=== PATIENT | male | born 1945 | race Caucasian/White ===

== ENCOUNTER 2023-07-02 15:47 | Inpatient (IN) ==
[2023-07-02] MEDS ORDERED: SODIUM CHLORIDE 0.9% 500 ML IV STA (15:58)
[2023-07-02] MEDS ORDERED: STAT IV Infusion **Titration per Protocol STA (16:34)
[2023-07-02] MEDS ORDERED: dilTIAZem HCl 5 MG/ML 5 ML VIAL IV STA (16:34)
[2023-07-02 16:37] LABS: Basophils # (auto) 0.04 K/uL (0-0.2); Basophils % (auto) 0.2 %; Eosinophils # (auto) 0.14 K/uL (0-0.50); Eosinophils % (auto) 0.8 %; Hemoglobin 16.1 g/dl (14.0-18.0); Immature Granulocytes # (auto) 0.15 K/uL (0.01-0.20); Immature Granulocytes % (auto) 0.8 %; Lymphocytes # (auto) 0.72 K/uL (1.2-3.4); Lymphocytes % (auto) 3.9 %; Mean Corpuscular Hemoglobin 28.6 pg (25.0-34.0); Mean Corpuscular Hgb Conc 34.3 g/dL (32.0-36.0); Mean Corpuscular Volume 83.6 fL (80.0-100.0); Mean Platelet Volume 10.6 fL (9.4-12.4); Monocytes # (auto) 1.19 K/uL (0.11-0.59); Monocytes % (auto) 6.4 %; Neutrophils # (auto) 16.36 K/uL (1.40-6.50); Neutrophils % (auto) 87.9 %; Platelet Count 233 K/uL (130-400); RDW Coefficient of Variation 12.8 % (11.5-14.5); RDW Standard Deviation 38.7 fL (36.4-46.3); Red Blood Count 5.62 M/uL (4.70-6.10)
[2023-07-02] MEDS ORDERED: ONDANSETRON INJ 2 MG/ML 2 ML VIAL IV STA (16:37)
[2023-07-02] MEDS ORDERED: dilTIAZem HCL 125 MG in DEXTROSE 5% 100 ML IV SCH (16:45)
[2023-07-02 16:55] LABS: Albumin Globulin Ratio 1.2 (0.9-2); Albumin Level 4.1 gm/dl (3.4-5.0); BUN Creatinine Ratio 19.2 (10-20); Bilirubin,Total 1.6 mg/dl (0.2-1.0); Calcium 8.9 mg/dl (8.6-10.3); Creatinine Clr Calc Pharmacy 57.9 ml/min; Est GFR (African American) 60.6 ml/min; Est GFR (Non-African American) 52.3 ml/min; Globulin 3.5 gm/dl (2.5-4.0); Magnesium 1.7 mg/dl (1.7-2.4); Potassium 3.7 mmol/L (3.5-5.1); Total Protein 7.6 gm/dl (6.0-8.3)
--- NOTE | 2023-07-02 18:04 | CT Scan Report ---
ABDOMEN AND PELVIS CT WITHOUT CONTRAST CT DOSE: 1446.57 mGy.cm HISTORY: Acute lower abdominal pain with nausea and vomiting lower abd pain, vomiting TECHNIQUE: Multiaxial CT images of the abdomen and pelvis were performed without contrast. A dose lo wering technique was utilized adhering to the principles of ALARA. COMPARISON STUDY: None. FINDINGS: Cardiomegaly with coronary artery calcifications. Mild bibasilar atelectasis. No free air. Calcified granulomata in the spleen. Mildly atrophic pancreas. Remarkable gallbladder and adrenal gla nds. Mild hepatomegaly with hepatic steatosis. Unremarkable right kidney. There are at least 7 nonobstructing calculi left kidney measuring up to 8 mm. Mild to moderate left-sided hydroureteronephrosis with reactive perinephric and perirenal inflamm atory stranding secondary to an obstructing 5 x 6 x 5 mm calculus of the left ureter at the level of L4-L5. Prostatomegaly. Urinary bladder wall thickening with partial distention. Atherosclerosis of th e aorta. No lymphadenopathy. Duodenal diverticula. No bowel junction or bowel wall thickening. Colonic diverticulosis. Normal appe ndix. Unremarkable soft tissues. Degenerative changes of the spine result in multilevel central canal and foraminal narrowing and the lumbar distribution. IMPRESSION: 1. [id number] left-sided hydroureteronephrosis secondary to an obstructing 6 mm calculus of the left ureter at the level L4-L5. 2. Left nephrolithiasis. 3. Hepatic steatosis. 4. Additional findings as above. ACT 112: Negative or not required by law. The above report was generated using voice recognition software. It may contain grammatical, syntax o r spelling errors. Electronically signed by: Win Barahona M.D. 07/02/2023 6:01 PM
--- NOTE | 2023-07-02 18:32 | Emergency Department Note ---
Impression & Plan Ureterolithiasis, Atrial fibrillation with rapid ventricular response, Vomiting, Acute UTI (urinary tract infection) ED Provider Note INFORMANT: Patient ED PROVIDER(S): Isiah Laughlin MD CHIEF COMPLAINT: Vomiting PLAN: Disposition: Admitted Condition: Guarded Outpatient prescription management: none Referral: None MEDICAL DECISION MAKING: Patient presented because of vomiting and noted abdominal pain. He was found to be in rapid atrial fibrillation. He was seen promptly and an ECG confirmed his rapid A-fib. Cardizem bolus and drip ordered. This did do well to rate control the patient. The patient had some tenderness mostly on the left side of his abdomen on examination. He had a significant leukocytosis. Chemistry panel was unremarkable. CT imaging was performed and did reveal a 5 to 6 mm left-sided stone with hydronephrosis. There was some delay in getting a urinalysis from the patient. Unfortunately when this was done and appears to be infected. Patient did receive saline hydration. Patient was given IV Rocephin. Patient will need further management in the hospital. Consultation was made with urology. Case discussed with Yuri Pak PA-C. Patient was evaluated in the ER and felt to be in need of emergent stenting. Consultation was made with Dr. Flo Jeffers, [facility] hospitalist service. Patient was admitted for further management. . Discussed with gas manager After review of the information above and other included data, I feel the patient requires admission. Triage Nursing notes reviewed and agree them. Vital Signs: reviewed and remarkable for tachycardia Prior /Outside records reviewed: none Differential diagnosis: Etiologies such as gastroenteritis, food borne illness, infections, appendicitis, diverticulitis, inflammatory bowel disease, GI bleed, biliary pathology, as well as others were entertained. Diagnostics, as interpreted by me: ECG: Twelve-lead ECG reveals atrial fibrillation with rapid ventricular response at 145 bpm. PVCs present. Left axis deviation. No ST elevation. Septal Q wave present. Cardiac Monitoring: Cardiac monitoring ordered by me: The patient was placed on continuous cardiac monitoring and observed. It revealed atrial fibrillation at 124 bpm. Medical decision rules: none Imaging studies: CT imaging of the abdomen pelvis reveals a left-sided proximal ureteral stone with hydronephrosis. HPI: The patient is a 78year old male who presents to the Emergency Room with complaints of vomiting. This started 3 days ago and is persisting. The patient also notes the following associated symptoms, feeling dizzy, poor appetite, abdominal pain that was described as generalized but more so on the left side. Pain is worse with being up and moving around but feels much better laying down. The patient has found no medication for relieving factors. Current pain is rated as 0/10. Pain at its worst was an 8. Pt denies LOC, headache, fevers, chills, diaphoresis, visual changes, neck pain, chest pain, breathing difficulties, back pain, melena, hematochezia, urinary symptoms, numbness, weak ness, lymphadenopathy, rash, or other complaints. PAST MEDICAL HISTORY: See Below, Lyme PAST SURGICAL HISTORY: See Below, SOCIAL HISTORY: See Below, non-smoker HOME MEDICATIONS: See Below ALLERGIES: See Below VITALS: See Below PHYSICAL EXAMINATION: GENERAL: Awake, alert, uncomfortable-appearing, in no distress HENT: Normocephalic, atraumatic. Oropharynx unremarkable. EYES: Normal conjunctiva. Sclera non-icteric. NECK: Inspection normal. Non-tender. Supple. No nuchal rigidity. FROM. No masses. RESPIRATORY: Clear to auscultation. No wheezes. No rales. Normal respiratory effort. CARDIAC: Tachycardic rate. Irregular rhythm. No murmurs. No rubs. Extremities warm and well perfused. Pulses equal. No JVD. GI: Soft, non-distended. Left flank and left lower quadrant tenderness to palpation. No rebound or guarding. No masses. RECTAL: Deferred. MUSCULOSKELETAL: Atraumatic. Chest examination reveals no tenderness. The back is symmetrical on inspection without obvious abnormality. There is no CVA ten derness to palpation. No joint edema. LOWER EXTREMITIES: Calves are equal size bilaterally and non-tender. No edema. No discoloration. NEURO: Normal sensorium. No sensory or motor deficits noted. SKIN: No rash or jaundice noted. CRITICAL CARE: I have personally spent 35 minutes of critical care time in the direct management of this patient. This includes bedside care, interpretation of diagnostic studies, and testing, discussion with consultants, patient, and other required patient management activities. These minutes are in excess of all separately billable procedures. Past Med/Surg History Medical History Hypertension Surgical History History of cataract surgery RT History of tonsillectomy History of tooth extraction Family History Family/Other No pertinent family history Other No family history of adverse response to anesthesia Denies family history of Ovarian cancer Prostate cancer Myocardial infarction Breast cancer Colorectal cancer Social History Smoking Status: Never smoker Second Hand Exposure: No; Do You Dip or Chew Tobacco: No; Hx Alcohol Use: No Hx Substance Use: No Preferred Language: French Communication Ability: Effective Housekeeping Coordinator Required: No Beliefs That Will Affect Care: None Current Living Situation: Spouse current occupational status: retired Feels Safe at Home: Yes Assistive Devices: Denture - Upper and Denture - Lower Allergies Allergies Allergy/AdvReac Type Severity Reaction Status Date / Time ION Inhibitors AdvReac Intermediate COUGH PER Verified 07/02/23 18:14 GMG amoxicillin [From Augmentin] AdvReac Intermediate BLURRED Verified 07/02/23 18:14 VISION PER GMG clavulanic acid AdvReac Intermediate BLURRED Verified 07/02/23 18:14 [From Augmentin] VISION PER GMG levofloxacin [From Levaquin] AdvReac Intermediate BLURRED Verified 07/02/23 18:14 VISION PER GMG Home Meds Home Medications Medication Instructions Recorded Confirmed multivitamin 1 tab PO QAM 09/06/20 07/02/23 aspirin 81 mg tablet,delayed 81 mg PO DAILY 07/02/23 07/02/23 release Previous Rx's Medication Instructions Recorded amlodipine 5 mg tablet 5 mg PO QAM #90 tabs 10/18/20 atenolol 25 mg tablet 25 mg PO QAM #90 tabs 11/08/20 Results & Data (ED) Vital Signs Vital Signs - 24 hr 07/02/23 15:54 07/02/23 16:23 07/02/23 16:23 Temperature 37.2 C Temperature Source Temporal Artery Scan Pulse Rate 123 H 155 H Pulse Rate [Apical] Pulse Rate from SpO2 Sensor Pulse Rhythm [Apical] Respiratory Rate 20 Respiratory Effort / Characteristics Non-Labored Spontaneous Respiratory Depth Normal Respiratory Pattern Blood Pressure 185/105 H 161/114 H Blood Pressure [Left Arm] Blood Pressure Mean 131 121 Blood Pressure Mean [Left Arm] Blood Pressure Position [Left Arm] Pulse Oximetry 94 Oxygen Delivery Method Room Air Oxygen Flow Rate Sepsis Recent Fever Within 48 Hours No Sepsis New/Unexplained Change in Mental Status No Sepsis Action Taken by Nursing No Action Required 07/02/23 16:23 07/02/23 16:26 07/02/23 16:26 Temperature Temperature Source Pulse Rate 156 H 154 H Pulse Rate [Apical] Pulse Rate from SpO2 Sensor 148 H Pulse Rhythm [Apical] Respiratory Rate 33 H 28 H Respiratory Effort / Characteristics Respiratory Depth Respiratory Pattern Blood Pressure 149/97 H Blood Pressure [Left Arm] Blood Pressure Mean 103 Blood Pressure Mean [Left Arm] Blood Pressure Position [Left Arm] Pulse Oximetry 93 Oxygen Delivery Method Oxygen Flow Rate Sepsis Recent Fever Within 48 Hours Sepsis New/Unexplained Change in Mental Status Sepsis Action Taken by Nursing 07/02/23 16:30 07/02/23 16:30 07/02/23 16:36 Temperature Temperature Source Pulse Rate 148 H 137 H Pulse Rate [Apical] Pulse Rate from SpO2 Sensor 145 H Pulse Rhythm [Apical] Respiratory Rate 31 H 25 H Respiratory Effort / Characteristics Respiratory Depth Respiratory Pattern Blood Pressure 144/96 H Blood Pressure [Left Arm] Blood Pressure Mean 109 Blood Pressure Mean [Left Arm] Blood Pressure Position [Left Arm] Pulse Oximetry 93 Oxygen Delivery Method Oxygen Flow Rate Sepsis Recent Fever Within 48 Hours Sepsis New/Unexplained Change in Mental Status Sepsis Action Taken by Nursing 07/02/23 16:36 07/02/23 16:40 07/02/23 16:40 Temperature Temperature Source Pulse Rate 118 H Pulse Rate [Apical] Pulse Rate from SpO2 Sensor 101 H Pulse Rhythm [Apical] Respiratory Rate 22 Respiratory Effort / Characteristics Respiratory Depth Respiratory Pattern Blood Pressure 135/105 H 140/79 Blood Pressure [Left Arm] Blood Pressure Mean 115 84 Blood Pressure Mean [Left Arm] Blood Pressure Position [Left Arm] Pulse Oximetry 93 Oxygen Delivery Method Oxygen Flow Rate Sepsis Recent Fever Within 48 Hours Sepsis New/Unexplained Change in Mental Status Sepsis Action Taken by Nursing 07/02/23 16:45 07/02/23 16:45 07/02/23 16:50 Temperature Temperature Source Pulse Rate 118 H Pulse Rate [Apical] Pulse Rate from SpO2 Sensor 119 H Pulse Rhythm [Apical] Respiratory Rate 31 H Respiratory Effort / Characteristics Respiratory Depth Respiratory Pattern Blood Pressure 122/92 129/84 Blood Pressure [Left Arm] Blood Pressure Mean 102 108 Blood Pressure Mean [Left Arm] Blood Pressure Position [Left Arm] Pulse Oximetry 88 L Oxygen Delivery Method Oxygen Flow Rate Sepsis Recent Fever Within 48 Hours Sepsis New/Unexplained Change in Mental Status Sepsis Action Taken by Nursing 07/02/23 16:50 07/02/23 16:55 07/02/23 16:55 Temperature Temperature Source Pulse Rate 106 H 103 H Pulse Rate [Apical] Pulse Rate from SpO2 Sensor 109 H 103 H Pulse Rhythm [Apical] Respiratory Rate 32 H 30 H Respiratory Effort / Characteristics Respiratory Depth Respiratory Pattern Blood Pressure 129/92 Blood Pressure [Left Arm] Blood Pressure Mean 108 Blood Pressure Mean [Left Arm] Blood Pressure Position [Left Arm] Pulse Oximetry 90 90 Oxygen Delivery Method Oxygen Flow Rate Sepsis Recent Fever Within 48 Hours Sepsis New/Unexplained Change in Mental Status Sepsis Action Taken by Nursing 07/02/23 17:00 07/02/23 17:00 07/02/23 17:05 Temperature Temperature Source Pulse Rate 117 H Pulse Rate [Apical] Pulse Rate from SpO2 Sensor 118 H Pulse Rhythm [Apical] Respiratory Rate 28 H Respiratory Effort / Characteristics Respiratory Depth Respiratory Pattern Blood Pressure 143/96 H 153/95 H Blood Pressure [Left Arm] Blood Pressure Mean 117 97 Blood Pressure Mean [Left Arm] Blood Pressure Position [Left Arm] Pulse Oximetry 89 L Oxygen Delivery Method Oxygen Flow Rate Sepsis Recent Fever Within 48 Hours Sepsis New/Unexplained Change in Mental Status Sepsis Action Taken by Nursing 07/02/23 17:05 07/02/23 17:11 07/02/23 17:11 Temperature Temperature Source Pulse Rate 103 H 135 H Pulse Rate [Apical] Pulse Rate from SpO2 Sensor 104 H Pulse Rhythm [Apical] Respiratory Rate 27 H 22 Respiratory Effort / Characteristics Respiratory Depth Respiratory Pattern Blood Pressure 135/97 Blood Pressure [Left Arm] Blood Pressure Mean 118 Blood Pressure Mean [Left Arm] Blood Pressure Position [Left Arm] Pulse Oximetry 88 L Oxygen Delivery Method Oxygen Flow Rate Sepsis Recent Fever Within 48 Hours Sepsis New/Unexplained Change in Mental Status Sepsis Action Taken by Nursing 07/02/23 17:25 07/02/23 17:25 07/02/23 17:28 Temperature Temperature Source Pulse Rate 115 H 124 H Pulse Rate [Apical] Pulse Rate from SpO2 Sensor 110 H 124 H Pulse Rhythm [Apical] Respiratory Rate 23 17 Respiratory Effort / Characteristics Respiratory Depth Respiratory Pattern Blood Pressure 123/96 Blood Pressure [Left Arm] Blood Pressure Mean 106 Blood Pressure Mean [Left Arm] Blood Pressure Position [Left Arm] Pulse Oximetry 91 Oxygen Delivery Method Oxygen Flow Rate Sepsis Recent Fever Within 48 Hours Sepsis New/Unexplained Change in Mental Status Sepsis Action Taken by Nursing 07/02/23 19:05 07/02/23 20:22 07/02/23 19:20 Temperature Temperature Source Pulse Rate 102 H 108 H 109 H Pulse Rate [Apical] Pulse Rate from SpO2 Sensor Pulse Rhythm [Apical] Respiratory Rate 26 H 27 H Respiratory Effort / Characteristics Respiratory Depth Respiratory Pattern Blood Pressure 130/92 118/77 Blood Pressure [Left Arm] Blood Pressure Mean 104 90 Blood Pressure Mean [Left Arm] Blood Pressure Position [Left Arm] Pulse Oximetry 90 Oxygen Delivery Method Room Air Oxygen Flow Rate Sepsis Recent Fever Within 48 Hours Sepsis New/Unexplained Change in Mental Status Sepsis Action Taken by Nursing 07/02/23 19:45 07/02/23 20:00 07/02/23 20:15 Temperature Temperature Source Pulse Rate 98 H 105 H 110 H Pulse Rate [Apical] Pulse Rate from SpO2 Sensor Pulse Rhythm [Apical] Respiratory Rate 27 H 21 24 Respiratory Effort / Characteristics Respiratory Depth Respiratory Pattern Blood Pressure 133/86 134/95 125/84 Blood Pressure [Left Arm] Blood Pressure Mean 101 108 97 Blood Pressure Mean [Left Arm] Blood Pressure Position [Left Arm] Pulse Oximetry 91 Oxygen Delivery Method Room Air Oxygen Flow Rate Sepsis Recent Fever Within 48 Hours Sepsis New/Unexplained Change in Mental Status Sepsis Action Taken by Nursing 07/02/23 20:45 07/02/23 21:16 07/02/23 21:20 Temperature Temperature Source Pulse Rate 94 H 105 H 97 H Pulse Rate [Apical] Pulse Rate from SpO2 Sensor 98 H Pulse Rhythm [Apical] Respiratory Rate 24 22 21 Respiratory Effort / Characteristics Respiratory Depth Respiratory Pattern Blood Pressure 125/87 121/85 Blood Pressure [Left Arm] Blood Pressure Mean 99 97 Blood Pressure Mean [Left Arm] Blood Pressure Position [Left Arm] Pulse Oximetry 92 93 91 Oxygen Delivery Method Room Air Room Air Oxygen Flow Rate Sepsis Recent Fever Within 48 Hours Sepsis New/Unexplained Change in Mental Status Sepsis Action Taken by Nursing 07/02/23 22:31 07/02/23 22:40 07/02/23 22:49 Temperature 37.4 C Temperature Source Temporal Artery Scan Pulse Rate Pulse Rate [Apical] 96 H 95 H 98 H Pulse Rate from SpO2 Sensor Pulse Rhythm [Apical] Irregular Irregular Irregular Respiratory Rate 18 20 22 Respiratory Effort / Characteristics Non-Labored Spontaneous Non-Labored Spontaneous Non-Labored Spontaneous Respiratory Depth Normal Normal Normal Respiratory Pattern Regular Regular Regular Blood Pressure Blood Pressure [Left Arm] 108/73 98/80 L 106/73 Blood Pressure Mean Blood Pressure Mean [Left Arm] 84 86 84 Blood Pressure Position [Left Arm] Semi-fowlers Semi-fowlers Semi-fowlers Pulse Oximetry 95 97 96 Oxygen Delivery Method Oxymask Oxymask Oxymask Oxygen Flow Rate 5 5 3 Sepsis Recent Fever Within 48 Hours Sepsis New/Unexplained Change in Mental Status Sepsis Action Taken by Nursing Laboratory Data 07/02/23 16:10 07/02/23 16:10 Lab Results 07/02/23 07/02/23 07/02/23 Range/Units 16:10 16:10 18:45 WBC 18.60 H (4.8-10.8) K/ul RBC 5.62 (4.70-6.10) M/uL Hgb 16.1 (14.0-18.0) g/dl Hct 47.0 (42.0-52.0) % MCV 83.6 (80.0-100.0) fL MCH 28.6 (25.0-34.0) pg MCHC 34.3 (32.0-36.0) g/dL RDW Std Deviation 38.7 (36.4-46.3) fL RDW Coeff of Leeanne 12.8 (11.5-14.5) % Plt Count 233 (130-400) K/uL MPV 10.6 (9.4-12.4) fL Immature Gran % (Auto) 0.8 % Neut % (Auto) 87.9 % Lymph % (Auto) 3.9 % [place] % (Auto) 6.4 % Eos % (Auto) 0.8 % Baso % (Auto) 0.2 % Neut # (Auto) 16.36 H (1.40-6.50) K/uL Lymph # (Auto) 0.72 L (1.2-3.4) K/uL [place] # (Auto) 1.19 H (0.11-0.59) K/uL Eos # (Auto) 0.14 (0-0.50) K/uL Baso # (Auto) 0.04 (0-0.2) K/uL Immature Gran # (Auto) 0.15 (0.01-0.20) K/uL APTT (21.0-31.0) Seconds PTT Ratio ABG pH (7.35-7.45) ABG pCO2 (35-46) mmHg ABG pO2 (80-95) mmHg ABG HCO3 (19-24) mmol/L ABG O2 Saturation (90-95) % ABG Base Excess (-9-1.8) mEq/L Jhony Test (Pos) Oxygen Given Sodium 134 L (136-145) mmol/L Potassium 3.7 (3.5-5.1) mmol/L Chloride 97 L (98-107) mmol/L Carbon Dioxide 25 (21-32) mmol/L Anion Gap 12 H (3-11) BUN 25 H (6-23) mg/dl Creatinine 1.30 (0.6-1.4) mg/dl Est Cr Clr Drug Dosing 57.9 ml/min Est GFR ( Amer) 60.6 ml/min Est GFR (Non-Af Amer) 52.3 ml/min BUN/Creatinine Ratio 19.2 (10-20) Glucose 209 H (70-99(Fasting)) mg/dl Lactate (0.4-2.0) mmol/L Calcium 8.9 (8.6-10.3) mg/dl Magnesium 1.7 (1.7-2.4) mg/dl Total Bilirubin 1.6 H (0.2-1.0) mg/dl AST 19 (13-39) U/L ALT 11 (7-52) U/L Alkaline Phosphatase 70 (34-104) U/L B-Natriuretic Peptide (0-100) pg/ml Total Protein 7.6 (6.0-8.3) gm/dl Albumin 4.1 (3.4-5.0) gm/dl Globulin 3.5 (2.5-4.0) gm/dl Albumin/Globulin Ratio 1.2 (0.9-2) Lipase 9 L (11-82) U/L TSH (0.300-4.500) uIu/ml Urine Color Dark Yellow Urine Appearance Clear (Clear) Urine pH 6.5 (4.5-7.5) Ur Specific [place] 1.024 (1.000-1.030) Urine Protein 2+ H (Negative) Urine Glucose (UA) Trace H (Negative) Urine Ketones 1+ H (Negative) Urine Blood Trace H (Negative) Urine Nitrite Positive A (Negative) Urine Bilirubin Negative (Negative) Urine Urobilinogen Negative (Negative) Ur Leukocyte Esterase Trace H (Negative) Urine WBC (Auto) 10-30 H (0-5) /hpf Urine RBC (Auto) 0-4 (0-4) /hpf U Hyaline Cast (Auto) 0 (0-5) /lpf U Epithel Cells (Auto) 20-30 H (0-5) /lpf Urine Bacteria (Auto) 2+ H (Negative) Urine Yeast Present A (None Prsent) SARS-CoV-2, RNA, NAAT (NEGATIVE) 07/02/23 07/02/23 07/02/23 Range/Units 20:18 20:57 20:57 WBC (4.8-10.8) K/ul RBC (4.70-6.10) M/uL Hgb (14.0-18.0) g/dl Hct (42.0-52.0) % MCV (80.0-100.0) fL MCH (25.0-34.0) pg MCHC (32.0-36.0) g/dL RDW Std Deviation (36.4-46.3) fL RDW Coeff of Leeanne (11.5-14.5) % Plt Count (130-400) K/uL MPV (9.4-12.4) fL Immature Gran % (Auto) % Neut % (Auto) % Lymph % (Auto) % [place] % (Auto) % Eos % (Auto) % Baso % (Auto) % Neut # (Auto) (1.40-6.50) K/uL Lymph # (Auto) (1.2-3.4) K/uL [place] # (Auto) (0.11-0.59) K/uL Eos # (Auto) (0-0.50) K/uL Baso # (Auto) (0-0.2) K/uL Immature Gran # (Auto) (0.01-0.20) K/uL APTT 28.5 (21.0-31.0) Seconds PTT Ratio 1.0 ABG pH (7.35-7.45) ABG pCO2 (35-46) mmHg ABG pO2 (80-95) mmHg ABG HCO3 (19-24) mmol/L ABG O2 Saturation (90-95) % ABG Base Excess (-9-1.8) mEq/L Jhony Test (Pos) Oxygen Given Sodium (136-145) mmol/L Potassium (3.5-5.1) mmol/L Chloride (98-107) mmol/L Carbon Dioxide (21-32) mmol/L Anion Gap (3-11) BUN (6-23) mg/dl Creatinine (0.6-1.4) mg/dl Est Cr Clr Drug Dosing ml/min Est GFR ( Amer) ml/min Est GFR (Non-Af Amer) ml/min BUN/Creatinine Ratio (10-20) Glucose (70-99(Fasting)) mg/dl Lactate 2.0 (0.4-2.0) mmol/L Calcium (8.6-10.3) mg/dl Magnesium (1.7-2.4) mg/dl Total Bilirubin (0.2-1.0) mg/dl AST (13-39) U/L ALT (7-52) U/L Alkaline Phosphatase (34-104) U/L B-Natriuretic Peptide (0-100) pg/ml Total Protein (6.0-8.3) gm/dl Albumin (3.4-5.0) gm/dl Globulin (2.5-4.0) gm/dl Albumin/Globulin Ratio (0.9-2) Lipase (11-82) U/L TSH (0.300-4.500) uIu/ml Urine Color Urine Appearance (Clear) Urine pH (4.5-7.5) Ur Specific [place] (1.000-1.030) Urine Protein (Negative) Urine Glucose (UA) (Negative) Urine Ketones (Negative) Urine Blood (Negative) Urine Nitrite (Negative) Urine Bilirubin (Negative) Urine Urobilinogen (Negative) Ur Leukocyte Esterase (Negative) Urine WBC (Auto) (0-5) /hpf Urine RBC (Auto) (0-4) /hpf U Hyaline Cast (Auto) (0-5) /lpf U Epithel Cells (Auto) (0-5) /lpf Urine Bacteria (Auto) (Negative) Urine Yeast (None Prsent) SARS-CoV-2, RNA, NAAT NEGATIVE (NEGATIVE) 07/02/23 07/02/23 07/02/23 Range/Units 20:57 20:58 21:11 WBC (4.8-10.8) K/ul RBC (4.70-6.10) M/uL Hgb (14.0-18.0) g/dl Hct (42.0-52.0) % MCV (80.0-100.0) fL MCH (25.0-34.0) pg MCHC (32.0-36.0) g/dL RDW Std Deviation (36.4-46.3) fL RDW Coeff of Leeanne (11.5-14.5) % Plt Count (130-400) K/uL MPV (9.4-12.4) fL Immature Gran % (Auto) % Neut % (Auto) % Lymph % (Auto) % [place] % (Auto) % Eos % (Auto) % Baso % (Auto) % Neut # (Auto) (1.40-6.50) K/uL Lymph # (Auto) (1.2-3.4) K/uL [place] # (Auto) (0.11-0.59) K/uL Eos # (Auto) (0-0.50) K/uL Baso # (Auto) (0-0.2) K/uL Immature Gran # (Auto) (0.01-0.20) K/uL APTT (21.0-31.0) Seconds PTT Ratio ABG pH 7.44 (7.35-7.45) ABG pCO2 41 (35-46) mmHg ABG pO2 64 L (80-95) mmHg ABG HCO3 28 H (19-24) mmol/L ABG O2 Saturation 91.9 (90-95) % ABG Base Excess 3.3 H (-9-1.8) mEq/L Jhony Test Pos (Pos) Oxygen Given ROOM AIR Sodium (136-145) mmol/L Potassium (3.5-5.1) mmol/L Chloride (98-107) mmol/L Carbon Dioxide (21-32) mmol/L Anion Gap (3-11) BUN (6-23) mg/dl Creatinine (0.6-1.4) mg/dl Est Cr Clr Drug Dosing ml/min Est GFR ( Amer) ml/min Est GFR (Non-Af Amer) ml/min BUN/Creatinine Ratio (10-20) Glucose (70-99(Fasting)) mg/dl Lactate (0.4-2.0) mmol/L Calcium (8.6-10.3) mg/dl Magnesium (1.7-2.4) mg/dl Total Bilirubin (0.2-1.0) mg/dl AST (13-39) U/L ALT (7-52) U/L Alkaline Phosphatase (34-104) U/L B-Natriuretic Peptide 285 H (0-100) pg/ml Total Protein (6.0-8.3) gm/dl Albumin (3.4-5.0) gm/dl Globulin (2.5-4.0) gm/dl Albumin/Globulin Ratio (0.9-2) Lipase (11-82) U/L TSH 1.448 (0.300-4.500) uIu/ml Urine Color Urine Appearance (Clear) Urine pH (4.5-7.5) Ur Specific [place] (1.000-1.030) Urine Protein (Negative) Urine Glucose (UA) (Negative) Urine Ketones (Negative) Urine Blood (Negative) Urine Nitrite (Negative) Urine Bilirubin (Negative) Urine Urobilinogen (Negative) Ur Leukocyte Esterase (Negative) Urine WBC (Auto) (0-5) /hpf Urine RBC (Auto) (0-4) /hpf U Hyaline Cast (Auto) (0-5) /lpf U Epithel Cells (Auto) (0-5) /lpf Urine Bacteria (Auto) (Negative) Urine Yeast (None Prsent) SARS-CoV-2, RNA, NAAT (NEGATIVE) Administered Medications Diltiazem HCl 125 mg/ Dextrose 125 mls @ 12.5 mls/hr IV .Q10H [facility]; Protocol Stop: 08/01/23 16:44 Last Titration: 07/02/23 20:15 Dose: 12.5 mg/hr, 12.5 mls/hr Documented By: AFRICA Co-signed By: JAYNE Titration: 07/02/23 19:01 Dose: 10 mg/hr, 10 mls/hr Documented By: LIEN Co-signed By: AFRICA Titration: 07/02/23 18:22 Dose: 7.5 mg/hr, 7.5 mls/hr Documented By: LIEN Co-signed By: JAYNE Admin: 07/02/23 17:27 Dose: 5 mg/hr, 5 mls/hr Documented By: GABREILA Co-signed By: CHRISTOS Discontinued Medications Diatrizoate Meglumine (Diatrizoate Meglumine 30% 100ml Vial) 10 ml INSTIL ONCE ONE Stop: 07/02/23 22:40 Last Admin: 07/02/23 22:39 Dose: 10 ml Documented By: [id number] Diltiazem HCl (Diltiazem Hcl 5 Mg/Ml 5 Ml Vial) 10 mg IV NOW STA Stop: 07/02/23 16:35 Last Admin: 07/02/23 16:39 Dose: 10 mg Documented By: CHRISTOS Co-signed By: LIEN Sodium Chloride (Nss) 500 mls @ 999 mls/hr IV .Q31M STA Stop: 07/02/23 16:28 Last Infusion: 07/02/23 19:15 Dose: 0 mls/hr Documented By: Admin: 07/02/23 16:25 Dose: 999 mls/hr Documented By: LIEN Ceftriaxone Sodium (Rocephin) 2,000 mg in 70 mls @ 140 mls/hr IV NOW STA Stop: 07/02/23 20:23 Last Infusion: 07/02/23 20:50 Dose: 0 mls/hr Documented By: Admin: 07/02/23 20:12 Dose: 140 mls/hr Documented By: AFRICA Cefepime HCl (Maxipime) 2,000 mg in 20 mls @ 5 mls/min IV NOW STA; Protocol Stop: 07/02/23 20:22 Last Admin: 07/02/23 21:15 Dose: 5 mls/min Documented By: AFRICA Miscellaneous (Stat Iv Infusion Titration Per Protocol) 1 each N/A NOW STA Stop: 07/02/23 16:35 Last Admin: 07/02/23 17:28 Dose: Not Given Documented By: GABRIELA Ondansetron HCl (Ondansetron Inj 2 Mg/Ml 2 Ml Vial) 4 mg IV NOW STA Stop: 07/02/23 16:38 Last Admin: 07/02/23 16:41 Dose: 4 mg Documented By: LIEN Imaging Data Radiologist's Impression: Abdomen/Pelvis CT 07/02/23 16:[address] WITHOUT CONTRAST CT DOSE: 1446.57 mGy.cm HISTORY: Acute lower abdominal pain with nausea and vomiting lower abd pain, vomiting TECHNIQUE: Multiaxial CT images of the abdomen and pelvis were performed without contrast. A dose lowering technique was utilized adhering to the principles of ALARA. COMPARISON STUDY: None. FINDINGS: Cardiomegaly with coronary artery calcifications. Mild bibasilar atelectasis. No free air. Calcified granulomata in the spleen. Mildly atrophic pancreas. Remarkable gallbladder and adrenal glands. Mild hepatomegaly with hepatic steatosis. Unremarkable right kidney. There are at least 7 nonobstructing calculi left kidney measuring up to 8 mm. Mild to moderate left-sided hydroureteronephrosis with reactive perinephric and perirenal inflammatory stranding secondary to an obstructing 5 x 6 x 5 mm calculus of the left ureter at the level of L4-L5. Prostatomegaly. Urinary bladder wall thickening with partial distention. Atherosclerosis of the aorta. No lymphadenopathy. Duodenal diverticula. No bowel junction or bowel wall thickening. Colonic diverticulosis. Normal appendix. Unremarkable soft tissues. Degenerative changes of the spine result in multilevel central canal and foraminal narrowing and the lumbar distribution. IMPRESSION: 1. [id number] left-sided hydroureteronephrosis secondary to an obstructing 6 mm calculus of the left ureter at the level L4-L5. 2. Left nephrolithiasis. 3. Hepatic steatosis. 4. Additional findings as above. ACT 112: Negative or not required by law. The above report was generated using voice recognition software. It may contain grammatical, syntax or spelling errors. Electronically signed by: Win Barahona M.D. 07/02/2023 6:01 PM Discharge Plan Visit Data Chief Complaint: Vomiting Stated Complaint: VOMITING,CHEST PAIN ED Provider: Isiah Laughlin Discharge Problem: Ureterolithiasis, Atrial fibrillation with rapid ventricular response, Vomiting, Acute UTI (urinary tract infection) Discharge Instructions Interventions: ED Discharge Assessment Last Done: 07/02/23 21:32
[2023-07-02 19:38] LABS: Appearance Urine Clear (Clear); Bacteria Urine Automated 2+ (Negative); Bilirubin Urine Negative (Negative); Blood Urine Trace (Negative); Cast Urine Automated 0 /lpf (0-5); Color Urine Dark Yellow; Epithelial Cell Urine Auto 20-30 /lpf (0-5); Glucose Urine UA Trace (Negative); Ketones Urine 1+ (Negative); Leukocyte Esterase Urine Trace (Negative); Nitrite Urine Positive (Negative); Protein Urine 2+ (Negative); RBC Urine Automated 0-4 /hpf (0-4); Specific Gravity Urine 1.024 (1.000-1.030); Urobilinogen Urine Negative (Negative); pH Urine 6.5 (4.5-7.5)
[2023-07-02] MEDS ORDERED: cefTRIAXone SODIUM 2,000 MG/70 ML BAG IV STA (19:54)
[2023-07-02] MEDS ORDERED: CEFEPIME 2,000 MG/20 ML VIAL IV STA (20:19)
[2023-07-02] MEDS ORDERED: FLUCONAZOLE 200 MG/100 ML BAG IV STA (20:22)
--- NOTE | 2023-07-02 20:25 | Urology Consultation ---
Date of Consultation July 02, 2023 Assessment & Plan (1) Ureterolithiasis: I discussed with the treating emergency room physician and the patient is being admitted on the hospitalist service. It appears as though the patient has a urinary tract infection possibly due to an obstructing kidney stone Urine culture has been sent and the patient has been initiated on antibiotics in form of Rocephin. I discussed with the admitting hospitalist service and they have escalated the patient's antibiotics to cefepime due to his history of possible diabetes these antibiotics should continue and antibiotics be tailored based on culture results The patient should be resuscitated with intravenous fluids. I also discussed this issue with the hospitalist and they have noted that they will initiate appropriate intravenous fluids Serial labs should be followed It is possible that patient's underlying atrial fibrillation may have been triggered triggered by a sepsis response due to his underlying issues noted above At the present time the patient isAfebrile but does exhibit a leukocytosis of 18,000. He also has tachycardia with underlying A-fib which may have been triggered by septic response. I discussed case with my attending physician, Dr. Cohen he feels would be in the patient's best interest to proceed with cystoscopy and ureteral stent placement this evening Additional recommendations will be forthcoming based on his clinical course as unfolds Attending note: Patient independently assessed, examined, interviewed, and evaluated. Agree with note as above. Patient presented with significant abdominal pain nausea vomiting and ill feelings. Had been found to have significant A-fib with considerable tachycardia. Had to be managed from a cardiac standpoint for the rapid A-fib. Patient was dehydrated and was dealing with ongoing issues related to pain discomfort. Underwent further evaluation for abdominal pain found to have a obstructing stone on the left causing considerable hydronephrosis. Patient's urine was also positive. Patient's vitals have improved over time. Has not had considerable hypotension. Has not had a considerable episode of febrile disease. Concern for possible ongoing issues especially related to tachycardia with obstructing stone and ongoing issues related to pain and discomfort with the obstructing stone. Patient has imaging which was reviewed interpreted by myself. Has a obstructing stone seen in the left ureter causing hydronephrosis. Stone is approximately 6 mm. Has numerous other stones in the left kidney with similar size. Discussed extensively different options. Discussed risk benefits. Discussed possible issues and concerns. Discussed elevated white count coming back at 18.6 Patient other labs and vitals were all reviewed. He is satting 91% on room air creatinine came back as 1.3Which is slightly elevated from his baseline. Hemoglobin was 16.1. Extensive review of options. Discussed concerns and issues. Discussed expectations. Discussed need for decompression system as well as possible continued broad-spectrum antibiotics due to elevated white count and ill feelings. Did discuss possible development of sepsis and hypotension. Discussed concerns related to ongoing issues related to A-fib. Patient will likely need intervention on stone to remove stone however did discuss with the patient's acute illness and significant issues at this point likely will be placing stent in order to decompress system with time for recovery and intervention on stone once patient is stabilized and improved. Reviewed options extensively. Discussed risk benefits. Discussed concerns of bleeding infection and other concerns and issues. Patient is being admitted to the hospital service for medical management. We will plan to manage stone at this point with stent placement. Discussed need for further intervention on stone as well as possible treatment of stones in the kidney. Patient has been given broad-spectrum antibiotics while in the ER. Risks and benefits discussed at length for procedure. These include bleeding, infection, injury to surrounding tissues or organs, and risks associated with anesthesia. Patient states understanding and agrees to proceed. Will sign consent and schedule. Due to patient's significant tachycardia and elevated white count discussed need for urgent intervention patient is agreeable. Plan for cystoscopy with left stent placement. History of Present Illness History of Present Illness This is a 78-year-old male who presented to the emergency department secondary to 2 days of lower abdominal pain. Patient also has nausea and vomiting. In addition the patient reports some intermittent left flank pain. He denies any fevers, shakes, or chills. He does report some intermittent dysuria but denies any hematuria. He has no history of kidney stones in the past. His most recent oral intake was 1-2 saltine crackers at approximately 8:00 AM this morning. Patient denies any medical problems and states that with his daily activities he does not have any chest pain or shortness of breath Since arrival to the hospital the patient has had labs and imaging which independent reviewed. CBC reveals white blood cell count was elevated 18.6. Hemoglobin, hematocrit, platelet count were normal. Chemistry profile showed sodium was 134 with a normal potassium. BUN was 25 with a creatinine of 1.3. He did have a magnesium level that was noted to be normal. Urinalysis was positive for nitrites and trace leukocyte Estrace. There also 10-30 white blood cells per high-power field and 2+ bacteria. Yeast was present in the urine as well. In addition to labs the patient underwent a CT scan of the abdomen and pelvis. This showed the patient had moderate left-sided hydronephrosis felt to be secondary to an obstructing 6 mm calculus at in the left ureter at the L4-L5 level. Upon presentation emergency department the patient was noted to have a rapid heart rate. An EKG showed atrial fibrillation with a heart rate in the 140s. There were no changes indicative of ischemic changes at this time. Patient was treated with diltiazem and his heart rate improved to approximately 100 to 110 bpm At the time of my interview the patient was resting comfortably in bed. He notes that his pain had markedly improved and he was in no distress Concerning past medical history the patient denies any medical problems but review of his chart shows that he has hypertension and diabetes. He does not take any medications for his diabetes. Concerning past surgical history he has had a right cataract surgery. Allergies he denies any allergies Concerning social history he denies history of smoking Concerning family history he denies family history of coronary artery disease Allergies Allergy/AdvReac Type Severity Reaction Status Date / Time ION Inhibitors AdvReac Intermediate COUGH PER Verified 07/02/23 18:14 GMG amoxicillin [From Augmentin] AdvReac Intermediate BLURRED Verified 07/02/23 18:14 VISION PER GMG clavulanic acid AdvReac Intermediate BLURRED Verified 07/02/23 18:14 [From Augmentin] VISION PER GMG levofloxacin [From Levaquin] AdvReac Intermediate BLURRED Verified 07/02/23 18:14 VISION PER GMG Home Medications Medication Instructions Recorded Confirmed Type multivitamin 1 tab PO QAM 09/06/20 07/02/23 History amlodipine 5 mg tablet 5 mg PO QAM #90 tabs 10/18/20 07/02/23 Rx atenolol 25 mg tablet 25 mg PO QAM #90 tabs 11/08/20 07/02/23 Rx aspirin 81 mg tablet,delayed 81 mg PO DAILY 07/02/23 07/02/23 History release Patient History Medical History Hypertension Surgical History History of cataract surgery RT History of tonsillectomy History of tooth extraction Family History Family/Other No pertinent family history Other No family history of adverse response to anesthesia Denies family history of Ovarian cancer Prostate cancer Myocardial infarction Breast cancer Colorectal cancer Social History Smoking Status: Never smoker Second Hand Exposure: No; Do You Dip or Chew Tobacco: No; Hx Alcohol Use: No Hx Substance Use: No Preferred Language: Georgian Communication Ability: Effective 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 Beliefs That Will Affect Care: None Current Living Situation: Spouse current occupational status: retired Feels Safe at Home: Yes Assistive Devices: Denture - Upper and Denture - Lower Review of Systems Constitutional: no fever and no chills Ear, Nose, Mouth, Throat: no hearing loss Respiratory: no cough and no dyspnea Cardiovascular: no chest pain Gastrointestinal: + abdominal pain, + nausea and + vomiting Genitourinary: + as per Subjective / HPI Musculoskeletal: + back pain (Left flank) Integumentary: no rash Neurologic: no localized weakness Physical Exam Constitutional: WD/WN, vitals as above Eyes: no conjunctival abnormality ENMT: Ears: no hearing impairment Mouth: no oropharynx abnormality Neck: trachea midline Respiratory: normal respiratory effort; no respiratory distress and no labored breathing No wheezing Cardiovascular: Rate/Rhythm: + tachycardic and + irregularly irregular Vessels: dorsalis pedis pulses present and radial pulses present Gastrointestinal (Abdomen): Abdomen is soft and nonrigid. The patient did have some pain with palpation in his lower abdomen. No rebound tenderness or guarding was noted Musculoskeletal: No calf tenderness Skin: no rashes Neurologic: moves all extremities Psychiatric: A+Ox3, euthymic affect Genitourinary: + CVA tenderness (Minor left-sided CVA tenderness noted with percussion) Results & Data Vital Signs (Past 12 Hours) Vital Signs Temp Pulse Resp BP Pulse Ox O2 Del Method 07/02/23 19:05 102 H 26 H 130/92 07/02/23 17:28 124 H 17 91 07/02/23 17:25 115 H 23 07/02/23 17:25 123/96 07/02/23 17:11 135 H 22 07/02/23 17:11 135/97 07/02/23 17:05 103 H 27 H 88 L 07/02/23 17:05 153/95 H 07/02/23 17:00 117 H 28 H 89 L 07/02/23 17:00 143/96 H 07/02/23 16:55 103 H 30 H 90 07/02/23 16:55 129/92 07/02/23 16:50 106 H 32 H 90 07/02/23 16:50 129/84 07/02/23 16:45 118 H 31 H 88 L 07/02/23 16:45 122/92 07/02/23 16:40 140/79 07/02/23 16:40 118 H 22 93 07/02/23 16:36 135/105 H 07/02/23 16:36 137 H 25 H 07/02/23 16:30 148 H 31 H 93 07/02/23 16:30 144/96 H 07/02/23 16:26 154 H 28 H 07/02/23 16:26 149/97 H 07/02/23 16:23 156 H 33 H 93 07/02/23 16:23 161/114 H 07/02/23 16:23 155 H 07/02/23 15:54 37.2 C 123 H 20 185/105 H 94 Room Air PG Care Time/CCT Total # of Minutes Spent Total Time Spent with Patient: Total time spent is greater than 50% in coordination of care (as documented) at patient's floor/unit and/or counseling patient: Coding Level of Care Code 79934 INT INP/OBS CARE 3/75MIN Diagnoses Ureterolithiasis N20.1
--- NOTE | 2023-07-02 21:08 | History & Physical Report ---
Date of Service July 02, 2023 Assessment & Plan (1) Acute hypoxemic respiratory failure: Plan: Possible CHF given abnormal BNP/mild congestion on CXR from new onset A-fib secondary to sepsis from complicated UTI/funguria from obstructive kidney stone Patient denies chest pain/SOB symptoms. Hypertension, elevated upon arrival at the ER secondary to illness Admits to erratic compliance with home medications. DM2 diet-controlled, patient unaware of outpatient diagnosis, hemoglobin A1c of 7.1 last October 2021 hx ADRYAN (CPAP noncompliance) past tobacco abuse PCU given rapid A-fib Supplemental O2 Baseline ABG CS, check lactic acid Cefepime, fluconazole Urology consult Re: Obstructive uropathy (Patient already seen by provider at the ER. Urgent procedure contemplated tonight.) Initiate beta-isis for rate control IV heparin for thromboembolic prophylaxis if okay with Urology TTE, Cardiology consult Re: New onset A-fib Basal bolus insulin adjusted for n.p.o. status, ISS BG goal 1 10-1 40, update hemoglobin A1c DM education DVT prophylaxis. IV heparin DNR Patient brother in law requesting updates providers. Mr. Lobo Arredondo, contact #[phone]. Text document was generated using [employer] voice recognition software. It may contain grammatical or spelling errors. Kindly contact undersigned for clarification of any documentation item in question. History of Present Illness Chief Complaint: vomiting, dizziness, left-sided abdominal pain Primary Care Provider: Gerardo Martinez DO History obtained from patient, family, and records. Medical history significant for hypertension, DM2 diet-controlled (patient unaware of diagnosis), ADRYAN (CPAP noncompliance), medical noncompliance, past tobacco abuse. 3 days history of left-sided abdominal pain with nausea, poor appetite. Patient dizzy. Denies headache, chest pain, SOB. No hematuria symptoms. Patient noted to be in rapid A-fib upon arrival at the ER. SBP 180s upon arrival at the ER. Lowest O2 sats noted to be 80s on room air. IV ceftriaxone administered for urosepsis. IV Cardizem infusion initiated for rapid A-fib. 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 Allergies Allergy/AdvReac Type Severity Reaction Status Date / Time ION Inhibitors AdvReac Intermediate COUGH PER Verified 07/02/23 18:14 GMG amoxicillin [From Augmentin] AdvReac Intermediate BLURRED Verified 07/02/23 18:14 VISION PER GMG clavulanic acid AdvReac Intermediate BLURRED Verified 07/02/23 18:14 [From Augmentin] VISION PER GMG levofloxacin [From Levaquin] AdvReac Intermediate BLURRED Verified 07/02/23 18:14 VISION PER GMG Home Medications Medication Instructions Recorded Confirmed Type multivitamin 1 tab PO QAM 09/06/20 07/02/23 History amlodipine 5 mg tablet 5 mg PO QAM #90 tabs 10/18/20 07/02/23 Rx atenolol 25 mg tablet 25 mg PO QAM #90 tabs 11/08/20 07/02/23 Rx aspirin 81 mg tablet,delayed 81 mg PO DAILY 07/02/23 07/02/23 History release Past Med/Surg History Medical History Hypertension Surgical History History of cataract surgery RT History of tonsillectomy History of tooth extraction Family History Family/Other No pertinent family history Other No family history of adverse response to anesthesia Denies family history of Ovarian cancer Prostate cancer Myocardial infarction Breast cancer Colorectal cancer Social History Smoking Status: Never smoker Second Hand Exposure: No; Do You Dip or Chew Tobacco: No; Hx Alcohol Use: No Hx Substance Use: No Preferred Language: Belarusian Communication Ability: Effective 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: No Beliefs That Will Affect Care: None Current Living Situation: Alone current occupational status: retired Feels Safe at Home: Yes Assistive Devices: Denture - Upper and Denture - Lower Review of Systems Review of Systems: As per HPI, all other systems reviewed and negative Physical Exam Physical Exam: GENERAL: Comfortable, slightly anxious, obese, no respiratory distress SKIN: Normal color, warm HEENT: [place] palpebral conjunctivae, no ptosis, dry buccal mucosa, nasal cannula in place NECK : Supple, short neck, no tenderness CHEST : Decreased breath sounds, no tenderness HEART : irregular, no obvious murmurs ABDOMEN: Some distention, left-sided abdominal tenderness EXTREMITIES : No LE swelling/tenderness, no other conspicuous deformities noted NEUROLOGIC : Coherent, no facial asymmetry, no other gross focality Results & Data Results & Data Vital Signs (Past 12 Hours) Vital Signs Temp Pulse Resp BP Pulse Ox O2 Del Method 07/02/23 20:15 110 H 24 125/84 07/02/23 20:00 105 H 21 134/95 91 Room Air 07/02/23 19:45 98 H 27 H 133/86 07/02/23 19:20 109 H 27 H 118/77 90 Room Air 07/02/23 20:22 108 H 07/02/23 19:05 102 H 26 H 130/92 07/02/23 17:28 124 H 17 91 07/02/23 17:25 115 H 23 07/02/23 17:25 123/96 07/02/23 17:11 135 H 22 07/02/23 17:11 135/97 07/02/23 17:05 103 H 27 H 88 L 07/02/23 17:05 153/95 H 07/02/23 17:00 117 H 28 H 89 L 07/02/23 17:00 143/96 H 07/02/23 16:55 103 H 30 H 90 07/02/23 16:55 129/92 07/02/23 16:50 106 H 32 H 90 07/02/23 16:50 129/84 07/02/23 16:45 118 H 31 H 88 L 07/02/23 16:45 122/92 07/02/23 16:40 140/79 07/02/23 16:40 118 H 22 93 07/02/23 16:36 135/105 H 07/02/23 16:36 137 H 25 H 07/02/23 16:30 148 H 31 H 93 07/02/23 16:30 144/96 H 07/02/23 16:26 154 H 28 H 07/02/23 16:26 149/97 H 07/02/23 16:23 156 H 33 H 93 07/02/23 16:23 161/114 H 07/02/23 16:23 155 H 07/02/23 15:54 37.2 C 123 H 20 185/105 H 94 Room Air Laboratory Results Laboratory Results WBC 18.60 K/ul (4.8-10.8) H 07/02/23 16:10 RBC 5.62 M/uL (4.70-6.10) 07/02/23 16:10 Hgb 16.1 g/dl (14.0-18.0) 07/02/23 16:10 Hct 47.0 % (42.0-52.0) 07/02/23 16:10 MCV 83.6 fL (80.0-100.0) 07/02/23 16:10 MCH 28.6 pg (25.0-34.0) 07/02/23 16:10 MCHC 34.3 g/dL (32.0-36.0) 07/02/23 16:10 RDW Std Deviation 38.7 fL (36.4-46.3) 07/02/23 16:10 RDW Coeff of Leeanne 12.8 % (11.5-14.5) 07/02/23 16:10 Plt Count 233 K/uL (130-400) 07/02/23 16:10 MPV 10.6 fL (9.4-12.4) 07/02/23 16:10 Immature Gran % (Auto) 0.8 % 07/02/23 16:10 Neut % (Auto) 87.9 % 07/02/23 16:10 Lymph % (Auto) 3.9 % 07/02/23 16:10 Snyder % (Auto) 6.4 % 07/02/23 16:10 Eos % (Auto) 0.8 % 07/02/23 16:10 Baso % (Auto) 0.2 % 07/02/23 16:10 Neut # (Auto) 16.36 K/uL (1.40-6.50) H 07/02/23 16:10 Lymph # (Auto) 0.72 K/uL (1.2-3.4) L 07/02/23 16:10 Snyder # (Auto) 1.19 K/uL (0.11-0.59) H 07/02/23 16:10 Eos # (Auto) 0.14 K/uL (0-0.50) 07/02/23 16:10 Baso # (Auto) 0.04 K/uL (0-0.2) 07/02/23 16:10 Immature Gran # (Auto) 0.15 K/uL (0.01-0.20) 07/02/23 16:10 Sodium 134 mmol/L (136-145) L 07/02/23 16:10 Potassium 3.7 mmol/L (3.5-5.1) 07/02/23 16:10 Chloride 97 mmol/L (98-107) L 07/02/23 16:10 Carbon Dioxide 25 mmol/L (21-32) 07/02/23 16:10 Anion Gap 12 (3-11) H 07/02/23 16:10 BUN 25 mg/dl (6-23) H 07/02/23 16:10 Creatinine 1.30 mg/dl (0.6-1.4) 07/02/23 16:10 Est Cr Clr Drug Dosing 57.9 ml/min 07/02/23 16:10 Est GFR ( Amer) 60.6 ml/min 07/02/23 16:10 Est GFR (Non-Af Amer) 52.3 ml/min 07/02/23 16:10 BUN/Creatinine Ratio 19.2 (10-20) 07/02/23 16:10 Glucose 209 mg/dl (70-99(Fasting)) H 07/02/23 16:10 Lactate 2.0 mmol/L (0.4-2.0) 07/02/23 20:57 Calcium 8.9 mg/dl (8.6-10.3) 07/02/23 16:10 Magnesium 1.7 mg/dl (1.7-2.4) 07/02/23 16:10 Total Bilirubin 1.6 mg/dl (0.2-1.0) H 07/02/23 16:10 AST 19 U/L (13-39) 07/02/23 16:10 ALT 11 U/L (7-52) 07/02/23 16:10 Alkaline Phosphatase 70 U/L (34-104) 07/02/23 16:10 Total Protein 7.6 gm/dl (6.0-8.3) 07/02/23 16:10 Albumin 4.1 gm/dl (3.4-5.0) 07/02/23 16:10 Globulin 3.5 gm/dl (2.5-4.0) 07/02/23 16:10 Albumin/Globulin Ratio 1.2 (0.9-2) 07/02/23 16:10 Lipase 9 U/L (11-82) L 07/02/23 16:10 Urine Color Dark Yellow 07/02/23 18:45 Urine Appearance Clear (Clear) 07/02/23 18:45 Urine pH 6.5 (4.5-7.5) 07/02/23 18:45 Ur Specific [place] 1.024 (1.000-1.030) 07/02/23 18:45 Urine Protein 2+ (Negative) H 07/02/23 18:45 Urine Glucose (UA) Trace (Negative) H 07/02/23 18:45 Urine Ketones 1+ (Negative) H 07/02/23 18:45 Urine Blood Trace (Negative) H 07/02/23 18:45 Urine Nitrite Positive (Negative) A 07/02/23 18:45 Urine Bilirubin Negative (Negative) 07/02/23 18:45 Urine Urobilinogen Negative (Negative) 07/02/23 18:45 Ur Leukocyte Esterase Trace (Negative) H 07/02/23 18:45 Urine WBC (Auto) 10-30 /hpf (0-5) H 07/02/23 18:45 Urine RBC (Auto) 0-4 /hpf (0-4) 07/02/23 18:45 U Hyaline Cast (Auto) 0 /lpf (0-5) 07/02/23 18:45 U Epithel Cells (Auto) 20-30 /lpf (0-5) H 07/02/23 18:45 Urine Bacteria (Auto) 2+ (Negative) H 07/02/23 18:45 Urine Yeast Present (None Prsent) A 07/02/23 18:45 SARS-CoV-2, RNA, NAAT NEGATIVE (NEGATIVE) 07/02/23 20:18 Impressions Abdomen/Pelvis CT 07/02/23 16:[address] WITHOUT CONTRAST CT DOSE: 1446.57 mGy.cm HISTORY: Acute lower abdominal pain with nausea and vomiting lower abd pain, vomiting TECHNIQUE: Multiaxial CT images of the abdomen and pelvis were performed without contrast. A dose lowering technique was utilized adhering to the principles of ALARA. COMPARISON STUDY: None. FINDINGS: Cardiomegaly with coronary artery calcifications. Mild bibasilar atelectasis. No free air. Calcified granulomata in the spleen. Mildly atrophic pancreas. Remarkable gallbladder and adrenal glands. Mild hepatomegaly with hepatic steatosis. Unremarkable right kidney. There are at least 7 nonobstructing calculi left kidney measuring up to 8 mm. Mild to moderate left-sided hydroureteronephrosis with reactive perinephric and perirenal inflammatory stranding secondary to an obstructing 5 x 6 x 5 mm calculus of the left ureter at the level of L4-L5. Prostatomegaly. Urinary bladder wall thickening with partial distention. Atherosclerosis of the aorta. No lymphadenopathy. Duodenal diverticula. No bowel junction or bowel wall thickening. Colonic diverticulosis. Normal appendix. Unremarkable soft tissues. Degenerative changes of the spine result in multilevel central canal and foraminal narrowing and the lumbar distribution. IMPRESSION: 1. [id number] left-sided hydroureteronephrosis secondary to an obstructing 6 mm calculus of the left ureter at the level L4-L5. 2. Left nephrolithiasis. 3. Hepatic steatosis. 4. Additional findings as above. ACT 112: Negative or not required by law. The above report was generated using voice recognition software. It may contain grammatical, syntax or spelling errors. Electronically signed by: Win Barahona M.D. 07/02/2023 6:01 PM Diagnostic Findings Chest x-ray as per my interpretation: Cardiomegaly, minimal congestion EKG as per my interpretation : Rate 140, A-fib, LAD, LAFB, septal infarct, T wave abnormalities lateral leads
[2023-07-02] MEDS ORDERED: MoRPHine SULFATE 4 MG/ML 1 ML CARP\\VIAL IV PRN (21:13)
[2023-07-02] MEDS ORDERED: oxyCODONE HCL IR 5 MG TAB (IMMEDIATE RELEASE) PO PRN (21:13)
[2023-07-02] MEDS ORDERED: PROMETHAZINE HCL 12.5 MG in SODIUM CHLORIDE 0.9% 50 ML IV PRN (21:13)
[2023-07-02 21:23] LABS: Base Excess ABG 3.3 mEq/L (-9-1.8); HCO3 ABG 28 mmol/L (19-24); Oxygen Saturation ABG 91.9 % (90-95); PCO2 ABG 41 mmHg (35-46); PO2 ABG 64 mmHg (80-95); pH ABG 7.44 (7.35-7.45)
[2023-07-02 21:26] LABS: Allen Test Pos (Pos)
[2023-07-02 21:39] LABS: Partial Thromboplastin Time 28.5 Seconds (21.0-31.0)
[2023-07-02] MEDS ORDERED: ePHEDrine sulfate 50 MG/ML AMP IV PRN (22:01)
[2023-07-02] MEDS ORDERED: ONDANSETRON INJ 2 MG/ML 2 ML VIAL IV PRN (22:01)
[2023-07-02] MEDS ORDERED: ATROPINE SULFATE 0.1 MG/ML 10ML SYR IV PRN (22:01)
[2023-07-02] MEDS ORDERED: fentaNYL citrate PF 100 MCG/2 ML VIAL IV PRN (22:01)
--- NOTE | 2023-07-02 22:01 | Anesthesiology Consultation ---
Date of Service July 02, 2023 Assessment & Plan Chart Review Chart Review: Acceptable Risk for Surgery and Patient NOT seen in Pre Admission Testing Consults Requested none ASA ASA2 Proposed Anesthesia Anesthesia Type: MAC Risk / Benefits Reviewed With: PT / POA / Parent / Guardian, Accepts Plan and Informed Consent Obtained History Surgery Operation Date: 07/02/23 22:30 Proposed Procedures p Cystoscopy - Go Cohen, DO Height/Weight Height: 5 ft 10 in Weight: 109 kg Allergies Allergy/AdvReac Type Severity Reaction Status Date / Time INO Inhibitors AdvReac Intermediate COUGH PER Verified 07/02/23 18:14 GMG amoxicillin [From Augmentin] AdvReac Intermediate BLURRED Verified 07/02/23 18:14 VISION PER GMG clavulanic acid AdvReac Intermediate BLURRED Verified 07/02/23 18:14 [From Augmentin] VISION PER GMG levofloxacin [From Levaquin] AdvReac Intermediate BLURRED Verified 07/02/23 18:14 VISION PER GMG Medications Home Medications Medication Instructions Recorded Confirmed Last Taken multivitamin 1 tab PO QAM 09/06/20 07/02/23 06/29/23 amlodipine 5 mg tablet 5 mg PO QAM #90 tabs 10/18/20 07/02/23 06/29/23 atenolol 25 mg tablet 25 mg PO QAM #90 tabs 11/08/20 07/02/23 06/29/23 aspirin 81 mg tablet,delayed 81 mg PO DAILY 07/02/23 07/02/23 06/29/23 release Active Medications Generic Name Dose Route Start Last Admin Trade Name Freq PRN Reason Stop Dose Admin Diltiazem HCl 125 mg/ Dextrose 125 mls @ 12.5 mls/hr 07/02/23 16:45 07/02/23 20:15 IV 08/01/23 16:44 12.5 mg/hr .Q10H RADHA 12.5 mls/hr Titration Protocol 12.5 MG/HR NPO Date Last Intake of Fluids: 07/02/23 Date Last Intake of Solids: 07/02/23 Past Medical History Medical History Hypertension Exercise / Class Metabolic Activity II 4-5 Yardwork/Stairs/Walk up hill Past Family History Family History Family/Other No pertinent family history Other No family history of adverse response to anesthesia Denies family history of Ovarian cancer Prostate cancer Myocardial infarction Breast cancer Colorectal cancer Past Surgical History Surgical History History of cataract surgery RT History of tonsillectomy History of tooth extraction Past Anesthesia History No Hx of Anesthesia Complications and No Family Hx of Anesthesia Complications History of PONV No Hx of PONV and No Hx of Motion Sickness Social History Smoking Status: Never smoker Do You Dip or Chew Tobacco: No Hx Alcohol Use: No Hx Substance Use: No substance use type: does not use Physical Exam Vital Signs Last Vital Signs Temp 37.2 C 07/02/23 15:54 Pulse 97 H 07/02/23 21:20 Resp 21 07/02/23 21:20 BP 121/85 07/02/23 21:16 Pulse Ox 91 07/02/23 21:20 O2 Del Method Room Air 07/02/23 21:16 ENMT Mouth: no dentition abnormality Thyromental Distance: > or= 3.5 Finger Breadths Mallampati Class: II Neck normal visual inspection Respiratory normal respiratory effort Auscultation: lungs clear to auscultation bilaterally Cardiovascular Rate/Rhythm: regular rate and regular rhythm Psychiatric Orientation: alert Testing Laboratory Results 07/02/23 16:10 07/02/23 16:10 APTT 28.5 Seconds (21.0-31.0) 07/02/23 20:57 Urine Color Dark Yellow 07/02/23 18:45 Urine Appearance Clear (Clear) 07/02/23 18:45 Urine pH 6.5 (4.5-7.5) 07/02/23 18:45 Ur Specific [place] 1.024 (1.000-1.030) 07/02/23 18:45 Urine Protein 2+ (Negative) H 07/02/23 18:45 Urine Glucose (UA) Trace (Negative) H 07/02/23 18:45 Urine Ketones 1+ (Negative) H 07/02/23 18:45 Urine Nitrite Positive (Negative) A 07/02/23 18:45 Ur Leukocyte Esterase Trace (Negative) H 07/02/23 18:45 Urine WBC (Auto) 10-30 /hpf (0-5) H 07/02/23 18:45 Urine RBC (Auto) 0-4 /hpf (0-4) 07/02/23 18:45 U Hyaline Cast (Auto) 0 /lpf (0-5) 07/02/23 18:45 U Epithel Cells (Auto) 20-30 /lpf (0-5) H 07/02/23 18:45 Urine Bacteria (Auto) 2+ (Negative) H 07/02/23 18:45
[2023-07-02] MEDS ORDERED: fentaNYL citrate PF 100 MCG/2 ML VIAL ONE (22:05)
[2023-07-02] MEDS ORDERED: ONDANSETRON INJ 2 MG/ML 2 ML VIAL ONE (22:22)
[2023-07-02] MEDS ORDERED: LIDOCAINE 2% 2 ML VIAL/AMP(20MG/ML) INFIL ONE (22:22)
--- NOTE | 2023-07-02 22:28 | Operative Report ---
[facility] Post Operative Report Pre & Post Diagnosis Obstructing Left Stone, Afib Same Operation Date: 07/02/23 22:30 <No data on this case meets the specified criteria> I identified the patient and participated in the time-out.: Yes Procedure Cystoscopy with left aspiration, retrograde pyelogram, and stent placement. Operation Date: 07/02/23 22:30 <No data on this case meets the specified criteria> Surgeon Go Cohen, II, DO [employer] Special[employer] None Estimated Blood Loss 1 Findings Consistent with Post-Op Diagnosis Stent placed in good position. Cloudy dark urine from left renal pelvis. Significant obstruction of ureter. Specimens Urine Left Kidney - Culture. Drains 6 Fr Multilength Anesthesia Type MAC Complications none Disposition Disposition: Recovery Room Indications Patient with obstruction. Risks and benefits discussed at length. Description of Procedure Patient was consented and brought back to the operating room. Patient was placed under anesthesia in the supine position and moved to the dorsal lithotomy position. Patient was prepped and draped in the regular sterile fashion. A time out was completed. A 30degree Cystoscope was placed into the bladder and the entire bladder was examined. The UO's were identified. The UO was cannulized with a catheter and a wire was used to bypass the severely obstructing stone. The catheter was advanced and very dark, cloudy urine was aspirated and sent for culture. The catheter was moved back down the ureter and a retrograde pyelogram was completed. A wire was then placed. With the wire in place, a 6 Fr Double J stent was placed. It was confirmed with fluoroscopy. With the stent in place, the bladder was emptied. The scope was removed. The patient was cleaned, aroused from anesthesia, and transferred to the pacu in stable condition having tolerated the procedure well with no complications. I was present and participated in all aspects of the procedure. The patient will be monitored in the PACU until transferred. Plan to monitor while inpatient. Will likely be able to de-escalate abx based on culture. Will likely need 7-10 days of abx prior to intervention on stone. May need additional renal stones treated at same time. I attest to the content of the Intraoperative Record and any orders documented therein. Any exceptions are noted below.
[2023-07-02] MEDS ORDERED: Heparin IV Adult Wt-Based Low-Dose *NO* Bolus Protocol IV SCH (22:36)
[2023-07-02] MEDS ORDERED: DIATRIZOATE MEGLUMINE 30% 100ML VIAL INSTIL ONE (22:39)
--- NOTE | 2023-07-02 22:41 | Anesthesiology Progress Note ---
Date of Service July 02, 2023 Anesthesia Post Procedure Vital Signs Vital Signs: Temp Pulse Resp BP Pulse Ox O2 Del Method 07/02/23 21:20 97 H 21 91 07/02/23 21:16 105 H 22 121/85 93 Room Air 07/02/23 20:45 94 H 24 125/87 92 Room Air 07/02/23 20:15 110 H 24 125/84 07/02/23 20:00 105 H 21 134/95 91 Room Air 07/02/23 19:45 98 H 27 H 133/86 07/02/23 19:20 109 H 27 H 118/77 90 Room Air 07/02/23 20:22 108 H 07/02/23 19:05 102 H 26 H 130/92 07/02/23 17:28 124 H 17 91 07/02/23 17:25 115 H 23 07/02/23 17:25 123/96 07/02/23 17:11 135 H 22 07/02/23 17:11 135/97 07/02/23 17:05 103 H 27 H 88 L 07/02/23 17:05 153/95 H 07/02/23 17:00 117 H 28 H 89 L 07/02/23 17:00 143/96 H 07/02/23 16:55 103 H 30 H 90 07/02/23 16:55 129/92 07/02/23 16:50 106 H 32 H 90 07/02/23 16:50 129/84 07/02/23 16:45 118 H 31 H 88 L 07/02/23 16:45 122/92 07/02/23 16:40 140/79 07/02/23 16:40 118 H 22 93 07/02/23 16:36 135/105 H 07/02/23 16:36 137 H 25 H 07/02/23 16:30 148 H 31 H 93 07/02/23 16:30 144/96 H 07/02/23 16:26 154 H 28 H 07/02/23 16:26 149/97 H 07/02/23 16:23 156 H 33 H 93 07/02/23 16:23 161/114 H 07/02/23 16:23 155 H 07/02/23 15:54 37.2 C 123 H 20 185/105 H 94 Room Air Transfer of Care Handoff Completed per policy Notes Mental Status: alert / awake / arousable Patient Amnestic to Procedure: Yes Nausea / Vomiting: adequately controlled Pain: adequately controlled Airway Patency, RR, SpO2: stable & adequate BP & HR: stable & adequate (patient remains in AFIB) Hydration State: stable & adequate Anesthetic Complications: no major complications apparent
[2023-07-02] MEDS ORDERED: HEPARIN SODIUM/DEXTROSE 25,000 UNITS/500 ML BAG IV SCH (22:45)
[2023-07-02 23:14] LABS: Estimated Average Glucose 183 mg/dl
[2023-07-02] MEDS ORDERED: CARBOHYDRATES FOR HYPOGLYCEMIA PO PRN (23:18)
[2023-07-02] MEDS ORDERED: GLUCOSE 40% GEL 15 GM TUBE PO PRN (23:18)
[2023-07-02] MEDS ORDERED: DEXTROSE 50% 50 ML SYRINGE IV PRN (23:18)
[2023-07-02] MEDS ORDERED: GLUCAGON FOR INJ 1 MG VIAL SQ PRN (23:18)
[2023-07-02] MEDS ORDERED: GLUCOSE 10 TAB/TUBE PO PRN (23:18)
[2023-07-02] MEDS ORDERED: METOPROLOL TARTRATE 25 MG TAB PO SCH (23:18)
[2023-07-02] MEDS: POTASSIUM CHLORIDE / WTR 10 MEQ/100 ML PLCT IV SCH (23:43)
[2023-07-02] MEDS: MAGNESIUM SULFATE / D5W 1 GM/100 ML BAG IV SCH (23:44)
[2023-07-03] MEDS: POTASSIUM CHLORIDE / WTR 10 MEQ/100 ML PLCT IV SCH ×3 (00:36→02:43)
[2023-07-03] MEDS: ALBUMIN 25% 25 GM/100 ML VIAL IV SCH ×2 (00:58→08:08)
[2023-07-03] MEDS: INSULIN ASPART PER UNIT CHARGE SC SCH ×5 (01:07→21:47)
[2023-07-03] MEDS: MAGNESIUM SULFATE / D5W 1 GM/100 ML BAG IV SCH ×5 (01:17→16:17)
[2023-07-03] MEDS ORDERED: METOPROLOL TARTRATE 25 MG TAB PO SCH (03:45)
[2023-07-03 06:44] LABS: BUN Creatinine Ratio 22.5 (10-20); Calcium 8.5 mg/dl (8.6-10.3); Creatinine Clr Calc Pharmacy 52.9 ml/min; Est GFR (African American) 54.4 ml/min; Potassium 4.2 mmol/L (3.5-5.1)
[2023-07-03 06:48] LABS: Partial Thromboplastin Ratio 1.2; Partial Thromboplastin Time 33.9 Seconds (21.0-31.0)
[2023-07-03 06:49] LABS: Basophils # (auto) 0.04 K/uL (0-0.2); Basophils % (auto) 0.3 %; Eosinophils # (auto) 0.14 K/uL (0-0.50); Hematocrit (blood only) 41.2 % (42.0-52.0); Hemoglobin 13.5 g/dl (14.0-18.0); Immature Granulocytes # (auto) 0.08 K/uL (0.01-0.20); Immature Granulocytes % (auto) 0.5 %; Lymphocytes # (auto) 1.11 K/uL (1.2-3.4); Lymphocytes % (auto) 7.6 %; Mean Corpuscular Hemoglobin 28.8 pg (25.0-34.0); Mean Corpuscular Hgb Conc 32.8 g/dL (32.0-36.0); Mean Corpuscular Volume 87.9 fL (80.0-100.0); Mean Platelet Volume 10.3 fL (9.4-12.4); Monocytes # (auto) 1.27 K/uL (0.11-0.59); Monocytes % (auto) 8.6 %; Neutrophils # (auto) 12.06 K/uL (1.40-6.50); Platelet Count 194 K/uL (130-400); RDW Coefficient of Variation 13.1 % (11.5-14.5); RDW Standard Deviation 41.9 fL (36.4-46.3); Red Blood Count 4.69 M/uL (4.70-6.10)
--- NOTE | 2023-07-03 07:10 | Fluoroscopy Report ---
FL retrograde includes kub CLINICAL HISTORY: LT CYSTO STENT TECHNIQUE: 3 views were obtained with the C-arm in the OR with the above procedure. Total fluoroscopy time was 15 seconds. Radiation dose was 5.62 mGy. Comparison: Comparison is made to CT abdomen pelvis 07/02/2023 FINDINGS/IMPRESSION: Intraoperative images were obtained of left cystogram and stent placement. Please correlate with intraoperative fluoroscopy and operative report. ACT 112: Negative or not required by law. Electronically signed by: Osmin Quiñones M.D. 07/03/2023 7:09 AM
[2023-07-03] MEDS ORDERED: HEPARIN IV BOLUS 3,000 UNITS in SYRINGE 0 ML IV ONE (07:30)
--- NOTE | 2023-07-03 07:31 | XRay Report ---
XR chest 1V portable HISTORY: 78 years-old Male vomiting acute chest pain with nausea and vomiting COMPARISON: Chest CT 12/21/2018 TECHNIQUE: AP view of the chest FINDINGS: Cardiac silhouette is enlarged. No pneumothorax, pleural effusion, airspace consolidation or pulmonar y edema. Degenerative changes of the shoulders and spine. IMPRESSION: No acute process. ACT 112: Negative or not required by law. The above report was generated using voice recognition software. It may contain grammatical, syntax o r spelling errors. Electronically signed by: Win Barahona M.D. 07/03/2023 7:29 AM
--- NOTE | 2023-07-03 07:38 | Urology Progress Note ---
Date of Service July 03, 2023 Assessment & Plan (1) Ureterolithiasis: (2) Acute UTI (urinary tract infection): Plan: - Pt POD#1 s/p emergent cystoscopy, left retrograde pyelogram, left ureteral stent placement - Subjectively doing well - Afebrile overnight, lab work reviewed - creatinine 1.42, WBC [id number] - Urine and blood cultures are pending - Continue broad-spectrum antibiotics and narrow per sensitivity data when available - Tolerating left ureteral stent without bother - Okay to d/c from perspective when medically stable - Recommend d/c with course of appropriate antibiotics - likely 7-10 days of abx prior to intervention on stone - Recommend Tamsulosin, prn Pyridium and prn pain medication for stent management - Expected clinical course reviewed, all questions answered - Will arrange outpatient follow-up with our service to discuss definitive stone management Admission and Anticipated Discharge Date Admission Date: July 02, 2023 Subjective Patient seen and examined at bedside this morning, chart reviewed POD #1 status post cystoscopy and left ureteral stent placement No acute issues overnight Denies flank or abdominal pain Voiding spontaneously without difficulty, no dysuria Reports hematuria post procedure Reports feeling hot overnight, no chills No nausea or vomiting Review of Systems Constitutional: as per Subjective / HPI Gastrointestinal: as per Subjective / HPI Genitourinary: + as per Subjective / HPI Physical Exam Physical Exam: General: well-appearing, no acute distress HEENT: Normocephalic Pulmonary: Oxymask in place, nonlabored respirations Abdomen: Nondistended Extremities: Moves all 4 spontaneously Neuro: No gross deficits Psych: alert and oriented, normal mood Skin: Warm, dry, no rashes noted Results & Data Vital Signs (Past 12 Hours) Vital Signs Temp Pulse Pulse Resp BP BP Pulse Ox 07/03/23 03:43 90 120/85 07/02/23 23:18 07/03/23 02:45 37.2 C 84 20 111/78 96 07/03/23 01:20 81 18 125/81 96 07/03/23 01:00 93 H 16 116/80 96 07/03/23 00:10 91 H 16 104/76 94 07/02/23 23:25 37.6 C H 93 H 18 103/74 95 07/02/23 22:55 37 C 89 22 117/68 96 07/02/23 22:49 98 H 22 106/73 96 07/02/23 22:40 95 H 20 98/80 L 97 07/02/23 22:31 37.4 C 96 H 18 108/73 95 07/02/23 21:20 97 H 21 91 07/02/23 21:16 105 H 22 121/85 93 07/02/23 20:45 94 H 24 125/87 92 07/02/23 20:15 110 H 24 125/84 07/02/23 20:00 105 H 21 134/95 91 07/02/23 19:45 98 H 27 H 133/86 07/02/23 20:22 108 H O2 Del Method O2 Flow Rate 07/03/23 03:43 07/02/23 23:18 Oxymask 3 07/03/23 02:45 Oxymask 3 07/03/23 01:20 Oxymask 3 07/03/23 01:00 Oxymask 3 07/03/23 00:10 Oxymask 3 07/02/23 23:25 Oxymask 3 07/02/23 22:55 Oxymask 3 07/02/23 22:49 Oxymask 3 07/02/23 22:40 Oxymask 5 07/02/23 22:31 Oxymask 5 07/02/23 21:20 07/02/23 21:16 Room Air 07/02/23 20:45 Room Air 07/02/23 20:15 07/02/23 20:00 Room Air 07/02/23 19:45 07/02/23 20:22 PG Care Time/CCT Total # of Minutes Spent Total Time Spent with Patient: Total time spent is greater than 50% in coordination of care (as documented) at patient's floor/unit and/or counseling patient: Coding Level of Care Code 09773 SUB INP/OBS CARE 12/13MIN Diagnoses Ureterolithiasis N20.1 Acute UTI (urinary tract infection) N39.0
--- NOTE | 2023-07-03 07:48 | Cardiology Consultation ---
Date of Consultation July 03, 2023 Assessment & Plan (1) Atrial fibrillation with rapid ventricular response: (2) Ureterolithiasis: (3) Sepsis: (4) Acute on chronic heart failure with reduced ejection fraction and diastolic dysfunction: Plan See attending office messenger helper's documentation for further recommendations and plan of care. Supervising Physician Co-Signing Physician Notes Attending Staff: Pt seen and evaluated with AP Staff. Concur with observations and plans 78 yo man presenting with abdominal pain Left nephrolithiasis Emergent cystoscopy Left ureteral stent placement + afib RVR Consultations: Afib with RVR (new onset) Started on IV Diltiazem to manage HR Started on IV Heparin post procedure Started Lopressor 25 mg po BID TSH - 1.4 K+ 4.2 Mag 1.7 Troponin - not checked BNP - 285 BMI - 34 No known ADRYAN ASCVD Risks: * HTN * No DM * No Hyperlipidemia known ECHOcardiogram: 07/03/2023 LVEF 45-50% No WMA Mild MR Mild Aortic dilation Events Overnight: * New O2 requirement * 1.5 liters of fluids overnight Exam: obese JVP to 18 cm H20 S1S2 Soft 2/6 ssytolic murmur CTA B on anterior exam No c/c/e Warm/perfusing Plans: * Dx: Afib with RVR - new onset * HR 100's * Diltiazem (OFF) * Increase Lopressor to 50 mg po TID * CHADsVasc - 2 * On Heparin; may discotinue Heparin once DOAC started * Transition to DOAC (Urology no longer has any procedures planned) * ABX as per urology * Lasix 40 mg IV x 1 * K+ goal 4.5-5 * KDUR 40 meq po x 1 * Mag++ goal >2 * 4 gm MagSO4 * TSH is WNL * Suspect Sleep Apnea - outpt ADRYAN eval * Will decide re: ION/ARB/ARNI after HR is well controlled * Wean FIO2 as tolerated * Check HbA1c * Check Lipid Panel Kobe Stevenson History of Present Illness Reason for Consultation: Atrial fibrillation Requesting Physician: Dr. Jeffers Attending Physician: Dr. Dillon, [facility] History of Present Illness Patient is a 78-year-old male who was admitted to [facility] after several days of abdominal pain. Found to have Ureterolithiasis. Underwent urgent cystoscopy and left ureteral stent placement yesterday. On arrival to ER, patient was also found to have atrial fibrillation with RVR. He was started on IV diltiazem and rates improved for surgical procedure. Patient tolerated procedure without incident. ON broad spectrum antibiotics for UTI. Blood cultures pending. Rates improved with IV diltiazem and oral metoprolol. Mild hypoxia developed, likely due to increased fluid resuscitation during procedure yesterday. at time of consult, patient is unaware of atrial fibrillation, tachyarrhythmias. Notes SOB with conversational dyspnea. NO chest pain. NO dizziness. He denies history of cardiovascular history. "Has not seen a doctor in many years". Allergies Allergy/AdvReac Type Severity Reaction Status Date / Time ION Inhibitors AdvReac Intermediate COUGH PER Verified 07/02/23 18:14 GMG amoxicillin [From Augmentin] AdvReac Intermediate BLURRED Verified 07/02/23 18:14 VISION PER GMG clavulanic acid AdvReac Intermediate BLURRED Verified 07/02/23 18:14 [From Augmentin] VISION PER GMG levofloxacin [From Levaquin] AdvReac Intermediate BLURRED Verified 07/02/23 18:14 VISION PER GMG Home Medications Medication Instructions Recorded Confirmed Type multivitamin 1 tab PO QAM 09/06/20 07/02/23 History amlodipine 5 mg tablet 5 mg PO QAM #90 tabs 10/18/20 07/02/23 Rx atenolol 25 mg tablet 25 mg PO QAM #90 tabs 11/08/20 07/02/23 Rx aspirin 81 mg tablet,delayed 81 mg PO DAILY 07/02/23 07/02/23 History release Patient History Medical History (Updated 07/03/23 @ 14:08 by Stephany Dillon DO) Hypertension ADRYAN (obstructive sleep apnea) Surgical History History of cataract surgery RT History of tonsillectomy History of tooth extraction Family History Family/Other No pertinent family history Other No family history of adverse response to anesthesia Denies family history of Ovarian cancer Prostate cancer Myocardial infarction Breast cancer Colorectal cancer Social History Smoking Status: Never smoker Second Hand Exposure: No; Do You Dip or Chew Tobacco: No; Hx Alcohol Use: No Hx Substance Use: No Preferred Language: Spanish Communication Ability: Effective 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 Beliefs That Will Affect Care: None Current Living Situation: Alone current occupational status: retired Feels Safe at Home: Yes Assistive Devices: None Review of Systems Review of Systems: All systems reviewed & are unremarkable except as noted in HPI & below Physical Exam Constitutional: WD/WN, vitals as above + acute distress and + obese Neck: + thick neck Respiratory: no labored breathing Auscultation: + diminished lung sounds Cardiovascular: Rate/Rhythm: + irregularly irregular Heart Sounds: + murmur (II/ systolic murmur) Gastrointestinal (Abdomen): normal bowel sounds, soft, nontender, no hepatosplenomegaly Skin: no rashes, warm and dry Neurologic: PERRL, EOMI, accommodation nl, no face palsy, no dysarthria Results & Data Vital Signs (Past 12 Hours) Vital Signs Temp Pulse Pulse Resp BP BP Pulse Ox 07/03/23 03:43 90 120/85 07/02/23 23:18 07/03/23 02:45 37.2 C 84 20 111/78 96 07/03/23 01:20 81 18 125/81 96 07/03/23 01:00 93 H 16 116/80 96 07/03/23 00:10 91 H 16 104/76 94 07/02/23 23:25 37.6 C H 93 H 18 103/74 95 07/02/23 22:55 37 C 89 22 117/68 96 07/02/23 22:49 98 H 22 106/73 96 07/02/23 22:40 95 H 20 98/80 L 97 07/02/23 22:31 37.4 C 96 H 18 108/73 95 07/02/23 21:20 97 H 21 91 07/02/23 21:16 105 H 22 121/85 93 07/02/23 20:45 94 H 24 125/87 92 07/02/23 20:15 110 H 24 125/84 07/02/23 20:00 105 H 21 134/95 91 07/02/23 20:22 108 H O2 Del Method O2 Flow Rate 07/03/23 03:43 07/02/23 23:18 Oxymask 3 07/03/23 02:45 Oxymask 3 07/03/23 01:20 Oxymask 3 07/03/23 01:00 Oxymask 3 07/03/23 00:10 Oxymask 3 07/02/23 23:25 Oxymask 3 07/02/23 22:55 Oxymask 3 07/02/23 22:49 Oxymask 3 07/02/23 22:40 Oxymask 5 07/02/23 22:31 Oxymask 5 07/02/23 21:20 07/02/23 21:16 Room Air 07/02/23 20:45 Room Air 07/02/23 20:15 07/02/23 20:00 Room Air 07/02/23 20:22 Laboratory Results Cardiac Enzymes 07/02/23 07/02/23 Range/Units 16:10 20:58 AST 19 (13-39) U/L B-Natriuretic Peptide 285 H (0-100) pg/ml Coagulation 07/02/23 07/02/23 07/03/23 Range/Units 20:57 20:58 06:08 APTT 28.5 33.9 H (21.0-31.0) Seconds B-Natriuretic Peptide 285 H (0-100) pg/ml CBC 07/02/23 07/03/23 Range/Units 16:10 06:08 WBC 18.60 H 14.70 H (4.8-10.8) K/ul RBC 5.62 4.69 L (4.70-6.10) M/uL Hgb 16.1 13.5 L (14.0-18.0) g/dl Hct 47.0 41.2 L (42.0-52.0) % Plt Count 233 194 (130-400) K/uL Neut # (Auto) 16.36 H 12.06 H (1.40-6.50) K/uL Lymph # (Auto) 0.72 L 1.11 L (1.2-3.4) K/uL [place] # (Auto) 1.19 H 1.27 H (0.11-0.59) K/uL Eos # (Auto) 0.14 0.14 (0-0.50) K/uL Baso # (Auto) 0.04 0.04 (0-0.2) K/uL Comprehensive Metabolic Panel 07/02/23 07/03/23 Range/Units 16:10 06:08 Sodium 134 L 134 L (136-145) mmol/L Potassium 3.7 4.2 (3.5-5.1) mmol/L Chloride 97 L 98 (98-107) mmol/L Carbon Dioxide 25 29 (21-32) mmol/L BUN 25 H 32 H (6-23) mg/dl Creatinine 1.30 1.42 H (0.6-1.4) mg/dl Glucose 209 H 135 H (70-99(Fasting)) mg/dl Calcium 8.9 8.5 L (8.6-10.3) mg/dl AST 19 (13-39) U/L ALT 11 (7-52) U/L Alkaline Phosphatase 70 (34-104) U/L Total Protein 7.6 (6.0-8.3) gm/dl Albumin 4.1 (3.4-5.0) gm/dl Intake and Output 07/02/23 07/03/23 07/03/23 22:59 06:59 14:59 Intake Total 1022.416 / 1823.999 801.583 / 1823.999 115.333 / 115.333 Output Total 50 / 51 Balance 1021.416 / 1772.999 751.583 / 1772.999 115.333 / 115.333 Intake: IV 622.416 / 1423.999 801.583 / 1423.999 115.333 / 115.333 Albumin 25% 25 gm In 100 ml @ 100.000 / 100.000 50 mls/hr IV Q8H RADHA Rx#: [id number] Fluconazole 200 mg In 100 ml @ 86.667 / 86.667 100 mls/hr IV NOW STA Rx#: [id number] Heparin Sodium/Dextrose 25,000 23.333 / 23.333 115.333 / 115.333 units In 500 ml @ 1,000 UNITS/ HR 20 mls/hr IV .Q24H RADHA Rx#: [id number] Magnesium Sulfate / D5w 1 gm In 177.5 / 177.5 100 ml @ 50 mls/hr IV Q2H RADHA Rx#:[id number] Potassium Chloride / Wtr 10 meq 388.333 / 388.333 In 100 ml @ 100 mls/hr IV Q1H RADHA Rx#:[id number] Sodium Chloride 0.9% 500 ml @ 500 / 500 999 mls/hr IV .Q31M STA Rx#: [id number] cefTRIAXone SODIUM 2,000 mg In 70 / 70 70 ml @ 140 mls/hr IV NOW STA Rx#:[id number] dilTIAZem HCL 125 mg In 52.416 / 78.166 25.750 / 78.166 0 / 0 Dextrose 5% 100 ml @ 5 MG/HR 5 mls/hr IV .Q24H RADHA Rx#: [id number] IV Perioperative 400 / 400 Output: Urine 50 / 50 Estimated Blood Loss Other: Weight 109 kg 108.6 kg Weight Measurement Method Chair Scale Built in [facility] Diagnostic Findings Telemetry reviewed: Persistent atrial fibrillation, rates relatively well controlled ranging 80-100. Diltiazem discontinued Echo report reviewed: Echo report reviewed dated 07/03/23: Mild global hypokinesis of the LV LV systolic function with EF 45-50% Mild MR No pulm hypertension Mildly dilated aortic root and ascending aorta at 4.1 cm Retrograde Pyelogram 07/02/23 00:00 FL retrograde includes kub CLINICAL HISTORY: LT CYSTO STENT TECHNIQUE: 3 views were obtained with the C-arm in the OR with the above procedure. Total fluoroscopy time was 15 seconds. Radiation dose was 5.62 mGy. Comparison: Comparison is made to CT abdomen pelvis 07/02/2023 FINDINGS/IMPRESSION: Intraoperative images were obtained of left cystogram and stent placement. Please correlate with intraoperative fluoroscopy and operative report. ACT 112: Negative or not required by law. Electronically signed by: Osmin Quiñones M.D. 07/03/2023 7:09 AM Abdomen/Pelvis CT 07/02/23 16:[address] WITHOUT CONTRAST CT DOSE: 1446.57 mGy.cm HISTORY: Acute lower abdominal pain with nausea and vomiting lower abd pain, vomiting TECHNIQUE: Multiaxial CT images of the abdomen and pelvis were performed without contrast. A dose lowering technique was utilized adhering to the principles of ALARA. COMPARISON STUDY: None. FINDINGS: Cardiomegaly with coronary artery calcifications. Mild bibasilar atelectasis. No free air. Calcified granulomata in the spleen. Mildly atrophic pancreas. Remarkable gallbladder and adrenal glands. Mild hepatomegaly with hepatic steatosis. Unremarkable right kidney. There are at least 7 nonobstructing calculi left kidney measuring up to 8 mm. Mild to moderate left-sided hydroureteronephrosis with reactive perinephric and perirenal inflammatory stranding secondary to an obstructing 5 x 6 x 5 mm calculus of the left ureter at the level of L4-L5. Prostatomegaly. Urinary bladder wall thickening with partial distention. Atherosclerosis of the aorta. No lymphadenopathy. Duodenal diverticula. No bowel junction or bowel wall thickening. Colonic diverticulosis. Normal appendix. Unremarkable soft tissues. Degenerative changes of the spine result in multilevel central canal and foraminal narrowing and the lumbar distribution. IMPRESSION: 1. Ycbr-ca-zvcpmeyn left-sided hydroureteronephrosis secondary to an obstructing 6 mm calculus of the left ureter at the level L4-L5. 2. Left nephrolithiasis. 3. Hepatic steatosis. 4. Additional findings as above. ACT 112: Negative or not required by law. The above report was generated using voice recognition software. It may contain grammatical, syntax or spelling errors. Electronically signed by: Win Barahona M.D. 07/02/2023 6:01 PM Chest X-Ray 07/02/23 19:54 XR chest 1V portable HISTORY: 78 years-old Male vomiting acute chest pain with nausea and vomiting COMPARISON: Chest CT 12/21/2018 TECHNIQUE: AP view of the chest FINDINGS: Cardiac silhouette is enlarged. No pneumothorax, pleural effusion, airspace consolidation or pulmonary edema. Degenerative changes of the shoulders and spine. IMPRESSION: No acute process. ACT 112: Negative or not required by law. The above report was generated using voice recognition software. It may contain grammatical, syntax or spelling errors. Electronically signed by: Win Barahona M.D. 07/03/2023 7:29 AM Medications Administered Current Inpatient Medications Aspirin (Aspirin 81 Mg Ectab) 81 mg PO DAILY RADHA Stop: 08/02/23 08:59 Dextrose (Dextrose 50% 50 Ml Syringe) 25 - 50 ml IV UD PRN; Protocol PRN Reason: Hypoglycemia Protocol Stop: 08/01/23 23:17 Fluconazole (Fluconazole 100 Mg Tab) 100 mg PO HS RADHA Stop: 07/13/23 20:59 Glucagon (Glucagon For Inj 1 Mg Vial) 1 mg SQ UD PRN; Protocol PRN Reason: Hypoglycemia Protocol Stop: 08/01/23 23:17 Glucose (Glucose 10 Tab/Tube) 4 - 8 tab PO UD PRN; Protocol PRN Reason: Hypoglycemia Treatment Stop: 08/01/23 23:17 Glucose (Glucose 40% Gel 15 Gm Tube) 15 - 30 gm PO UD PRN; Protocol PRN Reason: Hypoglycemia Protocol Stop: 08/01/23 23:17 Diltiazem HCl 125 mg/ Dextrose 125 mls @ 0 mls/hr IV .Q0M [facility]; Protocol Stop: 08/01/23 16:44 Last Titration: 07/03/23 07:07 Dose: 0 mg/hr, 0 mls/hr Promethazine HCl 12.5 mg/ (Sodium Chloride) 50.5 mls @ 202 mls/hr IV Q6H PRN PRN Reason: Nausea And Vomiting Stop: 08/01/23 21:12 Heparin Sodium/Dextrose (Heparin Sodium/Dextrose) 25,000 units in 500 mls @ 23 mls/hr IV .[id number] [facility]; Protocol Stop: 08/01/23 22:44 Last Titration: 07/03/23 07:03 Dose: 1,150 units/hr, 23 mls/hr Cefepime HCl 2,000 mg/ Syringe 20 mls @ 5 mls/min IV Q12H [facility]; Protocol Stop: 07/13/23 09:59 Insulin Aspart (Insulin Aspart Per Unit Charge) 0 units SC ACHS [facility] Stop: 08/01/23 23:17 Last Admin: 07/03/23 01:07 Dose: 1 units Insulin Glargine (Lantus Per Unit Charge) 5 units SQ HS [facility] Stop: 08/02/23 20:59 Metoprolol Tartrate (Metoprolol Tartrate 25 Mg Tab) 25 mg PO BID [facility] Stop: 08/02/23 03:44 Last Admin: 07/03/23 03:51 Dose: 25 mg Miscellaneous (Carbohydrates For Hypoglycemia ) 15 - 30 gm PO UD PRN PRN Reason: Hypoglycemia Protocol Stop: 08/01/23 23:17 Morphine Sulfate (Morphine Sulfate 4 Mg/Ml 1 Ml Carp\\Vial) 4 mg IV Q4H PRN PRN Reason: Pain Stop: 07/16/23 21:12 Multivitamins (Multivitamin Tab) 1 tab PO QAM [facility] Stop: 08/02/23 08:59 Oxycodone HCl (Oxycodone Hcl Ir 5 Mg Tab (Immediate Release)) 5 - 10 mg PO QID PRN PRN Reason: Pain Stop: 07/16/23 21:12
[2023-07-03] MEDS: ASPIRIN 81 MG ECTAB PO SCH (08:30)
[2023-07-03] MEDS: MULTIVITAMIN TAB PO SCH (08:30)
[2023-07-03] MEDS ORDERED: FUROSEMIDE 40 MG/4 ML VIAL IV ONE (10:28)
[2023-07-03] MEDS ORDERED: POTASSIUM CHLORIDE CRTAB 20 MEQ TABCR PO ONE (10:45)
[2023-07-03] MEDS ORDERED: HEPARIN STOP ORDER ONE (10:45)
[2023-07-03] MEDS: CEFEPIME 2,000 MG in SYRINGE 0 ML IV SCH ×2 (10:51→21:53)
[2023-07-03] MEDS: APIXABAN 5 MG TABLET PO SCH ×2 (10:53→21:50)
[2023-07-03] MEDS: METOPROLOL TARTRATE 50 MG TAB PO SCH ×3 (11:32→21:50)
--- NOTE | 2023-07-03 13:59 | Hospitalist Progress Note ---
Date of Service July 03, 2023 Assessment & Plan (1) Acute hypoxemic respiratory failure: Plan: 2/2 CHF exacerbation. Improved after intravenous furosemide. Cont to monitor and dose him as needed per cardiology. (2) Acute on chronic heart failure with reduced ejection fraction and diastolic dysfunction: Plan: Echocardiogram on 07/03 reveals LVEF of 45 to 50%. Mild MR and mild aortic dilation was noted. Cardiology was consulted for this and new onset atrial fibrillation with rapid ventricular response. He is now off the diltiazem drip and Lopressor 50 was increased to 3 times daily oral. Heparin is ongoing for stroke prevention. Lasix 40 mg was given this morning IV with potassium supplementation. Continue to follow clinically. He appears euvolemic at this time. Encouraged ambulation. He is not requiring oxygen supplementation at this time. Defer to cardiology for GDMT for heart failure management. (3) Sepsis: Plan: Resuscitated-presented with complicated UTI including left ureteral stone. White blood cell count was 18.6 improved to 14.7 this morning. Continue cefepime. Urine culture currently reveals no growth. Blood cultures are still pending. He remains afebrile and clinically improved. Continue IV antibiotics for another day and transition to an oral course of appropriate antibiotics for post stent placement likely 7 to 10 days. (4) Acute renal failure: Plan: Likely related to prerenal azotemia in setting of recent vomiting and sepsis. May have also been related to ureteral obstruction. Creatinine is 1.4 with a baseline of 0.8. Cont to trend BMP. (5) Acute UTI (urinary tract infection): Plan: Currently no growth. Continue cefepime as culture is being reintubated. (6) Ureterolithiasis: Plan: Received a left cystoscopy with stent placement per urology last evening. He is doing well post stent placement. Continue tamsulosin, as needed Pyridium and as needed pain medicine for stent management as needed. Urology will arrange outpatient follow-up to discuss definitive stone management. His stent was placed by Dr. Go Cohen of [facility] urology. (7) Diabetes: Plan: new onset diabetic--pt reports thinking he was "prediabetic" in the past. 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 If renal function improved, consider metformin and alternatively glipizide. Jardiance is also indicated given the heart failure, obesity, and diabetes. He was counseled on annual ophthalmonology screenings and foot exams. (8) Atrial fibrillation with rapid ventricular response: Plan: New onset A-fib in setting of sepsis. TSH is normal, minimal caffeine and alcohol intake per his report. Cardiology consulted and heparin was transition to Eliquis. Diltiazem drip was transitioned to Lopressor 50 mg p.o. 3 times daily. He was given magnesium supplementation today per cardiology team. Echo as above. Heart rate is in the 80s to low 90s. Cardiology follow-up in 4 to 6 weeks. (9) Vomiting: Plan: Resolved, tolerating p.o. (10) Hypertension: Plan: Chronic, stable. Continue amlodipine per home regimen. Atenolol was held in place using Lopressor instead (11) Morbid obesity: Plan: Lifestyle changes recommended. (12) ADRYAN (obstructive sleep apnea): Plan: Noncompliant with CPAP per records. Apixaban DNR/DNI Disposition-to home in next 1 to 2 days. I spent a total of 60minutes coordinating, documenting, and providing care for this patient excluding time spent in the performance of separately billed services Stephany Dillon DO [facility] Hospitalist Admission and Anticipated Discharge Date Admission Date: July 02, 2023 Subjective 78 yo M presented with vomiting. Found to have new onset afib wtih RVR, left ureteral stone obstruction s/p cystoscopy with stent placement on 07/02, and new diagnosis of DMII Pt feeling well today and asking to go home No CP, SOB No dysuria or hematuria post ureteral stent last night Denies nausea and now tolerating PO We reviewed blood thinners and he is good with apixaban. He was counseled to avoid ladders, power tools, etc because of the bleeding risk Review of Systems Review of Systems: All systems were reviewed and negative except as indicated on subjective above. Physical Exam Physical Exam: CONSTITUTIONAL: morbid obesity, vitals as above, generally well-appearing, NAD EYES: normal conjunctivae, no scleral icterus ENT: external ear and nose normal, MMM NECK: trachea midline, RESPIRATORY: clear to auscultation bilaterally, no crackles, rales or wheezes, normal respiratory effort CARDIOVASCULAR: irregular rate and irregular rhythm, S1 and 2 heard without murmurs, gallops or rubs, no JVD, no peripheral edema CHEST: inspection of chest was normal GASTROINTESTINAL: soft, nontender, ND, no guarding MUSCULOSKELETAL: strength 5/5 throughout, head is normocephalic and atraumatic SKIN: warm and dry NEUROLOGIC: CN 2-12 grossly intact, no sensory deficit, normal cognition, normal speech, no tremor PSYCHIATRIC: alert cooperative and oriented to person, place and time. Euthymic mood, makes good eye contact, language grossly intact, recent and remote memory grossly intact. Results & Data Results & Data Vital Signs (Past 12 Hours) Vital Signs Temp Pulse Pulse Resp BP Pulse Ox O2 Del Method 07/03/23 11:29 36.9 C 86 18 132/85 92 Room Air 07/03/23 10:09 Oxymask 07/03/23 08:42 37.0 C 89 20 119/78 96 Oxymask 07/03/23 08:07 80 07/03/23 03:43 90 120/85 07/03/23 02:45 37.2 C 84 20 111/78 96 Oxymask O2 Flow Rate 07/03/23 11:29 07/03/23 10:09 3 07/03/23 08:42 3.0 07/03/23 08:07 07/03/23 03:43 07/03/23 02:45 3 Laboratory Results Short CBC 07/02/23 07/03/23 Range/Units 16:10 06:08 WBC 18.60 H 14.70 H (4.8-10.8) K/ul Hgb 16.1 13.5 L (14.0-18.0) g/dl Hct 47.0 41.2 L (42.0-52.0) % Plt Count 233 194 (130-400) K/uL BMP 07/02/23 07/03/23 16:10 06:08 Sodium 134 L 134 L Potassium 3.7 4.2 Chloride 97 L 98 Carbon Dioxide 25 29 BUN 25 H 32 H Creatinine 1.30 1.42 H Glucose 209 H 135 H Calcium 8.9 8.5 L Liver Function 07/02/23 Range/Units 16:10 Total Bilirubin 1.6 H (0.2-1.0) mg/dl AST 19 (13-39) U/L ALT 11 (7-52) U/L Alkaline Phosphatase 70 (34-104) U/L Albumin 4.1 (3.4-5.0) gm/dl Urine 07/02/23 Range/Units 18:45 Urine Color Dark Yellow Urine Appearance Clear (Clear) Urine pH 6.5 (4.5-7.5) Ur Specific [place] 1.024 (1.000-1.030) Urine Protein 2+ H (Negative) Urine Glucose (UA) Trace H (Negative) Diagnostic Findings Retrograde Pyelogram 07/02/23 00:00 FL retrograde includes kub CLINICAL HISTORY: LT CYSTO STENT TECHNIQUE: 3 views were obtained with the C-arm in the OR with the above procedure. Total fluoroscopy time was 15 seconds. Radiation dose was 5.62 mGy. Comparison: Comparison is made to CT abdomen pelvis 07/02/2023 FINDINGS/IMPRESSION: Intraoperative images were obtained of left cystogram and stent placement. Please correlate with intraoperative fluoroscopy and operative report. ACT 112: Negative or not required by law. Electronically signed by: Osmin Quiñones M.D. 07/03/2023 7:09 AM Chest X-Ray 07/02/23 19:54 XR chest 1V portable HISTORY: 78 years-old Male vomiting acute chest pain with nausea and vomiting COMPARISON: Chest CT 12/21/2018 TECHNIQUE: AP view of the chest FINDINGS: Cardiac silhouette is enlarged. No pneumothorax, pleural effusion, airspace consolidation or pulmonary edema. Degenerative changes of the shoulders and spine. IMPRESSION: No acute process. ACT 112: Negative or not required by law. The above report was generated using voice recognition software. It may contain grammatical, syntax or spelling errors. Electronically signed by: Win Barahona M.D. 07/03/2023 7:29 AM
[2023-07-03] MEDS ORDERED: PHENAZOPYRIDINE HCL 100 MG TAB PO PRN (14:00)
--- NOTE | 2023-07-03 15:56 | Electrocardiogram Report ---
Test Reason : Blood Pressure : / mmHG Vent. Rate : 145 BPM Atrial Rate : 000 BPM P-R Int : 000 ms QRS Dur : 090 ms QT Int : 310 ms P-R-T Axes : 000 -52 103 degrees QTc Int : 481 ms Atrial fibrillation with rapid ventricular response with premature ventricular or aberrantly conducte d complexes Left axis deviation Septal infarct , age undetermined Abnormal ECG No previous ECGs available Confirmed by Neftaly Bowden ([id number]) on 07/03/2023 3:56:13 PM Referred By: REFERRED SELF Confirmed By:Neftaly Bowden
--- NOTE | 2023-07-03 16:11 | Electrocardiogram Report ---
Test Reason : Blood Pressure : / mmHG Vent. Rate : 080 BPM Atrial Rate : 312 BPM P-R Int : 000 ms QRS Dur : 096 ms QT Int : 392 ms P-R-T Axes : 000 -27 -37 degrees QTc Int : 452 ms Atrial fibrillation Septal infarct (cited on or before 02-JUL-2023) Nonspecific T wave abnormality Abnormal ECG When compared with ECG of 02-JUL-2023 16:10, (unconfirmed) Vent. rate has decreased BY 65 BPM Nonspecific T wave abnormality now evident in Inferior leads Nonspecific T wave abnormality now evident in Anterior leads Nonspecific T wave abnormality has replaced inverted T waves in Lateral leads Confirmed by Neftaly Bowden ([id number]) on 07/03/2023 4:10:22 PM Referred By: REFERRED SELF Confirmed By:Neftaly Bowden
[2023-07-03 16:15] LABS: Calcium 8.3 mg/dl (8.6-10.3); Magnesium 2.8 mg/dl (1.7-2.4)
[2023-07-03 16:21] LABS: BUN Creatinine Ratio 24.3 (10-20); Creatinine Clr Calc Pharmacy 55.2 ml/min; Est GFR (African American) 57.4 ml/min; Est GFR (Non-African American) 49.5 ml/min
[2023-07-03] MEDS ORDERED: FLUCONAZOLE 100 MG TAB PO SCH (21:00)
[2023-07-03] MEDS: LANTUS PER UNIT CHARGE SQ SCH (21:47)
[2023-07-04 07:43] LABS: Hematocrit (blood only) 41.1 % (42.0-52.0); Hemoglobin 13.8 g/dl (14.0-18.0); Mean Corpuscular Hemoglobin 29.4 pg (25.0-34.0); Mean Corpuscular Hgb Conc 33.6 g/dL (32.0-36.0); Mean Corpuscular Volume 87.4 fL (80.0-100.0); Mean Platelet Volume 10.8 fL (9.4-12.4); Platelet Count 213 K/uL (130-400); RDW Coefficient of Variation 12.7 % (11.5-14.5); RDW Standard Deviation 40.6 fL (36.4-46.3)
--- NOTE | 2023-07-04 07:50 | Cardiology Progress Note ---
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 Admission and Anticipated Discharge Date Admission Date: July 02, 2023 Supervising Physician Co-Signing Physician Notes Attending Staff: Pt seen and evaluated with AP Staff. Concur with observations and plans 78 yo man presenting with abdominal pain Left nephrolithiasis Emergent cystoscopy Left ureteral stent placement + afib RVR Consultations: Afib with RVR (new onset) Started on IV Diltiazem to manage HR Started on IV Heparin post procedure Started Lopressor 25 mg po BID TSH - 1.4 K+ 4.2 Mag 1.7 Troponin - not checked BNP - 285 BMI - 34 No known ADRYAN ASCVD Risks: * HTN * No DM * No Hyperlipidemia known ECHOcardiogram: 07/03/2023 LVEF 45-50% No WMA Mild MR Mild Aortic dilation Events Overnight: * New O2 requirement * 1.5 liters of fluids overnight Plans: * Dx: Afib with RVR - new onset * HR 100's * Diltiazem (OFF) * STOP Lopressor to 50 mg po TID * Start Toprol XL 75 mg po BID * CHADsVasc - 2 * Heparin (OFF) * DOAC started - no major bleeding reported * ABX as per urology * STOP IV LASIX * K+ goal 4.5-5 * STOP KDUR - K+ 4.0 * Mag++ goal >2 * 4 gm MagSO4 * TSH is WNL * Suspect Sleep Apnea - outpt ADRYAN eval * SBP 126 mmHg * LVEF is mildly reduced * Consider ION/ARB/ARNI as an outpt * On RA * HbA1c - 8 - outpt endocrine evaluation * Lipid Panel - 89 * Consider outpt Crestor 5 mg po per day * Consider outpt Coronary Evaluation given mildly reduced LVEF and DM * Pt to follow up with [facility] * Please call with any additional questions Kobe Stevenson Subjective Events overnight: None reported HR 80's - afib Subjective: No complaints Ready to go home Review of Systems Review of Systems: All systems reviewed & are unremarkable except as noted in HPI & below Physical Exam Physical Exam: Exam: obese JVP to 18 cm H20 S1S2 Soft 2/6 ssytolic murmur CTA B on anterior exam No c/c/e Warm/perfusing Results & Data Vital Signs (Past 12 Hours) Vital Signs Temp Pulse Pulse Resp BP Pulse Ox O2 Del Method 07/04/23 07:47 83 07/04/23 03:05 37 C 91 H 21 121/91 97 Oxymask 07/03/23 23:12 83 20 118/82 98 Oxymask 07/03/23 19:53 36.4 C L 86 20 128/86 98 Oxymask O2 Flow Rate 07/04/23 07:47 07/04/23 03:05 2 07/03/23 23:12 2 07/03/23 19:53 2 Laboratory Results Lipids 07/04/23 Range/Units 07:03 Triglycerides 154 H (0-150) mg/dl Cholesterol 150 (0-200) mg/dl HDL Cholesterol 30 mg/dl Cholesterol/HDL Ratio 5.0 (0-5) CBC 07/04/23 Range/Units 07:03 WBC 10.40 (4.8-10.8) K/ul RBC 4.70 (4.70-6.10) M/uL Hgb 13.8 L (14.0-18.0) g/dl Hct 41.1 L (42.0-52.0) % Plt Count 213 (130-400) K/uL Comprehensive Metabolic Panel 07/03/23 Range/Units 14:33 Sodium 132 L (136-145) mmol/L Potassium 4.0 (3.5-5.1) mmol/L Chloride 97 L (98-107) mmol/L Carbon Dioxide 25 (21-32) mmol/L BUN 33 H (6-23) mg/dl Creatinine 1.36 (0.6-1.4) mg/dl Glucose 151 H (70-99(Fasting)) mg/dl Calcium 8.3 L (8.6-10.3) mg/dl Intake and Output 07/03/23 07/04/23 07/04/23 22:59 06:59 14:59 Intake Total 299.166 / 1583.949 50 / 1583.949 Output Total 675 / 2325 600 / 2325 300 / 300 Balance -375.834 / -741.051 -550 / -741.051 -300 / -300 Intake: IV 59.166 / 453.949 Magnesium Sulfate / D5w 1 gm In 59.166 / 250.833 100 ml @ 50 mls/hr IV Q2H [facility] Rx#:[id number] Oral 240 / 1130 50 / 1130 Output: Urine 675 / 2325 600 / 2325 300 / 300 Other: Weight 107.8 kg Weight Measurement Method Built in Bedscale Medications Administered Current Inpatient Medications Apixaban (Apixaban 5 Mg Tablet) 5 mg PO BID [facility] Stop: 08/02/23 10:59 Last Admin: 07/04/23 08:06 Dose: 5 mg Aspirin (Aspirin 81 Mg Ectab) 81 mg PO DAILY [facility] Stop: 08/02/23 08:59 Last Admin: 07/04/23 08:07 Dose: 81 mg Dextrose (Dextrose 50% 50 Ml Syringe) 25 - 50 ml IV UD PRN; Protocol PRN Reason: Hypoglycemia Protocol Stop: 08/01/23 23:17 Fluconazole (Fluconazole 100 Mg Tab) 100 mg PO HS [facility] Stop: 07/13/23 20:59 Last Admin: 07/03/23 21:49 Dose: 100 mg Glucagon (Glucagon For Inj 1 Mg Vial) 1 mg SQ UD PRN; Protocol PRN Reason: Hypoglycemia Protocol Stop: 08/01/23 23:17 Glucose (Glucose 10 Tab/Tube) 4 - 8 tab PO UD PRN; Protocol PRN Reason: Hypoglycemia Treatment Stop: 08/01/23 23:17 Glucose (Glucose 40% Gel 15 Gm Tube) 15 - 30 gm PO UD PRN; Protocol PRN Reason: Hypoglycemia Protocol Stop: 08/01/23 23:17 Promethazine HCl 12.5 mg/ (Sodium Chloride) 50.5 mls @ 202 mls/hr IV Q6H PRN PRN Reason: Nausea And Vomiting Stop: 08/01/23 21:12 Cefepime HCl 2,000 mg/ Syringe 20 mls @ 5 mls/min IV Q12H [facility]; Protocol Stop: 07/13/23 09:59 Last Admin: 07/03/23 21:53 Dose: 5 mls/min Insulin Aspart (Insulin Aspart Per Unit Charge) 0 units SC ACHS [facility] Stop: 08/01/23 23:17 Last Admin: 07/04/23 08:07 Dose: 2 units Insulin Glargine (Lantus Per Unit Charge) 5 units SQ HS [facility] Stop: 08/02/23 20:59 Last Admin: 07/03/23 21:47 Dose: 5 units Metoprolol Tartrate (Metoprolol Tartrate 50 Mg Tab) 50 mg PO TID [facility] Stop: 08/02/23 10:29 Last Admin: 07/04/23 08:06 Dose: 50 mg Miscellaneous (Carbohydrates For Hypoglycemia ) 15 - 30 gm PO UD PRN PRN Reason: Hypoglycemia Protocol Stop: 08/01/23 23:17 Morphine Sulfate (Morphine Sulfate 4 Mg/Ml 1 Ml Carp\Vial) 4 mg IV Q4H PRN PRN Reason: Pain Stop: 07/16/23 21:12 Multivitamins (Multivitamin Tab) 1 tab PO QAM [facility] Stop: 08/02/23 08:59 Last Admin: 07/04/23 08:07 Dose: 1 tab Oxycodone HCl (Oxycodone Hcl Ir 5 Mg Tab (Immediate Release)) 5 - 10 mg PO QID PRN PRN Reason: Pain Stop: 07/16/23 21:12 Phenazopyridine HCl (Phenazopyridine Hcl 100 Mg Tab) 100 mg PO TID PRN PRN Reason: bladder spasms, flank pain Stop: 08/02/23 13:59 Last Admin: 07/04/23 08:07 Dose: 100 mg
[2023-07-04] MEDS: METOPROLOL TARTRATE 50 MG TAB PO SCH (08:06)
[2023-07-04] MEDS: APIXABAN 5 MG TABLET PO SCH ×2 (08:06→20:59)
[2023-07-04] MEDS: ASPIRIN 81 MG ECTAB PO SCH (08:07)
[2023-07-04] MEDS: INSULIN ASPART PER UNIT CHARGE SC SCH ×4 (08:07→20:59)
[2023-07-04] MEDS: MULTIVITAMIN TAB PO SCH (08:07)
[2023-07-04] MEDS: CEFEPIME 2,000 MG in SYRINGE 0 ML IV SCH ×2 (10:20→21:00)
--- NOTE | 2023-07-04 16:06 | Hospitalist Progress Note ---
Date of Service July 04, 2023 Assessment & Plan (1) Acute hypoxemic respiratory failure: Plan: 2/2 CHF exacerbation. Improved after intravenous furosemide. Cont to monitor and dose him as needed per cardiology. Clinically much better and is about to be discharged Will need to have 2 steps O2 saturation test prior to discharge tomorrow (2) Acute on chronic heart failure with reduced ejection fraction and diastolic dysfunction: Plan: Echocardiogram on 07/03 reveals LVEF of 45 to 50%. Mild MR and mild aortic dilation was noted. Cardiology was consulted for this and new onset atrial fibrillation with rapid ventricular response. Started on intravenous diltiazem drip and beta-isis He is now off the diltiazem drip and Lopressor 50 was increased to 3 times daily oral. Heparin is ongoing for stroke prevention. Lasix 40 mg was given this morning IV with potassium supplementation. Defer to cardiology for GDMT for heart failure management. Beta-isis has been changed to metoprolol succinate 75 mg twice daily, heparin has been off and apixaban has been started Intravenous Lasix is stopped as well Cleared by the cardiology to go home with outpatient follow-up and further consideration of ION/ARB/ARN I as an outpatient also Crestor 5 mg p.o. daily (3) Sepsis: Plan: Resuscitated-presented with complicated UTI including left ureteral stone. White blood cell count was 18.6 improved to 14.7 this morning. Continue cefepime. Urine culture currently reveals no growth. Blood cultures are still pending. He remains afebrile and clinically improved. Continue IV antibiotics for another day and transition to an oral course of appropriate antibiotics for post stent placement likely 7 to 10 days. Urine culture is growing staph species more than 100,000 unit Will await further identification and culture sensitivity to decide on antibiotic Likely discharge tomorrow (4) Acute renal failure: Plan: Likely related to prerenal azotemia in setting of recent vomiting and sepsis. May have also been related to ureteral obstruction. Creatinine is 1.4 with a baseline of 0.8. Cont to trend BMP Kidney function is normalized. (5) Acute UTI (urinary tract infection): Plan: Currently no growth. Continue cefepime as culture is being reintubated. (6) Ureterolithiasis: Plan: Received a left cystoscopy with stent placement per urology last evening. He is doing well post stent placement. Continue tamsulosin, as needed Pyridium and as needed pain medicine for stent management as needed. Urology will arrange outpatient follow-up to discuss definitive stone management. His stent was placed by Dr. Go Cohen of [facility] urology. (7) Diabetes: Plan: new onset diabetic--pt reports thinking he was "prediabetic" in the past. 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 If renal function improved, consider metformin and alternatively glipizide. Jardiance is also indicated given the heart failure, obesity, and diabetes. He was counseled on annual ophthalmonology screenings and foot exams. He will be given oral metformin and has had diabetes teaching (8) Atrial fibrillation with rapid ventricular response: Plan: New onset A-fib in setting of sepsis. TSH is normal, minimal caffeine and alcohol intake per his report. Cardiology consulted and heparin was transition to Eliquis. Diltiazem drip was transitioned to Lopressor 50 mg p.o. 3 times daily. He was given magnesium supplementation today per cardiology team. Echo as above. Heart rate is in the 80s to low 90s. Cardiology follow-up in 4 to 6 weeks. Rate is reasonably controlled Likely discharge tomorrow (9) Vomiting: Plan: Resolved, tolerating p.o. (10) Hypertension: Plan: Chronic, stable. Continue amlodipine per home regimen. Atenolol was held in place using Lopressor instead (11) Morbid obesity: Plan: Lifestyle changes recommended. (12) ADRYAN (obstructive sleep apnea): Plan: Noncompliant with CPAP per records. Apixaban DNR/DNI Disposition-to home in next 1 to 2 days. Admission and Anticipated Discharge Date Admission Date: July 02, 2023 Subjective 07/04/2023 The patient was seen and examined in telemetry unit He has been feeling much better and wants to go home No more chest pain, palpitation or shortness of breath No fever and or chills and no abdominal pain Has had diabetic teaching Review of Systems Review of Systems: All systems reviewed and are unremarkable except as noted below Physical Exam Physical Exam: Sitting on a chair without any acute distress Constitutional: well developed, well nourished and + obese; not ill appearing Eyes: PERRL, conjunctivae normal, anicteric sclerae ENMT: external ear and nose normal, oropharynx normal Neck: trachea midline, no thyromegaly Respiratory: no respiratory distress Auscultation: lungs clear to auscultation bilaterally Cardiovascular: Rate/Rhythm: regular rate and regular rhythm; not tachycardic Heart Sounds: normal S1 and normal S2; no murmur Extremities: + edema (Trace edema bilaterally) Gastrointestinal (Abdomen): Inspection/Auscultation: normal bowel sounds; abdomen not distended Percussion/Palpation: abdomen soft; abdomen nontender Musculoskeletal: No acute arthritis involving any joint Neurologic: normal touch/pain/proprioception and moves all extremities; no focal motor deficits Psychiatric: A+Ox3, euthymic affect Lymphatic: no cervical or axillary lymphadenopathy Results & Data Results & Data Vital Signs (Past 12 Hours) Vital Signs Temp Pulse Pulse Resp BP Pulse Ox Pulse Ox 07/04/23 15:41 94 H 07/04/23 13:03 36.5 C 80 18 119/75 98 07/04/23 11:08 95 07/04/23 09:34 07/04/23 07:30 36.5 C 80 20 126/73 96 07/04/23 07:47 83 Pulse Ox O2 Del Method O2 Flow Rate O2 Flow Rate O2 Flow Rate 07/04/23 15:41 07/04/23 13:03 Nasal Cannula 2 07/04/23 11:08 89 L 0 0 07/04/23 09:34 Room Air, Oxymask 07/04/23 07:30 Room Air 07/04/23 07:47 Laboratory Results Short CBC 07/04/23 Range/Units 07:03 WBC 10.40 (4.8-10.8) K/ul Hgb 13.8 L (14.0-18.0) g/dl Hct 41.1 L (42.0-52.0) % Plt Count 213 (130-400) K/uL BMP 07/03/23 14:33 Sodium 132 L Potassium 4.0 Chloride 97 L Carbon Dioxide 25 BUN 33 H Creatinine 1.36 Glucose 151 H Calcium 8.3 L Medications Administered Current Inpatient Medications Apixaban (Apixaban 5 Mg Tablet) 5 mg PO BID [facility] Stop: 08/02/23 10:59 Last Admin: 07/04/23 08:06 Dose: 5 mg Aspirin (Aspirin 81 Mg Ectab) 81 mg PO DAILY [facility] Stop: 08/02/23 08:59 Last Admin: 07/04/23 08:07 Dose: 81 mg Dextrose (Dextrose 50% 50 Ml Syringe) 25 - 50 ml IV UD PRN; Protocol PRN Reason: Hypoglycemia Protocol Stop: 08/01/23 23:17 Glucagon (Glucagon For Inj 1 Mg Vial) 1 mg SQ UD PRN; Protocol PRN Reason: Hypoglycemia Protocol Stop: 08/01/23 23:17 Glucose (Glucose 10 Tab/Tube) 4 - 8 tab PO UD PRN; Protocol PRN Reason: Hypoglycemia Treatment Stop: 08/01/23 23:17 Glucose (Glucose 40% Gel 15 Gm Tube) 15 - 30 gm PO UD PRN; Protocol PRN Reason: Hypoglycemia Protocol Stop: 08/01/23 23:17 Promethazine HCl 12.5 mg/ (Sodium Chloride) 50.5 mls @ 202 mls/hr IV Q6H PRN PRN Reason: Nausea And Vomiting Stop: 08/01/23 21:12 Cefepime HCl 2,000 mg/ Syringe 20 mls @ 5 mls/min IV Q12H [facility]; Protocol Stop: 07/13/23 09:59 Last Admin: 07/04/23 10:20 Dose: 5 mls/min Insulin Aspart (Insulin Aspart Per Unit Charge) 0 units SC ACHS [facility] Stop: 08/01/23 23:17 Last Admin: 07/04/23 12:10 Dose: 3 units Insulin Glargine (Lantus Per Unit Charge) 5 units SQ HS [facility] Stop: 08/02/23 20:59 Last Admin: 07/03/23 21:47 Dose: 5 units Metoprolol Succinate (Metoprolol Succ 25mg Ext Rel Tab) 75 mg PO BID [facility] Stop: 08/03/23 20:59 Miscellaneous (Carbohydrates For Hypoglycemia ) 15 - 30 gm PO UD PRN PRN Reason: Hypoglycemia Protocol Stop: 08/01/23 23:17 Morphine Sulfate (Morphine Sulfate 4 Mg/Ml 1 Ml Carp\\Vial) 4 mg IV Q4H PRN PRN Reason: Pain Stop: 07/16/23 21:12 Multivitamins (Multivitamin Tab) 1 tab PO QAM [facility] Stop: 08/02/23 08:59 Last Admin: 07/04/23 08:07 Dose: 1 tab Oxycodone HCl (Oxycodone Hcl Ir 5 Mg Tab (Immediate Release)) 5 - 10 mg PO QID PRN PRN Reason: Pain Stop: 07/16/23 21:12 Phenazopyridine HCl (Phenazopyridine Hcl 100 Mg Tab) 100 mg PO TID PRN PRN Reason: bladder spasms, flank pain Stop: 08/02/23 13:59 Last Admin: 07/04/23 08:07 Dose: 100 mg
[2023-07-04] MEDS: LANTUS PER UNIT CHARGE SQ SCH (20:59)
[2023-07-04] MEDS: METOPROLOL SUCC 25MG EXT REL TAB PO SCH (20:59)
[2023-07-05] MEDS: INSULIN ASPART PER UNIT CHARGE SC SCH ×4 (07:47→21:18)
[2023-07-05 08:00] LABS: Basophils # (auto) 0.05 K/uL (0-0.2); Basophils % (auto) 0.6 %; Eosinophils # (auto) 0.55 K/uL (0-0.50); Eosinophils % (auto) 6.9 %; Hematocrit (blood only) 41.7 % (42.0-52.0); Hemoglobin 13.7 g/dl (14.0-18.0); Immature Granulocytes # (auto) 0.03 K/uL (0.01-0.20); Immature Granulocytes % (auto) 0.4 %; Lymphocytes # (auto) 1.07 K/uL (1.2-3.4); Lymphocytes % (auto) 13.4 %; Mean Corpuscular Hgb Conc 32.9 g/dL (32.0-36.0); Mean Corpuscular Volume 88.2 fL (80.0-100.0); Mean Platelet Volume 10.7 fL (9.4-12.4); Monocytes # (auto) 0.77 K/uL (0.11-0.59); Monocytes % (auto) 9.6 %; Neutrophils # (auto) 5.54 K/uL (1.40-6.50); Neutrophils % (auto) 69.1 %; Platelet Count 247 K/uL (130-400); RDW Coefficient of Variation 12.5 % (11.5-14.5); RDW Standard Deviation 40.5 fL (36.4-46.3); Red Blood Count 4.73 M/uL (4.70-6.10); White Blood Count 8.01 K/ul (4.8-10.8)
[2023-07-05 08:06] LABS: BUN Creatinine Ratio 32.5 (10-20); Calcium 8.5 mg/dl (8.6-10.3); Creatinine Clr Calc Pharmacy 94.2 ml/min; Est GFR (African American) 99.2 ml/min; Est GFR (Non-African American) 85.6 ml/min; Magnesium 2.2 mg/dl (1.7-2.4); Potassium 3.9 mmol/L (3.5-5.1)
[2023-07-05] MEDS: METOPROLOL SUCC 25MG EXT REL TAB PO SCH ×2 (09:03→19:55)
[2023-07-05] MEDS: APIXABAN 5 MG TABLET PO SCH ×2 (09:03→19:55)
[2023-07-05] MEDS: ASPIRIN 81 MG ECTAB PO SCH (09:04)
[2023-07-05] MEDS: MULTIVITAMIN TAB PO SCH (09:04)
[2023-07-05] MEDS: CEFEPIME 2,000 MG in SYRINGE 0 ML IV SCH ×2 (09:46→21:40)
--- NOTE | 2023-07-05 15:16 | Hospitalist Progress Note ---
Date of Service July 05, 2023 Assessment & Plan (1) Acute hypoxemic respiratory failure: Plan: 2/2 CHF exacerbation. Improved after intravenous furosemide. Cont to monitor and dose him as needed per cardiology. Clinically much better and is about to be discharged Will need to have 2 steps O2 saturation test prior to discharge tomorrow Has been ambulating without any difficulties and no desaturation on ambulation (2) Acute on chronic heart failure with reduced ejection fraction and diastolic dysfunction: Plan: Echocardiogram on 07/03 reveals LVEF of 45 to 50%. Mild MR and mild aortic dilation was noted. Cardiology was consulted for this and new onset atrial fibrillation with rapid ventricular response. Started on intravenous diltiazem drip and beta-isis He is now off the diltiazem drip and Lopressor 50 was increased to 3 times daily oral. Heparin is ongoing for stroke prevention. Lasix 40 mg was given this morning IV with potassium supplementation. Defer to cardiology for GDMT for heart failure management. Beta-isis has been changed to metoprolol succinate 75 mg twice daily, heparin has been off and apixaban has been started Intravenous Lasix is stopped as well Cleared by the cardiology to go home with outpatient follow-up and further consideration of ION/ARB/ARN I as an outpatient also Crestor 5 mg p.o. daily Remains euvolemic and no signs and or symptoms of fluid overload (3) Sepsis: Plan: Resuscitated-presented with complicated UTI including left ureteral stone. White blood cell count was 18.6 improved to 14.7 this morning. Continue cefepime. Urine culture currently reveals no growth. Blood cultures are still pending. He remains afebrile and clinically improved. Continue IV antibiotics for another day and transition to an oral course of appropriate antibiotics for post stent placement likely 7 to 10 days. Urine culture is growing staph species more than 100,000 unit Will await further identification and culture sensitivity to decide on antibiotic Urine is growing staph species has to be identified and sensitivity reported before discharge (4) Acute renal failure: Plan: Likely related to prerenal azotemia in setting of recent vomiting and sepsis. May have also been related to ureteral obstruction. Creatinine is 1.4 with a baseline of 0.8. Cont to trend BMP Kidney function is normalized. (5) Acute UTI (urinary tract infection): Plan: Currently no growth. Continue cefepime as culture is being reintubated. (6) Ureterolithiasis: Plan: Received a left cystoscopy with stent placement per urology last evening. He is doing well post stent placement. Continue tamsulosin, as needed Pyridium and as needed pain medicine for stent management as needed. Urology will arrange outpatient follow-up to discuss definitive stone management. His stent was placed by Dr. Go Cohen of [facility] urology. (7) Diabetes: Plan: new onset diabetic--pt reports thinking he was "prediabetic" in the past. 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 If renal function improved, consider metformin and alternatively glipizide. Jardiance is also indicated given the heart failure, obesity, and diabetes. He was counseled on annual ophthalmonology screenings and foot exams. He will be given oral metformin and has had diabetes teaching (8) Atrial fibrillation with rapid ventricular response: Plan: New onset A-fib in setting of sepsis. TSH is normal, minimal caffeine and alcohol intake per his report. Cardiology consulted and heparin was transition to Eliquis. Diltiazem drip was transitioned to Lopressor 50 mg p.o. 3 times daily. He was given magnesium supplementation today per cardiology team. Echo as above. Heart rate is in the 80s to low 90s. Cardiology follow-up in 4 to 6 weeks. Rate is reasonably controlled Likely discharge tomorrow (9) Vomiting: Plan: Resolved, tolerating p.o. (10) Hypertension: Plan: Chronic, stable. Continue amlodipine per home regimen. Atenolol was held in place using Lopressor instead (11) Morbid obesity: Plan: Lifestyle changes recommended. (12) ADRYAN (obstructive sleep apnea): Plan: Noncompliant with CPAP per records. Apixaban DNR/DNI Disposition-to home in next 1 to 2 days. Admission and Anticipated Discharge Date Admission Date: July 02, 2023 Subjective Indocin07/04/2023 The patient was seen and examined in telemetry unit He has been feeling much better and wants to go home No more chest pain, palpitation or shortness of breath No fever and or chills and no abdominal pain Has had diabetic teaching 07/05/2023 The patient was seen and examined in telemetry unit He has been doing much better and waiting to be discharged Denies any symptoms Waiting for full culture and sensitivity results back before he can be discharged Review of Systems Review of Systems: All systems reviewed and are unremarkable except as noted below Physical Exam Physical Exam: Sitting on a chair without any acute distress Constitutional: well developed, well nourished and + obese; not ill appearing Eyes: PERRL, conjunctivae normal, anicteric sclerae ENMT: external ear and nose normal, oropharynx normal Neck: trachea midline, no thyromegaly Respiratory: no respiratory distress Auscultation: lungs clear to auscultation bilaterally Cardiovascular: Rate/Rhythm: regular rate and regular rhythm; not tachycardic Heart Sounds: normal S1 and normal S2; no murmur Extremities: + edema (Trace edema bilaterally) Gastrointestinal (Abdomen): Inspection/Auscultation: normal bowel sounds; abdomen not distended Percussion/Palpation: abdomen soft; abdomen nontender Neurologic: normal touch/pain/proprioception and moves all extremities; no focal motor deficits Psychiatric: A+Ox3, euthymic affect Lymphatic: no cervical or axillary lymphadenopathy Results & Data Results & Data Vital Signs (Past 12 Hours) Vital Signs Temp Pulse Pulse Resp BP Pulse Ox O2 Del Method 07/05/23 12:19 36.6 C 78 18 141/88 H 98 07/05/23 07:25 36.6 C 78 18 141/88 H 98 Room Air 07/05/23 08:18 89 Laboratory Results Short CBC 07/05/23 Range/Units 06:41 WBC 8.01 (4.8-10.8) K/ul Hgb 13.7 L (14.0-18.0) g/dl Hct 41.7 L (42.0-52.0) % Plt Count 247 (130-400) K/uL BMP 07/05/23 06:41 Sodium 138 Potassium 3.9 Chloride 101 Carbon Dioxide 33 H BUN 26 H Creatinine 0.80 D Glucose 105 H Calcium 8.5 L Medications Administered Current Inpatient Medications Apixaban (Apixaban 5 Mg Tablet) 5 mg PO BID [facility] Stop: 08/02/23 10:59 Last Admin: 07/05/23 09:03 Dose: 5 mg Aspirin (Aspirin 81 Mg Ectab) 81 mg PO DAILY [facility] Stop: 08/02/23 08:59 Last Admin: 07/05/23 09:04 Dose: 81 mg Dextrose (Dextrose 50% 50 Ml Syringe) 25 - 50 ml IV UD PRN; Protocol PRN Reason: Hypoglycemia Protocol Stop: 08/01/23 23:17 Glucagon (Glucagon For Inj 1 Mg Vial) 1 mg SQ UD PRN; Protocol PRN Reason: Hypoglycemia Protocol Stop: 08/01/23 23:17 Glucose (Glucose 10 Tab/Tube) 4 - 8 tab PO UD PRN; Protocol PRN Reason: Hypoglycemia Treatment Stop: 08/01/23 23:17 Glucose (Glucose 40% Gel 15 Gm Tube) 15 - 30 gm PO UD PRN; Protocol PRN Reason: Hypoglycemia Protocol Stop: 08/01/23 23:17 Promethazine HCl 12.5 mg/ (Sodium Chloride) 50.5 mls @ 202 mls/hr IV Q6H PRN PRN Reason: Nausea And Vomiting Stop: 08/01/23 21:12 Cefepime HCl 2,000 mg/ Syringe 20 mls @ 5 mls/min IV Q12H [facility]; Protocol Stop: 07/13/23 09:59 Last Admin: 07/05/23 09:46 Dose: 5 mls/min Insulin Aspart (Insulin Aspart Per Unit Charge) 0 units SC ACHS [facility] Stop: 08/01/23 23:17 Last Admin: 07/05/23 11:59 Dose: 165 units Insulin Glargine (Lantus Per Unit Charge) 5 units SQ HS [facility] Stop: 08/02/23 20:59 Last Admin: 07/04/23 20:59 Dose: 5 units Metoprolol Succinate (Metoprolol Succ 25mg Ext Rel Tab) 75 mg PO BID [facility] Stop: 08/03/23 20:59 Last Admin: 07/05/23 09:03 Dose: 75 mg Miscellaneous (Carbohydrates For Hypoglycemia ) 15 - 30 gm PO UD PRN PRN Reason: Hypoglycemia Protocol Stop: 08/01/23 23:17 Morphine Sulfate (Morphine Sulfate 4 Mg/Ml 1 Ml Carp\\Vial) 4 mg IV Q4H PRN PRN Reason: Pain Stop: 07/16/23 21:12 Multivitamins (Multivitamin Tab) 1 tab PO QAM [facility] Stop: 08/02/23 08:59 Last Admin: 07/05/23 09:04 Dose: 1 tab Oxycodone HCl (Oxycodone Hcl Ir 5 Mg Tab (Immediate Release)) 5 - 10 mg PO QID PRN PRN Reason: Pain Stop: 07/16/23 21:12 Phenazopyridine HCl (Phenazopyridine Hcl 100 Mg Tab) 100 mg PO TID PRN PRN Reason: bladder spasms, flank pain Stop: 08/02/23 13:59 Last Admin: 07/04/23 08:07 Dose: 100 mg
[2023-07-05] MEDS: LANTUS PER UNIT CHARGE SQ SCH (21:41)
[2023-07-06] MEDS: APIXABAN 5 MG TABLET PO SCH (08:26)
[2023-07-06] MEDS: ASPIRIN 81 MG ECTAB PO SCH (08:27)
[2023-07-06] MEDS: MULTIVITAMIN TAB PO SCH (08:27)
[2023-07-06] MEDS: METOPROLOL SUCC 25MG EXT REL TAB PO SCH (08:28)
[2023-07-06] MEDS: INSULIN ASPART PER UNIT CHARGE SC SCH ×2 (08:36→11:52)
[2023-07-06] MEDS: CEFEPIME 2,000 MG in SYRINGE 0 ML IV SCH (10:47)
--- NOTE | 2023-07-06 11:22 | Hospitalist Progress Note ---
Date of Service July 06, 2023 Assessment & Plan (1) Acute hypoxemic respiratory failure: Plan: 2/2 CHF exacerbation. Improved after intravenous furosemide. Cont to monitor and dose him as needed per cardiology. Clinically much better and is about to be discharged Will need to have 2 steps O2 saturation test prior to discharge tomorrow Has been ambulating without any difficulties and no desaturation on ambulation No respiratory symptoms and saturating normally on room air (2) Acute on chronic heart failure with reduced ejection fraction and diastolic dysfunction: Plan: Echocardiogram on 07/03 reveals LVEF of 45 to 50%. Mild MR and mild aortic dilation was noted. Cardiology was consulted for this and new onset atrial fibrillation with rapid ventricular response. Started on intravenous diltiazem drip and beta-isis He is now off the diltiazem drip and Lopressor 50 was increased to 3 times daily oral. Heparin is ongoing for stroke prevention. Lasix 40 mg was given this morning IV with potassium supplementation. Defer to cardiology for GDMT for heart failure management. Beta-isis has been changed to metoprolol succinate 75 mg twice daily, heparin has been off and apixaban has been started Intravenous Lasix is stopped as well Cleared by the cardiology to go home with outpatient follow-up and further consideration of ION/ARB/ARN I as an outpatient also Crestor 5 mg p.o. daily Remains euvolemic and no signs and or symptoms of fluid overload Denies any symptoms (3) Sepsis: Plan: Resuscitated-presented with complicated UTI including left ureteral stone. White blood cell count was 18.6 improved to 14.7 this morning. Continue cefepime. Urine culture currently reveals no growth. Blood cultures are still pending. He remains afebrile and clinically improved. Continue IV antibiotics for another day and transition to an oral course of appropriate antibiotics for post stent placement likely 7 to 10 days. Urine culture is growing staph species more than 100,000 unit Will await further identification and culture sensitivity to decide on antibiotic Urine is growing staph species has to be identified and sensitivity reported before discharge Still waiting for the full sensitivity report (4) Acute renal failure: Plan: Likely related to prerenal azotemia in setting of recent vomiting and sepsis. May have also been related to ureteral obstruction. Creatinine is 1.4 with a baseline of 0.8. Cont to trend BMP Kidney function is normalized. (5) Acute UTI (urinary tract infection): Plan: Currently no growth. Continue cefepime as culture is being reintubated. (6) Ureterolithiasis: Plan: Received a left cystoscopy with stent placement per urology last evening. He is doing well post stent placement. Continue tamsulosin, as needed Pyridium and as needed pain medicine for stent management as needed. Urology will arrange outpatient follow-up to discuss definitive stone management. His stent was placed by Dr. Go Cohen of [facility] urology. (7) Diabetes: Plan: new onset diabetic--pt reports thinking he was "prediabetic" in the past. 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 If renal function improved, co nsider metformin and alternatively glipizide. Jardiance is also indicated given the heart failure, obesity, and diabetes. He was counseled on annual ophthalmonology screenings and foot exams. He will be given oral metformin and has had diabetes teaching (8) Atrial fibrillation with rapid ventricular response: Plan: New onset A-fib in setting of sepsis. TSH is normal, minimal caffeine and alcohol intake per his report. Cardiology consulted and heparin was transition to Eliquis. Diltiazem drip was transitioned to Lopressor 50 mg p.o. 3 times daily. He was given magnesium supplementation today per cardiology team. Echo as above. Heart rate is in the 80s to low 90s. Cardiology follow-up in 4 to 6 weeks. Rate is reasonably controlled Likely discharge this afternoon (9) Vomiting: Plan: Resolved, tolerating p.o. (10) Hypertension: Plan: Chronic, stable. Continue amlodipine per home regimen. Atenolol was held in place using Lopressor instead We will start lisinopril from today (11) Morbid obesity: Plan: Lifestyle changes recommended. (12) ADRYAN (obstructive sleep apnea): Plan: Noncompliant with CPAP per records. Apixaban DNR/DNI Will discharge this afternoon Admission and Anticipated Discharge Date Admission Date: July 02, 2023 Subjective Indocin07/04/2023 The patient was seen and examined in telemetry unit He has been feeling much better and wants to go home No more chest pain, palpitation or shortness of breath No fever and or chills and no abdominal pain Has had diabetic teaching 07/05/2023 The patient was seen and examined in telemetry unit He has been doing much better and waiting to be discharged Denies any symptoms Waiting for full culture and sensitivity results back before he can be disc harged 07/06/2023 The patient was seen and examined in telemetry unit He has been feeling much better and has been ambulating in the hallway without any difficulties Denies any symptoms of chest pain, shortness of breath or palpitation. No abdominal pain or any problem with urination Review of Systems Review of Systems: All systems reviewed and are unremarkable except as noted below Physical Exam Physical Exam: Sitting on a chair without any acute distress Constitutional: well developed, well nourished and + obese; not ill appearing Eyes: PERRL, conjunctivae normal, anicteric sclerae ENMT: external ear and nose normal, oropharynx normal Neck: trachea midline, no thyromegaly Respiratory: no respiratory distress Auscultation: lungs clear to auscultation bilaterally Cardiovascular: Rate/Rhythm: regular rate and regular rhythm; not tachycardic Heart Sounds: normal S1 and normal S2; no murmur Extremities: + edema (Trace edema bilaterally) Gastrointestinal (Abdomen): Inspection/Auscultation: normal bowel sounds; abdomen not distended Percussion/Palpation: abdomen soft; abdomen nontender Musculoskeletal: No acute arthritis involving any of the joint Neurologic: normal touch/pain/proprioception and moves all extremities; no focal motor deficits Psychiatric: A+Ox3, euthymic affect Lymphatic: no cervical or axillary lymphadenopathy Results & Data Results & Data Vital Signs (Past 12 Hours) Vital Signs Temp Pulse Pulse Resp BP BP Pulse Ox 07/06/23 10:51 84 07/06/23 07:40 36.8 C 88 18 97 07/06/23 08:00 166/108 H 07/06/23 03:48 36.9 C 91 H 18 157/101 H 95 07/06/23 00:02 37.0 C 93 H 16 150/93 H 94 O2 Del Method 07/06/23 10:51 07/06/23 07:40 Room Air 07/06/23 08:00 07/06/23 03:48 Room Air 07/06/23 00:02 Room Air Medications Administered Current Inpatient Medications Apixaban (Apixaban 5 Mg Tablet) 5 mg PO BID RADHA Stop: 08/02/23 10:59 Last Admin: 07/06/23 08:26 Dose: 5 mg Aspirin (Aspirin 81 Mg Ectab) 81 mg PO DAILY RADHA Stop: 08/02/23 08:59 Last Admin: 07/06/23 08:27 Dose: 81 mg Dextrose (Dextrose 50% 50 Ml Syringe) 25 - 50 ml IV UD PRN; Protocol PRN Reason: Hypoglycemia Protocol Stop: 08/01/23 23:17 Glucagon (Glucagon For Inj 1 Mg Vial) 1 mg SQ UD PRN; Protocol PRN Reason: Hypoglycemia Protocol Stop: 08/01/23 23:17 Glucose (Glucose 10 Tab/Tube) 4 - 8 tab PO UD PRN; Protocol PRN Reason: Hypoglycemia Treatment Stop: 08/01/23 23:17 Glucose (Glucose 40% Gel 15 Gm Tube) 15 - 30 gm PO UD PRN; Protocol PRN Reason: Hypoglycemia Protocol Stop: 08/01/23 23:17 Promethazine HCl 12.5 mg/ (Sodium Chloride) 50.5 mls @ 202 mls/hr IV Q6H PRN PRN Reason: Nausea And Vomiting Stop: 08/01/23 21:12 Cefepime HCl 2,000 mg/ Syringe 20 mls @ 5 mls/min IV Q12H RADHA; Protocol Stop: 07/13/23 09:59 Last Admin: 07/06/23 10:47 Dose: 5 mls/min Insulin Aspart (Insulin Aspart Per Unit Charge) 0 units SC ACHS [facility] Stop: 08/01/23 23:17 Last Admin: 07/06/23 08:36 Dose: 1 units Insulin Glargine (Lantus Per Unit Charge) 5 units SQ HS [facility] Stop: 08/02/23 20:59 Last Admin: 07/05/23 21:41 Dose: Not Given Metoprolol Succinate (Metoprolol Succ 25mg Ext Rel Tab) 75 mg PO BID RADHA Stop: 08/03/23 20:59 Last Admin: 07/06/23 08:28 Dose: 75 mg Miscellaneous (Carbohydrates For Hypoglycemia ) 15 - 30 gm PO UD PRN PRN Reason: Hypoglycemia Protocol Stop: 08/01/23 23:17 Morphine Sulfate (Morphine Sulfate 4 Mg/Ml 1 Ml Carp\\Vial) 4 mg IV Q4H PRN PRN Reason: Pain Stop: 07/16/23 21:12 Multivitamins (Multivitamin Tab) 1 tab PO QAM RADHA Stop: 08/02/23 08:59 Last Admin: 07/06/23 08:27 Dose: 1 tab Oxycodone HCl (Oxycodone Hcl Ir 5 Mg Tab (Immediate Release)) 5 - 10 mg PO QID PRN PRN Reason: Pain Stop: 07/16/23 21:12 Phenazopyridine HCl (Phenazopyridine Hcl 100 Mg Tab) 100 mg PO TID PRN PRN Reason: bladder spasms, flank pain Stop: 08/02/23 13:59 Last Admin: 07/04/23 08:07 Dose: 100 mg
[2023-07-06] MEDS ORDERED: LISINOPRIL/HCTZ 10/12.5MG TAB PO SCH (11:30)
[2023-07-06] MEDS ORDERED: LISINOPRIL/HCTZ 10/12.5MG TAB PO STA (11:57)
--- NOTE | 2023-07-06 16:56 | Discharge Summary ---
Date of Service July 06, 2023 Admission HPI Per Admitting Provider History obtained from patient, family, and records. Medical history significant for hypertension, DM2 diet-controlled (patient unaware of diagnosis), ADRYAN (CPAP noncompliance), medical noncompliance, past tobacco abuse. 3 days history of left-sided abdominal pain with nausea, poor appetite. Patient dizzy. Denies headache, chest pain, SOB. No hematuria symptoms. Patient noted to be in rapid A-fib upon arrival at the ER. SBP 180s upon arrival at the ER. Lowest O2 sats noted to be 80s on room air. IV ceftriaxone administered for urosepsis. IV Cardizem infusion initiated for rapid A-fib. 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 Admission Exam Per Admitting Provider Physical Exam: GENERAL: Comfortable, slightly anxious, obese, no respiratory distress SKIN: Normal color, warm HEENT: [place] palpebral conjunctivae, no ptosis, dry buccal mucosa, nasal cannula in place NECK : Supple, short neck, no tenderness CHEST : Decreased breath sounds, no tenderness HEART : irregular, no obvious murmurs ABDOMEN: Some distention, left-sided abdominal tenderness EXTREMITIES : No LE swelling/tenderness, no other conspicuous deformities noted NEUROLOGIC : Coherent, no facial asymmetry, no other gross focality Principal Diagnosis Acute hypoxic respiratory failure likely secondary to CHF exacerbation, A-fib with RVR, left ureteral stone status post stent placement, type 2 diabetes Discharge Exam Sitting on a chair without any acute distress Constitutional well developed, well nourished and + obese; not ill appearing Eyes PERRL, conjunctivae normal, anicteric sclerae ENMT external ear and nose normal, oropharynx normal Neck trachea midline, no thyromegaly Respiratory no respiratory distress Auscultation: lungs clear to auscultation bilaterally Cardiovascular Rate/Rhythm: regular rate and regular rhythm; not tachycardic Heart Sounds: normal S1 and normal S2; no murmur Extremities: + edema (Trace edema bilaterally) Gastrointestinal (Abdomen) Inspection/Auscultation: normal bowel sounds; abdomen not distended Percussion/Palpation: abdomen soft; abdomen nontender Neurologic normal touch/pain/proprioception and moves all extremities; no focal motor deficits Psychiatric A+Ox3, euthymic affect Lymphatic no cervical or axillary lymphadenopathy Discharge Data Allergies Allergy/AdvReac Type Severity Reaction Status Date / Time ION Inhibitors AdvReac Intermediate COUGH PER Verified 07/02/23 18:14 GMG amoxicillin [From Augmentin] AdvReac Intermediate BLURRED Verified 07/02/23 18:14 VISION PER GMG clavulanic acid AdvReac Intermediate BLURRED Verified 07/02/23 18:14 [From Augmentin] VISION PER GMG levofloxacin [From Levaquin] AdvReac Intermediate BLURRED Verified 07/02/23 18:14 VISION PER GMG Consultations 07/02/23 20:03 ED Decision to Admit Stat 07/02/23 23:18 Consult Cardiology Routine 07/03/23 10:24 Consult Urology Routine Procedures Performed Operation Date: 07/02/23 22:30 Actual Procedures p Cystoscopy, Left retrograde pyelogram, Left ureteral stent placement(Left) - Go Cohen, DO Ordered Studies 07/02/23 [place] retrograde includes kub Routine 07/02/23 16:36 CT Abd and Pelvis [CT abd pelvis wo con] Stat Hospital Course (1) Acute hypoxemic respiratory failure: 2/2 CHF exacerbation. Improved after intravenous furosemide. Cont to monitor and dose him as needed per cardiology. Clinically much better and is about to be discharged Will need to have 2 steps O2 saturation test prior to discharge tomorrow Has been ambulating without any difficulties and no desaturation on ambulation No respiratory symptoms and saturating normally on room air (2) Acute on chronic heart failure with reduced ejection fraction and diastolic dysfunction: Echocardiogram on 07/03 reveals LVEF of 45 to 50%. Mild MR and mild aortic dilation was noted. Cardiology was consulted for this and new onset atrial fibrillation with rapid ventricular response. Started on intravenous diltiazem drip and beta-isis He is now off the diltiazem drip and Lopressor 50 was increased to 3 times daily oral. Heparin is ongoing for stroke prevention. Lasix 40 mg was given this morning IV with potassium supplementation. Defer to cardiology for GDMT for heart failure management. Beta-isis has been changed to metoprolol succinate 75 mg twice daily, heparin has been off and apixaban has been started Intravenous Lasix is stopped as well Cleared by the cardiology to go home with outpatient follow-up and further consideration of ION/ARB/ARN I as an outpatient also Crestor 5 mg p.o. daily Remains euvolemic and no signs and or symptoms of fluid overload Denies any symptoms (3) Sepsis: Resuscitated-presented with complicated UTI including left ureteral stone. White blood cell count was 18.6 improved to 14.7 this morning. Continue cefepime. Urine culture currently reveals no growth. Blood cultures are still pending. He remains afebrile and clinically improved. Continue IV antibiotics for another day and transition to an oral course of appropriate antibiotics for post stent placement likely 7 to 10 days. Urine culture is growing staph species more than 100,000 unit Will await further identification and culture sensitivity to decide on antibiotic Urine is growing staph species has to be identified and sensitivity reported before discharge Still waiting for the full sensitivity report (4) Acute renal failure: Likely related to prerenal azotemia in setting of recent vomiting and sepsis. May have also been related to ureteral obstruction. Creatinine is 1.4 with a baseline of 0.8. Cont to trend BMP Kidney function is normalized. (5) Acute UTI (urinary tract infection): Currently no growth. Continue cefepime as culture is being reintubated. (6) Ureterolithiasis: Received a left cystoscopy with stent placement per urology last evening. He is doing well post stent placement. Continue tamsulosin, as needed Pyridium and as needed pain medicine for stent management as needed. Urology will arrange outpatient follow-up to discuss definitive stone management. His stent was placed by Dr. Go Cohen of [facility] urology. (7) Diabetes: new onset diabetic--pt reports thinking he was "prediabetic" in the past. 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 If renal function improved, consider metformin and alternatively glipizide. Jardiance is also indicated given the heart failure, obesity, and diabetes. He was counseled on annual ophthalmonology screenings and foot exams. He will be given oral metformin and has had diabetes teaching (8) Atrial fibrillation with rapid ventricular response: New onset A-fib in setting of sepsis. TSH is normal, minimal caffeine and alcohol intake per his report. Cardiology consulted and heparin was transition to Eliquis. Diltiazem drip was transitioned to Lopressor 50 mg p.o. 3 times daily. He was given magnesium supplementation today per cardiology team. Echo as above. Heart rate is in the 80s to low 90s. Cardiology follow-up in 4 to 6 weeks. Rate is reasonably controlled Likely discharge this afternoon (9) Vomiting: Resolved, tolerating p.o. (10) Hypertension: Chronic, stable. Continue amlodipine per home regimen. Atenolol was held in place using Lopressor instead We will start lisinopril from today (11) Morbid obesity: Lifestyle changes recommended. (12) ADRYAN (obstructive sleep apnea): Noncompliant with CPAP per records. Apixaban DNR/DNI Will discharge this afternoon Total Time Total Time Spent Total Time Spent (In Minutes): 35 minutes Discharge Plan Discharge Items Patient Disposition: Home - Self-Care Reason For Visit: AFIB, SEPSIS Discharge Diagnosis: Acute hypoxic respiratory failure likely secondary to CHF exacerbation, A-fib with RVR, left ureteral stone status post stent placement, type 2 diabetes Condition on Discharge: Fair Activity: Resume your previous activity Non-emergency contact: Primary Care Provider Call non-emergency contact if: you have any medication questions and your symptoms worsen Follow-up/Referrals: Go Cohen DO [Physician] - (The Urology office will call you with an appointment.) Jodie Prince MD [Physician] - Gerardo Martinez DO [Primary Care Provider] - (Date & Time 07/10/2023 11:20 AM Provider Thor La DO Department [facility] ) Diet: Carb Consistent or DM2 Addtl Attending Provider Instructions: Please take precaution to avoid falls Take your medications as advised-please note that frequent medications have been stopped and new medications have been given You have been given Bactrim DS for urinary tract infection-please have your PCP checked your kidney function during follow-up visit Try to drink more fluid Please keep appointment with your healthcare providers Please take your Eliquis regularly Pending Studies at Discharge: No Stand-Alone Forms: My ShiftPlanning, Smoking Cessation Medications and DC Order Prescriptions: New sulfamethoxazole-trimethoprim [Bactrim DS] 800-160 mg Tablet 1 tab PO Q12 Qty: 14 0RF Eliquis 5 mg Tablet 5 mg PO BID Qty: 60 0RF metoprolol succinate [Toprol XL] 50 mg tablet extended release 24 hr 50 mg PO BID Qty: 60 0RF Rx Instructions: Take this with 25 mg of Toprol-XL to make it 75 mg in total metoprolol succinate [Toprol XL] 25 mg tablet extended release 24 hr 25 mg PO BID Qty: 60 0RF Rx Instructions: take this with 50 mg Toprol XL metformin 500 mg tablet extended release 24 hr 500 mg PO BID Qty: 60 0RF Continued amlodipine 5 mg tablet 5 mg PO QAM Qty: 90 3RF Rx Instructions: LAST FILLED 09/28/22 FOR 90 DAYS. multivitamin Tablet 1 tab PO QAM aspirin 81 mg Tablet,Delayed Release (Dr/Ec) 81 mg PO DAILY Discontinued atenolol 25 mg tablet 25 mg PO QAM Qty: 90 1RF Rx Instructions: LAST FILLED 09/28/23 FOR 90 DAYS. Discharge Orders: Discharge Order (Routine); Ordered 07/06/23 Ordered By: Nigel Sharma Admission Data Admit Date/Time: 07/02/23 21:09 Attending Provider: Nigel Sharma Admit Provider: Flo Jeffers Primary Care Provider: Gerardo Martinez Other Providers: Flo Jeffers ; Hebert Nelson ; Stephany Dillon Other Interventions: Discharge Summary Assessment (RN) Last Done: 07/06/23 13:30
[2023-07-06] MEDS ORDERED: SULFAMETHOXAZOLE/TRIMETHOPRIM DS 800/160MG TAB PO SCH (21:00)
== END 2023-07-06 15:12 | disposition home or self-care (01) | DRG 853 ==
LOC: ED 15:47 → SUATTDRO 21:09 → 2E 21:32 → OR 21:32 → 2E 21:33

== ENCOUNTER 2024-02-11 14:34 | Inpatient (IN) ==
--- NOTE | 2024-02-11 14:53 | Emergency Department Note ---
Impression & Plan Acute CVA (cerebrovascular accident) ED Provider Note NAME: JAVON PEREIRA AGE: 78 SEX: M : 1945 ARRIVES VIA: Walk-In INFORMANT: Patient ED PROVIDER(S): Del Pressley DO CHIEF COMPLAINT: left sided weakness HPI: Patient is a 78-year-old male with a past medical history of UTI, diabetes, obesity and A-fib on Coumadin who presents to the ER for left arm weakness which started around 4 AM this morning. He went to bed at 10 PM last night and had no complaints. He woke up and could not use his arm but he went to work. He notes has been unsteady on his feet. He also is having trouble talking still. Denies any chest pain or shortness of breath. No nausea, vomiting, or diarrhea. No dysuria, urgency, or frequency. No other exacerbating or remitting factors. ADDITIONAL HISTORY OBTAINED: Per HPI Chronic Medical/Social Conditions Affecting Care: Per HPI PAST MEDICAL HISTORY:See Below PAST SURGICAL HISTORY:See Below FAMILY HISTORY:See Below SOCIAL HISTORY:See Below HOME MEDICATIONS:See Below ALLERGIES:See Below VITALS:See Below PHYSICAL EXAMINATION: GENERAL: Sitting up in bed, alert, well appearing, well nourished, no distress, non-toxic EYE EXAM: normal conjunctiva. PERRL and EOM's grossly intact. OROPHARYNX: no exudate, no erythema, lips, buccal mucosa, and tongue normal and mucous membranes are moist NECK: supple, no nuchal rigidity, no adenopathy, non-tender LUNGS: Clear to auscultation. Normal chest wall mechanics HEART: no murmurs, S1 normal and S2 normal ABDOMEN: abdomen soft, non-tender, normo-active bowel sounds, no masses, no rebound or guarding. UPPER EXTREMITIES: upper extremities are grossly normal. LOWER EXTREMITIES: No pitting edema. NEURO EXAM: Normal sensorium, cranial nerves II-XII intact, slurred speech, no weakness in the right upper extremity but weakness in the left upper extremity with grasp as well as flexion extension, no weakness of legs. No drift. Finger to nose intact. Gross sensation intact. MEDICAL DECISION MAKING: Patient is a 78-year-old male who presents ER with a last known well 10 PM last night for left arm weakness, left leg weakness and slurred speech. IV was established blood work was obtained. Patient is not a TNK candidate as he is out of the window. Labs show no significant leukocytosis. Mild anemia. INR was therapeutic at 2.6. BMP along with LFTs bilirubin was unremarkable. CTA of the head and neck and Noncon of the head was discussed with Dr. Choco Ding from [facility]. He recommended no need for transfer and he will evaluate the images and evaluate the patient via stroke cart if needed. Discussed case with the hospitalist for further evaluation management treatment. Consults/Care Managements Discussions: Per [facility] Triage Nursing notes reviewed. Limited review of prior medical records performed Vital Signs: reviewed and remarkable for HTN and tachy Differential diagnosis: Differential Diagnosis includes but is not limited to ischemic Stroke, hemorrhagic stroke, bells palsy, mass, neoplasm, migraine headache, seizure, subarachnoid hemorrhage, TIA, and transient global amnesia. ER treatment provided: See below Diagnostics interpreted by me include EKG and cardiac monitoring as listed below: -Cardiac Monitoring: An order was placed for continuous cardiac monitoring. The monitor shows a rate of 101 with sinus rhythm. -ECG: A-fib rate of 99 Left axis No PVCs QTc 467 -Laboratory studies:Interpreted by me as stated above in MDM and shown below. Imaging studies: Xrays: As interpreted by me:none CTs show: CT of the head per my preliminary interpretation showed no obvious large bleed Procedures:none Critical Care: None Past Med/Surg History Medical History (Updated 02/11/24 @ 19:33 by Del Pressley DO) Atrial fibrillation Stroke-like symptoms Heart failure EF reduced on recent echocardiogram 40-44% 07/2023 reduced from EF 45-50% 06/2023 Poor historian pt unsure of medical history and states he does not take care of his meds, his brother in law Lobo Arredondo does On anticoagulant therapy warfarin daily ADRYAN (obstructive sleep apnea) pt states he has not had a sleep study test yet, no device Atrial fibrillation with rapid ventricular response on warfarin/metoprolol--follows with Dr. Price Hypertension H/o Lyme disease Diabetes per pt and brother in law was diagnosed recently 06/2023 (labs at [facility] 07/02/23 show A1C 8.0%) and given metformin 500mg bid, per brother in law pt has run out of med (stated no refills given) and has not taken for the last week Surgical History Status post cystoscopy with ureteral stent placement 07/02/23 @ [facility] History of cataract surgery bilateral cataract extraction History of tooth extraction History of tonsillectomy Family History Family/Other No pertinent family history Other No family history of adverse response to anesthesia Denies family history of Ovarian cancer Prostate cancer Myocardial infarction Breast cancer Colorectal cancer Social History Smoking Status: Unknown if ever smoked Second Hand Exposure: No; Do You Dip or Chew Tobacco: No; Hx Alcohol Use: Yes Alcohol type: beer Hx Substance Use: No Preferred Language: Hebrew Communication Ability: Effective Director Mobile Required: No Beliefs That Will Affect Care: None Current Living Situation: Alone current occupational status: retired Feels Safe at Home: Yes Assistive Devices: None Allergies Allergies Allergy/AdvReac Type Severity Reaction Status Date / Time ION Inhibitors AdvReac Intermediate COUGH PER Verified 02/11/24 14:58 GMG amoxicillin [From Augmentin] AdvReac Intermediate BLURRED Verified 02/11/24 14:58 VISION PER GMG clavulanic acid AdvReac Intermediate BLURRED Verified 02/11/24 14:58 [From Augmentin] VISION PER GMG levofloxacin [From Levaquin] AdvReac Intermediate BLURRED Verified 02/11/24 14:58 VISION PER GMG Home Meds Home Medications Medication Instructions Recorded Confirmed losartan 25 mg tablet 25 mg PO QAM 08/08/23 02/11/24 warfarin 5 mg tablet 5 mg PO HS 08/08/23 02/11/24 metoprolol succinate 100 mg 100 mg PO BID 08/09/23 02/11/24 tablet,extended release 24 hr metformin 500 mg tablet,extended 500 mg PO BID 11/21/23 02/11/24 release 24 hr rosuvastatin 10 mg tablet 10 mg PO DAILY 11/21/23 02/11/24 finasteride 5 mg tablet 5 mg PO QAM 02/11/24 02/11/24 [id number] tablet 1 tab PO DAILY 02/11/24 02/11/24 Previous Rx's Medication Instructions Recorded clopidogrel 75 mg tablet 75 mg PO DAILY #30 tabs 12/04/23 Results & Data (ED) Vital Signs Vital Signs - 24 hr 02/11/24 14:40 02/11/24 14:55 02/11/24 15:10 Temperature 36.2 C L 36.8 C Temperature Source Temporal Artery Scan Oral Pulse Rate 107 H 87 Pulse Rate [Apical] 78 Pulse Rate from SpO2 Sensor Pulse Rhythm Regular Pulse Rhythm [Apical] Regular Pulse Strength Normal Pulse Strength [Apical] Normal Respiratory Rate 20 21 Respiratory Effort / Characteristics Non-Labored Spontaneous Non-Labored Spontaneous Respiratory Depth Normal Normal Respiratory Pattern Regular Regular Blood Pressure 196/112 H Blood Pressure [Right Arm] 167/117 H Blood Pressure Mean 140 Blood Pressure Mean [Right Arm] 133 Blood Pressure Position Sitting Blood Pressure Position [Right Arm] Semi-fowlers Pulse Oximetry 98 98 Oxygen Delivery Method Room Air Room Air Sepsis Recent Fever Within 48 Hours No Sepsis New/Unexplained Change in Mental Status No Sepsis Action Taken by Nursing No Action Required 02/11/24 15:10 02/11/24 15:20 02/11/24 15:23 Temperature Temperature Source Pulse Rate 93 H 82 Pulse Rate [Apical] Pulse Rate from SpO2 Sensor 93 H 87 Pulse Rhythm Pulse Rhythm [Apical] Pulse Strength Pulse Strength [Apical] Respiratory Rate 20 20 Respiratory Effort / Characteristics Respiratory Depth Respiratory Pattern Blood Pressure 179/130 H 167/117 H Blood Pressure [Right Arm] Blood Pressure Mean 146 133 Blood Pressure Mean [Right Arm] Blood Pressure Position Blood Pressure Position [Right Arm] Pulse Oximetry 97 97 97 Oxygen Delivery Method Room Air Room Air Room Air Sepsis Recent Fever Within 48 Hours Sepsis New/Unexplained Change in Mental Status Sepsis Action Taken by Nursing 02/11/24 15:30 02/11/24 15:46 02/11/24 16:30 Temperature Temperature Source Pulse Rate 82 82 Pulse Rate [Apical] 72 Pulse Rate from SpO2 Sensor 84 82 Pulse Rhythm Pulse Rhythm [Apical] Regular Pulse Strength Pulse Strength [Apical] Normal Respiratory Rate 20 20 20 Respiratory Effort / Characteristics Non-Labored Spontaneous Respiratory Depth Normal Respiratory Pattern Regular Blood Pressure 159/106 H 152/106 H Blood Pressure [Right Arm] 139/91 Blood Pressure Mean 123 121 Blood Pressure Mean [Right Arm] 107 Blood Pressure Position Blood Pressure Position [Right Arm] Semi-fowlers Pulse Oximetry 97 98 97 Oxygen Delivery Method Room Air Room Air Room Air Sepsis Recent Fever Within 48 Hours Sepsis New/Unexplained Change in Mental Status Sepsis Action Taken by Nursing 02/11/24 16:30 02/11/24 16:46 02/11/24 17:00 Temperature Temperature Source Pulse Rate 83 81 82 Pulse Rate [Apical] Pulse Rate from SpO2 Sensor 87 82 83 Pulse Rhythm Pulse Rhythm [Apical] Pulse Strength Pulse Strength [Apical] Respiratory Rate 19 19 23 Respiratory Effort / Characteristics Respiratory Depth Respiratory Pattern Blood Pressure 138/91 152/104 H 125/82 Blood Pressure [Right Arm] Blood Pressure Mean 106 120 96 Blood Pressure Mean [Right Arm] Blood Pressure Position Blood Pressure Position [Right Arm] Pulse Oximetry 97 98 98 Oxygen Delivery Method Sepsis Recent Fever Within 48 Hours Sepsis New/Unexplained Change in Mental Status Sepsis Action Taken by Nursing 02/11/24 18:30 02/11/24 19:00 02/11/24 19:00 Temperature Temperature Source Pulse Rate 75 Pulse Rate [Apical] Pulse Rate from SpO2 Sensor 76 80 Pulse Rhythm Pulse Rhythm [Apical] Pulse Strength Pulse Strength [Apical] Respiratory Rate 16 16 Respiratory Effort / Characteristics Respiratory Depth Respiratory Pattern Blood Pressure 147/110 H 153/97 H Blood Pressure [Right Arm] Blood Pressure Mean 122 130 Blood Pressure Mean [Right Arm] Blood Pressure Position Blood Pressure Position [Right Arm] Pulse Oximetry 96 96 97 Oxygen Delivery Method Sepsis Recent Fever Within 48 Hours Sepsis New/Unexplained Change in Mental Status Sepsis Action Taken by Nursing Laboratory Data 02/11/24 14:55 02/11/24 14:55 Lab Results 02/11/24 02/11/24 02/11/24 Range/Units 14:51 14:55 15:46 WBC 7.31 (4.8-10.8) K/ul RBC 4.39 L (4.70-6.10) M/uL Hgb 12.9 L (14.0-18.0) g/dl Hct 36.8 L (42.0-52.0) % MCV 83.8 (80.0-100.0) fL MCH 29.4 (25.0-34.0) pg MCHC 35.1 (32.0-36.0) g/dL RDW Std Deviation 43.5 (36.4-46.3) fL RDW Coeff of Leeanne 14.2 (11.5-14.5) % Plt Count 246 (130-400) K/uL MPV 9.5 (9.4-12.4) fL Immature Gran % (Auto) 0.3 % Neut % (Auto) 66.1 % Lymph % (Auto) 19.0 % Plumas % (Auto) 9.2 % Eos % (Auto) 4.7 % Baso % (Auto) 0.7 % Neut # (Auto) 4.84 (1.40-6.50) K/uL Lymph # (Auto) 1.39 (1.20-3.40) K/uL Plumas # (Auto) 0.67 H (0.11-0.59) K/uL Eos # (Auto) 0.34 (0.00-0.50) K/uL Baso # (Auto) 0.05 (0.00-0.20) K/uL Immature Gran # (Auto) 0.02 (0.01-0.20) K/uL PT Cancelled 26.4 H INR Cancelled 2.6 H APTT Cancelled 40 H PTT Ratio Cancelled 1.4 Sodium 141 (136-145) mmol/L Potassium 3.9 (3.5-5.1) mmol/L Chloride 107 (98-107) mmol/L Carbon Dioxide 27 (21-32) mmol/L Anion Gap 7 (3-11) BUN 25 H (6-23) mg/dl Creatinine 0.85 (0.6-1.4) mg/dl Est Cr Clr Drug Dosing 86.2 ml/min Est GFR ( Amer) 96.7 ml/min Est GFR (Non-Af Amer) 83.5 ml/min BUN/Creatinine Ratio 29.4 H (10-20) Glucose 97 (70-99(Fasting)) mg/dl POC Glucose 106 H (70-99) mg/dl Calcium 9.3 (8.6-10.3) mg/dl Magnesium 1.8 (1.7-2.4) mg/dl Total Bilirubin 0.5 (0.2-1.0) mg/dl AST 23 (13-39) U/L ALT 18 (7-52) U/L Alkaline Phosphatase 72 (34-104) U/L Troponin I High Sens 10.1 (0-20) pg/ml Total Protein 7.5 (6.0-8.3) gm/dl Albumin 4.2 (3.4-5.0) gm/dl Globulin 3.3 (2.5-4.0) gm/dl Albumin/Globulin Ratio 1.3 (0.9-2) // Range/Units 18:10 WBC (4.8-10.8) K/ul RBC (4.70-6.10) M/uL Hgb (14.0-18.0) g/dl Hct (42.0-52.0) % MCV (80.0-100.0) fL MCH (25.0-34.0) pg MCHC (32.0-36.0) g/dL RDW Std Deviation (36.4-46.3) fL RDW Coeff of Leeanne (11.5-14.5) % Plt Count (130-400) K/uL MPV (9.4-12.4) fL Immature Gran % (Auto) % Neut % (Auto) % Lymph % (Auto) % Plumas % (Auto) % Eos % (Auto) % Baso % (Auto) % Neut # (Auto) (1.40-6.50) K/uL Lymph # (Auto) (1.20-3.40) K/uL Plumas # (Auto) (0.11-0.59) K/uL Eos # (Auto) (0.00-0.50) K/uL Baso # (Auto) (0.00-0.20) K/uL Immature Gran # (Auto) (0.01-0.20) K/uL PT INR APTT PTT Ratio Sodium (136-145) mmol/L Potassium (3.5-5.1) mmol/L Chloride (98-107) mmol/L Carbon Dioxide (21-32) mmol/L Anion Gap (3-11) BUN (6-23) mg/dl Creatinine (0.6-1.4) mg/dl Est Cr Clr Drug Dosing ml/min Est GFR ( Amer) ml/min Est GFR (Non-Af Amer) ml/min BUN/Creatinine Ratio (10-20) Glucose (70-99(Fasting)) mg/dl POC Glucose (70-99) mg/dl Calcium (8.6-10.3) mg/dl Magnesium 1.7 (1.7-2.4) mg/dl Total Bilirubin (0.2-1.0) mg/dl AST (13-39) U/L ALT (7-52) U/L Alkaline Phosphatase (34-104) U/L Troponin I High Sens (0-20) pg/ml Total Protein (6.0-8.3) gm/dl Albumin (3.4-5.0) gm/dl Globulin (2.5-4.0) gm/dl Albumin/Globulin Ratio (0.9-2) Administered Medications Discontinued Medications Ioversol (Optiray 350 500ml) 104 ml IV ONCE ONE Stop: 02/11/24 15:01 Last Admin: 02/11/24 15:03 Dose: 104 ml Documented By: [facility] Imaging Data Radiologist's Impression: Head CT 02/11/24 14:49 CT OF THE HEAD WITHOUT CONTRAST CLINICAL HISTORY: neuro deficit, acute stroke suspected COMPARISON STUDY: No previous studies for comparison. TECHNIQUE: Helical axial images of the head were obtained without IV contrast. Automated exposure control was utilized for the study. A dose lowering technique was utilized adhering to the principles of ALARA. FINDINGS: No acute intracranial hemorrhage, midline shift or mass effect is present. Ventricular system is unremarkable. Basal cisterns are patent. Small arachnoid cyst within the left middle cranial fossa is noted. A 4.5 cm focus of encephalomalacia within the left occipital lobe is noted. White matter hypodensities favor small vessel disease. There are no findings to suggest acute dural sinus thrombosis or acute territorial infarct. There are no significant calvarial abnormalities. IMPRESSION: 1. No acute intracranial findings. 2. Old left occipital lobe infarct. ACT 112: Negative or not required by law. Electronically signed by: Earnest Victor M.D. 02/11/2024 3:23 PM Head CTA 02/11/24 14:49 CT ANGIOGRAM OF THE BRAIN CLINICAL HISTORY: Neurological deficit. Stroke like symptoms. COMPARISON STUDY: Unenhanced CT of the brain performed concurrently on 02/11/2024. TECHNIQUE: Following the IV administration of 104 cc of Optiray 320, CT angiogram of the brain was performed from the skull base to the vertex. Images are reviewed in the axial, sagittal, and coronal planes. 3-D MIPS images are created and assessed. IV contrast was administered without complication. A dose lowering technique was utilized adhering to the principles of ALARA. FINDINGS: Brain parenchyma: There is age-related involutional change noting moderate to advanced subcortical and periventricular microangiopathic disease. Left occipital encephalomalacia is consistent with a remote insult. There is no evidence of hemorrhage, mass effect, or acute territorial ischemia noting angiographic phase technique. A 2.8 cm arachnoid cyst is seen in the anterior left temporal fossa. There is no evidence of enhancing mass lesion on the angiogram phase images. No extra-axial fluid collection is seen. Merino-white matter differentiation is preserved. Ventricles, sulci, and cisterns: Prominent secondary to interval change. Cavum septum pellucidum is incidentally noted. CT angiogram of the brain: There is atherosclerotic calcification of the cavernous carotid and vertebral arteries. The internal carotid arteries are widely patent, as are the anterior and middle cerebral arteries. The right vertebral artery and basilar artery are patent. There are foci of high-grade stenosis with near complete occlusion of the vertebral artery at the skull base seen on images #38 and #45. The right vertebral artery is dominant. There is focal high-grade stenosis of the proximal left posterior cerebral artery seen on sagittal MIPS image #66. There is moderate to high-grade focal stenosis of the M2 branch of the left middle cervical artery along the sylvian fissure seen on sagittal MIPS image #78. There is high-grade focal stenosis of the proximal right anterior cerebral artery seen on axial image #157. There is focal high- grade stenosis of the distal left anterior cerebral artery seen on axial image #182. The right posterior artery cerebral artery is not seen arising from the basilar. There is likely origin of the right posterior cerebral artery. There is the long segment of high-grade stenosis of the presumed proximal right posterior cerebral artery seen on axial image #106. Dural sinuses: Clear as visualized. Orbits: The bony orbits are intact. The orbital contents are normal as visualized. Sinuses and mastoids: There is trace mucosal thickening within the maxillary antra. The remaining paranasal sinuses are clear. The mastoid air cells are well pneumatized. Calvarium: Unremarkable. IMPRESSION: 1. There is no evidence of hemorrhage, mass effect, or acute territorial ischemia noting angiographic phase technique. 2. A normal right posterior cerebral artery is not visualized arising from the basilar. There is likely origin of the right posterior cerebral artery, with a long focus of high-grade proximal stenosis of the presumed right PAN HELPER proximally. 3. 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 4. Additional foci of high-grade stenosis are seen involving both anterior cerebral arteries, the left posterior cerebral artery, and the left middle cerebral artery as above. ACT 112: Negative or not required by law. Electronically signed by: Jerrell Almanza M.D. 02/11/2024 3:34 PM Neck CTA 02/11/24 14:49 CT angio neck with con CLINICAL HISTORY: neuro deficit, acute stroke suspected TECHNIQUE: CT angiography of the neck was performed following intravenous administration of iodinated contrast. Coronal and sagittal MIPS were obtained from the axial data set and were submitted for review. Automated dose lowering techniques and/or adjustment according to patient size were utilized for this examination. All measurements were calculated based on NASCET criteria. CT DOSE: 1399.57 mGy.cm Comparison: None available at the time of this dictation. FINDINGS: Lungs and soft tissues are unremarkable. CTA Neck: The aortic arch and the origins of the innominate, left subclavian, and left common carotid artery are not imaged. Bilateral atherosclerotic plaque at the carotid bulbs without hemodynamically significant stenosis. 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 There is also possible narrowing at its origin. The left vertebral artery is dominant. 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 Assessment of stenosis of the internal carotid arteries is based on NASCET criteria. ACT 112: Negative or not required by law. Electronically signed by: Osmin Quiñones M.D. 02/11/2024 3:30 PM Discharge Plan Visit Data Chief Complaint: Stroke/CVA Symptoms Stated Complaint: POSSIBLE TIA SYMPTOMS ED Provider: Del Pressley Discharge Problem: Acute CVA (cerebrovascular accident) Forms Stand Alone Forms: [facility] [employer] Prescriptions Prescriptions: No Action losartan 25 mg tablet 25 mg PO QAM warfarin 5 mg tablet 5 mg PO HS metoprolol succinate 100 mg Tablet Extended Release 24 Hr 100 mg PO BID metformin 500 mg tablet extended release 24 hr 500 mg PO BID rosuvastatin 10 mg tablet 10 mg PO DAILY clopidogrel 75 mg tablet 75 mg PO DAILY Qty: 30 6RF finasteride 5 mg tablet 5 mg PO QAM Centrum Silver Tablet 1 tab PO DAILY Referrals Referrals: Gerardo Martinez DO [Primary Care Provider] -
[2024-02-11 15:02] LABS: Basophils # (auto) 0.05 K/uL (0.00-0.20); Basophils % (auto) 0.7 %; Eosinophils # (auto) 0.34 K/uL (0.00-0.50); Eosinophils % (auto) 4.7 %; Hematocrit (blood only) 36.8 % (42.0-52.0); Hemoglobin 12.9 g/dl (14.0-18.0); Immature Granulocytes # (auto) 0.02 K/uL (0.01-0.20); Immature Granulocytes % (auto) 0.3 %; Lymphocytes # (auto) 1.39 K/uL (1.20-3.40); Mean Corpuscular Hemoglobin 29.4 pg (25.0-34.0); Mean Corpuscular Hgb Conc 35.1 g/dL (32.0-36.0); Mean Corpuscular Volume 83.8 fL (80.0-100.0); Mean Platelet Volume 9.5 fL (9.4-12.4); Monocytes # (auto) 0.67 K/uL (0.11-0.59); Monocytes % (auto) 9.2 %; Neutrophils # (auto) 4.84 K/uL (1.40-6.50); Neutrophils % (auto) 66.1 %; Platelet Count 246 K/uL (130-400); RDW Coefficient of Variation 14.2 % (11.5-14.5); RDW Standard Deviation 43.5 fL (36.4-46.3); Red Blood Count 4.39 M/uL (4.70-6.10); White Blood Count 7.31 K/ul (4.8-10.8)
[2024-02-11] MEDS: OPTIRAY 350 500ml IV ONE (15:03)
[2024-02-11 15:23] LABS: Albumin Globulin Ratio 1.3 (0.9-2); Albumin Level 4.2 gm/dl (3.4-5.0); BUN Creatinine Ratio 29.4 (10-20); Bilirubin,Total 0.5 mg/dl (0.2-1.0); Calcium 9.3 mg/dl (8.6-10.3); Creatinine Clr Calc Pharmacy 86.2 ml/min; Est GFR (African American) 96.7 ml/min; Est GFR (Non-African American) 83.5 ml/min; Globulin 3.3 gm/dl (2.5-4.0); Magnesium 1.8 mg/dl (1.7-2.4); Potassium 3.9 mmol/L (3.5-5.1); Total Protein 7.5 gm/dl (6.0-8.3)
--- NOTE | 2024-02-11 15:24 | CT Scan Report ---
CT OF THE HEAD WITHOUT CONTRAST CLINICAL HISTORY: neuro deficit, acute stroke suspected COMPARISON STUDY: No previous studies for comparison. TECHNIQUE: Helical axial images of the head were obtained without IV contrast. Automated exposure con trol was utilized for the study. A dose lowering technique was utilized adhering to the principles o f ALARA. FINDINGS: No acute intracranial hemorrhage, midline shift or mass effect is present. Ventricular syst em is unremarkable. Basal cisterns are patent. Small arachnoid cyst within the left middle cranial fo ssa is noted. A 4.5 cm focus of encephalomalacia within the left occipital lobe is noted. White matte r hypodensities favor small vessel disease. There are no findings to suggest acute dural sinus thromb osis or acute territorial infarct. There are no significant calvarial abnormalities. IMPRESSION: 1. No acute intracranial findings. 2. Old left occipital lobe infarct. ACT 112: Negative or not required by law. Electronically signed by: Earnest Victor M.D. 02/11/2024 3:23 PM
[2024-02-11 15:29] LABS: Troponin I High Sensitivity 10.1 pg/ml (0-20)
--- NOTE | 2024-02-11 15:31 | Electrocardiogram Report ---
Test Reason : Blood Pressure : / mmHG Vent. Rate : 099 BPM Atrial Rate : 000 BPM P-R Int : 000 ms QRS Dur : 088 ms QT Int : 364 ms P-R-T Axes : 000 -45 -71 degrees QTc Int : 467 ms Atrial fibrillation Left axis deviation Nonspecific ST and T wave abnormality Prolonged QT Abnormal ECG When compared with ECG of 04-DEC-2023 15:53, Nonspecific T wave abnormality has replaced inverted T waves in Lateral leads Confirmed by Neftaly Bowden ([id number]) on 02/11/2024 3:31:04 PM Referred By: REFERRED SELF Confirmed By:Neftaly Bowden
--- NOTE | 2024-02-11 15:32 | CT Scan Report ---
CT angio neck with con CLINICAL HISTORY: neuro deficit, acute stroke suspected TECHNIQUE: CT angiography of the neck was performed following intravenous administration of iodinated contrast. Coronal and sagittal MIPS were obtained from the axial data set and were submitted for rev iew. Automated dose lowering techniques and/or adjustment according to patient size were utilized fo r this examination. All measurements were calculated based on NASCET criteria. CT DOSE: 1399.57 mGy.cm Comparison: None available at the time of this dictation. FINDINGS: Lungs and soft tissues are unremarkable. CTA Neck: The aortic arch and the origins of the innominate, left subclavian, and left common caroti d artery are not imaged. Bilateral atherosclerotic plaque at the carotid bulbs without hemodynamicall y significant stenosis. There is severe, greater than 75% stenosis of the V4 segment of the left vert ebral artery. There is also possible narrowing at its origin. The left vertebral artery is dominant. 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 Assessment of stenosis of the internal carotid arteries is based on NASCET criteria. ACT 112: Negative or not required by law. Electronically signed by: Osmin Quiñones M.D. 02/11/2024 3:30 PM
--- NOTE | 2024-02-11 15:35 | CT Scan Report ---
CT ANGIOGRAM OF THE BRAIN CLINICAL HISTORY: Neurological deficit. Stroke like symptoms. COMPARISON STUDY: Unenhanced CT of the brain performed concurrently on 02/11/2024. TECHNIQUE: Following the IV administration of 104 cc of Optiray 320, CT angiogram of the brain was pe rformed from the skull base to the vertex. Images are reviewed in the axial, sagittal, and coronal pl anes. 3-D MIPS images are created and assessed. IV contrast was administered without complication. A dose lowering technique was utilized adhering to the principles of ALARA. FINDINGS: Brain parenchyma: There is age-related involutional change noting moderate to advanced subcortical an d periventricular microangiopathic disease. Left occipital encephalomalacia is consistent with a kal te insult. There is no evidence of hemorrhage, mass effect, or acute territorial ischemia noting nelson ographic phase technique. A 2.8 cm arachnoid cyst is seen in the anterior left temporal fossa. There is no evidence of enhancing mass lesion on the angiogram phase images. No extra-axial fluid collectio n is seen. Merino-white matter differentiation is preserved. Ventricles, sulci, and cisterns: Prominent secondary to interval change. Cavum septum pellucidum is i ncidentally noted. CT angiogram of the brain: There is atherosclerotic calcification of the cavernous carotid and verteb ral arteries. The internal carotid arteries are widely patent, as are the anterior and middle cerebra l arteries. The right vertebral artery and basilar artery are patent. There are foci of high-grade st enosis with near complete occlusion of the vertebral artery at the skull base seen on images #38 and #45. The right vertebral artery is dominant. There is focal high-grade stenosis of the proximal left posterior cerebral artery seen on sagittal MIPS image #66. There is moderate to high-grade focal sten osis of the M2 branch of the left middle cervical artery along the sylvian fissure seen on sagittal M IPS image #78. There is high-grade focal stenosis of the proximal right anterior cerebral artery seen on axial image #157. There is focal high-grade stenosis of the distal left anterior cerebral artery seen on axial image #182. The right posterior artery cerebral artery is not seen arising from the bas ilar. There is likely origin of the right posterior cerebral artery. There is the long segment of high-grade stenosis of the presumed proximal right posterior cerebral artery seen on axial image # 106. Dural sinuses: Clear as visualized. Orbits: The bony orbits are intact. The orbital contents are normal as visualized. Sinuses and mastoids: There is trace mucosal thickening within the maxillary antra. The remaining par anasal sinuses are clear. The mastoid air cells are well pneumatized. Calvarium: Unremarkable. IMPRESSION: 1. There is no evidence of hemorrhage, mass effect, or acute territorial ischemia noting angiographic phase technique. 2. A normal right posterior cerebral artery is not visualized arising from the basilar. There is like ly origin of the right posterior cerebral artery, with a long focus of high-grade proximal sten osis of the presumed right STOREPERSON proximally. 3. 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 4. Additional foci of high-grade stenosis are seen involving both anterior cerebral arteries, the lef t posterior cerebral artery, and the left middle cerebral artery as above. ACT 112: Negative or not required by law. Electronically signed by: Jerrell Almanza M.D. 02/11/2024 3:34 PM
[2024-02-11 16:23] LABS: INR 2.6 (0.9-1.1); Partial Thromboplastin Ratio 1.4; Partial Thromboplastin Time 40 Seconds (21-31); Prothrombin Time 26.4 Seconds (9.0-12.0)
[2024-02-11] MEDS ORDERED: PHARMACIST DISCHARGE MED REC CONSULT PRN (17:14)
--- NOTE | 2024-02-11 17:25 | History & Physical Report ---
Date of Service February 11, 2024 Assessment & Plan (1) Stroke-like symptoms: (2) Atrial fibrillation: (3) Acute on chronic heart failure with reduced ejection fraction and diastolic dysfunction: (4) Hypertension: (5) ADRYAN (obstructive sleep apnea): (6) Diabetes: Plan Mr. Santo is a 78 year old male who presented to the ED today with complaints of LUE weakness. His LKW 02/10 @ 2200. He said that when he woke up this morning he had difficulty with his LUE. His left leg was fine. He was unable to button his pants, hold a fork or lift his arm above his chest. He states that leading up to today, he was feeling fine. At his bedside is his ANI Jet who helps to care for him and is responsible for getting his mediations and taking him to his appointments. He takes Coumadin for AF. He underwent a cath 11/2023 with JOCE LAD and Distal RCA into PDA and is on Plavix. He was scheduled to have a repeat ECHO 02/27. His most recent ECHO is documented 07/26/23: EF 40 to 44%, mild LV hypokinesis, mild MR/TR. No smoking or alochol use. PMH includes: Atrial fibrillation (On Coumadin), CAD, NIDDM2 (newly diagnosed 06/2023), obesity, HFrEF, HTN, and ADRYAN. No history of CVA or AMI. In the ED, No leukocytosis, otherwise electrolytes unremarkable, troponin negative, LFTs negative, INR 2.6. Head CT and head neck CTA outlined below. Pt will be admitted for further evaluation and management of his stroke like symptoms including obtaining a brain MRI, aspiration precautions, ECHO, PT/OT, hold antihypertensive for now outside of metoprolol, will increase statin, sliding scale insulin for diabetes management, neurology consultation. Reduced dose of Coumadin administered today; will hold tomorrow pending INR. Stroke like symptoms: Acute Not TNK candidate per tele [facility]; see below Head CT reports old left occipital infarct but no new ICH, SDH, midline shift. Head neck CTA: 1. There is no evidence of hemorrhage, mass effect, or acute territorial ischemia noting angiographic phase technique. 2. A normal right posterior cerebral artery is not visualized arising from the basilar. There is likely origin of the right posterior cerebral artery, with a long focus of high-grade proximal stenosis of the presumed right TIP TESTER proximally. 3. 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 4. Additional foci of high-grade stenosis are seen involving both anterior cerebral arteries, the left posterior cerebral artery, and the left middle cerebral artery as above. Takes low dose statin; will increase Rosuvastatin to 20 mg daily and await Neuro consult MRI ordered and pending; ordered Ativan 0.25 mg IV for claustrophobia Hold Losartan for now for permissive HTN until MRI report ECHO ordered PT/OT Formal Neuro consult placed Update; I was able to talk with Dr. Chau [facility] stroke telemed. He indicated that no intervention would be recommended with TNK, but due to his moderate bilateral carotid disease he would recommend repeat BL carotid ultrasound. Also recommended checking homocystine levels and if > 10, add Folic Acid 2 G daily. Recommends discussing if it would be possible to switch to Eliquis vs coumadin Persistent Atrial Fibrillation: Chronic Takes Metoprolol; continue Takes Coumadin 5mg QHS; 2.5 mg given INR therapeutic level 2-3; today 2.6. Is usually within therapeutic range but last check a few weeks ago he was 4.3 HfrEF: Chronic Most recent ECHO 07/26/23: EF 40-44%, mild L hypokinesis, Mild MR/TR NIDDM2: Chronic Last A1C 07/02/23: 8.0 and was started on Metformin Takes Metformin; hold while inpatient Place on [facility] for lantus management Diabetic diet; if passes dysphagia screening HTN: Chronic Takes Losartan; hold for tonight for permissive HTN ADRYAN: chronic does not have a cpap Disposition: PCP: Gerardo Martinez PA-C Code Status: DNR/DNI VTE Prophylaxis: On Coumadin; teds and SCDs while Couamdin on hold I spent a total of 87 minutes coordinating, documenting, and providing care for this patient excluding time spent in the performance of separately billed services. All of the aforementioned completed while collaborating with the assigned attending physician for a full treatment plan. Please see their addendum for further details. History of Present Illness Chief Complaint: stroke like symptoms Primary Care Provider: Gerardo Martinez DO Mr. Santo is a 78 year old male who presented to the ED today with complaints of LUE weakness. His LKW 02/10. He said that when he woke up this morning he had difficulty with his LUE. His left leg was fine. He was unable to button his pants, hold a fork or lift his arm above his chest. He states that leading up to today, he was feeling fine. At his bedside is his ANI Jet who helps to care for him and is responsible for getting his mediations and taking him to his appointments. He takes Coumadin for AF. Non smoker and no alochol use. Not TNK candidate per tele [facility]. He underwent a cath 11/2023 with JOCE LAD and Distal RCA into PDA and is on Plavix. He was scheduled to have a repeat ECHO 02/27. His most recent ECHO is documented 07/26/23: EF 40 to 44%, mild LV hypokinesis, mild MR/TR. PMH includes: Atrial fibrillation (On Coumadin), CAD, NIDDM2 (newly diagnosed 06/2023), obesity, HFrEF, HTN, and ADRYAN. In the ED, No leukocytosis, otherwise electrolytes unremarkable, troponin negative, LFTs negative, INR 2.6. Head CT reports old left occipital infarct but no new ICH, SDH, midline shift. Head neck CTA: 1. There is no evidence of hemorrhage, mass effect, or acute territorial ischemia noting angiographic phase technique. 2. A normal right posterior cerebral artery is not visualized arising from the basilar. There is likely origin of the right posterior cerebral artery, with a long focus of high-grade proximal stenosis of the presumed right TIP TESTER proximally. 3. 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 4. Additional foci of high-grade stenosis are seen involving both anterior c erebral arteries, the left posterior cerebral artery, and the left middle cerebral artery as above. Pt denies Fever, chills, headache, dizziness, chest pain, palpitations, nausea, vomiting, diarrhea, hematochezia, bowel or bladder changes, recent falls or trauma. Patient is sitting in his hospital bed in no apparent distress. He is able to answer all questions without slurring of his speech. NIH 1. Patient son-in-law at bedside and indicates that he has returned nearly to baseline. Initially when he came in he was unable to lift his left upper extremity or squeeze his hand. This has resolved and he is able to lift his arms above his head. Cranial nerves II through XII grossly intact otherwise. No difficulty with swallowing. At baseline he is rather independent and does not use any assistive devices despite his [id number] stating that he should. Update; I was able to talk with Dr. Chau [facility] stroke telemed. He indicated that no intervention would be recommended with TNK, but due to his moderate bilateral carotid disease he would recommend repeat BL carotid ultrasound. Also recommended checking homocystine levels and if > 10, add Folic Acid 2 G daily. Recommends discussing if it would be possible to switch to Eliquis vs coumadin Pt will be admitted for further evaluation and management of his stroke like symptoms including obtaining a brain MRI, aspiration precautions, ECHO, PT/OT, hold antihypertensive for now outside of metoprolol, will increase statin, sliding scale insulin for diabetes management, neurology consultation. Reduced dose of Coumadin administered today; will hold tomorrow pending INR. Allergies Allergy/AdvReac Type Severity Reaction Status Date / Time ION Inhibitors AdvReac Intermediate COUGH PER Verified 02/11/24 14:58 GMG amoxicillin [From Augmentin] AdvReac Intermediate BLURRED Verified 02/11/24 14:58 VISION PER GMG clavulanic acid AdvReac Intermediate BLURRED Verified 02/11/24 14:58 [From Augmentin] VISION PER GMG levofloxacin [From Levaquin] AdvReac Intermediate BLURRED Verified 02/11/24 14:58 VISION PER GMG Home Medications Medication Instructions Recorded Confirmed Type losartan 25 mg tablet 25 mg PO QAM 08/08/23 02/11/24 History warfarin 5 mg tablet 5 mg PO 08/08/23 02/11/24 History metoprolol succinate 100 mg 100 mg PO BID 08/09/23 02/11/24 History tablet,extended release 24 hr metformin 500 mg tablet,extended 500 mg PO BID 11/21/23 02/11/24 History release 24 hr rosuvastatin 10 mg tablet 10 mg PO DAILY 11/21/23 02/11/24 History clopidogrel 75 mg tablet 75 mg PO DAILY #30 tabs 12/04/23 02/11/24 Rx finasteride 5 mg tablet 5 mg PO QAM 02/11/24 02/11/24 History bxqljklgqudf-khmjysde-gxhprw tablet 1 tab PO DAILY 02/11/24 02/11/24 History Past Med/Surg History Medical History (Updated 02/11/24 @ 19:33 by Del Pressley, ) Atrial fibrillation Stroke-like symptoms Heart failure EF reduced on recent echocardiogram 40-44% 07/2023 reduced from EF 45-50% 06/2023 Poor historian pt unsure of medical history and states he does not take care of his meds, his brother in law Lobo Arredondo does On anticoagulant therapy warfarin daily ADRYAN (obstructive sleep apnea) pt states he has not had a sleep study test yet, no device Atrial fibrillation with rapid ventricular response on warfarin/metoprolol--follows with Dr. Price Hypertension H/o Lyme disease Diabetes per pt and brother in law was diagnosed recently 06/2023 (labs at [facility] 07/02/23 show A1C 8.0%) and given metformin 500mg bid, per brother in law pt has run out of med (stated no refills given) and has not taken for the last week Surgical History Status post cystoscopy with ureteral stent placement 07/02/23 @ [facility] History of cataract surgery bilateral cataract extraction History of tooth extraction History of tonsillectomy Family History Family/Other No pertinent family history Other No family history of adverse response to anesthesia Denies family history of Ovarian cancer Prostate cancer Myocardial infarction Breast cancer Colorectal cancer Social History Smoking Status: Unknown if ever smoked Second Hand Exposure: No; Do You Dip or Chew Tobacco: No; Hx Alcohol Use: Yes Alcohol type: beer Hx Substance Use: No Preferred Language: Kosovan Communication Ability: Effective Administration Clerk Required: No Beliefs That Will Affect Care: None Current Living Situation: Alone current occupational status: retired Feels Safe at Home: Yes Assistive Devices: None Review of Systems Review of Systems: Neuro: (-) Falls, trauma, slurred speech HEENT: (-) RON, dizziness, dysphagia, visual or auditory changes CV: (-) CP, palpitations, swelling Resp: (-) SOB GI: (-) appetite changes, N/V/D, bowel changes : (-) urinary changes Skin: (-) rashes Psych: (-) anxiety, depression Physical Exam Physical Exam: Neuro: AAOx4, PERRLA, no expressive or receptive aphagia, memory changes, CNII- XII grossly intact. NIH 1. No pronator drift. HEENT: head normocephalic, atraumatic, moist mucus membranes CV: S1/S2, (-) M/G/R, (-) edema, cap refill < 3 seconds Resp: Lungs CTA in all carey. On RA GI: Abdomen S/NT/ND, Ax4 bowel sounds, (-) CVA tenderness Musculoskeletal: 5/5 RUE strength, 4+/5 LUE5/5 B/L LE strength. No gait disturbance Skin: (-) rashes , (-) erythema. Psych: euthymic mood Results & Data Results & Data Vital Signs (Past 12 Hours) Vital Signs Temp Pulse Pulse Resp BP BP Pulse Ox 02/11/24 16:30 72 20 139/91 97 02/11/24 15:46 82 20 152/106 H 98 02/11/24 15:30 82 20 159/106 H 97 02/11/24 15:23 82 20 167/117 H 97 02/11/24 15:20 93 H 20 179/130 H 97 02/11/24 15:10 97 02/11/24 15:10 36.8 C 78 21 167/117 H 98 02/11/24 14:55 87 02/11/24 14:40 36.2 C L 107 H 20 196/112 H 98 O2 Del Method 02/11/24 16:30 Room Air 02/11/24 15:46 Room Air 02/11/24 15:30 Room Air 02/11/24 15:23 Room Air 02/11/24 15:20 Room Air 02/11/24 15:10 Room Air 02/11/24 15:10 Room Air 02/11/24 14:55 02/11/24 14:40 Room Air Laboratory Results Short CBC 02/11/24 Range/Units 14:55 WBC 7.31 (4.8-10.8) K/ul Hgb 12.9 L (14.0-18.0) g/dl Hct 36.8 L (42.0-52.0) % Plt Count 246 (130-400) K/uL BMP 02/11/24 14:55 Sodium 141 Potassium 3.9 Chloride 107 Carbon Dioxide 27 BUN 25 H Creatinine 0.85 Glucose 97 Calcium 9.3 Liver Function 02/11/24 Range/Units 14:55 Total Bilirubin 0.5 (0.2-1.0) mg/dl AST 23 (13-39) U/L ALT 18 (7-52) U/L Alkaline Phosphatase 72 (34-104) U/L Albumin 4.2 (3.4-5.0) gm/dl Diagnostic Findings Head CT 02/11/24 14:49 CT OF THE HEAD WITHOUT CONTRAST CLINICAL HISTORY: neuro deficit, acute stroke suspected COMPARISON STUDY: No previous studies for comparison. TECHNIQUE: Helical axial images of the head were obtained without IV contrast. Automated exposure control was utilized for the study. A dose lowering technique was utilized adhering to the principles of ALARA. FINDINGS: No acute intracranial hemorrhage, midline shift or mass effect is present. Ventricular system is unremarkable. Basal cisterns are patent. Small arachnoid cyst within the left middle cranial fossa is noted. A 4.5 cm focus of encephalomalacia within the left occipital lobe is noted. White matter hypodensities favor small vessel disease. There are no findings to suggest acute dural sinus thrombosis or acute territorial infarct. There are no significant calvarial abnormalities. IMPRESSION: 1. No acute intracranial findings. 2. Old left occipital lobe infarct. ACT 112: Negative or not required by law. Electronically signed by: Earnest Victor M.D. 02/11/2024 3:23 PM Head CTA 02/11/24 14:49 CT ANGIOGRAM OF THE BRAIN CLINICAL HISTORY: Neurological deficit. Stroke like symptoms. COMPARISON STUDY: Unenhanced CT of the brain performed concurrently on 02/11/2024. TECHNIQUE: Following the IV administration of 104 cc of Optiray 320, CT angiogr am of the brain was performed from the skull base to the vertex. Images are reviewed in the axial, sagittal, and coronal planes. 3-D MIPS images are created and assessed. IV contrast was administered without complication. A dose lowering technique was utilized adhering to the principles of ALARA. FINDINGS: Brain parenchyma: There is age-related involutional change noting moderate to advanced subcortical and periventricular microangiopathic disease. Left occipital encephalomalacia is consistent with a remote insult. There is no evidence of hemorrhage, mass effect, or acute territorial ischemia noting angiographic phase technique. A 2.8 cm arachnoid cyst is seen in the anterior left temporal fossa. There is no evidence of enhancing mass lesion on the angiogram phase images. No extra-axial fluid collection is seen. Merino-white matter differentiation is preserved. Ventricles, sulci, and cisterns: Prominent secondary to interval change. Cavum septum pellucidum is incidentally noted. CT angiogram of the brain: There is atherosclerotic calcification of the cavernous carotid and vertebral arteries. The internal carotid arteries are widely patent, as are the anterior and middle cerebral arteries. The right vertebral artery and basilar artery are patent. There are foci of high-grade stenosis with near complete occlusion of the vertebral artery at the skull base seen on images #38 and #45. The right vertebral artery is dominant. There is focal high-grade stenosis of the proximal left posterior cerebral artery seen on sagittal MIPS image #66. There is moderate to high-grade focal stenosis of the M2 branch of the left middle cervical artery along the sylvian fissure seen on sagittal MIPS image #78. There is high-grade focal stenosis of the proximal right anterior cerebral artery seen on axial image #157. There is focal high- grade stenosis of the distal left anterior cerebral artery seen on axial image #182. The right posterior artery cerebral artery is not seen arising from the basilar. There is likely origin of the right posterior cerebral artery. There is the long segment of high-grade stenosis of the presumed proximal right posterior cerebral artery seen on axial image #106. Dural sinuses: Clear as visualized. Orbits: The bony orbits are intact. The orbital contents are normal as visualized. Sinuses and mastoids: There is trace mucosal thickening within the maxillary antra. The remaining paranasal sinuses are clear. The mastoid air cells are well pneumatized. Calvarium: Unremarkable. IMPRESSION: 1. There is no evidence of hemorrhage, mass effect, or acute territorial ischemia noting angiographic phase technique. 2. A normal right posterior cerebral artery is not visualized arising from the basilar. There is likely origin of the right posterior cerebral artery, with a long focus of high-grade proximal stenosis of the presumed right TIP TESTER proximally. 3. 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 4. Additional foci of high-grade stenosis are seen involving both anterior cerebral arteries, the left posterior cerebral artery, and the left middle cerebral artery as above. ACT 112: Negative or not required by law. Electronically signed by: Jerrell Almanza M.D. 02/11/2024 3:34 PM Neck CTA 02/11/24 14:49 CT angio neck with con CLINICAL HISTORY: neuro deficit, acute stroke suspected TECHNIQUE: CT angiography of the neck was performed following intravenous administration of iodinated contrast. Coronal and sagittal MIPS were obtained from the axial data set and were submitted for review. Automated dose lowering techniques and/or adjustment according to patient size were utilized for this examination. All measurements were calculated based on NASCET criteria. CT DOSE: 1399.57 mGy.cm Comparison: None available at the time of this dictation. FINDINGS: Lungs and soft tissues are unremarkable. CTA Neck: The aortic arch and the origins of the innominate, left subclavian, and left common carotid artery are not imaged. Bilateral atherosclerotic plaque at the carotid bulbs without hemodynamically significant stenosis. 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 There is also possible narrowing at its origin. The left vertebral fan ry is dominant. 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 Assessment of stenosis of the internal carotid arteries is based on NASCET criteria. ACT 112: Negative or not required by law. Electronically signed by: Osmin Quiñones M.D. 02/11/2024 3:30 PM Code Status & VTE Plan Code Status DNR/DNI in the event of cardiac or respiratory arrest VTE Prophylaxis Plan VTE Prophylaxis will be ordered: Yes Supervising Physician Co-Signing Physician Notes Patient was seen and examined independently at bedside. Chart reviewed. Case discussed with Opal SCHWARTZ and agree with the documentation above. In summary, this is a 78 year old male with multiple medical comorbidities as above presented to the ED with LUE weakness and numbness since waking up this morning at 4 am, also had some dysarthria. Last well known time at 10:30 pm when he went to bed. He has improved since initial presentation. LUE weakness resolved, LUE numbness improved, speech improved. Not candidate for TNK being on full anticoag and also being outside of the tPA window. Seen by teleneuro and recommendations noted. CT, CTA head and neck reviewed (details above). MRI brain pending. Symptoms concerning for acute stroke and will be admitted for further work up including homocysteine level, carotid ultrasound, echo, speech and PT OT eval. Continue antiplatelet, high intensity statin. Complains of intermittent hematuria, hence will check UA and hold coumadin. Might need uro eval if persistent. Rest as per the note above. On exam- General: Sitting comfortably in bed, not in distress, on room air HEENT: EOMI, MARCUS, MMM Chest: Clear breath sounds bilaterally, no wheezes or crackles CVS: Irregular Abdomen: Soft, non tender, not distended, normal bowel sounds Neuro: Awake, alert, oriented, conversing well Extremities: No cyanosis, clubbing or edema Rest as per the note above.
[2024-02-11] MEDS ORDERED: LORazepam 0.25 MG in SYRINGE 0.125 ML IV STA (18:23)
[2024-02-11] MEDS ORDERED: GLUCAGON FOR INJ 1 MG VIAL SQ PRN (18:27)
[2024-02-11] MEDS ORDERED: GLUCOSE 10 TAB/TUBE PO PRN (18:27)
[2024-02-11] MEDS ORDERED: PHARMACY GLYCEMIC MGMT CONSULT PRN (18:27)
[2024-02-11] MEDS ORDERED: DEXTROSE 50% 50 ML SYRINGE IV PRN (18:27)
[2024-02-11] MEDS ORDERED: CARBOHYDRATES FOR HYPOGLYCEMIA PO PRN (18:27)
[2024-02-11] MEDS ORDERED: GLUCOSE 40% GEL 15 GM TUBE PO PRN (18:27)
[2024-02-11] MEDS: INSULIN ASPART PER UNIT CHARGE SC SCH (19:54)
[2024-02-11] MEDS: WARFARIN SOD 2.5 MG TAB PO ONE (19:57)
[2024-02-11] MEDS ORDERED: LANTUS PER UNIT CHARGE SQ SCH (21:00)
[2024-02-11] MEDS ORDERED: INSULIN ASPART PER UNIT CHARGE SC SCH (21:00)
[2024-02-11 22:00] LABS: Appearance Urine Cloudy (Clear); Bilirubin Urine Negative (Negative); Blood Urine 3+ (Negative); Color Urine Red; Glucose Urine UA Negative (Negative); Ketones Urine Negative (Negative); Leukocyte Esterase Urine Trace (Negative); Nitrite Urine Negative (Negative); Protein Urine 2+ (Negative); Specific Gravity Urine 1.015 (1.000-1.030); Urobilinogen Urine Negative (Negative); pH Urine 8.5 (4.5-7.5)
[2024-02-11] MEDS: LORazepam 1 MG/1 ML SYR ED Inj Use IV STA (22:06)
[2024-02-11] MEDS: ROSUVASTATIN CALCIUM 20 MG TAB PO SCH (22:10)
[2024-02-11] MEDS: METOPROLOL SUCC 50MG EXT REL TAB PO SCH (22:10)
[2024-02-11 22:44] LABS: RBC Urine >30 /hpf (0-4)
[2024-02-11 22:45] LABS: Epithelial Cell Urine 0-5 /lpf (0-5)
[2024-02-11 22:46] LABS: Bacteria Urine 2+ (Negative)
--- NOTE | 2024-02-11 23:16 | Magnetic Resonance Report ---
Exam(s): MRI HEAD Without Contrast EXAM: MR Head Without Intravenous Contrast CLINICAL HISTORY: Reason for exam: stroke like symptoms. TECHNIQUE: Magnetic resonance images of the head/brain without intravenous contrast in multiple planes. COMPARISON: No relevant prior studies available. FINDINGS: Brain: Left occipital encephalomalacia likely related to remote infarct. 0.7 cm area of restricted diffusion within the right anterior angie consistent with an acute/subacute infarct. 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 No hemorrhage. 2.4 cm left middle cranial fossa arachnoid cyst. Ventricles: Unremarkable. No ventriculomegaly. Bones/joints: Unremarkable. No acute fracture. Sinuses: Unremarkable as visualized. No acute sinusitis. Mastoid air cells: Unremarkable as visualized. No mastoid effusion. Orbits: Unremarkable as visualized. IMPRESSION: 1. 0.7 cm area of restricted diffusion within the right anterior angie consistent with an acute/subacute infarct. 2. Left occipital encephalomalacia likely related to remote infarct. 3. 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 4. 2.4 cm left middle cranial fossa arachnoid cyst. Communications: Call Doctor Stroke acute, subacute (but new), expanding Electronically signed by: Ruel Beaver M.D. 02/11/24 23:15 PM
--- NOTE | 2024-02-11 23:27 | Communication Note ---
Date of Service: February 11, 2024 Made aware by Stat Rad of MRI report 1. 0.7 cm area of restricted diffusion within the right anterior angie consistent with an acute/subacute infarct. 2. Left occipital encephalomalacia likely related to remote infarct. 3. 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 4. 2.4 cm left middle cranial fossa arachnoid cyst. AP Acute/subacute CVA Permissive hypertension for now Decrease maintenance Toprol-XL dose from 100 mg p.o. twice daily to 25 mg p.o. twice daily
--- OUTSIDE RECORDS SUMMARY | 2024-02-12 02:32 | External Medical Summary | Summary of Care ---
Author Name Unknown Organization [facility] Address [address] [address] Phone [phone] Care Team Providers Care Professor Of Surgery Name Role Phone Juan Gerardo Alyssia Primary Care Provider Reason for Referral * Precert (Within 10 days (routine)) - Authorized Specialty Diagnoses / Procedures Referred By Contac t Referred To Contact Cardiac Studies Diagnoses Coronary artery disease involving tejon coronary artery of tejon heart without angina pectoris Ischemic cardiomyopathy Essential hypertension with goal blood pressure less than 140/90 Procedures ECHO, COMPLETE (2D), TRANS-THORACIC Lis Kovacs CRNP [address] [id number] Referral ID Status Reason Start Date Expiration Date V isits Requested Visits Authorized [id number] Authorized Precert 03/04/2024 999 999 Reason for Visit * Reason Comments Follow Up Encounter Details Date Type Department Care Team (Late st Contact Info) Description 12/24/2023 9:00 AM EST Office Visit Cardiology, [facility] [address] [place] [address] Lis Kovacs CRNP [address] [place] [id number] Coronary artery disease involving tejon coronary artery of tejon heart without angina pectoris*; Ischemic cardiomyopathy; Longstanding persistent atrial fibrillation (HCC); Essential hypertension with goal blood pressure less than 140/90 Allergies Active Allergy Reactions Criticality Noted Date Comments Pernell Inhibitors 06/10/2010 cough Amoxicillin-Pot Clavulanate Other (Please comment) 05/24/2012 Blurry vision Levofloxacin Other (Please comment) 06/06/2012 Blurred vision documented as of this encounter (statuses as of 12/24/2023) Medications Medication Sig Dispensed Refills Start Date End Date Status CENTRUM SILVER PO TABS 1 TABLET DAILY 0 Active Aspirin 81 MG Tablet Take 1 Tablet by mouth in the morning. 0 Active Metoprolol Succinate ER 100 MG Oral Tablet Extended Release 24 Hour (toPROL XL) Take 1 Tablet by mouth in the morning and 1 Tablet before bedtime. 180 Tablet 3 07/25/2023 Active Losartan Potassium 25 MG Oral Tablet (Cozaar)Indications:Es sential hypertension with goal blood pressure less than 140/90,Acute systolic heart failure (HCC),Congestive heart failure with cardiomyopathy (HCC) Take 1 Tablet by mouth in the morning. 90 Tablet 3 07/31/2023 Active Warfarin Sodium 5 MG Oral Tablet (Coumadin) Take 1 Tablet by mouth at bedtime. 30 Tablet 5 08/03/2023 Active metFORMIN HCl ER 500 MG Oral Tablet Extended Release 24 Hour (Glucophage XR)Indications:Type 2 diabetes mellitus with hemoglobin A1c goal of less than 8.0% (HCC) Take 1 Tablet by mouth in the morning and 1 Tablet before bedtime. 180 Tablet 3 08/10/2023 Active Rosuvastatin Calcium 10 MG Oral Tablet (Crestor) Take 1 Tablet by mouth in the morning. 90 Tablet 3 09/17/2023 Active documented as of this encounter (statuses as of 12/24/2023) Active Problems Problem Noted Date Diagnosed Date Acute on chronic heart failu re with reduced ejection fraction and diastolic dysfunction 07/10/2023 Ureterolithiasis 07/10/2023 Longstanding persistent atrial fibrillation 06/20 Type 2 diabetes mellitus wit h hemoglobin A1c goal of less than 8.0% 08/20/2018 PERNELL inhibitor intolerance 06/10/2010 BMI 35-39 ISOLATED (SEE ACTUAL BMI) 05/02/2010 Overview: Per Obesity Protocol, #19 Obstructive sleep apnea 01/28/2010 Overview: Needs sleep study ordered in march ICD-10 update of inactive term Essential hypertension with goal blood pressure less than 140/90 01/28/2010 Premature beats 12/16/2007 documented as of this encounter (statuses as of 12/24/2023) Resolved Problems Problem Noted Date Diagnosed Date Resolved Date Other specified disorders of rotator cuff syndrome of shoulder and allied disorders 09/20/2007 12/16/2007 documented as of this encounter (statuses as of 12/24/2023) Immunizations Name Administration Dates Next Due Pneumococcal Conjugate Vacc, 13 Valent (Prevnar) 04/05/2016 Pneumococcal Polysaccharide PPV23 (Pneumovax) 06/10/2010 Season Influenza, Quad, PF, Adjuvanted, 65+ Yrs, IM (FLUAD) 07/31/2020 Seasonal Influenza, PF, 6 M & above, IM , (FluLaval or Fluzone) 08/19/2021 Seasonal Influenza, Quadriva lent Hd (Fluzone Hd) 07/25/2023 Seasonal Influenza, Quadriva lent, No Preserve, IM 07/31/2018,07/26/2016,08/24/2015 Seasonal Influenza, Split, I IV3, With Preserve, Inj 08/25/2014,08/20/2013,09/07/2012,08/22,09/12/2010,08/19/2009 TDAP (age 10 and older)(Boostrix) 04/17/2013 documented as of this encounter Social History Tobacco Use Types Packs/Day Years Used Date Smoking Tobacco: Former Cigarettes 0.1 8 Q uit: 01/13/1975 Smokeless Tobacco: Never Alcohol Use Standard Drinks/Week Comments No 0 (1 standard drink = 0.6 oz pur e alcohol) Sex and Gender Information Value Date Recorded Sex Assigned at Not on file Gender Identity Not on file Sexual Orientation Not on file Job Start Date Occupation Industry Not on file Not on file Not on file documented as of this encounter Last Filed Vital Signs Vital Sign Reading Time Taken Comments Blood Pressure 124/74 12/24/2023 8:59 AM EST Pulse 88 12/24/2023 8:59 AM EST irreg ular Temperature - - Respiratory Rate 18 12/24/2023 8:59 AM EST Oxygen Saturation - - Inhaled Oxygen Concentration - - Weight 104.3 kg (230 lb) 12/24/2023 8:59 AM EST Height - - Body Mass Index 36.57 07/20/2023 2:33 PM EDT documented in this encounter Progress Notes * Lis Kovacs CRNP - 12/24/2023 9:00 AM EST 12/24/2023 Cardiology Follow Up Primary Manager Of Regulatory Affairs: Dr. Price Cardiac Problems: 1. Persistent atrial fibrillation 2. Acute on chronic heart failure with reduced ejection fraction on admission EF 45 to 50% 3. Obstructive sleep apnea 4. Acute renal failure secondary to obstructive uropathy, transient June 2023 5. Type 2 diabetes mellitus HPI: Bernardo Santo is a 78 year old male presents for close follow up. Last seen in our office 10/29/[address] Price. Patient had undergone stress testing following an echo which was done shortly after new onset A-fib. His echo demonstrated a reduced EF. Nuclear stress test was normal and he was recommended for cardiac cath. Cardiac cath took place on 11/22/23 diagnostic followed by PCI on 12/04/23. He presents today feeling well today. Offers no cardiac questions and concerns. He reports having more energy since having his stents place. Denies any chest pain, pressure or palpitations, no dyspnea. And no decline in activity. BP well controlled. Remains compliant on all medication therapies with no untoward effects. No bleeding issues. Discussed cardiac rehab, patient declines at this time. REVIEW OF SYSTEMS: See HPI for pertinent positives. All others negative other than those noted in the HPI. CONSTITUTIONAL: No change in weight, No weakness, No fatigue and No fevers, No sweats or chills. PULMONARY: No cough, sputum, or hemoptysis, No wheezing, No shortness or breath and No recent change in breathing. CARDIOVASCULAR: No chest pain, No dyspnea on exertion, No edema, No palpitations and No syncope. GASTROINTESTINAL: No abdominal pain, No change in bowel habits, No significant heartburn, No nausea, No vomiting, No diarrhea, No constipation, No blood in stools or black tarry stools. No dysphagia. HEMATOLOGIC: No abnormal bleeding and No bruising. NEUROLOGICAL: Normal balance, No headaches and No weakness. Review of patient's allergies indicates: Allergen Reactions Pernell Inhibitors cough Amoxicillin-Pot Clavulanate Other (Please comment) Blurry vision Levofloxacin Other (Please comment) Blurred vision Current Outpatient Medications Medication Sig Dispense Refill CENTRUM SILVER PO TABS 1 TABLET DAILY Metoprolol Succinate ER 100 MG Oral Tablet Extended Release 24 Hour (toPROL XL) Take 1 Tablet by mouth in the morning and 1 Tablet before bedtime. 180 Tablet 3 Losartan Potassium 25 MG Oral Tablet (Cozaar) Take 1 Tablet by mouth in the morning. 90 Tablet 3 Warfarin Sodium 5 MG Oral Tablet (Coumadin) Take 1 Tablet by mouth at bedtime. 30 Tablet 5 metFORMIN HCl ER 500 MG Oral Tablet Extended Release 24 Hour (Glucophage XR) Take 1 Tablet by mouthin the morning and 1 Tablet before bedtime. 180 Tablet 3 Rosuvastatin Calcium 10 MG Oral Tablet (Crestor) Take 1 Tablet by mouth in the morning. 90 Tablet 3 Aspirin 81 MG Tablet Take 1 Tablet by mouth in the morning. (Patient not taking: Reported on 12/24/2023) No current facility-administered medications for this visit. 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 A+Ox3. HEENT: Normocephalic. Atraumatic. PERRL. EOMI. Conjunctiva and sclera clear. NECK: No carotid bruits. No JVD. Carotid upstrokes are brisk. Heart: RRR. S1 and S2 noted. No murmur. No rubs or gallops. PMI non displaced. Lungs: Clear to auscultation. No wheezes.No rhonchi. No rales. Abdomen: Normal bowel sounds. Soft. Nontender. No masses or organomegaly. No abdominal bruits. Extremities: No edema. No clubbing or cyanosis. Pulses: radial=2/4, posterior tibial=2/4, dorsalis pedis = 2/4. NEURO: No focal deficits. PSYCH: Appropriate affect and insight. DATA Labs & Imaging Reviewed Below: Cardiac cath 12/04/23: Multivessel CAD with 90% mid LAD stenosis, 90% proximal Large septal stenosis and 90% distal RCA into RPDA. Discussed CABG vs PCI, patient opted for PCI Successful PCI of mid LAD single JOCE Successful PCI of distal RCA into PDA with single JOCE PTCA of proximal septal with 2.0 balloon with residual severe stenosis Echocardiogram July 26, 2023 The left ventricular cavity is mildly dilated (LVED volume 75-89 ml/m^2). The qualitative LV ejection fraction is 40-44% (mildly reduced). There is mild diffuse left ventricular hypokinesis. The left atrium is severely enlarged (>48 ml/m^2,). Mild mitral regurgitation is present. Mild tricuspid regurgitation is present. There is no evidence of pulmonary hypertensio Stress nuclear imaging August 30, 2023 Abnormal low intensity exercise/pharmacologic myocardial perfusion imaging study revealing septal and apical ischemia and inferior scar. Ischemia appears to be in the left anterior descending coronary territory. Gated SPECT images reveal moderate diffuse hypokinesis with focal septal and inferior hypokinesis. The left ventricular ejection fraction = 38% by the gated SPECT technique (moderately reduced). Atrial fibrillation persisted throughout the study. ASSESSMENT/PLAN: 78 year old year old male 1. Coronary artery disease involving tejon coronary artery of tejon heart without angina pectoris 2. Ischemic cardiomyopathy -Patient feeling quite well since his PCI with JOCE on 12/04/23. Offers no cardiac complaints and no decrease in functional capacity. -Discussed cardiac rehab, patient declines at this time. He would like to start walking at home anddoing some light strength training at this time. -Continue GDMT with toprol xl, Losartan, Crestor and Warfarin. To be taking ASA therapy in conjunction with warfarin -Plan to repeat echocardiogram at 3 month álvaro to assess LVEF overall structure and function since PCI - ECHO, COMPLETE (2D), TRANS-THORACIC; Future 3. Longstanding persistent atrial fibrillation (HCC) -Remains asymptomatic. -Continue Toprol xl for rate control and Warfarin for oral AC therapy 4. Essential hypertension with goal blood pressure less than 140/90 -Well controlled. -Continue Toprol xl and Losartan - ECHO, COMPLETE (2D), TRANS-THORACIC; Future DISPOSITION: Follow up 3 months or if symptoms worsen/fail to improve. All questions were answered to the patients satisfaction. Patient advised to report to ED with any and all emergencies. The patient agrees to the above plan and will call with additional questions or concerns. EFREN Pope Cardiology, [facility] [address] [address] I spent a total of 33 minutes on the date of service in preparation, delivery, and documentation ofthe care provided to Bernardo Santo excluding any time spent in the performance of separately billed services. This chart was completed in part utilizing [employer] Speech Voice Recognition Software. Grammatical errors, random word insertions, pronoun errors, and incomplete sentences are an occasional consequence of this system due to software limitations, ambient noise, and hardware issues. Any formal questions or concerns about the content, text, or information contained within the body of this dictation should be directly addressed to the provider for clarification. documented in this encounter Nursing Notes * Victorino Lugo RN - 12/24/2023 8:58 AM EST Examination Room: room 1 Name: Bernardo Santo Date of : (1945). Reason for Visit: for follow up Interim Hospitalization(s): denies Problems/Concerns: denies Chest Pain/SOB: denies [facility] Discussed: Not applicable [facility] is a way you can talk to your provider online through e-mail. Would you like to sign up? I can activate it for you? ALREADY ACTIVE Patient was instructed to not get up on the exam table until directed and assisted by their provider; patient is to remain seated in the chair/ wheelchair/ exam table for fall prevention and safety reasons. Patient is aware to have assistance to step down off exam table with personnel. Patient voiced full comprehension of instructions. documented in this encounter Plan of Treatment Upcoming Encounters Date Type Department Care Team (Late st Contact Info) Description 01/17/2024 8:40 AM EST Anticoagulation Pharmacy, [facility] [address] [place] [address] [facility] [address] [place] [address] 03/04/2024 7:15 AM EDT Cardiac Studies Cardiac Studies, [facility] [address] [place] [id number] 03/18/2024 10:30 AM EDT Office Visit Cardiology, [facility] [address] [place] [address] Lis Kovacs CRNP [address] [place] [address] 07/30/2024 8:00 AM EDT Office Visit Family Practice [facility] [address] [place] [address] Gerardo Martinez, [address] [place] [address] Scheduled Orders Name Type Priority Associated Diagnoses Orde r Schedule ECHO, COMPLETE (2D), TRANS-THORACIC Echocardiology Routine Coronary artery disease involving tejon coronary artery of tejon heart without angina pectoris Ischemic cardiomyopathy Essential hypertension with goal blood pressure less than 140/90 Expected: 03/04/2024, Expires: 06/23/2024 Health Maintenance Due Date Last Done Comments Zoster Vaccines (1 of 2) 1995 Hepatitis B (1 of 3 - Risk 3-dose series) 2005 Depression Screening 04/29/2016 04/29/2015 Diabetic Eye Exam 07/05/2022 07/05/2021 (Do ne elsewhere) DTaP,Tdap,and Td Vaccines (2 - Td or Tdap) 04/17/2023 04/17/2013 COVID-19 Vaccine (4 - 2022- season) 2023 11/05/2021, 01/19/2021, 12/29/2020 HbA1c 05/30/2024 11/30/2023, 10/19, 11/07/2021, Additional history exists Diabetic Foot Exam 10/25/2024 10/25/2023, 0 07/05/2021 (Done elsewhere) Albumin/Creatinine Ratio 10/29/2024 023, 11/07/2021, 12/31/2020, Additional history exists GFR 11/30/2024 11/30/2023, 10/19, 09/20/2023, Additional history exists Pneumococcal Vaccine: 65+ Years Completed 12/28/2018, 04/05/2016, 06/10/2010 Influenza Vaccine (FLU shot) Completed 04/2023, 08/19/2021, 07/31/2020, Additional history exists GARDASIL-HPV IMMUNIZATION SERIES Aged Out No longer eligible based on patient's age to complete this topic MENINGOCOCCAL (MENACTRA/MENVEO) Aged Out No longer eligible based on patient's age to complete this topic documented as of this encounter Medical Devices Not on filedocumented as of this encounter Visit Diagnoses Diagnosis Coronary artery disease involving tejon coronary artery of tejon heart without angina pectoris- Primary Ischemic cardiomyopathy Other specified forms of chronic ischemic heart disease Longstanding persistent atrial fibrillation (HCC) Essential hypertension with goal blood pressure less than 140/90 documented in this encounter Advance Directives Documents on File Type Date Recorded 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
--- OUTSIDE RECORDS SUMMARY | 2024-02-12 02:32 | External Medical Summary | Summary of Care ---
Author Name Unknown Organization [facility] Address [address] [facility] [address] Phone [phone] Care Team Providers Care 7Th Grade Teacher Name Role Phone Gerardo Martinez DO Primary Care Provider Reason for Visit * Reason Comments Dosage Adjustment In Person (Anticoag Cl inic) Encounter Details Date Type Department Care Team (Latest Contact Info) Description 01/17/2024 8:40 AM EST [facility]ticoagulation Pharmacy, [facility] [address] [facility] 132 [place] [address] Longstanding persistent atrial fibrillation (HCC)*; Anticoagulation management encounter; filter filler current use of anticoagulant therapy Allergies Active Allergy Reactions Criticality Noted Date Comments Pernell Inhibitors 06/10/2010 cough Amoxicillin-Pot Clavulanate Other (Please comment) 05/24/2012 Blurry vision Levofloxacin Other (Please comment) 06/06/2012 Blurred vision documented as of this encounter (statuses as of 01/17/2024) Medications Medication Sig Dispensed Refills Start Date [...] as of this encounter (statuses as of 01/17/2024) Active Problems Problem Noted Date Diagnosed Date [...] as of this encounter (statuses as of 01/17/2024) Resolved Problems Problem Noted Date Diagnosed Date Resolved Date Other specified disorders of rotator cuff syndrome of shoulder and allied disorders 09/20/2007 12/16/2007 documented as of this encounter (statuses as of 01/17/2024) Immunizations Name Administration Dates Next Due Pneumococcal [...] Date Smoking Tobacco: Former Cigarettes 0.1 8 0 01/13/1967 - 01/13/1975 Smokeless Tobacco: Never Alcohol Use Standard Drinks/Week Comments No 0 (1 standard drink = 0.6 oz pur e alcohol) Sex and Gender Information Value Date Recorded Sex Assigned at Not on file Gender Identity Not on file Sexual Orientation Not on file Job Start Date Occupation Industry Not on file Not on file Not on file documented as of this encounter Progress Notes * Essie Nesbitt RP - 01/17/2024 9:35 AM EST Images from the original note were not included. Medication Therapy Disease Management - Anticoagulation Patient: Bernardo Santo | : 1945 Subjective Patient-Reported Symptoms: Patient Findings Positives: Change in diet/appetite (eating less vegetables) Negatives: Signs/symptoms of thrombosis, Signs/symptoms of bleeding, Change in health, Change in alcohol use, Change in activity, Upcoming invasive procedure, Missed doses, Extra doses, Change in medications, Bruising Objective Current Warfarin Dose As of 01/17/2024 Warfarin maintenance plan: 5 mg (5 mg x 1) every day INR Result As of 01/17/2024 INR goal: 2.0-3.0 INR used for dosin.7 (01/17/2024) Assessment & Plan Warfarin Plan As of 01/17/2024 Full warfarin instructions: : Hold; Otherwise 5 mg every day Next INR check: 03/06/2024 Repeat PT/INR in 6 week(s) Weekly dose: not changed Additional Dosing Information: Essie Nesbitt [facility] Clinical Pharmacist 01/17/2024, 9:35 AM documented in this encounter Plan of Treatment Upcoming Encounters Date Type Department Care Team (Late st Contact Info) Description 02/28/2024 8:40 AM EDT Anticoagulation Pharmacy, [facility] [address] [place] [address] [facility] [address] [place] [address] 03/04/2024 7:15 AM EDT Cardiac Studies Cardiac Studies, [facility] [address] [place] [address] 03/18/2024 10:30 AM EDT Office Visit Cardiology, [facility] [address] [place] [address] Lis Kovacs CRNP [address] [place] [address] 07/30/2024 8:00 AM EDT Office Visit Family Practice [facility] [address] [place] [address] Gerardo Martinez, [address] [place] [address] Health Maintenance Due Date Last Done Comments Zoster Vaccines (1 of 2) 1995 Depression Screening 04/29/2016 04/29/2015 Diabetic Eye Exam 07/05/2022 07/05/2021 (Do ne elsewhere) DTaP,Tdap,and Td Vaccines (2 - Td or Tdap) 04/17/2023 04/17/2013 COVID-19 Vaccine ( season) 2023 11/05/2021, 01/19/2021, 12/29/2020 HbA1c 05/30/2024 [...] on patient's age to complete this topic Hepatitis B Aged Out No longer eligi ble based on patient's age to complete this topic MENINGOCOCCAL (MENACTRA/MENVEO) Aged Out No longer eligible based on patient's age to complete this topic documented as of this encounter Medical Devices Not on filedocumented as of this encounter Procedures Procedure Name Priority Date/Time Associated Diagnosis Comments INR FINGERSTICK, POINT OF CARE STAT 01/17/2024 8:45 AM EST Longstanding persistent atrial fibrillation (HCC) Anticoagulation management encounter filter filler current use of anticoagulant therapy documented in this encounter Results * INR FINGERSTICK, POINT OF CARE (01/17/2024 8:45 AM EST) Fingerstick INR 3.7 INR 8:47 AM EST [facility] [facility] Blood 01/17/2024 8:45 AM EST 01/17/2024 8:47 AM EST Narrative [facility] [place] [facility] - 01/17/2024 8:47 AM EST Therapeutic ranges for non-operative patients: Prophylaxsis/treatment of DVT: (Range:2.0-3.0) Treatment of pulmonary embolism:(Range:2.0-3.0) Prevention of systemic embolism from: -tissue heart valves -acute myocardial infarction -valvular heart disease -atrial fibrillation (Range: 2.0-3.0) Mechanical prosthetic valves: (Range: 2.5-3.5) Essie Nesbitt [facility] POINT OF C ARE TEST DOCKED DEVICE UNSOLICITED RESULTS [facility] [place] [place] [address] documented in this encounter Visit Diagnoses Diagnosis Longstanding persistent atrial fibrillation (HCC)- Primary Anticoagulation management encounter Encounter for therapeutic drug monitoring filter filler current use of anticoagulant therapy documented in this encounter Advance Directives Documents on File Type Date Recorded 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
--- OUTSIDE RECORDS SUMMARY | 2024-02-12 02:32 | External Medical Summary | Summary of Care ---
Author Name Unknown Organization [facility] Address [address] [facility] [address] Phone [phone] Care Team Providers Care Jig Maker Name Role Phone Gerardo Martinez DO Primary Care Provider Reason for Visit * Reason Comments Dosage Adjustment In Person (Anticoag Cl inic) Encounter Details Date Type Department Care Team (Latest Contact Info) Description 01/17/2024 8:40 AM EST [facility], 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 Allergies Active [...] Additional Dosing Information: Essie Nesbitt [facility] Clinical Pharmacist 01/17/2024, 9:35 AM documented in this encounter Plan of Treatment Upcoming Encounters Date Type Department Care Team (Late st Contact Info) Description 02/28/2024 8:40 AM EDT Anticoagulation Pharmacy, [facility] [address] [place] [address] [email or web address] [address] [place] [address] 03/04/2024 7:15 AM EDT Cardiac Studies Cardiac Studies, [facility] [address] [place] [address] 03/18/2024 10:30 AM EDT Office Visit Cardiology, [facility] [address] [place] [address] Lis Kovacs CRNP [address] [place] [address] 07/30/2024 8:00 AM EDT Office Visit Family Practice [facility] [address] [place] [address] Gerardo Martinez, [address] [place] [address] Health Maintenance Due Date Last Done Comments [...] persistent atrial fibrillation (HCC) Anticoagulation management encounter intermediate designer current use of anticoagulant therapy documented in [...] valves: (Range: 2.5-3.5) Essie Nesbitt [facility] POINT OF C ARE TEST DOCKED DEVICE UNSOLICITED RESULTS [facility] [place] [address] documented in this encounter Visit Diagnoses Diagnosis Longstanding persistent atrial fibrillation (HCC)- Primary Anticoagulation management encounter Encounter for therapeutic drug monitoring intermediate designer current use of anticoagulant therapy documented in this encounter Advance Directives Documents on File Type Date Recorded Patient Tobacco Prevention Health Educator Expl anation Advance Directives and Living Will 07/25/2023 ADVANCE DIRECTIVE / LIVING WILL Power of Plastic Molding Operator 07/25/2023 POWER OF A TTORNEY Care Teams Jig Maker Relationship Specialty Start Date End Date Gerardo Martinez DO [address] [place] [address] PCP - General Family Medicine 07/05/21 documented as of this encounter"
--- OUTSIDE RECORDS SUMMARY | 2024-02-12 02:32 | External Medical Summary ---
Author Name Unknown Address Unknown Organization [facility] [address] - [address] [place] [address] Laboratory Report Ordering Provider Test Date Status LANEY CHAMBERS 01/17/2024 08:45:32 Final Therapeutic ranges for non-o perative patients:
Prophylaxsis/treatment of DVT: (Range:2.0-3.0)
Treatment of pulmonary embolism:(Range:2.0-3.0)
Prevention of systemic embolism from:
-tissue heart valves
-acute myocardial infarction
-valvular heart disease
-atrial fibrillation
(Range: 2.0-3.0)
Mechanical prosthetic valves: (Range: 2.5-3.5) Observation Date Value Abnormality Reference (Units ) Status INR in Capillary blood by Coagulation assay 01/17/2024 08:45:32 3.7 (INR) Final Performing Location [facility] 57[address] 0 - [address] [place] [address]
--- OUTSIDE RECORDS SUMMARY | 2024-02-12 02:32 | External Medical Summary ---
Author Name Unknown Address Unknown Organization [facility] [address] - [address] [place] [address] Laboratory Report Ordering Provider Test Date Status LANEY CHAMBERS 12/06/2023 08:08:58 Final Therapeutic ranges for non-o perative patients:
Prophylaxsis/treatment of DVT: (Range:2.0-3.0)
Treatment of pulmonary embolism:(Range:2.0-3.0)
Prevention of systemic embolism from:
-tissue heart valves
-acute myocardial infarction
-valvular heart disease
-atrial fibrillation
(Range: 2.0-3.0)
Mechanical prosthetic valves: (Range: 2.5-3.5) Observation Date Value Abnormality Reference (Units ) Status INR in Capillary blood by Coagulation assay 12/06/2023 08:08:58 1.9 (INR) Final Performing Location [facility] [place] 57-[address] 0 - [address] [place] [address]
--- OUTSIDE RECORDS SUMMARY | 2024-02-12 02:32 | External Medical Summary | Summary of Care ---
Author Name Unknown Organization [facility] Address [address] [facility] [address] Phone [phone] Care Team Providers Care Customer Development Representative Name Role Phone Gerardo Martinez DO Primary Care Provider Reason for Visit * Reason Comments Dosage Adjustment In Person (Anticoag Cl inic) Encounter Details Date Type Department Care Team (Latest Contact Info) Description 12/06/2023 8:10 AM EST Anticoagulation Pharmacy, [facility] [address] [facility] [address] Longstanding persistent atrial fibrillation (HCC)*; Anticoagulation management encounter; 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 current use of anticoagulant therapy Allergies Active Allergy Reactions Criticality Noted Date Comments Pernell Inhibitors 06/10/2010 cough Amoxicillin-Pot Clavulanate Other (Please comment) 05/24/2012 Blurry vision Levofloxacin Other (Please comment) 06/06/2012 Blurred vision documented as of this encounter (statuses as of 12/06/2023) Medications Medication Sig Dispensed Refills Start Date [...] as of this encounter (statuses as of 12/06/2023) Active Problems Problem Noted Date Diagnosed Date [...] as of this encounter (statuses as of 12/06/2023) Resolved Problems Problem Noted Date Diagnosed Date Resolved Date Other specified disorders of rotator cuff syndrome of shoulder and allied disorders 09/20/2007 12/16/2007 documented as of this encounter (statuses as of 12/06/2023) Immunizations Name Administration Dates Next Due Pneumococcal [...] Progress Notes * Essie Nesbitt RP - 12/06/2023 8:55 AM EST Images from the original note were not included. Medication Therapy Disease Management - Anticoagulation Patient: Bernardo Santo | : 1945 Subjective Patient-Reported Symptoms: Patient Findings Positives: Other complaints (previous procedure on 12/05, which held warfarin for will restart tonight) Negatives: Signs/symptoms of thrombosis, Signs/symptoms of bleeding, Change in health, Change in alcohol use, Change in activity, Upcoming invasive procedure, Missed doses, Extra doses, Change in medications, Change in diet/appetite, Bruising Objective Current Warfarin Dose As of 12/06/2023 Warfarin maintenance plan: 5 mg (5 mg x 1) every day INR Result As of 12/06/2023 INR goal: 2.0-3.0 INR used for dosin.9 (12/06/2023) Assessment & Plan Warfarin Plan As of 12/06/2023 Full warfarin instructions: 5 mg every day Next INR check: 01/17/2024 Repeat PT/INR in 6 week(s) Weekly dose: not changed Additional Dosing Information: Essie Nesbitt [facility] Clinical Pharmacist 12/06/2023, 8:56 AM documented in this encounter Plan of Treatment Upcoming Encounters Date Type Department Care Team (Late st Contact Info) Description 12/24/2023 9:00 AM EST Office Visit Cardiology, [facility] [address] [place] [address] Lis Kovacs CRNP [address] [place] [address] 01/17/2024 8:40 AM EST Anticoagulation Pharmacy, [facility] [address] [place] [address] [facility] [address] [place] [address] 07/30/2024 8:00 AM EDT Office Visit Family Practice [facility] [address] [place] [address] Gerardo Martinez DO [address] [place] [address] Health Maintenance Due Date Last Done Comments [...] Comments INR FINGERSTICK, POINT OF CARE STAT 12/06/2023 8:08 AM EST Longstanding persistent atrial fibrillation (HCC) Anticoagulation management encounter 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 current use of anticoagulant therapy documented in this encounter Results * INR FINGERSTICK, POINT OF CARE (12/06/2023 8:08 AM EST) Fingerstick INR 1.9 INR 8:12 AM EST [facility] [place] [facility] Blood 12/06/2023 8:08 AM EST 12/06/2023 8:12 AM EST Narrative [facility] [place] [facility] - 12/06/2023 8:12 AM EST Therapeutic ranges for non-operative patients: Prophylaxsis/treatment of DVT: (Range:2.0-3.0) Treatment of pulmonary embolism:(Range:2.0-3.0) Prevention of systemic embolism from: -tissue heart valves -acute myocardial infarction -valvular heart disease -atrial fibrillation (Range: 2.0-3.0) Mechanical prosthetic valves: (Range: 2.5-3.5) Essie Nesbitt [facility] POINT OF C ARE TEST DOCKED DEVICE UNSOLICITED RESULTS [facility] [place] [facility] [place] [address] documented in this encounter Visit Diagnoses Diagnosis Longstanding persistent atrial fibrillation (HCC)- Primary Anticoagulation management encounter Encounter for therapeutic drug monitoring 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 current use of anticoagulant therapy documented in this encounter Advance Directives Documents on File Type Date Recorded 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
[2024-02-12 07:08] LABS: Basophils # (auto) 0.06 K/uL (0.00-0.20); Basophils % (auto) 0.9 %; Eosinophils # (auto) 0.38 K/uL (0.00-0.50); Eosinophils % (auto) 5.9 %; Hematocrit (blood only) 35.6 % (42.0-52.0); Immature Granulocytes # (auto) 0.01 K/uL (0.01-0.20); Immature Granulocytes % (auto) 0.2 %; Lymphocytes # (auto) 1.11 K/uL (1.20-3.40); Lymphocytes % (auto) 17.1 %; Mean Corpuscular Hemoglobin 28.4 pg (25.0-34.0); Mean Corpuscular Hgb Conc 33.7 g/dL (32.0-36.0); Mean Corpuscular Volume 84.2 fL (80.0-100.0); Mean Platelet Volume 10.1 fL (9.4-12.4); Monocytes # (auto) 0.59 K/uL (0.11-0.59); Monocytes % (auto) 9.1 %; Neutrophils # (auto) 4.34 K/uL (1.40-6.50); Neutrophils % (auto) 66.8 %; Platelet Count 234 K/uL (130-400); RDW Coefficient of Variation 14.3 % (11.5-14.5); RDW Standard Deviation 44.1 fL (36.4-46.3); Red Blood Count 4.23 M/uL (4.70-6.10); White Blood Count 6.49 K/ul (4.8-10.8)
[2024-02-12 07:17] LABS: Albumin Globulin Ratio 1.4 (0.9-2); Albumin Level 3.8 gm/dl (3.4-5.0); BUN Creatinine Ratio 23.8 (10-20); Bilirubin,Total 0.7 mg/dl (0.2-1.0); Calcium 8.7 mg/dl (8.6-10.3); Chol HDL Ratio 3.2 (0-5); Creatinine Clr Calc Pharmacy 90.9 ml/min; Est GFR (African American) 99.2 ml/min; Est GFR (Non-African American) 85.6 ml/min; Globulin 2.8 gm/dl (2.5-4.0); Potassium 3.5 mmol/L (3.5-5.1); Total Protein 6.6 gm/dl (6.0-8.3)
[2024-02-12 07:48] LABS: INR 2.5 (0.9-1.1); Prothrombin Time 25.5 Seconds (9.0-12.0)
--- NOTE | 2024-02-12 07:48 | Ultrasound Report ---
ULTRASOUND OF THE CAROTID ARTERIES CLINICAL HISTORY: Stroke. COMPARISON STUDY: CT angiogram of the neck dated 02/11/2024. TECHNIQUE: Real-time, grayscale, and color Doppler sonography of the carotid arteries is performed. I mages are reviewed in the transverse and longitudinal planes. FINDINGS: The carotid arteries are patent bilaterally and demonstrate antegrade flow. There is mild to moderate atherosclerotic plaque seen in the carotid bulb. Normal doppler arterial waveforms are seen througho ut. Velocity measurements are listed below. Common carotid peak systolic velocity (cm/sec): RIGHT: 50 LEFT: 35 ICA proximal peak systolic velocity (cm/sec): RIGHT: 114 LEFT: 36 ICA mid peak systolic velocity (cm/sec): RIGHT: 28 LEFT: 29 ICA distal peak systolic velocity (cm/sec): RIGHT: 69 LEFT: 23 ICA/CC peak systolic ratio: RIGHT: 2.3 LEFT: 1.1 Antegrade flow was shown in the vertebral arteries. The external carotid arteries are patent. IMPRESSION: 1. There is no sonographic evidence of hemodynamically significant stenosis in the right or left chavez tid arterial system. 2. Antegrade flow is shown in the vertebral arteries. ACT 112: Negative or not required by law. Electronically signed by: Jerrell Almanza M.D. 02/12/2024 7:46 AM
[2024-02-12] MEDS: CLOPIDOGREL BISULFATE 75 MG TAB PO SCH (08:38)
[2024-02-12] MEDS: METOPROLOL SUCC 25MG EXT REL TAB PO SCH (08:38)
[2024-02-12] MEDS: FINASTERIDE 5 MG TAB PO SCH (08:38)
[2024-02-12 08:52] LABS: Estimated Average Glucose 146 mg/dl; Hemoglobin A1C 6.7 % (4.5-5.6)
--- NOTE | 2024-02-12 09:43 | Pharmacy Report ---
Pharmacy Glycemic Short Note 2 - Date of Service February 12, 2024 - Glycemic Short BSG Results (Last 24 hours): 02/11/24 02/11/24 02/11/24 14:51 14:55 19:48 Glucose 97 POC Glucose 106 H 86 02/11/24 02/12/24 02/12/24 22:04 05:52 08:00 Glucose 91 POC Glucose 99 132 H OUTPATIENT ANTIDIABETIC REGIMEN: * Metformin 500 mg PO BIDM HbA1c: 6.7% (02/12/24) ASSESSMENT: * RS is a 78 year old male who presented to ED on 02/10 w/ left-sided weakness. 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 * Patient with well-controlled T2DM on metformin only * Blood sugars well-controlled thus far. Will be conservative with initial insulin regimen. * Patient is ordered diet at this time PLAN FOR INPATIENT GLYCEMIC CONTROL: * Hold outpatient oral diabetes medications * Basal insulin * 8 units SC x 1 today w/ lunch * Bolus insulin * NovoLog per scale ACHS or Q6hrs while NPO * Goal Range: Low 110 mg/dL - High 140 mg/dL * Correction Factor: 30 mg/dL/unit * Nutritional / Prandial insulin per carb ratio of 1 unit per 10 grams CHO consumed
--- NOTE | 2024-02-12 10:11 | Neurology Consultation ---
Date of Consultation February 12, 2024 Assessment & Plan (1) Acute CVA (cerebrovascular accident): Pontine infarct with L UE and LLE weakness/ataxia despite anticoagulation with warfarin and plavix. Beyond his ongoing aggressive risk factor modification there is unfortunately little that we can do to alter his risks. Would otherwise consider increasing crestor to 40mg daily and switching warfarin to eliquis for ease of administration. Okay to continue plavix. Agree with diabetic education and goal HbA1c of <7. Would also recognize that pontine stroke can fluctuate significantly though we are encouraged by his progress and improvement thus far. -- Consider switching warfarin to eliquis -- Increase crestor to 40mg daily -- Goal normotension, goal HbA1c <7 -- Therapy evals for dispo planning -- Neurology follow-up in 4-6 weeks Telehealth Consultation Telehealth Information Telehealth Information: I performed this visit using a real-time telehealth connection between my location and the patients location ([facility]). After connecting through interactive tele-video, patient was identified by name and date of and/or wristband check.Patient (or authorized healthcare repres entative) was informed that this was a telemedicine visit and it was being conducted confidentially over secure lines. My office door was closed and no one else was present in the room with me.Patient (or authorized healthcare medical center representative) provided consent to proceed with the visit, expressed an understanding of privacy and security of the telemedicine visit, and gave permission to have a hospital medical center representative in the room in order to assist with the visit and to conduct portions of the visit, as needed. I informed the patient (or authorized healthcare medical center representative) that I reviewed their record and presented the opportunity for them to ask any questions regarding the visit today. The patient agreed to participate. History of Present Illness Reason for Consultation: Stroke Requesting Physician: Dr. Ingram Attending Physician: Shy Ingram MD History of Present Illness Mr Santo is a 78 yo M presenting with L arm weakness and gait instability that began yesterday. The patient has no history of stroke in the past. He has been taking his warfarin and plavix though reports he does not know the names of his medications, his brother helps him. Today he reports his left arm is much stronger though not back to baseline. He has also been out of bed and able to ambulate to the bathroom. No trouble speaking or swallowing. He has not experienced any fluctuation of his symptoms since admission. Allergies Allergy/AdvReac Type Severity Reaction Status Date / Time ION Inhibitors AdvReac Intermediate COUGH PER Verified 02/11/24 14:58 GMG amoxicillin [From Augmentin] AdvReac Intermediate BLURRED Verified 02/11/24 14:58 VISION PER GMG clavulanic acid AdvReac Intermediate BLURRED Verified 02/11/24 14:58 [From Augmentin] VISION PER GMG levofloxacin [From Levaquin] AdvReac Intermediate BLURRED Verified 02/11/24 14:58 VISION PER GMG Home Medications Medication Instructions Recorded Confirmed Type losartan 25 mg tablet 25 mg PO QAM 08/08/23 02/11/24 History warfarin 5 mg tablet 5 mg PO HS 08/08/23 02/11/24 History metoprolol succinate 100 mg 100 mg PO BID 08/09/23 02/11/24 History tablet,extended release 24 hr metformin 500 mg tablet,extended 500 mg PO BID 11/21/23 02/11/24 History release 24 hr rosuvastatin 10 mg tablet 10 mg PO DAILY 11/21/23 02/11/24 History clopidogrel 75 mg tablet 75 mg PO DAILY #30 tabs 12/04/23 02/11/24 Rx finasteride 5 mg tablet 5 mg PO QAM 02/11/24 02/11/24 History rredzthbozcn-kzodrzck-vawqpg tablet 1 tab PO DAILY 02/11/24 02/11/24 History Patient History Medical History (Updated 02/11/24 @ 19:33 by Del Pressley DO) Atrial fibrillation Stroke-like symptoms Heart failure EF reduced on recent echocardiogram 40-44% 07/2023 reduced from EF 45-50% 06/2023 Poor historian pt unsure of medical history and states he does not take care of his meds, his brother in law Lobo Arredondo does On anticoagulant therapy warfarin daily ADRYAN (obstructive sleep apnea) pt states he has not had a sleep study test yet, no device Atrial fibrillation with rapid ventricular response on warfarin/metoprolol--follows with Dr. Price Hypertension H/o Lyme disease Diabetes per pt and brother in law was diagnosed recently 06/2023 (labs at [facility] 07/02/23 show A1C 8.0%) and given metformin 500mg bid, per brother in law pt has run out of med (stated no refills given) and has not taken for the last week Surgical History Status post cystoscopy with ureteral stent placement 07/02/23 @ [facility] History of cataract surgery bilateral cataract extraction History of tooth extraction History of tonsillectomy Family History Family/Other No pertinent family history Other No family history of adverse response to anesthesia Denies family history of Ovarian cancer Prostate cancer Myocardial infarction Breast cancer Colorectal cancer Social History Smoking Status: Former smoker Second Hand Exposure: No; Do You Dip or Chew Tobacco: No; Hx Alcohol Use: No Hx Substance Use: No Preferred Language: Hebrew Communication Ability: Effective Cleaner And Trimmer Required: No Beliefs That Will Affect Care: None Current Living Situation: Alone current occupational status: retired Feels Safe at Home: Yes Safety Concerns: Feels Safe At This Time Assistive Devices: Walker Review of Systems +L sided weakness Physical Exam Neurological Examination: Mental Status: Awake and alert. Oriented to person, place, and time. Fluent. Comprehension intact. Affect appropriate. Cranial Nerves: II: Reads NIHSS cards, pupils 3/3 to 2/2, carey grossly intact. III/IV/: Versions intact without nystagmus, no gaze preference. V: Facial sensation symmetric to light touch VII: Facial expression symmetric VIII: Hearing intact to voice Motor: Strength was symmetric and antigravity throughout. Pronator drift in the LUE. There were no abnormal movements. Coordination: Ataxia greater than weakness in LUE Reflexes: Unable to assess over telemedicine Results & Data Vital Signs (Past 12 Hours) Vital Signs Temp Pulse Pulse Pulse Resp BP BP 02/12/24 07:40 36.5 C 74 17 168/119 H 02/12/24 07:37 76 02/12/24 04:02 36.3 C L 77 18 150/95 H 02/12/24 00:35 36.2 C L 81 18 138/117 H 02/12/24 00:15 68 15 02/12/24 00:15 177/112 H 02/12/24 00:00 65 12 02/12/24 00:00 175/127 H 02/11/24 22:31 79 Pulse Ox O2 Del Method 02/12/24 07:40 96 Room Air 02/12/24 07:37 02/12/24 04:02 97 Room Air 02/12/24 00:35 95 Room Air 02/12/24 00:15 02/12/24 00:15 02/12/24 00:00 02/12/24 00:00 02/11/24 22:31 Laboratory Results Abnormal lab results 02/11/24 02/11/24 02/11/24 Range/Units 14:51 14:55 15:46 RBC 4.39 L (4.70-6.10) M/uL Hgb 12.9 L (14.0-18.0) g/dl Hct 36.8 L (42.0-52.0) % Lymph # (Auto) (1.20-3.40) K/uL Whitley # (Auto) 0.67 H (0.11-0.59) K/uL PT 26.4 H (9.0-12.0) Seconds INR 2.6 H (0.9-1.1) APTT 40 H (21-31) Seconds BUN 25 H (6-23) mg/dl BUN/Creatinine Ratio 29.4 H (10-20) POC Glucose 106 H (70-99) mg/dl Hemoglobin A1c (4.5-5.6) % Triglycerides (0-150) mg/dl VLDL Cholesterol, Calc (0-30) mg/dl Urine Appearance (Clear) Urine pH (4.5-7.5) Urine Protein (Negative) Urine Blood (Negative) Ur Leukocyte Esterase (Negative) Urine RBC (0-4) /hpf Urine WBC (0-5) /hpf Urine Bacteria (Negative) 02/11/24 02/12/24 02/12/24 Range/Units 21:35 05:52 08:00 RBC 4.23 L (4.70-6.10) M/uL Hgb 12.0 L (14.0-18.0) g/dl Hct 35.6 L (42.0-52.0) % Lymph # (Auto) 1.11 L (1.20-3.40) K/uL Whitley # (Auto) (0.11-0.59) K/uL PT 25.5 H (9.0-12.0) Seconds INR 2.5 H (0.9-1.1) APTT (21-31) Seconds BUN (6-23) mg/dl BUN/Creatinine Ratio 23.8 H (10-20) POC Glucose 132 H (70-99) mg/dl Hemoglobin A1c 6.7 H (4.5-5.6) % Triglycerides 174 H (0-150) mg/dl VLDL Cholesterol, Calc 35 H (0-30) mg/dl Urine Appearance Cloudy A (Clear) Urine pH 8.5 H (4.5-7.5) Urine Protein 2+ H (Negative) Urine Blood 3+ H (Negative) Ur Leukocyte Esterase Trace H (Negative) Urine RBC >30 H (0-4) /hpf Urine WBC 10-30 H (0-5) /hpf Urine Bacteria 2+ H (Negative) Diagnostic Findings MRI brain - small pontine infarct
[2024-02-12] MEDS: LANTUS PER UNIT CHARGE SQ ONE (13:08)
--- NOTE | 2024-02-12 14:49 | Discharge Summary ---
Discharge Summary Date of Service February 12, 2024 Admission HPI Per Admitting Provider Mr. Santo is a 78 year old male who presented to the ED today with complaints of LUE weakness. His LKW 02/10. He said that when he woke up this morning he had difficulty with his LUE. His left leg was fine. He was unable to button his pants, hold a fork or lift his arm above his chest. He states that leading up to today, he was feeling fine. At his bedside is his ANI Jet who helps to care for him and is responsible for getting his mediations and taking him to his appointments. He takes Coumadin for AF. Non smoker and no alochol use. Not TNK candidate per tele [place]. He underwent a cath 11/2023 with JOCE LAD and Distal RCA into PDA and is on Plavix. He was scheduled to have a repeat ECHO 02/27. His most recent ECHO is documented 07/26/23: EF 40 to 44%, mild LV hypokinesis, mild MR/TR. PMH includes: Atrial fibrillation (On Coumadin), CAD, NIDDM2 (newly diagnosed 06/2023), obesity, HFrEF, HTN, and ADRYAN. In the ED, No leukocytosis, otherwise electrolytes unremarkable, troponin negative, LFTs negative, INR 2.6. Head CT reports old left occipital infarct but no new ICH, SDH, midline shift. Head neck CTA: 1. There is no evidence of hemorrhage, mass effect, or acute territorial ischemia noting angiographic phase technique. 2. A normal right posterior cerebral artery is not visualized arising from the basilar. There is likely origin of the right posterior cerebral artery, with a long focus of high-grade proximal stenosis of the presumed right [employer] proximally. 3. 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 4. Additional foci of high-grade stenosis are seen involving both anterior cerebral arteries, the left posterior cerebral artery, and the left middle cerebral artery as above. Pt denies Fever, chills, headache, dizziness, chest pain, palpitations, nausea, vomiting, diarrhea, hematochezia, bowel or bladder changes, recent falls or t rauma. Patient is sitting in his hospital bed in no apparent distress. He is able to answer all questions without slurring of his speech. NIH 1. Patient son-in-law at bedside and indicates that he has returned nearly to baseline. Initially when he came in he was unable to lift his left upper extremity or squeeze his hand. This has resolved and he is able to lift his arms above his head. Cran ial nerves II through XII grossly intact otherwise. No difficulty with swallowing. At baseline he is rather independent and does not use any assistive devices despite his [id number] stating that he should. Update; I was able to talk with Dr. Chau [place] stroke telemed. He indicated that no intervention would be recommended with TNK, but due to his moderate bilateral carotid disease he would recommend repeat BL carotid ultrasound. Also recommended checking homocystine levels and if > 10, add Folic Acid 2 G daily. Recommends discussing if it would be possible to switch to Eliquis vs coumadin Pt will be admitted for further evaluation and management of his stroke like symptoms including obtaining a brain MRI, aspiration precautions, ECHO, PT/OT, hold antihypertensive for now outside of metoprolol, will increase statin, sliding scale insulin for diabetes management, neurology consultation. Reduced dose of Coumadin administered today; will hold tomorrow pending INR. Principal Dx & Hospital Course #1 = Principal Diagnosis (1) Stroke-like symptoms: (2) Atrial fibrillation: (3) Acute on chronic heart failure with reduced ejection fraction and diastolic dysfunction: (4) Hypertension: (5) ADRYAN (obstructive sleep apnea): (6) Diabetes: Plan Mr. Santo is a 78 year old male who presented to the ED today with complaints of LUE weakness. His LKW 02/10 @ 2200. He said that when he woke up this morning he had difficulty with his LUE. His left leg was fine. He was unable to button his pants, hold a fork or lift his arm above his chest. He states that leading up to today, he was feeling fine. At his bedside is his ANI Jet who helps to care for him and is responsible for getting his mediations and taking him to his appointments. He takes Coumadin for AF. He underwent a cath 11/2023 with JOCE LAD and Distal RCA into PDA and is on Plavix. He was scheduled to have a repeat ECHO 02/27. His most recent ECHO is documented 07/26/23: EF 40 to 44%, mild LV hypokinesis, mild MR/TR. No smoking or alochol use. PMH includes: Atrial fibrillation (On Coumadin), CAD, NIDDM2 (newly diagnosed 06/2023), obesity, HFrEF, HTN, and ADRYAN. No history of CVA or AMI. In the ED, No leukocytosis, otherwise electrolytes unremarkable, troponin negative, LFTs negative, INR 2.6. Head CT and head neck CTA outlined below. Pt will be admitted for further evaluation and management of his stroke like symptoms including obtaining a brain MRI, aspiration precautions, ECHO, PT/OT, hold antihypertensive for now outside of metoprolol, will increase statin, sliding scale insulin for diabetes management, neurology consultation. Reduced dose of Coumadin administered today; will hold tomorrow pending INR. Stroke like symptoms: Acute Not TNK candidate per tele [place]; see below Head CT reports old left occipital infarct but no new ICH, SDH, midline shift. Head neck CTA: 1. There is no evidence of hemorrhage, mass effect, or acute territorial ischemia noting angiographic phase technique. 2. A normal right posterior cerebral artery is not visualized arising from th e basilar. There is likely origin of the right posterior cerebral artery, with a long focus of high-grade proximal stenosis of the presumed right [employer] proximally. 3. 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 4. Additional foci of high-grade stenosis are seen involving both anterior cerebral arteries, the left posterior cerebral artery, and the left middle cerebral artery as above. Takes low dose statin; will increase Rosuvastatin to 20 mg daily and await Neuro consult MRI ordered and pending; ordered Ativan 0.25 mg IV for claustrophobia Hold Losartan for now for permissive HTN until MRI report ECHO ordered PT/OT Formal Neuro consult placed Update; I was able to talk with Dr. Chau [place] stroke telemed. He indicated that no intervention would be recommended with TNK, but due to his moderate bilateral carotid disease he would recommend repeat BL carotid ultrasound. Also recommended checking homocystine levels and if > 10, add Folic Acid 2 G daily. Recommends discussing if it would be possible to switch to Eliquis vs coumadin Persistent Atrial Fibrillation: Chronic Takes Metoprolol; continue Takes Coumadin 5mg QHS; 2.5 mg given INR therapeutic level 2-3; today 2.6. Is usually within therapeutic range but last check a few weeks ago he was 4.3 HfrEF: Chronic Most recent ECHO 07/26/23: EF 40-44%, mild L hypokinesis, Mild MR/TR NIDDM2: Chronic Last A1C 07/02/23: 8.0 and was started on Metformin Takes Metformin; hold while inpatient Place on [facility] for lantus management Diabetic diet; if passes dysphagia screening HTN: Chronic Takes Losartan; hold for tonight for permissive HTN ADRYAN: chronic does not have a cpap Disposition: PCP: Gerardo Martinez PA-C Code Status: DNR/DNI VTE Prophylaxis: On Coumadin; teds and SCDs while Couamdin on hold I spent a total of 87 minutes coordinating, documenting, and providing care for this patient excluding time spent in the performance of separately billed [employer] es. All of the aforementioned completed while collaborating with the assigned attending physician for a full treatment plan. Please see their addendum for further details. Updated Medication List Medication Instructions Recorded Confirmed Type losartan 25 mg tablet 25 mg PO QAM 08/08/23 02/11/24 History warfarin 5 mg tablet 5 mg PO HS 08/08/23 02/11/24 History metoprolol succinate 100 mg 100 mg PO BID 08/09/23 02/11/24 History tablet,extended release 24 hr metformin 500 mg tablet,extended 500 mg PO BID 11/21/23 02/11/24 History release 24 hr rosuvastatin 10 mg tablet 10 mg PO DAILY 11/21/23 02/11/24 History clopidogrel 75 mg tablet 75 mg PO DAILY #30 tabs 12/04/23 02/11/24 Rx finasteride 5 mg tablet 5 mg PO QAM 02/11/24 02/11/24 History vzwmbfzldakf-sshsvphu-gpoimr tablet 1 tab PO DAILY 02/11/24 02/11/24 History Hospital Stay Data Consultations 02/11/24 16:24 ED Decision to Admit Stat 02/11/24 17:15 Consult Neurology Routine Diagnostic Imagining Performed 02/11/24 14:49 CT angio head w con Stat CT angio neck with con Stat CT head/brain wo con Stat 02/11/24 17:25 MRI Brain [MR brain wo con] Routine 02/11/24 20:38 US carotid doppler BI Routine
--- NOTE | 2024-02-12 14:58 | Pharmacy Report ---
- Date of Service February 12, 2024 - Pharmacy CVA/TIA Medication Review Medications to Prevent Stroke handout has been added to the patients discharge packet. Antiplatelet(s) * Clopidogrel 75 mg PO daily Cholesterol * High intensity statin: rosuvastatin 20 mg daily w/ consideration to increase to 40 mg PO daily per neurology DVT Prophylaxis * On therapeutic anticoagulation with warfarin Therapeutic Anticoagulation * Hx Afib/Aflutter noted, and patient is currently receiving warfarin w/ plan to consider change to apixaban per neurology Type 2 Diabetes * Patient has T2DM, but per Dr. Ingram, a diabetes medication with proven CVD benefit will be deferred to their outpatient provider due to familiarity with risks/benefits of such therapies. "Medications to prevent stroke" handout has already been added to the patient's discharge packet, which instructs the patient to follow up with their outpatient provider to evaluate which diabetes medication with proven CVD benefit is best for them
--- NOTE | 2024-02-12 22:30 | Hospitalist Progress Note ---
Date of Service February 12, 2024 Assessment & Plan (1) Stroke-like symptoms: (2) Atrial fibrillation: (3) Acute on chronic heart failure with reduced ejection fraction and diastolic dysfunction: (4) Hypertension: (5) ADRYAN (obstructive sleep apnea): (6) Diabetes: Plan Mr. Santo is a 78 year old male who presented to the ED today with complaints of LUE weakness. His LKW 02/10 @ 2200. He said that when he woke up this morning he had difficulty with his LUE. His left leg was fine. He was unable to button his pants, hold a fork or lift his arm above his chest. He states that leading up to today, he was feeling fine. At his bedside is his ANI Jet who helps to care for him and is responsible for getting his mediations and taking him to his appointments. He takes Coumadin for AF. He underwent a cath 11/2023 with JOCE LAD and Distal RCA into PDA and is on Plavix. He was scheduled to have a repeat ECHO 02/27. His most recent ECHO is documented 07/26/23: EF 40 to 44%, mild LV hypokinesis, mild MR/TR. No smoking or alochol use. PMH includes: Atrial fibrillation (On Coumadin), CAD, NIDDM2 (newly diagnosed 06/2023), obesity, HFrEF, HTN, and ADRYAN. No history of CVA or AMI. In the ED, No leukocytosis, otherwise electrolytes unremarkable, troponin negative, LFTs negative, INR 2.6. Head CT and head neck CTA outlined below. Per previous provider with addendum: Stroke like symptoms: Acute Not TNK candidate per tele [facility]; see below Head CT reports old left occipital infarct but no new ICH, SDH, midline shift. Head neck CTA: 1. There is no evidence of hemorrhage, mass effect, or acute territorial ischemia noting angiographic phase technique. 2. A normal right posterior cerebral artery is not visualized arising from the basilar. There is likely origin of the right posterior cerebral artery, with a long focus of high-grade proximal stenosis of the presumed right BREAD WRAPPER proximally. 3. 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 4. Additional foci of high-grade stenosis are seen involving both anterior cerebral arteries, the left posterior cerebral artery, and the left middle cerebral artery as above. Takes low dose statin; will increase Rosuvastatin to 20 mg daily and await Neuro consult MRI noting acute/subacute right anterior angie stroke, arachnoid cyst, old inferct Holding Losartan for permissive HTN ECHO with noted EF 40-45%, hypokinesis PT/OT recommending acute rehab Speech-no issues Formal Neuro consult placed- recommending switching from warfarin to Eliquis, consider cost for pt, notes he is on a fixed income Per Previous provider on admissionUpdate; I was able to talk with Dr. Chau [facility] stroke telemed. He indicated that no intervention would be recommended with TNK, but due to his moderate bilateral carotid disease he would recommend repeat BL carotid ultrasound. Also recommended checking homocystine levels and if > 10, add Folic Acid 2 G daily. Recommends discussing if it would be possible to switch to Eliquis vs coumadin 02/11- per Neuro, increase crestor to 40mg daily, consider switch from warfarin to Eliquis, consider cost for pt, notes he is on a fixed income. Continue Plavix. Neurology follow-up in 4-6 weeks. PT/OT currently recommending acute rehab. Persistent Atrial Fibrillation: Chronic Takes Metoprolol; continue Takes Coumadin 5mg QHS; 2.5 mg given INR therapeutic level 2-3; Is usually within therapeutic range but last check a few weeks ago he was 4.3 Per Neurology as above, consider switch from warfarin to Eliquis, consider cost for pt, notes he is on a fixed income. HfrEF: Chronic Most recent ECHO 07/26/23: EF 40-44%, mild L hypokinesis, Mild MR/TR NIDDM2: Chronic Last A1C 07/02/23: 8.0 and was started on Metformin Takes Metformin; hold while inpatient Place on [facility] for lantus management Diabetic diet; if passes dysphagia screening HTN: Chronic Takes Losartan; hold for tonight for permissive HTN ADRYAN: chronic does not have a cpap Disposition: PCP: Gerardo Martinez PA-C Code Status: DNR/DNI VTE Prophylaxis: On Coumadin; teds and SCDs while Couamdin on hold Dispo: Acute rehab Admission and Anticipated Discharge Date Admission Date: February 11, 2024 Subjective Pt was seen in the AM. Noted that the left sided arm weakness he presented with has improved. Was in agreement that he had a stroke. Later advised pt that PT/OT recommending rehab. Notes that he is interested in going to [facility]. Review of Systems Review of Systems: All systems reviewed & are unremarkable except as noted in Subjective Physical Exam Physical Exam: General: Alert, oriented. No acute distress Skin: No noted rashes or bruises Psych: Appropriate mood and affect Neuro: L arm, forearm strength slightly weaker then right, otherwise no gross deficits HEENT: NC/AT, PERRLA, EOMI, oropharynx moist. Chest: Nontender to palpation. CV: RRR Resp: Breath sounds clear bilaterally, no increased effort of breathing. Abdomen: BS+. Soft, nontender, nondistended. No guarding. No organomegaly appreciated. Extremities: No edema in lower extremities bilaterally. Results & Data Results & Data Vital Signs (Past 12 Hours) Vital Signs Temp Pulse Pulse Resp BP BP Pulse Ox 02/12/24 19:49 36.6 C 87 18 156/95 H 96 02/12/24 16:57 84 02/12/24 15:19 37.0 C 75 16 153/111 H 156/96 H 95 02/12/24 10:51 36.5 C 89 13 148/96 H 96 O2 Del Method 02/12/24 19:49 Room Air 02/12/24 16:57 02/12/24 15:19 Room Air 02/12/24 10:51 Room Air Diagnostic Findings Head CT 02/11/24 14:49 CT OF THE HEAD WITHOUT CONTRAST CLINICAL HISTORY: neuro deficit, acute stroke suspected COMPARISON STUDY: No previous studies for comparison. TECHNIQUE: Helical axial images of the head were obtained without IV contrast. Automated exposure control was utilized for the study. A dose lowering technique was utilized adhering to the principles of ALARA. FINDINGS: No acute intracranial hemorrhage, midline shift or mass effect is present. Ventricular system is unremarkable. Basal cisterns are patent. Small arachnoid cyst within the left middle cranial fossa is noted. A 4.5 cm focus of encephalomalacia within the left occipital lobe is noted. White matter hypodensities favor small vessel disease. There are no findings to suggest acute dural sinus thrombosis or acute territorial infarct. There are no significant calvarial abnormalities. IMPRESSION: 1. No acute intracranial findings. 2. Old left occipital lobe infarct. ACT 112: Negative or not required by law. Electronically signed by: Earnest Victor M.D. 02/11/2024 3:23 PM Head CTA 02/11/24 14:49 CT ANGIOGRAM OF THE BRAIN CLINICAL HISTORY: Neurological deficit. Stroke like symptoms. COMPARISON STUDY: Unenhanced CT of the brain performed concurrently on 02/11/2024. TECHNIQUE: Following the IV administration of 104 cc of Optiray 320, CT angiogram of the brain was performed from the skull base to the vertex. Images are reviewed in the axial, sagittal, and coronal planes. 3-D MIPS images are created and assessed. IV contrast was administered without complication. A dose lowering technique was utilized adhering to the principles of ALARA. FINDINGS: Brain parenchyma: There is age-related involutional change noting moderate to advanced subcortical and periventricular microangiopathic disease. Left occipital encephalomalacia is consistent with a remote insult. There is no evidence of hemorrhage, mass effect, or acute territorial ischemia noting angiographic phase technique. A 2.8 cm arachnoid cyst is seen in the anterior left temporal fossa. There is no evidence of enhancing mass lesion on the angiogram phase images. No extra-axial fluid collection is seen. Merino-white matter differentiation is preserved. Ventricles, sulci, and cisterns: Prominent secondary to interval change. Cavum septum pellucidum is incidentally noted. CT angiogram of the brain: There is atherosclerotic calcification of the cavernous carotid and vertebral arteries. The internal carotid arteries are widely patent, as are the anterior and middle cerebral arteries. The right vertebral artery and basilar artery are patent. There are foci of high-grade stenosis with near complete occlusion of the vertebral artery at the skull base seen on images #38 and #45. The right vertebral artery is dominant. There is focal high-grade stenosis of the proximal left posterior cerebral artery seen on sagittal MIPS image #66. There is moderate to high-grade focal stenosis of the M2 branch of the left middle cervical artery along the sylvian fissure seen on sagittal MIPS image #78. There is high-grade focal stenosis of the proximal right anterior cerebral artery seen on axial image #157. There is focal high- grade stenosis of the distal left anterior cerebral artery seen on axial image #182. The right posterior artery cerebral artery is not seen arising from the basilar. There is likely origin of the right posterior cerebral artery. There is the long segment of high-grade stenosis of the presumed proximal right posterior cerebral artery seen on axial image #106. Dural sinuses: Clear as visualized. Orbits: The bony orbits are intact. The orbital contents are normal as visualized. Sinuses and mastoids: There is trace mucosal thickening within the maxillary ant ra. The remaining paranasal sinuses are clear. The mastoid air cells are well pneumatized. Calvarium: Unremarkable. IMPRESSION: 1. There is no evidence of hemorrhage, mass effect, or acute territorial ischemia noting angiographic phase technique. 2. A normal right posterior cerebral artery is not visualized arising from the basilar. There is likely origin of the right posterior cerebral artery, with a long focus of high-grade proximal stenosis of the presumed right BREAD WRAPPER proximally. 3. 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 4. Additional foci of high-grade stenosis are seen involving both anterior cerebral arteries, the left posterior cerebral artery, and the left middle cerebral artery as above. ACT 112: Negative or not required by law. Electronically signed by: Jerrell Almanza M.D. 02/11/2024 3:34 PM Neck CTA 02/11/24 14:49 CT angio neck with con CLINICAL HISTORY: neuro deficit, acute stroke suspected TECHNIQUE: CT angiography of the neck was performed following intravenous administration of iodinated contrast. Coronal and sagittal MIPS were obtained from the axial data set and were submitted for review. Automated dose lowering techniques and/or adjustment according to patient size were utilized for this examination. All measurements were calculated based on NASCET criteria. CT DOSE: 1399.57 mGy.cm Comparison: None available at the time of this dictation. FINDINGS: Lungs and soft tissues are unremarkable. CTA Neck: The aortic arch and the origins of the innominate, left subclavian, and left common carotid artery are not imaged. Bilateral atherosclerotic plaque at the carotid bulbs without hemodynamically significant stenosis. 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 There is also possible narrowing at its origin. The left vertebral artery is dominant. 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 Assessment of stenosis of the internal carotid arteries is based on NASCET cr iteria. ACT 112: Negative or not required by law. Electronically signed by: Osmin Quiñones M.D. 02/11/2024 3:30 PM Brain MRI 02/11/24 17:25 CR Exam(s): MRI HEAD Without Contrast EXAM: MR Head Without Intravenous Contrast CLINICAL HISTORY: Reason for exam: stroke like symptoms. TECHNIQUE: Magnetic resonance images of the head/brain without intravenous contrast in multiple planes. COMPARISON: No relevant prior studies available. FINDINGS: Brain: Left occipital encephalomalacia likely related to remote infarct. 0.7 cm area of restricted diffusion within the right anterior angie consistent with an acute/subacute infarct. 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 No hemorrhage. 2.4 cm left middle cranial fossa arachnoid cyst. Ventricles: Unremarkable. No ventriculomegaly. Bones/joints: Unremarkable. No acute fracture. Sinuses: Unremarkable as visualized. No acute sinusitis. Mastoid air cells: Unremarkable as visualized. No mastoid effusion. Orbits: Unremarkable as visualized. IMPRESSION: 1. 0.7 cm area of restricted diffusion within the right anterior angie consistent with an acute/subacute infarct. 2. Left occipital encephalomalacia likely related to remote infarct. 3. 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 4. 2.4 cm left middle cranial fossa arachnoid cyst. Communications: Call Doctor Stroke acute, subacute (but new), expanding Electronically signed by: Ruel Beaver M.D. 02/11/24 23:15 PM Carotid Doppler Study 02/11/24 20:38 ULTRASOUND OF THE CAROTID ARTERIES CLINICAL HISTORY: Stroke. COMPARISON STUDY: CT angiogram of the neck dated 02/11/2024. TECHNIQUE: Real-time, grayscale, and color Doppler sonography of the carotid arteries is performed. Images are reviewed in the transverse and longitudinal planes. FINDINGS: The carotid arteries are patent bilaterally and demonstrate antegrade flow. There is mild to moderate atherosclerotic plaque seen in the carotid bulb. Normal doppler arterial waveforms are seen throughout. Velocity measurements are listed below. Common carotid peak systolic velocity (cm/sec): RIGHT: 50 LEFT: 35 ICA proximal peak systolic velocity (cm/sec): RIGHT: 114 LEFT: 36 ICA mid peak systolic velocity (cm/sec): RIGHT: 28 LEFT: 29 ICA distal peak systolic velocity (cm/sec): RIGHT: 69 LEFT: 23 ICA/CC peak systolic ratio: RIGHT: 2.3 LEFT: 1.1 Antegrade flow was shown in the vertebral arteries. The external carotid arteries are patent. IMPRESSION: 1. There is no sonographic evidence of hemodynamically significant stenosis in the right or left carotid arterial system. 2. Antegrade flow is shown in the vertebral arteries. ACT 112: Negative or not required by law. Electronically signed by: Jerrell Almanza M.D. 02/12/2024 7:46 AM
[2024-02-13 07:51] LABS: Basophils # (auto) 0.05 K/uL (0.00-0.20); Basophils % (auto) 0.7 %; Eosinophils % (auto) 4.3 %; Hemoglobin 12.9 g/dl (14.0-18.0); Immature Granulocytes # (auto) 0.02 K/uL (0.01-0.20); Immature Granulocytes % (auto) 0.3 %; Lymphocytes % (auto) 15.9 %; Mean Corpuscular Hemoglobin 29.1 pg (25.0-34.0); Mean Corpuscular Hgb Conc 34.9 g/dL (32.0-36.0); Mean Corpuscular Volume 83.5 fL (80.0-100.0); Monocytes % (auto) 8.6 %; Neutrophils # (auto) 4.87 K/uL (1.40-6.50); Neutrophils % (auto) 70.2 %; Platelet Count 248 K/uL (130-400); RDW Coefficient of Variation 14.4 % (11.5-14.5); RDW Standard Deviation 43.8 fL (36.4-46.3); Red Blood Count 4.43 M/uL (4.70-6.10); White Blood Count 6.94 K/ul (4.8-10.8)
[2024-02-13 08:09] LABS: BUN Creatinine Ratio 22.2 (10-20); Calcium 8.6 mg/dl (8.6-10.3); Creatinine Clr Calc Pharmacy 80.8 ml/min; Est GFR (African American) 94.5 ml/min; Est GFR (Non-African American) 81.5 ml/min; Magnesium 1.9 mg/dl (1.7-2.4); Phosphorus 3.4 mg/dl (2.5-4.9); Potassium 3.4 mmol/L (3.5-5.1)
[2024-02-13 08:15] LABS: INR 2.3 (0.9-1.1); Prothrombin Time 23.9 Seconds (9.0-12.0)
[2024-02-13] MEDS: ROSUVASTATIN CALCIUM 20 MG TAB PO SCH (08:34)
--- NOTE | 2024-02-13 09:23 | Hospitalist Progress Note ---
Date of Service February 13, 2024 Assessment & Plan (1) Stroke-like symptoms: (2) Atrial fibrillation: (3) Acute on chronic heart failure with reduced ejection fraction and diastolic dysfunction: (4) Hypertension: (5) ADRYAN (obstructive sleep apnea): (6) Diabetes: Plan Mr. Santo is a 78 yo M who presented to the ED with complaints of LUE weakness. His LKW 02/10 @ 2200. He said that when he woke up this morning he had difficulty with his LUE. His left leg was fine. He was unable to button his pants, hold a fork or lift his arm above his chest. He states that leading up to today, he was feeling fine. At his bedside is his ANI Jet who helps to care for him and is responsible for getting his mediations and taking him to his appointments. He takes Coumadin for AF. He underwent a cath 11/2023 with JOCE LAD and Distal RCA into PDA and is on Plavix. He was scheduled to have a repeat ECHO 02/27. His most recent ECHO is documented 07/26/23: EF 40 to 44%, mild LV hypokinesis, mild MR/TR. No smoking or alochol use. PMH includes: Atrial fibrillation (On Coumadin), CAD, NIDDM2 (newly diagnosed 06/2023), obesity, HFrEF, HTN, and ADRYAN. No history of CVA or AMI. In the ED, No leukocytosis, otherwise electrolytes unremarkable, troponin negative, LFTs negative, INR 2.6. Head CT and head neck CTA outlined below. Acute CVA Not TNK candidate per [facility]; see below Head CT reports old left occipital infarct but no new ICH, SDH, midline shift. Head neck CTA: 1. There is no evidence of hemorrhage, mass effect, or acute territorial ischemia noting angiographic phase technique. 2. A normal right posterior cerebral artery is not visualized arising from the basilar. There is likely origin of the right posterior cerebral artery, with a long focus of high-grade proximal stenosis of the presumed right INSURANCE CLAIMS ANALYST proximally. 3. 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 4. Additional foci of high-grade stenosis are seen involving both anterior cerebral arteries, the left posterior cerebral artery, and the left middle cerebral artery as above. Takes low dose statin; will increase Rosuvastatin to 20 mg daily and await Neuro consult MRI noting acute/subacute right anterior angie stroke, arachnoid cyst, old infarct Holding Losartan for permissive HTN ECHO with noted EF 40-45%, hypokinesis PT/OT recommending acute rehab Speech-no issues Formal Neuro consult placed- recommending switching from warfarin to Eliquis, consider cost for pt, notes he is on a fixed income Per Previous provider on admissionUpdate; I was able to talk [place]. Chau [facility] [place]. He indicated that no intervention would be recommended with TNK, but due to his moderate bilateral carotid disease he would recommend repeat BL carotid ultrasound. Also recommended checking homocystine levels and if > 10, add Folic Acid 2 G daily. Recommends discussing if it would be possible to switch to Eliquis vs coumadin 02/11- per Neuro, increase crestor to 40mg daily, consider switch from warfarin to Eliquis, consider cost for pt, notes he is on a fixed income. Continue Plavix. Neurology follow-up in 4-6 weeks. PT/OT currently recommending acute rehab. Persistent Atrial Fibrillation: Chronic Takes Metoprolol; continue Takes Coumadin 5mg QHS; 2.5 mg given INR therapeutic level 2-3; Is usually within therapeutic range but last check a few weeks ago he was 4.3 Per Neurology as above, consider switch from warfarin to Eliquis, consider cost for pt, notes he is on a fixed income. Intermittent hematuria Ucultx pending - empiric abx for now - may need further eval by urology - H&H stable, current hgb 12.9, cont. to monitor - pt reports hx of hematuria, kidney stones, follows w/outpt urologist HfrEF: Chronic Most recent ECHO 07/26/23: EF 40-44%, mild L hypokinesis, Mild MR/TR NIDDM2: Chronic Last A1C 07/02/23: 8.0 and was started on Metformin Takes Metformin; hold while inpatient Place on [facility] for lantus management HTN: Chronic Takes Losartan; hold for now, monitor BP ADRYAN: chronic does not have a cpap Disposition: PCP: Gerardo Martinez PA-C Code Status: DNR/DNI VTE Prophylaxis: On Coumadin; teds and SCDs while Couamdin on hold Dispo: Acute rehab Admission and Anticipated Discharge Date Admission Date: February 11, 2024 Subjective Pt seen in follow up of CVA Left sided arm weakness he presented with has improved. Currently sitting up in chair in [facility] Currently says he is feeling better overall no fever, chills, chest pain, shortness of breath. no RON. no abd. pain, n/v Has intermittent hematuria, says he has kidney stones and follows with urology as outpt PT/OT recommending rehab, pt interested in going to [facility]. Review of Systems Review of Systems: All systems reviewed & are unremarkable except as noted in Subjective Physical Exam Physical Exam: General: obese M in NAD HEENT: NC/AT, PERRL, EOMI Chest: Nontender to palpation. CV: RRR Resp: Breath sounds clear bilaterally, no increased effort of breathing. Abdomen: BS+. Soft, nontender, nondistended. Neuro: awake, alert, speech fluent, L arm strength slightly weaker then right Extremities: No edema in lower extremities bilaterally. Skin: warm, dry Results & Data Results & Data Vital Signs (Past 12 Hours) Vital Signs Temp Pulse Pulse Pulse Pulse Resp BP 02/13/24 08:41 98 H 02/13/24 07:53 36.4 C L 84 14 137/103 H 02/13/24 07:51 92 H 02/13/24 07:30 02/13/24 04:06 36.7 C 88 18 02/12/24 23:40 36.7 C 88 18 BP Pulse Ox O2 Del Method 02/13/24 08:41 155/115 H 02/13/24 07:53 94 Room Air 02/13/24 07:51 02/13/24 07:30 Room Air 02/13/24 04:06 145/92 H 92 Room Air 02/12/24 23:40 146/89 H 96 Room Air Laboratory Results 02/13/24 02/13/24 02/12/24 Range/Units 08:09 07:07 20:01 WBC 6.94 (4.8-10.8) K/ul RBC 4.43 L (4.70-6.10) M/uL Hgb 12.9 L (14.0-18.0) g/dl Hct 37.0 L (42.0-52.0) % MCV 83.5 (80.0-100.0) fL MCH 29.1 (25.0-34.0) pg MCHC 34.9 (32.0-36.0) g/dL RDW Std Deviation 43.8 (36.4-46.3) fL RDW Coeff of Leeanne 14.4 (11.5-14.5) % Plt Count 248 (130-400) K/uL MPV 10.0 (9.4-12.4) fL Immature Gran % (Auto) 0.3 % Neut % (Auto) 70.2 % Lymph % (Auto) 15.9 % [place] % (Auto) 8.6 % Eos % (Auto) 4.3 % Baso % (Auto) 0.7 % Neut # (Auto) 4.87 (1.40-6.50) K/uL Lymph # (Auto) 1.10 L (1.20-3.40) K/uL [place] # (Auto) 0.60 H (0.11-0.59) K/uL Eos # (Auto) 0.30 (0.00-0.50) K/uL Baso # (Auto) 0.05 (0.00-0.20) K/uL Immature Gran # (Auto) 0.02 (0.01-0.20) K/uL PT 23.9 H (9.0-12.0) Seconds INR 2.3 H (0.9-1.1) Sodium 137 (136-145) mmol/L Potassium 3.4 L (3.5-5.1) mmol/L Chloride 103 (98-107) mmol/L Carbon Dioxide 27 (21-32) mmol/L Anion Gap 7 (3-11) BUN 20 (6-23) mg/dl Creatinine 0.90 (0.6-1.4) mg/dl Est Cr Clr Drug Dosing 80.8 ml/min Est GFR ( Amer) 94.5 ml/min Est GFR (Non-Af Amer) 81.5 ml/min BUN/Creatinine Ratio 22.2 H (10-20) Glucose 94 (70-99(Fasting)) mg/dl POC Glucose 113 H 134 H (70-99) mg/dl Calcium 8.6 (8.6-10.3) mg/dl Phosphorus 3.4 (2.5-4.9) mg/dl Magnesium 1.9 (1.7-2.4) mg/dl 02/12/24 02/12/24 Range/Units 17:10 11:57 WBC (4.8-10.8) K/ul RBC (4.70-6.10) M/uL Hgb (14.0-18.0) g/dl Hct (42.0-52.0) % MCV (80.0-100.0) fL MCH (25.0-34.0) pg MCHC (32.0-36.0) g/dL RDW Std Deviation (36.4-46.3) fL RDW Coeff of Leeanne (11.5-14.5) % Plt Count (130-400) K/uL MPV (9.4-12.4) fL Immature Gran % (Auto) % Neut % (Auto) % Lymph % (Auto) % [place] % (Auto) % Eos % (Auto) % Baso % (Auto) % Neut # (Auto) (1.40-6.50) K/uL Lymph # (Auto) (1.20-3.40) K/uL [place] # (Auto) (0.11-0.59) K/uL Eos # (Auto) (0.00-0.50) K/uL Baso # (Auto) (0.00-0.20) K/uL Immature Gran # (Auto) (0.01-0.20) K/uL PT (9.0-12.0) Seconds INR (0.9-1.1) Sodium (136-145) mmol/L Potassium (3.5-5.1) mmol/L Chloride (98-107) mmol/L Carbon Dioxide (21-32) mmol/L Anion Gap (3-11) BUN (6-23) mg/dl Creatinine (0.6-1.4) mg/dl Est Cr Clr Drug Dosing ml/min Est GFR ( Amer) ml/min Est GFR (Non-Af Amer) ml/min BUN/Creatinine Ratio (10-20) Glucose (70-99(Fasting)) mg/dl POC Glucose 116 H 168 H (70-99) mg/dl Calcium (8.6-10.3) mg/dl Phosphorus (2.5-4.9) mg/dl Magnesium (1.7-2.4) mg/dl Medications Administered Current Inpatient Medications Clopidogrel Bisulfate (Clopidogrel Bisulfate 75 Mg Tab) 75 mg PO DAILY RADHA Stop: 03/13/24 08:59 Last Admin: 02/13/24 08:33 Dose: 75 mg Dextrose (Dextrose 50% 50 Ml Syringe) 25 - 50 ml IV UD PRN; Protocol PRN Reason: Hypoglycemia Protocol Stop: 03/12/24 18:26 Finasteride (Finasteride 5 Mg Tab) 5 mg PO QAM [facility] Stop: 03/13/24 08:59 Last Admin: 02/12/24 08:38 Dose: 5 mg Glucagon (Glucagon For Inj 1 Mg Vial) 1 mg SQ UD PRN; Protocol PRN Reason: Hypoglycemia Protocol Stop: 03/12/24 18:26 Glucose (Glucose 10 Tab/Tube) 4 - 8 tab PO UD PRN; Protocol PRN Reason: Hypoglycemia Treatment Stop: 03/12/24 18:26 Glucose (Glucose 40% Gel 15 Gm Tube) 15 - 30 gm PO UD PRN; Protocol PRN Reason: Hypoglycemia Protocol Stop: 03/12/24 18:26 Insulin Aspart (Insulin Aspart Per Unit Charge) 0 units SC ACHS [facility] Stop: 03/12/24 18:59 Last Admin: 02/12/24 20:53 Dose: Not Given Insulin Glargine (Lantus Per Unit Charge) 8 units SQ DAILY [facility]; Protocol Stop: 03/14/24 08:59 Metoprolol Succinate (Metoprolol Succ 25mg Ext Rel Tab) 25 mg PO BID RADHA Stop: 03/13/24 08:59 Last Admin: 02/13/24 08:33 Dose: 25 mg Miscellaneous (Carbohydrates For Hypoglycemia ) 15 - 30 gm PO UD PRN PRN Reason: Hypoglycemia Protocol Stop: 03/12/24 18:26 Miscellaneous Information (Pharmacy Glycemic Mgmt Consult) 1 each N/A UD PRN PRN Reason: Consult Stop: 03/12/24 18:26 Potassium Chloride (Potassium Chloride Crtab 20 Meq Tabcr) 20 meq PO NOW STA Stop: 02/13/24 09:15 Rosuvastatin Calcium (Rosuvastatin Calcium 20 Mg Tab) 40 mg PO QAM [facility] Stop: 03/14/24 08:59 Last Admin: 02/13/24 08:34 Dose: 40 mg
[2024-02-13] MEDS: POTASSIUM CHLORIDE CRTAB 20 MEQ TABCR PO STA (09:39)
[2024-02-13] MEDS: LANTUS PER UNIT CHARGE SQ SCH (09:39)
[2024-02-13] MEDS: cefTRIAXone SODIUM 2,000 MG in DEXTROSE 5 % MINI-B 50 ML IV SCH (11:11)
[2024-02-13] MEDS: WARFARIN SOD 2 MG TAB PO SCH (21:41)
[2024-02-14 07:02] LABS: Basophils # (auto) 0.04 K/uL (0.00-0.20); Basophils % (auto) 0.6 %; Eosinophils % (auto) 4.5 %; Hematocrit (blood only) 37.6 % (42.0-52.0); Hemoglobin 12.5 g/dl (14.0-18.0); Immature Granulocytes # (auto) 0.02 K/uL (0.01-0.20); Immature Granulocytes % (auto) 0.3 %; Lymphocytes # (auto) 1.14 K/uL (1.20-3.40); Lymphocytes % (auto) 17.1 %; Mean Corpuscular Hemoglobin 28.7 pg (25.0-34.0); Mean Corpuscular Hgb Conc 33.2 g/dL (32.0-36.0); Mean Corpuscular Volume 86.2 fL (80.0-100.0); Monocytes # (auto) 0.56 K/uL (0.11-0.59); Monocytes % (auto) 8.4 %; Neutrophils # (auto) 4.62 K/uL (1.40-6.50); Neutrophils % (auto) 69.1 %; Platelet Count 263 K/uL (130-400); RDW Coefficient of Variation 14.5 % (11.5-14.5); RDW Standard Deviation 45.1 fL (36.4-46.3); Red Blood Count 4.36 M/uL (4.70-6.10); White Blood Count 6.68 K/ul (4.8-10.8)
[2024-02-14 07:33] LABS: Prothrombin Time 20.5 Seconds (9.0-12.0)
[2024-02-14 07:37] LABS: BUN Creatinine Ratio 23.1 (10-20); Calcium 8.4 mg/dl (8.6-10.3); Creatinine Clr Calc Pharmacy 66.4 ml/min; Est GFR (African American) 79.3 ml/min; Est GFR (Non-African American) 68.4 ml/min; Phosphorus 3.6 mg/dl (2.5-4.9); Potassium 3.5 mmol/L (3.5-5.1)
--- NOTE | 2024-02-14 09:45 | Discharge Summary ---
Date of Service February 14, 2024 Admission HPI Per Admitting Provider Chief Complaint: stroke like symptoms Primary Care Provider: Gerardo Martinez DO Mr. Santo is a 78 year old male who presented to the ED today with complaints of LUE weakness. His LKW 02/10. He said that when he woke up this morning he had difficulty with his LUE. His left leg was fine. He was unable to button his pants, hold a fork or lift his arm above his chest. He states that leading up to today, he was feeling fine. At his bedside is his ANI Jet who helps to care for him and is responsible for getting his mediations and taking him to his appointments. He takes Coumadin for AF. Non smoker and no alochol use. Not TNK candidate per tele [facility]. He underwent a cath 11/2023 with JOCE LAD and Distal RCA into PDA and is on Plavix. He was scheduled to have a repeat ECHO 02/27. His most recent ECHO is documented 07/26/23: EF 40 to 44%, mild LV hypokinesis, mild MR/TR. PMH includes: Atrial fibrillation (On Coumadin), CAD, NIDDM2 (newly diagnosed 06/2023), obesity, HFrEF, HTN, and ADRYAN. In the ED, No leukocytosis, otherwise electrolytes unremarkable, troponin negative, LFTs negative, INR 2.6. Head CT reports old left occipital infarct but no new ICH, SDH, midline shift. Head neck CTA: 1. There is no evidence of hemorrhage, mass effect, or acute territorial ischemia noting angiographic phase technique. 2. A normal right posterior cerebral artery is not visualized arising from the b asilar. There is likely origin of the right posterior cerebral artery, with a long focus of high-grade proximal stenosis of the presumed right BASKET GRADER proximally. 3. 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 4. Additional foci of high-grade stenosis are seen involving both anterior cerebral arteries, the left posterior cerebral artery, and the left middle cerebral artery as above. Pt denies Fever, chills, headache, dizziness, chest pain, palpitations, nausea, vomiting, diarrhea, hematochezia, bowel or bladder changes, recent falls or trauma. Patient is sitting in his hospital bed in no apparent distress. He is able to answer all questions without slurring of his speech. NIH 1. Patient son-in-law at bedside and indicates that he has returned nearly to baseline. Initially when he came in he was unable to lift his left upper extremity or squeeze his hand. This has resolved and he is able to lift his arms above his head. Cranial nerves II through XII grossly intact otherwise. No difficulty with swallowing. At baseline he is rather independent and does not use any assistive devices despite his [id number] stating that he should. Update; I was able to talk with Dr. Chau [facility] stroke telemed. He indicated that no intervention would be recommended with TNK, but due to his moderate bilateral carotid disease he would recommend repeat BL carotid ultrasound. Also recommended checking homocystine levels and if > 10, add Folic Acid 2 G daily. Recommends discussing if it would be possible to switch to Eliquis vs coumadin Pt will be admitted for further evaluation and management of his stroke like symptoms including obtaining a brain MRI, aspiration precautions, ECHO, PT/OT, hold antihypertensive for now outside of metoprolol, will increase statin, sliding scale insulin for diabetes management, neurology consultation. Reduced dose of Coumadin administered today; will hold tomorrow pending INR. Admission Exam Per Admitting Provider Neuro: AAOx4, PERRLA, no expressive or receptive aphagia, memory changes, CNII- XII grossly intact. NIH 1. No pronator drift. HEENT: head normocephalic, atraumatic, moist mucus membranes CV: S1/S2, (-) M/G/R, (-) edema, cap refill < 3 seconds Resp: Lungs CTA in all carey. On RA GI: Abdomen S/NT/ND, Ax4 bowel sounds, (-) CVA tenderness Musculoskeletal: 5/5 RUE strength, 4+/5 LUE5/5 B/L LE strength. No gait disturbance Skin: (-) rashes , (-) erythema. Psych: euthymic mood Principal Diagnosis CVA Discharge Exam General: obese M in NAD HEENT: NC/AT, PERRL, EOMI Chest: Nontender to palpation. CV: RRR Resp: Breath sounds clear bilaterally, no increased effort of breathing. Abdomen: BS+. Soft, nontender, nondistended. Neuro: awake, alert, speech fluent, L arm strength slightly weaker then right Extremities: No edema in lower extremities bilaterally. Skin: warm, dry Discharge Data Allergies Allergy/AdvReac Type Severity Reaction Status Date / Time ION Inhibitors AdvReac Intermediate COUGH PER Verified 02/11/24 14:58 GMG amoxicillin [From Augmentin] AdvReac Intermediate BLURRED Verified 02/11/24 14:58 VISION PER GMG clavulanic acid AdvReac Intermediate BLURRED Verified 02/11/24 14:58 [From Augmentin] VISION PER GMG levofloxacin [From Levaquin] AdvReac Intermediate BLURRED Verified 02/11/24 14:58 VISION PER GMG Consultations 02/11/24 16:24 ED Decision to Admit Stat 02/11/24 17:15 Consult Neurology Routine Ordered Studies 02/11/24 14:49 CT angio head w con Stat CT angio neck with con Stat CT head/brain wo con Stat 02/11/24 17:25 MRI Brain [MR brain wo con] Routine 02/11/24 20:38 US carotid doppler BI Routine Hospital Course (1) Stroke-like symptoms: (2) Atrial fibrillation: (3) Acute on chronic heart failure with reduced ejection fraction and diastolic dysfunction: (4) Hypertension: (5) ADRYAN (obstructive sleep apnea): (6) Diabetes: Plan Mr. Santo is a 78 yo M who presented to the ED with complaints of LUE weakness. His LKW 02/10 @ 2200. He said that when he woke up this morning he had difficulty with his LUE. His left leg was fine. He was unable to button his pants, hold a fork or lift his arm above his chest. He states that leading up to today, he was feeling fine. At his bedside is his ANI Jet who helps to care for him and is responsible for getting his mediations and taking him to his appointments. He takes Coumadin for AF. He underwent a cath 11/2023 with JOCE LAD and Distal RCA into PDA and is on Plavix. He was scheduled to have a repeat ECHO 02/27. His most recent ECHO is documented 07/26/23: EF 40 to 44%, mild LV hypokinesis, mild MR/TR. No smoking or alochol use. PMH includes: Atrial fibrillation (On Coumadin), CAD, NIDDM2 (newly diagnosed 06/2023), obesity, HFrEF, HTN, and ADRYAN. No history of CVA or AMI. In the ED, No leukocytosis, otherwise electrolytes unremarkable, troponin negative, LFTs negative, INR 2.6. Head CT and head neck CTA outlined below. Acute CVA Not TNK candidate per tele [facility]; see below Head CT reports old left occipital infarct but no new ICH, SDH, midline shift. Head neck CTA: 1. There is no evidence of hemorrhage, mass effect, or acute territorial ischemia noting angiographic phase technique. 2. A normal right posterior cerebral artery is not visualized arising from the basilar. There is likely origin of the right posterior cerebral artery, with a long focus of high-grade proximal stenosis of the presumed right BASKET GRADER proximally. 3. 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 4. Additional foci of high-grade stenosis are seen involving both anterior cerebral arteries, the left posterior cerebral artery, and the left middle cerebral artery as above. Takes low dose statin; will increase Rosuvastatin to 20 mg daily and await Neuro consult MRI noting acute/subacute right anterior angie stroke, arachnoid cyst, old infarct Holding Losartan for permissive HTN ECHO with noted EF 40-45%, hypokinesis PT/OT recommending acute rehab Speech-no issues Formal Neuro consult placed- recommending switching from warfarin to Eliquis, consider cost for pt, notes he is on a fixed income Per Previous provider on admissionUpdate; I was able to talk with Dr. Chau [facility] stroke telemed. He indicated that no intervention would be recommended with TNK, but due to his moderate bilateral carotid disease he would recommend repeat BL carotid ultrasound. Also recommended checking homocystine levels and if > 10, add Folic Acid 2 G daily. Recommends discussing if it would be possible to switch to Eliquis vs coumadin 02/11- per Neuro, increase crestor to 40mg daily, consider switch from warfarin to Eliquis, consider cost for pt, notes he is on a fixed income. Continue Plavix. Neurology follow-up in 4-6 weeks. PT/OT currently recommending acute rehab. 02/13 - [facility] Eliquis checked $47/ month - and pt is agreeable with this [facility] Plan to transition to Eliquis at [facility]. Current INR 2.0, received warfarin 2mg yesterday. Pls check INR tmrw at [facility] and facilitate the transition. Persistent Atrial Fibrillation: Chronic Takes Metoprolol; continue (dose decreased while inpt) - monitor BP and HR and adjust as necessary Takes Coumadin 5mg QHS Is usually within therapeutic range but last check a few weeks ago he was 4.3 Per Neurology as above, consider switch from warfarin to Eliquis Intermittent hematuria, UTI Ucultx posit. for Gram posit. cocci - empiric abx - Rocephin for now - > DC on cefuroxime -> follow final urine cultx results - may need further eval by urology - H&H stable, current hgb 12.9, cont. to monitor - pt reports hx of hematuria, kidney stones, follows w/outpt urologist HfrEF: Chronic Most recent ECHO 07/26/23: EF 40-44%, mild L hypokinesis, Mild MR/TR NIDDM2: Chronic Last A1C 07/02/23: 8.0 and was started on Metformin Takes Metformin; hold while inpatient Place on [facility] Pharm[facility] for lantus management HTN: Chronic Takes Losartan; hold for now, monitor BP -> plan to resume on discharge. Cont. to monitor BP at [facility] and as outpt ADRYAN: chronic does not have a cpap Disposition: PCP: Gerardo Martinez PA-C Dispo: Acute rehab Total Time Total Time Spent Total Time Spent (In Minutes): 40 Discharge Plan Discharge Items Patient Disposition: Home - Self-Care Reason For Visit: STROKE LIKE SYMPTOMS Discharge Diagnosis: CVA Activity: Per Instructions section Non-emergency contact: Primary Care Provider and Neurologist Call non-emergency contact if: you have any medication questions and your symptoms worsen Follow-up/Referrals: Gerardo Martinez, [Primary Care Provider] - Diet: Carb Consistent or DM2 and Heart Healthy Diet Texture: Easy to Chew Addtl Attending Provider Instructions: Follow up with primary care doctor ,neurology , and urology. Have your INR checked tomorrow at [facility]. Stop taking warfarin, as you will be transitioned to Eliquis. Your rosuvastatin (Crestor) was increased to 40 mg daily. Finish antibiotic treatment for UTI and have [facility] follow the final urine culture results. Your metoprolol dose was decreased in the hospital - monitor your BP and HR - this medication can be further adjusted at [facility] or as outpatient with your primary care doctor. Pending Studies at Discharge: Yes Studies:: urine cultx results Stand-Alone Forms: My [facility], Smoking Cessation, Medications to Prevent Stroke Medications and DC Order Prescriptions: New Eliquis 5 mg tablet 5 mg PO BID Qty: 60 0RF rosuvastatin [Crestor] 20 mg Tablet 40 mg PO QAM Qty: 30 0RF cefuroxime axetil 250 mg tablet 250 mg PO BID 5 Days Qty: 10 0RF metoprolol succinate 50 mg tablet extended release 24 hr 50 mg PO BID Qty: 20 0RF Continued losartan 25 mg tablet 25 mg PO QAM metformin 500 mg tablet extended release 24 hr 500 mg PO BID clopidogrel 75 mg tablet 75 mg PO DAILY Qty: 30 6RF finasteride 5 mg tablet 5 mg PO QAM Centrum Silver Tablet 1 tab PO DAILY Discontinued warfarin 5 mg tablet 5 mg PO HS metoprolol succinate 100 mg Tablet Extended Release 24 Hr 100 mg PO BID rosuvastatin 10 mg tablet 10 mg PO DAILY Discharge Orders: Discharge Order (Routine); Ordered 02/14/24 Ordered By: [place]ill/Other Patient Handouts: Managing Type 2 Diabetes Admission Data Admit Date/Time: 02/11/24 17:14 Attending Provider: oVn Bee Admit Provider: Donn Turner Primary Care Provider: Gerardo Martinez Other Providers: Donn Turner; Graham Douglas; [facility]
[2024-02-14] MEDS: METOPROLOL SUCC 25MG EXT REL TAB PO ONE (11:01)
== END 2024-02-14 13:22 | disposition home or self-care (01) | DRG 64 ==
LOC: ED 14:34 → SUATTDRO 17:14 → EDINP 17:14 → 2N 02-12 00:41

== ENCOUNTER 2025-05-19 13:13 | Inpatient (IN) ==
[2025-05-19] MEDS: SODIUM CHLORIDE 0.9% 1,000 ML IV STA (13:57)
[2025-05-19] MEDS: STAT IV Infusion **Titration per Protocol STA (13:57)
--- NOTE | 2025-05-19 14:08 | XRay Report ---
XR chest 1V portable CLINICAL HISTORY: Chest pain, nonspecific COMPARISON STUDY: 07/02/2023 FINDINGS: Stable mild cardiomegaly with mild pulmonary vascular congestion. Inspiration is shallow. T here is mild stranding in the lung bases. No lobar consolidation or pleural effusion. No pneumothorax . IMPRESSION: 1. Mild CHF. 2. Shallow inspiration with likely lung base atelectasis. ACT 112: Negative or not required by law. Electronically signed by: Jay Powers M.D. 05/19/2025 2:06 PM
[2025-05-19 14:16] LABS: Hematocrit (blood only) 28.9 % (42.0-52.0); Hemoglobin 8.7 g/dl (14.0-18.0); Mean Corpuscular Hemoglobin 23.5 pg (25.0-34.0); Mean Corpuscular Volume 78.1 fL (80.0-100.0); Platelet Count 446 K/uL (130-400); RDW Standard Deviation 51.7 fL (36.4-46.3); Red Blood Count 3.70 M/uL (4.70-6.10); White Blood Count 25.99 K/ul (4.8-10.8)
[2025-05-19 14:26] LABS: Alanine Aminotransferase 31.0 U/L (7-52); Albumin Globulin Ratio 0.7 (0.9-2); Alkaline Phosphatase 158.0 U/L (34-104); Anion Gap 13.0 (3-11); Bilirubin,Total 0.8 mg/dl (0.2-1.0); Blood Urea Nitrogen 67.0 mg/dl (6-23); Calcium 8.5 mg/dl (8.6-10.3); Carbon Dioxide 23.0 mmol/L (21-32); Chloride 97.0 mmol/L (98-107); Creatinine Clr Calc Pharmacy 20.1 ml/min; Globulin 4.4 gm/dl (2.5-4.0); Glucose 188.0 mg/dl (70-99(Fasting)); Lipase 30.0 U/L (11-82); Potassium 4.6 mmol/L (3.5-5.1); Sodium 133.0 mmol/L (136-145); Total Protein 7.3 gm/dl (6.0-8.3)
[2025-05-19 14:37] LABS: INR 1.1 (0.9-1.1); Partial Thromboplastin Time 36 Seconds (21-31); Prothrombin Time 12.0 Seconds (9.0-12.0)
[2025-05-19 14:40] LABS: Immature Granulocytes # (auto) 0.20 K/uL (0.01-0.20); Immature Granulocytes % (auto) 0.8 %; Polychromasia 2+; Rouleaux 1+
--- NOTE | 2025-05-19 15:29 | CT Scan Report ---
ABDOMEN AND PELVIS CT WITHOUT CONTRAST CT DOSE: 1545.9 mGy.cm HISTORY: Acute kidney injury with leukocytosis MARIAMA, elevated WBC TECHNIQUE: Multiaxial CT images of the abdomen and pelvis were performed without contrast. A dose lo wering technique was utilized adhering to the principles of ALARA. COMPARISON STUDY: 08/26/2024 FINDINGS: Moderate size left pleural effusion and left basilar consolidation. No pneumatosis or pneum operitoneum. Calcified granulomata of the spleen. Moderately atrophic pancreas. Unremarkable gallblad anupama and adrenal glands. Hepatic steatosis. There is moderate right-sided hydroureteronephrosis secondary to obstructing 7 mm calculus ureteropel lyndsay junction. Numerous nonobstructing calculi of the right kidney measure up to approximately 2.2 cm. Moderate left-sided hydroureteronephrosis with numerous stones present within the pelvis and uretero pelvic junction measuring up to approximately 2.6 cm. There is a large acute left sided subcapsular h ematoma measuring up to approximately 11.5 x 4.4 x 14.6 cm compressing the renal parenchyma. Hemorrha ge extends into the perinephric space and also since the posterior pararenal space measuring up to ap proximately 8.4 x 4.0 x 16.6 cm abutting the left psoas muscle. Decompressed urinary bladder with wal l thickening. Prostatomegaly. Colonic diverticulosis without acute diverticulitis. Moderate colonic fecal retention. Normal appendi x. No acute fracture. IMPRESSION: 1. Large acute subcapsular hemorrhage of the left kidney with hemorrhage extending into the perinephr ic and posterior pararenal spaces as above. 2. Nephrolithiasis with moderate bilateral hydronephrosis and calculi present within the bilateral ur eteropelvic junctions. 3. No bowel obstruction or bowel wall thickening. 4. Moderate sized left pleural effusion with left basilar consolidation/atelectasis. ACT 112: Negative or not required by law. The above report was generated using voice recognition software. It may contain grammatical, syntax o r spelling errors. Electronically signed by: Win Barahona M.D. 05/19/2025 3:26 PM
[2025-05-19] MEDS: cefTRIAXone SODIUM 2,000 MG/50 ML BAG IV STA (15:49)
--- NOTE | 2025-05-19 15:52 | Electrocardiogram Report ---
Test Reason : Blood Pressure : */* mmHG Vent. Rate : 142 BPM Atrial Rate : * BPM P-R Int : * ms QRS Dur : 96 ms QT Int : 308 ms P-R-T Axes : * -5 164 degrees QTcB Int : 473 ms Atrial fibrillation with rapid ventricular response Low voltage QRS Cannot rule out Inferior infarct , age undetermined Poor R wave progression, consider anterior CA vs. lead placement vs. LVH Abnormal ECG When compared with ECG of 11-Feb-2024 14:48, QRS axis Shifted right ST no longer depressed in Inferior leads Nonspecific T wave abnormality, improved in Lateral leads Confirmed by Neftaly Bowden ([id number]) on 05/19/2025 3:52:05 PM Referred By: REFERRED SELF Confirmed By: Neftaly Bowden
[2025-05-19] MEDS ORDERED: LIDOCAINE 2% 2 ML VIAL/AMP(20MG/ML) INFIL ONE (15:57)
[2025-05-19] MEDS ORDERED: ONDANSETRON INJ 2 MG/ML 2 ML VIAL ONE (15:57)
[2025-05-19] MEDS ORDERED: PROPOFOL IV EMULSION 10 MG/ML 20 ML VIAL IV ONE (15:58)
--- NOTE | 2025-05-19 16:00 | Anesthesiology Consultation ---
Date of Service May 19, 2025 Assessment & Plan (1) Encounter for preoperative assessment: Chart Review Chart Review: Acceptable Risk for Surgery (urgent) History Surgery Operation Date: 05/19/25 10:00 Proposed Procedures p Cystoscopy, Bilateral Ureteral Stent Placement - Hebert Nelson MD Height/Weight Height: 5 ft 11 in Weight: 111.9 kg Allergies Allergy/AdvReac Type Severity Reaction Status Date / Time ION Inhibitors AdvReac Intermediate Cough (per Verified 07/31/24 07:41 records) amoxicillin [From Augmentin] AdvReac Intermediate Blurred Verified 07/31/24 07:41 vision (per records) clavulanic acid AdvReac Intermediate Blurred Verified 07/31/24 07:41 [From Augmentin] vision (per records) levofloxacin [From Levaquin] AdvReac Intermediate Blurred Verified 07/31/24 07:41 vision (per records) Medications Home Medications Medication Instructions Recorded Confirmed Last Taken losartan 25 mg tablet 25 mg PO QAM 08/08/23 07/31/24 07/30/24 05:00 metformin 500 mg tablet,extended 500 mg PO BID 11/21/23 07/31/24 07/30/24 05:00 release 24 hr nkfgqfwfkanf-wfobsuuj-tqosdd tablet 1 tab PO QAM 02/11/24 07/31/24 07/30/24 05:00 apixaban 5 mg tablet (Eliquis) 5 mg PO BID #60 tabs 02/13/24 07/31/24 07/30/24 05:00 rosuvastatin 20 mg tablet (Crestor) 40 mg (2 x 20 mg) PO QAM #30 tabs 02/14/24 07/31/24 07/30/24 05:00 Prevagen 1 cap PO QAM 03/28/24 07/31/24 07/30/24 05:00 baclofen 10 mg tablet 5 mg PO QID PRN prn 03/28/24 07/31/24 Unknown metoprolol succinate 100 mg 100 mg PO BID 03/28/24 07/31/24 07/30/24 05:00 tablet,extended release 24 hr vitamins A,C,Z-vltr-jkferw 4,296 1 cap PO QAM 05/19/24 07/31/24 07/30/24 05:00 mcg-226 mg-90 mg capsule (PreserVision AREDS) finasteride 5 mg tablet 5 mg PO QAM #90 tabs 03/09/25 03/09/25 Unknown Active Medications Generic Name Dose Route Start Last Admin Trade Name Pamella PRN Reason Stop Dose Admin Diltiazem HCl 125 mg/ Dextrose 125 mls @ 5 mls/hr 05/19/25 14:00 05/19/25 14:13 IV 06/18/25 13:59 5 mg/hr .Q24H RADHA 5 mls/hr Administration Protocol 5 MG/HR Ceftriaxone Sodium 2,000 mg in 50 mls @ 100 mls/hr 05/19/25 15:35 05/19/25 15:49 Rocephin IV 05/19/25 16:04 100 mls/hr NOW STA Administration Past Medical History Medical History (Updated 05/19/25 @ 15:58 by Sher Hi MD) Acute renal failure 03/16/24 Anemia CAD (coronary artery disease) Stents x2 (11/2023) History of stroke Pontine infarct, 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 Price Hypertension H/o Lyme disease Diabetes NIDDM Past Family History Family History Family/Other No pertinent family history Other No family history of adverse response to anesthesia Denies family history of Ovarian cancer Prostate cancer Myocardial infarction Breast cancer Colorectal cancer Past Surgical History Surgical History History of cardiac cath (11/2023) stents x2 Status post cystoscopy with ureteral stent placement Multiple History of cataract surgery (2019) bilateral cataract extraction History of tooth extraction History of tonsillectomy Social History Smoking Status: Former smoker Do You Dip or Chew Tobacco: No Hx Alcohol Use: Yes Alcohol type: beer alcohol intake frequency: a few times a month Hx Substance Use: No substance use type: does not use Physical Exam Vital Signs Last Vital Signs Temp 36.4 C L 05/19/25 13:18 Pulse 125 H 05/19/25 15:00 Resp 14 05/19/25 15:00 BP 103/59 L 05/19/25 14:30 Pulse Ox 94 05/19/25 15:00 O2 Del Method Room Air 05/19/25 15:00 Testing Laboratory Results 05/19/25 13:33 05/19/25 13:33 PT 12.0 Seconds (9.0-12.0) 05/19/25 13:33 INR 1.1 (0.9-1.1) 05/19/25 13:33 APTT 36 Seconds (21-31) H 05/19/25 13:33 Electrocardiogram Date: 05/19/25 Findings: + AFIB @ (142) Echocardiogram Date: 02/12/24 EF: 40-45% Valvular Disease: + no significant valvular disease
[2025-05-19] MEDS: KCENTRA (500unit vial) 2000 units IVP IV SCH (16:10)
--- NOTE | 2025-05-19 16:14 | Urology Consultation ---
Date of Consultation May 19, 2025 Assessment & Plan (1) Bilateral hydronephrosis: (2) Calculus of proximal left ureter: (3) Calculus of proximal right ureter: (4) Hematoma of left kidney: (5) MARIAMA (acute kidney injury): 80-year-old male with history of extensive bilateral nephrolithiasis presented to the emergency department today for evaluation of worsening left testicular pain. Lab work notable for leukocytosis of 25.99, hemoglobin 8.7, and creatinine 3.72. Patient was in atrial fibrillation with RVR on arrival. Workup in ED included CT abdomen pelvis which noted bilateral nephrolithiasis secondary to bilateral obstructing UPJ stones as well as a large acute subcapsular hemorrhage of the left kidney with hemorrhage extending into the perinephric and posterior perirenal spaces abutting the left psoas muscle. Urology is consulted for bilateral obstructing stones and subcapsular hemorrhage of the left kidney. Patient is currently afebrile Received IV Cardizem in ED for Afib with RVR, heart rate improved, mildly hypotensive Labs reviewedWBC 25.99, creatinine 3.72, hemoglobin 8.7 CT abdomen pelvis independently reviewed and agree with readbilateral nephrolithiasis, bilateral hydronephrosis secondary to bilateral obstructing UPJ stones; large acute subcapsular hemorrhage of the left kidney Recommend proceed to OR for emergent cystoscopy and bilateral ureteral stent placement to address bilateral obstruction Patient is agreeable, all questions answered. Regarding large acute subcapsular hemorrhage of the left kidney, recommend close monitoring with serial H&H, transfuse as necessary Patient received Kcentra in the ED Hold anticoagulation May require embolization if he becomes hemodynamically unstable Recommend admit to hospital medicine service for medical management Continue supportive care and medical management per hospital medicine service Plan of care reviewed with Dr. Omar WYATT will follow Supervising Physician Co-Signing Physician Notes Agree with above. Acutely ill gentleman. Plan now for bilateral ureteral stent placement to address his obstructive component. Will need serial H and H to monitor the kidney bleed. Transfuse if necessary and if significant transfusion requirement, hemodynamic instability,and notable drop in H and H --> low threshold to transfer to tertiary center for possible IR driven embolization History of Present Illness History of Present Illness This is an 80-year-old male who follows with urology for history of bilateral nephrolithiasis. He presented to the emergency department today for evaluation of worsening left testicular discomfort that started approximately 1 week ago. On arrival, he was afebrile and found to be in A-fib with RVR. Lab work showed leukocytosis of 25.99, neutrophils 23.66, hemoglobin 8.7, hematocrit 28.9, platelets 446, sodium 133, creatinine 3.72 (baseline approximately 0.9). Workup included CT abdomen pelvis without contrast which demonstrated a large acute subcapsular hemorrhage of the left kidney with hemorrhage extending into into the perinephric and posterior perirenal spaces abutting the left psoas muscle. Nephrolithiasis with moderate bilateral hydronephrosis without obstructing 7 mm calculus at the right UPJ and a stone within the left UPJ measuring up to approximately 2.6 cm. ED course: Diltiazem, Cardizem, Kcentra, IV fluids, Rocephin. Urology is consulted for bilateral obstructing stones and left subcapsular hemorrhage. Patient seen and examined in the emergency department. He is awake and resting in litter. Jkogoqn-bb-qap present. He reports left testicular discomfort for approximately 1 week. Denies flank pain. He is voiding spontaneously. Notes small voids. No recent hematuria. Reports dry heaves yesterday and this morning. No fever or chills. Denies any recent trauma. History of significant extensive stone disease and has undergone staged bilateral ureteroscopy for treatment in the past. Last stone treatment was in July 2024 (right ureteroscopy). He is on Eliquis and Plavix. Patient reports he had a protein drink at 5 AM. Allergies Allergy/AdvReac Type Severity Reaction Status Date / Time No Known Allergies Allergy Verified 05/19/25 16:05 Home Medications Medication Instructions Recorded Confirmed Type losartan 25 mg tablet 25 mg PO QAM 08/08/23 05/19/25 History metformin 500 mg tablet,extended 1,000 mg PO BID 11/21/23 05/19/25 History release 24 hr kpjtyizmwwow-hjxbnvtk-dzewod tablet 1 tab PO QAM 02/11/24 05/19/25 History apixaban 5 mg tablet (Eliquis) 5 mg PO BID #60 tabs 02/13/24 05/19/25 Rx Prevagen 1 cap PO QAM 03/28/24 05/19/25 History metoprolol succinate 100 mg 100 mg PO BID 03/28/24 05/19/25 History tablet,extended release 24 hr vitamins A,C,Z-bnaj-xtvpnu 4,296 1 cap PO QAM 05/19/24 05/19/25 History mcg-226 mg-90 mg capsule (PreserVision AREDS) finasteride 5 mg tablet 5 mg PO QAM #90 tabs 03/09/25 05/19/25 Rx clopidogrel 75 mg tablet 75 mg PO QAM 05/19/25 05/19/25 History rosuvastatin 40 mg tablet 40 mg PO QAM 05/19/25 05/19/25 History Patient History Medical History Acute renal failure 03/16/24 Anemia CAD (coronary artery disease) Stents x2 (11/2023) History of stroke Pontine infarct, 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 Price Hypertension H/o Lyme disease Diabetes NIDDM Surgical History History of cardiac cath (11/2023) stents x2 Status post cystoscopy with ureteral stent placement Multiple History of cataract surgery (2019) bilateral cataract extraction History of tooth extraction History of tonsillectomy Family History Family/Other No pertinent family history Other No family history of adverse response to anesthesia Denies family history of Ovarian cancer Prostate cancer Myocardial infarction Breast cancer Colorectal cancer Social History Smoking Status: Former smoker Tobacco Type: Cigarettes Second Hand Exposure: No; Do You Dip or Chew Tobacco: No; Hx Alcohol Use: Yes Alcohol type: beer Hx Substance Use: No Preferred Language: Slovenian Communication Ability: Effective 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 Beliefs That Will Affect Care: None Current Living Situation: Alone current occupational status: retired Feels Safe at Home: Yes Assistive Devices: Denture - Upper Review of Systems Review of Systems: All systems reviewed & are unremarkable except as noted in HPI & below Physical Exam Constitutional: no acute distress Respiratory: normal respiratory effort; no respiratory distress and no labored breathing Musculoskeletal: Head/Neck/Chest: normocephalic Neurologic: moves all extremities and awake Psychiatric: Orientation: alert and oriented x 3 Results & Data Vital Signs (Past 12 Hours) Vital Signs Temp Pulse Resp BP Pulse Ox O2 Del Method 05/19/25 15:00 125 H 14 94 Room Air 05/19/25 14:30 97 H 16 90 Room Air 05/19/25 14:30 103/59 L 05/19/25 14:16 96/59 L 05/19/25 14:15 100 H 20 93 Room Air 05/19/25 14:03 120 H 19 05/19/25 14:00 108/60 05/19/25 13:58 108/74 05/19/25 13:57 129 H 20 05/19/25 13:33 149 H 05/19/25 13:33 150 H 05/19/25 13:18 36.4 C L 98 H 20 105/64 95 Room Air PG Care Time/CCT Total # of Minutes Spent Total Time Spent with Patient: Total time spent is greater than 50% in coordination of care (as documented) at patient's floor/unit and/or counseling patient: Coding Level of Care Code 38739 INT INP/OBS CARE 375MIN Diagnoses Bilateral hydronephrosis N13.30 Calculus of proximal left ureter N20.1 Calculus of proximal right ureter N20.1 Hematoma of left kidney S37.012A MARIAMA (acute kidney injury) N17.9
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
--- NOTE | 2025-05-19 17:24 | Operative Report ---
PG Post Operative Report Pre & Post Diagnosis Operation Date: 05/19/25 10:00 Pre-Op Diagnosis: (1) Bilateral hydronephrosis: (2) Calculus of proximal left ureter: (3) Calculus of proximal right ureter: (4) MARIAMA (acute kidney injury): Post-Op Diagnosis: (1) Bilateral hydronephrosis: (2) Calculus of proximal left ureter: (3) Calculus of proximal right ureter: (4) MARIAMA (acute kidney injury): I identified the patient and participated in the time-out.: Yes Procedure Operation Date: 05/19/25 10:00 Actual Procedures p Cystoscopy, Bilateral Ureteral Stent Placement(Bilateral) - Hebert Nelson MD Surgeon Hebert Nelson MD Training Instructor none Estimated Blood Loss 0 Findings Consistent with Post-Op Diagnosis Specimens none Description of Procedure The patient was identified in the preoperative holding area, appropriate informed consents were reviewed and completed and the patient was transferred to the operative suite. Upon arrival, appropriate antibiotics and anesthesia were administered and the patient was placed in dorsal lithotomy position and prepped and draped in sterile fashion. Begin the case I passed a 21 Macedonian cystoscope with 30 degree lens per inspection revealed a healthy appearing urethra and bladder. Full inspection was conducted. There was some murky urine and this was irrigated out of the bladder but the mucosa itself was quite healthy. He is relatively heavily trabeculated. Term attention to the left UO and cannulated with a sensor wire. As the wire advanced into the kidney there was immediate discharge of dark, bloody and purulent urine. I proceeded to place a 6 Macedonian by 26 cm double-J stent and there was continued drainage through and around the stent throughout the placement. I then turned my attention to the right UO and performed the same procedure. I cannulated the right UO with a sensor wire I then placed a 6 Macedonian by 26 cm double-J stent over it. The urine to the right side was much more clear. I elected to place an 18 Macedonian catheter for maximal drainage as I anticipate the patient will likely require close monitoring overnight. Decompression of his kidneys addresses this obstructive issue, however he does require continued close monitoring of his perinephric/subcapsular hematoma. He should have sequential hemoglobin/hematocrit to monitor. If instability occurs or he has a substantial transfusion requirement, he should consider transfer for interventional radiology intervention. I attest to the content of the Intraoperative Record and any orders documented therein. Any exceptions are noted below.
--- NOTE | 2025-05-19 17:48 | Anesthesiology Progress Note ---
Date of Service May 19, 2025 Anesthesia Post Procedure Vital Signs Vital Signs: Temp Pulse Pulse Resp BP BP Pulse Ox 05/19/25 17:40 99 H 15 116/68 92 05/19/25 17:30 99 H 14 96/52 L 97 05/19/25 17:20 36.0 C L 105 H 10 L 82/51 L 93 05/19/25 16:35 37.4 C 98 H 20 116/78 95 05/19/25 16:32 05/19/25 16:16 94/61 L 05/19/25 16:16 94/61 L 05/19/25 16:12 94 H 17 95 05/19/25 16:00 92 H 21 91 05/19/25 15:45 97 H 25 H 05/19/25 15:30 99/54 L 05/19/25 15:27 93 H 05/19/25 15:27 106/63 05/19/25 15:18 94 H 17 95 05/19/25 15:00 125 H 14 94 05/19/25 14:30 97 H 16 90 05/19/25 14:30 103/59 L 05/19/25 14:16 96/59 L 05/19/25 14:15 100 H 20 93 05/19/25 14:03 120 H 19 05/19/25 14:00 108/60 05/19/25 13:58 108/74 05/19/25 13:57 129 H 20 05/19/25 13:33 149 H 05/19/25 13:33 150 H 05/19/25 13:18 36.4 C L 98 H 20 105/64 95 O2 Del Method O2 Flow Rate 05/19/25 17:40 Oxymask 5 05/19/25 17:30 Oxymask 05/19/25 17:20 Oxymask 10 05/19/25 16:35 Room Air 05/19/25 16:32 Room Air 05/19/25 16:16 05/19/25 16:16 05/19/25 16:12 Room Air 05/19/25 16:00 Room Air 05/19/25 15:45 05/19/25 15:30 05/19/25 15:27 05/19/25 15:27 05/19/25 15:18 Room Air 05/19/25 15:00 Room Air 05/19/25 14:30 Room Air 05/19/25 14:30 05/19/25 14:16 05/19/25 14:15 Room Air 05/19/25 14:03 05/19/25 14:00 05/19/25 13:58 05/19/25 13:57 05/19/25 13:33 05/19/25 13:33 05/19/25 13:18 Room Air Transfer of Care Handoff Completed per policy Notes Mental Status: alert / awake / arousable Patient Amnestic to Procedure: Yes Nausea / Vomiting: adequately controlled Pain: adequately controlled Airway Patency, RR, SpO2: stable & adequate BP & HR: stable & adequate Hydration State: stable & adequate Anesthetic Complications: no major complications apparent
--- NOTE | 2025-05-19 18:41 | History & Physical Report ---
Date of Service May 19, 2025 Assessment & Plan (1) Bilateral hydronephrosis: Plan: Long history of bilateral nephrolithiasis and presented with left testicular pain Noted to have bilateral hydronephrosis secondary to bilateral ureteric obstruction due to stone tomorrow Appreciate urology input and placement of bilateral ureteric stent Remains stable in the ICU following the procedure (2) Calculus of proximal left ureter: (3) Calculus of proximal right ureter: (4) Sepsis: Plan: Presented with left testicular pain without any fever and/or chills Has bilateral hydronephrosis with ureteric obstruction and very high white count with tachycardia Likely has sepsis and started on intravenous daptomycin and will continue for now Added Ceftriaxone as well Blood cultures have been sent (5) MARIAMA (acute kidney injury): Plan: Significant increase in BUN and creatinine of 67 over/3.72 Secondary to ureteral obstructions bilaterally and associated hydronephrosis Will give intravenous fluid and monitor PRP Will hold lisinopril for now (6) Hematoma of kidney: Plan: Also has hematoma of the left kidney and is complicated by Eliquis Eliquis is on hold and will Monitor hemoglobin If bleeding continues may need to be transferred for IR evacuation of blood (7) CAD (coronary artery disease): Plan: Status post cath in November 2023 with JOCE in LAD and distal RCA and has been on Plavix Will hold Plavix for renal hematoma (8) Atrial fibrillation with rapid ventricular response: Plan: Presented with a A Fib with RVR Intravenous Cardizem has been started and the rate is improving Plan will be to wean off Cardizem and continue with beta-isis Cardiology evaluation (9) Hypertension: (10) Diabetes: Plan: Will put him on sliding scale insulin coverage Plan DVT prophylaxis SCDs CODE STATUS DNR/DNI Admission and Anticipated Discharge Date Admission Date: May 19, 2025 History of Present Illness Chief Complaint: Worsening left testicular pain Primary Care Provider: Gerardo Martinez, he is an 80-year-old male with significant past medical history of extensive bilateral nephrolithiasis, type 2 diabetes, chronic heart failure with reduced EF, obstructive sleep apnea, hypertension, hip persistent atrial fibrillation, obesity, melena and major depressive disorder apparently has been complaining of worsening left testicular pain for the last few days. He has had nausea and vomited twice. She denies any fever and/or chills., Any problem with urine and or bowel habit. Denies any chest pain and/or palpitation and no cough and/or shortness of breath. he was noted to be in atrial fibrillation with rapid ventricular response, very high white count of more than 25,000, low hemoglobin of 8.[address] of the abdomen pelvis showed bilateral nephrolithiasis, bilateral hydronephrosis secondary to bilateral obstructing UPJ stone and large subcapsular hemorrhage of the left kidney. He was restarted with intravenous antibiotic and intravenous diltiazem and was taken to or and put bilateral ureteric stent by the urologist. he has been resting without significant symptoms in the ICU. Allergies Allergy/AdvReac Type Severity Reaction Status Date / Time No Known Allergies Allergy Verified 05/19/25 16:05 Home Medications Medication Instructions Recorded Confirmed Type losartan 25 mg tablet 25 mg PO QAM 08/08/23 05/19/25 History metformin 500 mg tablet,extended 1,000 mg PO BID 11/21/23 05/19/25 History release 24 hr [id number] tablet 1 tab PO QAM 02/11/24 05/19/25 History apixaban 5 mg tablet (Eliquis) 5 mg PO BID #60 tabs 02/13/24 05/19/25 Rx Prevagen 1 cap PO QAM 03/28/24 05/19/25 History metoprolol succinate 100 mg 100 mg PO BID 03/28/24 05/19/25 History tablet,extended release 24 hr vitamins A,C,F-jxsq-jdmgsa 4,296 1 cap PO QAM 05/19/24 05/19/25 History mcg-226 mg-90 mg capsule (PreserVision AREDS) finasteride 5 mg tablet 5 mg PO QAM #90 tabs 03/09/25 05/19/25 Rx clopidogrel 75 mg tablet 75 mg PO QAM 05/19/25 05/19/25 History rosuvastatin 40 mg tablet 40 mg PO QAM 05/19/25 05/19/25 History Past Med/Surg History Problem List (Updated 05/20/25 @ 11:18 by Raymon Price MD) Microcytic anemia Uropathy, obstructive Atrial fibrillation (Acute) Hematoma of kidney (Acute) Hydronephrosis (Acute) MARIAMA (acute kidney injury) (Acute) Kidney stones (Acute) Anemia (Acute) Hematoma of left kidney MARIAMA (acute kidney injury) Calculus of proximal right ureter Calculus of proximal left ureter Bilateral hydronephrosis Erectile dysfunction (Chronic) Kidney stones (Chronic) Hematuria (Chronic) Medical History Acute renal failure 03/16/24 Anemia CAD (coronary artery disease) Stents x2 (11/2023) History of stroke Pontine infarct, 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 Price Hypertension H/o Lyme disease Diabetes NIDDM Surgical History History of cardiac cath (11/2023) stents x2 Status post cystoscopy with ureteral stent placement Multiple History of cataract surgery (2019) bilateral cataract extraction History of tooth extraction History of tonsillectomy Family History Family/Other No pertinent family history Other No family history of adverse response to anesthesia Denies family history of Ovarian cancer Prostate cancer Myocardial infarction Breast cancer Colorectal cancer Social History Smoking Status: Former smoker Tobacco Type: Cigarettes Second Hand Exposure: No; Do You Dip or Chew Tobacco: No; Hx Alcohol Use: No Hx Substance Use: No Preferred Language: Vincentian Communication Ability: Effective Senior Project Accountant Required: No Beliefs That Will Affect Care: None Current Living Situation: Family Current Living Situation Comment: home with brother in law and sister in law current occupational status: retired Feels Safe at Home: Yes Safety Concerns: Feels Safe At This Time Assistive Devices: Cane and Walker Review of Systems Review of Systems: All systems reviewed and unremarkable except as noted below Physical Exam Physical Exam: Lying in bed without any acute distress Constitutional: well developed, well nourished, + ill appearing and + obese Eyes: PERRL, conjunctivae normal, anicteric sclerae ENMT: external ear and nose normal, oropharynx normal Neck: trachea midline, no thyromegaly Respiratory: no respiratory distress Auscultation: lungs clear to auscultation bilaterally Cardiovascular: Rate/Rhythm: + irregularly irregular Heart Sounds: normal S1, normal S2 and + murmur Extremities: no edema Gastrointestinal (Abdomen): Inspection/Auscultation: normal bowel sounds; abdomen not distended Percussion/Palpation: abdomen soft; abdomen nontender Musculoskeletal: no acute arthritis involving any of the joint Neurologic: normal touch/pain/proprioception and moves all extremities; no focal motor deficits Lymphatic: no cervical or axillary lymphadenopathy Results & Data Results & Data Vital Signs (Past 12 Hours) Vital Signs Temp Pulse Pulse Resp BP BP Pulse Ox 05/19/25 18:20 36.6 C 05/19/25 18:14 91 H 21 108/85 94 05/19/25 17:50 36.7 C 92 H 19 101/61 92 05/19/25 17:40 99 H 15 116/68 92 05/19/25 17:30 99 H 14 96/52 L 97 05/19/25 17:20 36.0 C L 105 H 10 L 82/51 L 93 05/19/25 16:35 37.4 C 98 H 20 116/78 95 05/19/25 16:32 05/19/25 16:16 94/61 L 05/19/25 16:16 94/61 L 05/19/25 16:12 94 H 17 95 05/19/25 16:00 92 H 21 91 05/19/25 15:45 97 H 25 H 05/19/25 15:30 99/54 L 05/19/25 15:27 93 H 05/19/25 15:27 106/63 05/19/25 15:18 94 H 17 95 05/19/25 15:00 125 H 14 94 05/19/25 14:30 97 H 16 90 05/19/25 14:30 103/59 L 05/19/25 14:16 96/59 L 05/19/25 14:15 100 H 20 93 05/19/25 14:03 120 H 19 05/19/25 14:00 108/60 05/19/25 13:58 108/74 05/19/25 13:57 129 H 20 05/19/25 13:33 149 H 05/19/25 13:33 150 H 05/19/25 13:18 36.4 C L 98 H 20 105/64 95 O2 Del Method O2 Flow Rate 05/19/25 18:20 05/19/25 18:14 Room Air 05/19/25 17:50 Room Air 05/19/25 17:40 Oxymask 5 05/19/25 17:30 Oxymask 10 05/19/25 17:20 Oxymask 10 05/19/25 16:35 Room Air 05/19/25 16:32 Room Air 05/19/25 16:16 05/19/25 16:16 05/19/25 16:12 Room Air 05/19/25 16:00 Room Air 05/19/25 15:45 05/19/25 15:30 05/19/25 15:27 05/19/25 15:27 05/19/25 15:18 Room Air 05/19/25 15:00 Room Air 05/19/25 14:30 Room Air 05/19/25 14:30 05/19/25 14:16 05/19/25 14:15 Room Air 05/19/25 14:03 05/19/25 14:00 05/19/25 13:58 05/19/25 13:57 05/19/25 13:33 05/19/25 13:33 05/19/25 13:18 Room Air Laboratory Results Short CBC 05/19/25 Range/Units 13:33 WBC 25.99 H (4.8-10.8) K/ul Hgb 8.7 L (14.0-18.0) g/dl Hct 28.9 L (42.0-52.0) % Plt Count 446 H (130-400) K/uL BMP 05/19/25 13:33 Sodium 133 L Potassium 4.6 Chloride 97 L Carbon Dioxide 23 BUN 67 H Creatinine 3.72 H Glucose 188 H Calcium 8.5 L Liver Function 05/19/25 Range/Units 13:33 Total Bilirubin 0.8 (0.2-1.0) mg/dl AST 32 (13-39) U/L ALT 31 (7-52) U/L Alkaline Phosphatase 158 H (34-104) U/L Albumin 2.9 L (3.4-5.0) gm/dl Medications Administered Current Inpatient Medications Finasteride (Finasteride 5 Mg Tab) 5 mg PO QAM [facility] Stop: 06/19/25 08:59 Diltiazem HCl 125 mg/ Dextrose 125 mls @ 0 mls/hr IV .Q0M [facility]HA; Protocol Stop: 06/18/25 13:59 Last Titration: 05/19/25 16:16 Dose: 0 mg/hr, 0 mls/hr Daptomycin 700 mg/ Syringe 14 mls @ 7.75 mls/min IV Q48H [facility]; Protocol Stop: 05/29/25 16:59 Losartan Potassium (Losartan Potassium 25 Mg Tab) 25 mg PO QAM [facility] Stop: 06/19/25 08:59 Metoprolol Succinate (Metoprolol Succ 50mg Ext Rel Tab) 100 mg PO BID [facility] Stop: 06/18/25 20:59 Multivitamins/Minerals (Cerovite Adv Formula Tab) [facility] [place] [facility] [place]: 06/19/25 08:59 Rosuvastatin Calcium (Rosuvastatin Calcium 20 Mg Tab) 40 mg PO QAM [facility] Stop: 06/19/25 08:59
[2025-05-19] MEDS ORDERED: CARBOHYDRATES FOR HYPOGLYCEMIA PO PRN (18:58)
[2025-05-19] MEDS ORDERED: DEXTROSE 50% 50 ML SYRINGE IV PRN (18:58)
[2025-05-19] MEDS ORDERED: GLUCOSE 10 TAB/TUBE PO PRN (18:58)
[2025-05-19] MEDS ORDERED: GLUCAGON FOR INJ 1 MG VIAL SQ PRN (18:58)
[2025-05-19] MEDS ORDERED: GLUCOSE 40% GEL 15 GM TUBE PO PRN (18:58)
[2025-05-19 19:16] LABS: Appearance Urine Cloudy (Clear); Bacteria Urine Automated 4+ (None Seen); Cast Urine Automated >20 /lpf (0-2); Glucose Urine UA Negative (Negative); RBC Urine Automated >20 /hpf (0-2); WBC Urine Automated >50 /hpf (0-5)
--- NOTE | 2025-05-19 19:53 | Critical Care Consultation ---
Date of Consultation May 19, 2025 Assessment & Plan (1) Hydronephrosis: (2) Hematoma of kidney: (3) MARIAMA (acute kidney injury): (4) ADRYAN (obstructive sleep apnea): Plan Reason Critically Ill: 80 YOM presents with testicular pain and noted to have bilateral hydronephrosis secondary to obstruction, he was noted as well to have LEFT renal capsular hemorrhage. He went urgently to the operating room for cystoscopy with bilateral stent placements. To ICU for following of hemod ynamics and following for evidence of worsening hemorrhage. Neuro - No acute needs, hx: CVA CAM ICU: NEGATIVE - Pain control per admitting service - Attempt to maintain sleep wake cycle with frequent re-orientation to minimize risk of ICU delirium Cardiac - AFib with RVR, HX of CAD with stents - Blood pressures have appeared to stabilize with reduction in HR and management of bilateral renal obstruction - For his AFIB - continue with BB as hemodynamics permit. If needed rate control IV BB will be selected and LEVO for vasopressor if required - Hold his 100mg of Toprolol XL- pending hemodynamics consider IV q6-8 or oral 25 q8 with hold parameters- follow tonight - He has history of HFmrEF and will avoid CCB- follow volume status - For his hx of Afib and CVA- will hold his Eliquis and Plavix related to renal capsular hemorrhage- see below- Hold antiplatelets and antixa in light of renal capsular hemorrhage - Continue antibiotics as can't exclude sepsis with bilateral obstructing stones as well as elevated WBC - follow perfusion with lactate, bmp, and biomarkers - Levophed for MAP <65 Respiratory - NO acute needs, hx: ADRYAN non-compliant with recs for CPAP - Wean oxygen as able- ICS - Patient refusing CPAP GI - No acute needs RENAL/LYTES - MARIAMA on CKD, LEFT renal capsular hemorrhage, bilateral obstructing stones with hydronephrosis - Continue with volume support and renal dose medications avoid nephrotoxic medications as able and if needed minimize exposure time - LEFT renal capsular hemorrhage- likely secondary to stone and infection- will follow hemodynamics as well as hgb levels - obtain renal ultrasound in morning to evaluate size for progression - if patient becomes unstable overnight with hemorrhage agree with transfer for IR eval - As above continue to hold Plavix and Eliquis - Stents per urology - As above - Continue kahn - discontinue when appropriate from urology ENDO - DMII - ICU hyperglycemic protocol goal <180mg/dl HEME - As above - Transfuse for acute bleeding, HGB <7.0, or symptomatic anemia ID - UTI complicated - Technically meets sepsis criteria on arrival to ER- with source likely bilateral obstructing stones and urinary source - lactate negative, with organ dysfunction of MARIAMA - Prvious culture data reviewed - alegre sensitive CONS - Continue with Rocephin until cultures result, continue with daptomycin LINES/IV ACCESS - PIV Continue use of these lines, kahn DVT PROPHYLAXIS - SCDS, hold chemoprophylaxis in the setting of renal capsular hemorrhage DISPO: ICU until hemodynamics proven stable I have personally spent 40 minutes of critical care time in the direct management of this patient. This is a life/limb threatening event. This includes time spent evaluating patient, direct bedside care, chart review, placing orders, interpretation of diagnostic studies, discussion with consultants, patient, and family members, as well as other required patient management activities. This time is exclusive of all separately billable procedures, and separate from and in addition to any other critical care service time. Thank you for allowing us to participate in the care of this patient. Please refer to my attending physician's documentation for any further recommendations. History of Present Illness Reason for Consultation: Bilateral hydronephrosis secondary to obstruction with renal capsular hemorrhage Requesting Physician: Edith Manning MD Attending Physician: Nigel Sharma MD History of Present Illness 80 YOM with medical history of: permanent afib (on eliquis), HFmrEF, ADRYAN (non compliant 0 CPAP), DMII, CAD stent 2023, CVA (2023), freuqent renal stones. Presents to the ER for complaints of testicular pain on the left side. He was noted to be in Afib with RVR on arrival to [facility], as well as hypotension. He had routine labs performed which revealed leukocytosis, MARIAMA. CT abd/pelvis noted bilateral renal stones obstructing, with hydronephrosis as well as left sided renal capsular hemorrhage. Blood cultures and UA with culture was obtained. Urine was noted to be infective appearing. he was given a dose Rocephin for UTI as well as PCC to assist with managing renal capsular hemorrhage. Urology was consulted and patient was taken to the OR for management of his obstructing stones. He is to the ICU following OR procedure for monitoring of hemodynamics and tracking HGB levels as well as follow for worsening of renal capsular hemorrhage/hematoma. CODE: DNR/DNI Allergies Allergy/AdvReac Type Severity Reaction Status Date / Time No Known Allergies Allergy Verified 05/19/25 16:05 Home Medications Medication Instructions Recorded Confirmed Type losartan 25 mg tablet 25 mg PO QAM 08/08/23 05/19/25 History metformin 500 mg tablet,extended 1,000 mg PO BID 11/21/23 05/19/25 History release 24 hr [id number]-[id number]-[id number] tablet 1 tab PO QAM 02/11/24 05/19/25 History apixaban 5 mg tablet (Eliquis) 5 mg PO BID #60 tabs 02/13/24 05/19/25 Rx Prevagen 1 cap PO QAM 03/28/24 05/19/25 History metoprolol succinate 100 mg 100 mg PO BID 03/28/24 05/19/25 History tablet,extended release 24 hr vitamins A,C,I-amih-zpqild 4,296 1 cap PO QAM 05/19/24 05/19/25 History mcg-226 mg-90 mg capsule (PreserVision AREDS) finasteride 5 mg tablet 5 mg PO QAM #90 tabs 03/09/25 05/19/25 Rx clopidogrel 75 mg tablet 75 mg PO QAM 05/19/25 05/19/25 History rosuvastatin 40 mg tablet 40 mg PO QAM 05/19/25 05/19/25 History Patient History Medical History Acute renal failure 03/16/24 Anemia CAD (coronary artery disease) Stents x2 (11/2023) History of stroke Pontine infarct, 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 Price Hypertension H/o Lyme disease Diabetes NIDDM Surgical History History of cardiac cath (11/2023) stents x2 Status post cystoscopy with ureteral stent placement Multiple History of cataract surgery (2019) bilateral cataract extraction History of tooth extraction History of tonsillectomy Family History Family/Other No pertinent family history Other No family history of adverse response to anesthesia Denies family history of Ovarian cancer Prostate cancer Myocardial infarction Breast cancer Colorectal cancer Social History Smoking Status: Former smoker Tobacco Type: Cigarettes Second Hand Exposure: No; Do You Dip or Chew Tobacco: No; Hx Alcohol Use: No Hx Substance Use: No Preferred Language: Khmer Communication Ability: Effective Personnel Placement Specialist Required: No Beliefs That Will Affect Care: None Current Living Situation: Family Current Living Situation Comment: home with brother in law and sister in law current occupational status: retired Feels Safe at Home: Yes Safety Concerns: Feels Safe At This Time Assistive Devices: Denture - Upper Review of Systems 2 Review of Systems: REVIEW OF SYSTEMS: Constitutional: No fever, sweats or chills Eyes: No diplopia, no worsening or blurred vision ENT: normal hearing, no trouble swallowing Respiratory: (+)dyspnea at rest or on exertion, No cough, sputum, Cardiovascular: No chest pain, tightness or palpitations Abdomen: (+) pain, nausea, pain in testicle, NO vomiting, diarrhea or constipation Musculoskeletal: No joint pain, calf pain, swelling Neurologic: No weakness, numbness/tingling, or balance problems Psychiatric: (+) depression Skin: No rash or itch Physical Exam Physical Exam: PHYSICAL EXAM: General: awake, alert, no apparent distress Head: Normocephalic, atraumatic ENT: PERRL, EOMI, no pharyngeal exudate, mucous membranes moist Neuro: AAO x 3, speech clear and appropriate, strength intact bilaterally 5/5, sensation intact and equal all extremities Chest: equal rise and fall of the chest, no accessory muscle use, no heaves or thrills, Clear to auscultation, on 2LNC, Cardiac: Irregular rate and rhythm, telemetry reviewed- afib rate controlled, skin warm dry, cap refill <3 seconds, peripheral pusles +2 no JVD, no murmur, trace lower extremity edema GI: NABS x 4 quadrants, soft, nontender to palpation, no rebound, guarding or tenderness : Kahn to gravity draining rowdy colored urine Skin: no rash or erythema Results & Data Results & Data Vital Signs (Past 12 Hours) Vital Signs Temp Pulse Pulse Resp BP BP Pulse Ox 05/19/25 18:29 05/19/25 18:29 36.6 C 99 H 24 108/85 93 05/19/25 18:20 36.6 C 05/19/25 18:14 91 H 21 108/85 94 05/19/25 17:50 36.7 C 92 H 19 101/61 92 05/19/25 17:40 99 H 15 116/68 92 05/19/25 17:30 99 H 14 96/52 L 97 05/19/25 17:20 36.0 C L 105 H 10 L 82/51 L 93 05/19/25 16:35 37.4 C 98 H 20 116/78 95 05/19/25 16:32 05/19/25 16:16 94/61 L 05/19/25 16:16 94/61 L 05/19/25 16:12 94 H 17 95 05/19/25 16:00 92 H 21 91 05/19/25 15:45 97 H 25 H 05/19/25 15:30 99/54 L 05/19/25 15:27 93 H 05/19/25 15:27 106/63 05/19/25 15:18 94 H 17 95 05/19/25 15:00 125 H 14 94 05/19/25 14:30 97 H 16 90 05/19/25 14:30 103/59 L 05/19/25 14:16 96/59 L 05/19/25 14:15 100 H 20 93 05/19/25 14:03 120 H 19 05/19/25 14:00 108/60 05/19/25 13:58 108/74 05/19/25 13:57 129 H 20 05/19/25 13:33 149 H 05/19/25 13:33 150 H 05/19/25 13:18 36.4 C L 98 H 20 105/64 95 O2 Del Method O2 Flow Rate 05/19/25 18:29 Room Air 05/19/25 18:29 Room Air 05/19/25 18:20 05/19/25 18:14 Room Air 05/19/25 17:50 Room Air 05/19/25 17:40 Oxymask 5 05/19/25 17:30 Oxymask 10 05/19/25 17:20 Oxymask 10 05/19/25 16:35 Room Air 05/19/25 16:32 Room Air 05/19/25 16:16 05/19/25 16:16 05/19/25 16:12 Room Air 05/19/25 16:00 Room Air 05/19/25 15:45 05/19/25 15:30 05/19/25 15:27 05/19/25 15:27 05/19/25 15:18 Room Air 05/19/25 15:00 Room Air 05/19/25 14:30 Room Air 05/19/25 14:30 05/19/25 14:16 05/19/25 14:15 Room Air 05/19/25 14:03 05/19/25 14:00 05/19/25 13:58 05/19/25 13:57 05/19/25 13:33 05/19/25 13:33 05/19/25 13:18 Room Air Laboratory Results Abnormal lab results 05/19/25 05/19/25 Range/Units 13:33 18:50 WBC 25.99 H (4.8-10.8) K/ul RBC 3.70 L (4.70-6.10) M/uL Hgb 8.7 L (14.0-18.0) g/dl Hct 28.9 L (42.0-52.0) % MCV 78.1 L (80.0-100.0) fL MCH 23.5 L (25.0-34.0) pg MCHC 30.1 L (32.0-36.0) g/dL RDW Std Deviation 51.7 H (36.4-46.3) fL RDW Coeff of Leeanne 18.3 H (11.5-14.5) % Plt Count 446 H (130-400) K/uL Neut # (Auto) 23.66 H (1.40-6.50) K/uL Lymph # (Auto) 0.92 L (1.20-3.40) K/uL Knott # (Auto) 1.07 H (0.11-0.59) K/uL APTT 36 H (21-31) Seconds Sodium 133 L (136-145) mmol/L Chloride 97 L (98-107) mmol/L Anion Gap 13 H (3-11) BUN 67 H (6-23) mg/dl Creatinine 3.72 H (0.6-1.4) mg/dl Glucose 188 H (70-99(Fasting)) mg/dl Calcium 8.5 L (8.6-10.3) mg/dl Alkaline Phosphatase 158 H (34-104) U/L Albumin 2.9 L (3.4-5.0) gm/dl Globulin 4.4 H (2.5-4.0) gm/dl Albumin/Globulin Ratio 0.7 L (0.9-2) Urine Appearance Cloudy A (Clear) Urine Protein 3+ H (Negative) Urine Blood 3+ H (Negative) Ur Leukocyte Esterase 3+ H (Negative) Urine WBC (Auto) >50 H (0-5) /hpf Urine RBC (Auto) >20 H (0-2) /hpf U Hyaline Cast (Auto) >20 H (0-2) /lpf U Epithel Cells (Auto) 3-5 H (0-2) /hpf Urine Bacteria (Auto) 4+ H (None Seen) Diagnostic Findings Chest X-Ray 05/19/25 13:48 XR chest 1V portable CLINICAL HISTORY: Chest pain, nonspecific COMPARISON STUDY: 07/02/2023 FINDINGS: Stable mild cardiomegaly with mild pulmonary vascular congestion. Inspiration is shallow. There is mild stranding in the lung bases. No lobar consolidation or pleural effusion. No pneumothorax. IMPRESSION: 1. Mild CHF. 2. Shallow inspiration with likely lung base atelectasis. ACT 112: Negative or not required by law. Electronically signed by: Jay Powers M.D. 05/19/2025 2:06 PM Abdomen/Pelvis CT 05/19/25 14:[address] WITHOUT CONTRAST CT DOSE: 1545.9 mGy.cm HISTORY: Acute kidney injury with leukocytosis MARIAMA, elevated WBC TECHNIQUE: Multiaxial CT images of the abdomen and pelvis were performed without contrast. A dose lowering technique was utilized adhering to the principles of ALARA. COMPARISON STUDY: 08/26/2024 FINDINGS: Moderate size left pleural effusion and left basilar consolidation. No pneumatosis or pneumoperitoneum. Calcified granulomata of the spleen. Moderately atrophic pancreas. Unremarkable gallbladder and adrenal glands. Hepatic steatosis. There is moderate right-sided hydroureteronephrosis secondary to obstructing 7 mm calculus ureteropelvic junction. Numerous nonobstructing calculi of the right kidney measure up to approximately 2.2 cm. Moderate left-sided hydroureteronephrosis with numerous stones present within the pelvis and ureteropelvic junction measuring up to approximately 2.6 cm. There is a large ac sonia left sided subcapsular hematoma measuring up to approximately 11.5 x 4.4 x 14.6 cm compressing the renal parenchyma. Hemorrhage extends into the perinephric space and also since the posterior pararenal space measuring up to approximately 8.4 x 4.0 x 16.6 cm abutting the left psoas muscle. Decompressed urinary bladder with wall thickening. Prostatomegaly. Colonic diverticulosis without acute diverticulitis. Moderate colonic fecal retention. Normal appendix. No acute fracture. IMPRESSION: 1. Large acute subcapsular hemorrhage of the left kidney with hemorrhage extending into the perinephric and posterior pararenal spaces as above. 2. Nephrolithiasis with moderate bilateral hydronephrosis and calculi present within the bilateral ureteropelvic junctions. 3. No bowel obstruction or bowel wall thickening. 4. Moderate sized left pleural effusion with left basilar consolidation/atelectasis. ACT 112: Negative or not required by law. The above report was generated using voice recognition software. It may contain grammatical, syntax or spelling errors. Electronically signed by: Win Barahona M.D. 05/19/2025 3:26 PM Medications Administered Diltiazem HCl 125 mg/ Dextrose 125 mls @ 0 mls/hr IV .Q0M RADHA; Protocol Stop: 06/18/25 13:59 Last Titration: 05/19/25 16:16 Dose: 0 mg/hr, 0 mls/hr Documented By: GANESH Co-signed By: QGV Admin: 05/19/25 14:13 Dose: 5 mg/hr, 5 mls/hr Documented By: CAP Co-signed By: EDY Discontinued Medications Diltiazem HCl (Diltiazem Hcl 5 Mg/Ml 5 Ml Vial) 15 mg IV NOW STA Stop: 05/19/25 13:49 Last Admin: 05/19/25 13:57 Dose: 15 mg Documented By: CAP Co-signed By: TAMIA Diltiazem HCl (Diltiazem Hcl 5 Mg/Ml 5 Ml Vial) Confirm Administered Dose 25 mg IV .ST-MED ONE Stop: 05/19/25 16:10 Last Admin: 05/19/25 18:17 Dose: Not Given Documented By: ES Sodium Chloride (Nss) 1,000 mls @ 999 mls/hr IV .Q1H1M STA Stop: 05/19/25 14:48 Last Infusion: 05/19/25 15:05 Dose: Infused Documented By: Admin: 05/19/25 13:57 Dose: 999 mls/hr Documented By: CAP Ceftriaxone Sodium (Rocephin) 2,000 mg in 50 mls @ 100 mls/hr IV NOW STA Stop: 05/19/25 16:04 Last Infusion: 05/19/25 16:34 Dose: Infused Documented By: Infusion: 05/19/25 16:22 Dose: 100 mls/hr Documented By: Infusion: 05/19/25 16:14 Dose: 0 mls/hr Documented By: Admin: 05/19/25 15:49 Dose: 100 mls/hr Documented By: CAP Prothrombin Complex Concent ( (Human) 2,000 units/ Syringe) 80 mls @ 10 mls/min IV TODAY@1545 [facility]; Protocol Stop: 05/19/25 16:00 Last Admin: 05/19/25 16:10 Dose: 10 mls/min Documented By: CAP Miscellaneous (Stat Iv Infusion Titration Per Protocol) 1 each N/A NOW STA Stop: 05/19/25 13:49 Last Admin: 05/19/25 13:57 Dose: Not Given Documented By: CAP ECG Additional Comments: Vent. ratePR intervalQRS [id number] [place] BPM ms ms 473ms Atrial fibrillationwith rapid ventricular response Low voltage QRS Cannot rule outInferior infarct, age undetermined Poor R wave progression, consider anterior WA vs. lead placement vs. LVH Abnormal ECG When compared with ECG [id number] 14:48, QRS axisShifted right ST no longer depressed inInferior leads Nonspecific T wave abnormality, improved inLateral leads Confirmed by Neftaly Bowden ([id number]) on 05/19/2025 3:52:05 PM Coding Level of Care Code 50334 CRITICAL CARE 1ST 30-74M Diagnoses Hydronephrosis N13.30 Hematoma of kidney S37.019A MARIAMA (acute kidney injury) N17.9 ADRYAN (obstructive sleep apnea) G47.33
[2025-05-19] MEDS ORDERED: STAT IV Infusion **Titration per Protocol STA (20:04)
[2025-05-19 20:39] LABS: Hematocrit (blood only) 25.4 % (42.0-52.0); Hemoglobin 7.7 g/dl (14.0-18.0)
[2025-05-19] MEDS: PLASMA-LYTE A 1,000 ML IV SCH (20:45)
[2025-05-19] MEDS: DAPTOmycin 700 MG in SYRINGE 0 ML IV SCH (20:48)
[2025-05-19] MEDS: PNEUMOCOCCAL VACCINE (PCV20) 20-VAL CONJ-DIP CRM/PF 0.5 ML SYR IM ONE (20:53)
[2025-05-19] MEDS: INSULIN ASPART PER UNIT CHARGE SC SCH (20:57)
[2025-05-19] MEDS ORDERED: METOPROLOL SUCC 50MG EXT REL TAB PO SCH (21:00)
[2025-05-19 21:15] LABS: Anion Gap 11.0 (3-11); Blood Urea Nitrogen 69.0 mg/dl (6-23); Calcium 8.0 mg/dl (8.6-10.3); Carbon Dioxide 22.0 mmol/L (21-32); Chloride 99.0 mmol/L (98-107); Creatinine Clr Calc Pharmacy 20.2 ml/min; Glucose 153.0 mg/dl (70-99(Fasting)); Potassium 4.6 mmol/L (3.5-5.1); Sodium 132.0 mmol/L (136-145)
[2025-05-19] MEDS: NOREPINEPHRINE/D5W 4 MG/250 ML PLCT IV SCH (21:34)
--- NOTE | 2025-05-19 22:19 | Ultrasound Report ---
Exam(s): US SCROTAL EXAM: US Scrotum CLINICAL HISTORY: Reason for exam: Left testicular pain. TECHNIQUE: Real-time ultrasound of the scrotum with color Doppler and image documentation. COMPARISON: CT scan from 05/19/2025 FINDINGS: Right testicle: The right testicle measures 2.4 x 4.4 x 3.1 cm with normal echotexture normal Doppler blood flow. No torsion. Left testicle: The left testicle measures 2.8 x 4.1 x 2.6 cm with normal echotexture and normal Doppler blood flow. No torsion. Epididymides: There is a 3 x 5 mm simple cyst in the right epididymal head. Scrotum: Trace left hydrocele. IMPRESSION: No acute findings in the scrotum. Electronically signed by: Silas Restrepo MD 05/19/25 22:17 PM
[2025-05-20 02:41] LABS: Alanine Aminotransferase 28.0 U/L (7-52); Albumin Globulin Ratio 0.7 (0.9-2); Alkaline Phosphatase 127.0 U/L (34-104); Anion Gap 10.0 (3-11); Bilirubin,Total 0.6 mg/dl (0.2-1.0); Blood Urea Nitrogen 72.0 mg/dl (6-23); Calcium 7.7 mg/dl (8.6-10.3); Carbon Dioxide 25.0 mmol/L (21-32); Chloride 98.0 mmol/L (98-107); Creatine Kinase 30.0 U/L (30-223); Creatinine Clr Calc Pharmacy 20.9 ml/min; Globulin 3.7 gm/dl (2.5-4.0); Glucose 131.0 mg/dl (70-99(Fasting)); Magnesium 2.1 mg/dl (1.7-2.4); Potassium 4.6 mmol/L (3.5-5.1); Sodium 133.0 mmol/L (136-145); Total Protein 6.2 gm/dl (6.0-8.3)
[2025-05-20 02:57] LABS: Hematocrit (blood only) 22.8 % (42.0-52.0); Hemoglobin 6.8 g/dl (14.0-18.0); Mean Corpuscular Hemoglobin 24.1 pg (25.0-34.0); Mean Corpuscular Volume 80.9 fL (80.0-100.0); Platelet Count 324 K/uL (130-400); RDW Standard Deviation 54.1 fL (36.4-46.3); Red Blood Count 2.82 M/uL (4.70-6.10); White Blood Count 17.55 K/ul (4.8-10.8)
[2025-05-20] MEDS ORDERED: SODIUM CHLORIDE 0.9% 100 ML IV PRN (02:59)
[2025-05-20 03:00] LABS: Immature Granulocytes # (auto) 0.13 K/uL (0.01-0.20); Immature Granulocytes % (auto) 0.7 %; Polychromasia 1+
--- NOTE | 2025-05-20 07:24 | Ultrasound Report ---
EXAM: US abdomen limited CLINICAL HISTORY: Eval LEFT capsular hemorrhage for enlargement. F/U CT 05/19 TECHNIQUE: Ultrasound examination of the LUQ was performed using a high-frequency transducer. Scanning was performed with the patient in supine position. COMPARISON: previous abdominal CT is attached, was done on 08/26/2024, the other CT study mentioned in the history was on 05/19/2025 is not attached. FINDINGS: Left Kidney: left kidney size : 12.6 × 8.4 × 7.2 cm there is subcapsular hypoechoic collection around the upper pole of the left kidney, measuring about 8.8 × 5.7 × 6.9 cm, indenting the left renal cortex. There is another collection in the superior and posterior aspect around the eft kidney, measuring 11.9 × 3.2 × 6.9 cm. Other multiple hyperechogenic foci in the calyx (suspected to represent small stones.) IMPRESSION: 1. New, Subcapsular left renal collection 8.8 × 5.7 × 6.9 cm (mildly compressing the left renal cortex). 2. New, Another pararenal collection is seen 11.9 × 3.2 × 6.9 cm. RECOMMENDATIONS: Clinical correlation with symptoms and further evaluation including CECT study fo abdomen and pelvis as indicated. Electronically signed by Rl Aguilar 05-20-2025 07:24 AM
--- NOTE | 2025-05-20 08:26 | Fluoroscopy Report ---
FL retrograde includes kub CLINICAL HISTORY: BILAT STENT COMPARISON STUDY: None FLUOROSCOPY TIME: 8 seconds FLUOROSCOPY IMAGES: 3 EXPOSURE DOSE: 4 mGy FINDINGS: Fluoroscopy was provided for urologic procedure. IMPRESSION: Intraoperative fluoroscopy. ACT 112: Negative or not required by law. Electronically signed by: Jay Powers M.D. 05/20/2025 8:24 AM
[2025-05-20] MEDS: FINASTERIDE 5 MG TAB PO SCH (08:36)
[2025-05-20] MEDS: CEROVITE ADV FORMULA TAB PO SCH (08:36)
[2025-05-20] MEDS: ROSUVASTATIN CALCIUM 20 MG TAB PO SCH (08:36)
[2025-05-20] MEDS ORDERED: NON-FORMULARY MEDICATION (Multivitamin-Minerals-Lutein Tablet) PO SCH (09:00)
[2025-05-20] MEDS ORDERED: NON-FORMULARY MEDICATION (Prevagen 1 CAP) PO SCH (09:00)
[2025-05-20] MEDS ORDERED: LOSARTAN POTASSIUM 25 MG TAB PO SCH (09:00)
--- NOTE | 2025-05-20 09:03 | Cardiology Consultation ---
Date of Consultation May 20, 2025 Assessment & Plan (1) Uropathy, obstructive: (2) Hematoma of kidney: (3) Bilateral hydronephrosis: (4) MARIAMA (acute kidney injury): (5) Atrial fibrillation: (6) Microcytic anemia: (7) CAD (coronary artery disease): Plan Patient is a complex 80-year-old male with known coronary disease with prior current intervention November 2023, longstanding persistent atrial fibrillation. Patient on chronic antiplatelet and anticoagulant therapy with clopidogrel and apixaban. Atrial fibrillation rates usually controlled on 100 mg metoprolol succinate twice daily. Patient presents with obstructive uropathy and acute renal failure. Initial presentation notable for elevated heart rate response to chronic atrial fibrillation secondary to pain and underlying pathologies. Hemodynamically improved this morning 1. Longstanding persistent atrial fibrillation with elevated ventricular response rate secondary to acute medical processes. Recommend resuming metoprolol succinate at reduced dose for cardioprotective and rate control. 2. Chronic anticoagulation and antiplatelet therapy. Recommend as already begun holding clopidogrel and apixaban. Will ultimately require at least antiplatelet therapy once clinical course stabilized 3. Microcytic anemia: Iron studies ordered. Patient received 1 unit packed red cells 4. Acute renal insufficiency/obstructive uropathy. Making urine today and may ultimately manifest postobstructive diuresis. History of Present Illness Reason for Consultation: Chronic atrial fibrillation with elevated ventricular response rate Requesting Physician: Eddie quiñones Attending Physician: John Reyes MD History of Present Illness Patient is an 80-year-old male with underlying cardiac concerns which include 1. CAD s/p JOCE to LAD, distal RCA into PDA, PTCA of proximal septal with 2.0 balloon with residual severe stenosis, 11/2023 at [facility] 2. HFrEF 3. Persistent atrial fibrillation 4. Hypertension 5. Hyperlipidemia 6. Obstructive sleep apnea 7. Type 2 diabetes mellitus 8. Pontine stroke Patient presents to this hospitalization noting approximately 7-day history of lower abdominal pain and distention. Ultimately sought ER evaluation yesterday as pain became more severe. Evaluation demonstrated bilateral hydronephrosis with obstructive uropathy, acute renal failure, hematoma of the kidney. On presentation patient tachycardic with chronic persistent atrial fibrillation at baseline with elevated ventricular response rates. He underwent cystoscopy with bilateral ureteral stenting. Heart rates improved after relief of pain and urinary obstruction. Currently asymptomatic from cardiac standpoint denies chest pains, dizziness, lightheadedness syncope or near syncope. Has been compliant with medications. Notes appetite and oral intake has been reduced during acute illness phase. Currently no fevers or chills. Has been aware of occasional blood in urine, dark stools. No acute weight loss or gain Allergies Allergy/AdvReac Type Severity Reaction Status Date / Time No Known Allergies Allergy Verified 05/19/25 16:05 Home Medications Medication Instructions Recorded Confirmed Type losartan 25 mg tablet 25 mg PO QAM 08/08/23 05/19/25 History metformin 500 mg tablet,extended 1,000 mg PO BID 11/21/23 05/19/25 History release 24 hr mbdovgybciko-gfbdykju-pdadrd tablet 1 tab PO QAM 02/11/24 05/19/25 History apixaban 5 mg tablet (Eliquis) 5 mg PO BID #60 tabs 02/13/24 05/19/25 Rx Prevagen 1 cap PO QAM 03/28/24 05/19/25 History metoprolol succinate 100 mg 100 mg PO BID 03/28/24 05/19/25 History tablet,extended release 24 hr vitamins A,C,N-ymrt-bcjpkp 4,296 1 cap PO QAM 05/19/24 05/19/25 History mcg-226 mg-90 mg capsule (PreserVision AREDS) finasteride 5 mg tablet 5 mg PO QAM #90 tabs 03/09/25 05/19/25 Rx clopidogrel 75 mg tablet 75 mg PO QAM 05/19/25 05/19/25 History rosuvastatin 40 mg tablet 40 mg PO QAM 05/19/25 05/19/25 History Patient History Medical History Acute renal failure 03/16/24 Anemia CAD (coronary artery disease) Stents x2 (11/2023) History of stroke Pontine infarct, 02/11/24 ([facility] admission) Residual mild LUE weakness History of heart failure Poor historian ADRYAN (obstructive sleep apnea) No device Atrial fibrillation with rapid ventricular response Taking Eliquis Follows with Dr. Price Hypertension H/o Lyme disease Diabetes NIDDM Surgical History History of cardiac cath (11/2023) stents x2 Status post cystoscopy with ureteral stent placement Multiple History of cataract surgery (2019) bilateral cataract extraction History of tooth extraction History of tonsillectomy Family History Family/Other No pertinent family history Other No family history of adverse response to anesthesia Denies family history of Ovarian cancer Prostate cancer Myocardial infarction Breast cancer Colorectal cancer Social History Smoking Status: Former smoker Tobacco Type: Cigarettes Second Hand Exposure: No; Do You Dip or Chew Tobacco: No; Hx Alcohol Use: No Hx Substance Use: No Preferred Language: Occitan Communication Ability: Effective Climatologist Required: No Beliefs That Will Affect Care: None Current Living Situation: Family Current Living Situation Comment: home with brother in law and sister in law current occupational status: retired Feels Safe at Home: Yes Safety Concerns: Feels Safe At This Time Assistive Devices: Cane and Walker Physical Exam Constitutional: + obese; no acute distress Eyes: PERRL, conjunctivae normal, anicteric sclerae ENMT: external ear and nose normal, oropharynx normal Neck: trachea midline, no thyromegaly Respiratory: Auscultation: lungs clear to auscultation bilaterally and + diminished lung sounds Cardiovascular: Rate/Rhythm: + irregularly irregular Heart Sounds: normal S1 and normal S2 Vessels: no JVD Extremities: + edema Gastrointestinal (Abdomen): normal bowel sounds, soft, nontender, no hepatosplenomegaly Results & Data Vital Signs (Past 12 Hours) Vital Signs Temp Pulse Resp BP Pulse Ox O2 Flow Rate 05/20/25 05:45 36.6 C 89 18 97 05/20/25 05:45 105/58 L 05/20/25 05:45 105/58 L 05/20/25 05:39 97 H 16 98 05/20/25 05:30 115/62 05/20/25 05:18 97 H 17 99 05/20/25 05:15 107/68 05/20/25 05:15 107/68 05/20/25 05:12 103 H 16 99 05/20/25 05:00 97 H 16 99 05/20/25 04:51 93 H 16 99 05/20/25 04:45 93/56 L 05/20/25 04:31 108/62 05/20/25 04:31 108/62 05/20/25 04:15 90/51 L 05/20/25 04:15 90/51 L 05/20/25 04:03 94 H 16 96 05/20/25 04:00 36.6 C 101/56 L 05/20/25 04:00 101/56 L 05/20/25 03:45 94/48 L 05/20/25 03:45 94/48 L 05/20/25 03:42 91 H 16 97 05/20/25 03:30 90 18 98 05/20/25 03:30 101/60 05/20/25 03:30 101/60 05/20/25 03:21 92 H 23 97 05/20/25 03:18 36.6 C 96 H 18 96/53 L 96 2 05/20/25 03:15 94/53 L 05/20/25 03:15 94/53 L 05/20/25 03:15 94/53 L 05/20/25 03:06 100 H 14 97 05/20/25 03:01 109/88 05/20/25 03:01 109/88 05/20/25 03:00 100 H 15 100 05/20/25 02:45 98 H 17 97 05/20/25 02:30 93/53 L 05/20/25 02:30 93 H 17 97 05/20/25 02:18 91 H 16 100 05/20/25 02:00 94 H 16 98 05/20/25 02:00 99/61 L 05/20/25 02:00 99/61 L 05/20/25 02:00 99/61 L 05/20/25 01:45 89 16 99 05/20/25 01:00 105/59 L 05/20/25 01:00 97 H 17 98 05/20/25 00:30 92/49 L 05/20/25 00:30 92/49 L 05/20/25 00:30 93 H 15 97 05/20/25 00:00 86 17 97 05/20/25 00:00 92/56 L 05/20/25 00:00 92/56 L 05/20/25 00:00 92/56 L 05/20/25 00:00 92/56 L 05/19/25 23:33 92 H 16 98 05/19/25 23:30 89/57 L 05/19/25 23:30 89/57 L 05/19/25 23:12 116 H 20 100 05/19/25 23:00 113/71 05/19/25 22:54 95 H 14 100 05/19/25 22:48 90/53 L 05/19/25 22:48 90/53 L 05/19/25 22:48 90/53 L 05/19/25 22:42 91 H 13 93 05/19/25 22:30 84/52 L 05/19/25 22:30 94 H 13 81 L 05/19/25 22:15 100 H 16 92 05/19/25 22:00 91/54 L 05/19/25 21:54 94 H 17 91 05/19/25 21:30 36.6 C 95/50 L 05/19/25 21:30 95 H 16 89 L 05/19/25 21:27 95 H 16 90 05/19/25 21:01 92/58 L 05/19/25 21:01 92/58 L Laboratory Results Laboratory Results - last 24 hr 05/19/25 05/19/25 05/19/25 13:33 15:49 18:50 WBC 25.99 H RBC 3.70 L Hgb 8.7 L Hct 28.9 L MCV 78.1 L MCH 23.5 L MCHC 30.1 L RDW Std Deviation 51.7 H RDW Coeff of Leeanne 18.3 H Plt Count 446 H MPV 10.2 Immature Gran % (Auto) 0.8 Neut % (Auto) 91.1 Lymph % (Auto) 3.5 Trigg % (Auto) 4.1 Eos % (Auto) 0.3 Baso % (Auto) 0.2 Neut # (Auto) 23.66 H Lymph # (Auto) 0.92 L Trigg # (Auto) 1.07 H Eos # (Auto) 0.09 Baso # (Auto) 0.05 Immature Gran # (Auto) 0.20 Polychromasia 2+ Rouleaux 1+ PT 12.0 INR 1.1 APTT 36 H PTT Ratio 1.3 Sodium 133 L Potassium 4.6 Chloride 97 L Carbon Dioxide 23 Anion Gap 13 H BUN 67 H Creatinine 3.72 H Est Cr Clr Drug Dosing 20.1 eGFR 15.73 BUN/Creatinine Ratio 18.0 Glucose 188 H POC Glucose Lactate 1.0 Calcium 8.5 L Ionized Calcium Phosphorus Magnesium Total Bilirubin 0.8 AST 32 ALT 31 Alkaline Phosphatase 158 H Total Creatine Kinase Troponin I High Sens 14.1 Total Protein 7.3 Albumin 2.9 L Globulin 4.4 H Albumin/Globulin Ratio 0.7 L Lipase 30 Urine Color Yellow Urine Appearance Cloudy A Urine pH 7.0 Ur Specific [place] 1.018 Urine Protein 3+ H Urine Glucose (UA) Negative Urine Ketones Negative Urine Blood 3+ H Urine Nitrite Negative Urine Bilirubin Negative Urine Urobilinogen Negative Ur Leukocyte Esterase 3+ H Urine WBC (Auto) >50 H Urine RBC (Auto) >20 H U Hyaline Cast (Auto) >20 H U Epithel Cells (Auto) 3-5 H Urine Bacteria (Auto) 4+ H Urine Comment Blood Type O Positive Blood Type Recheck Antibody Screen NEGATIVE Crossmatch See Detail 05/19/25 05/19/25 05/20/25 20:11 20:51 02:12 WBC 17.55 H RBC 2.82 L Hgb 7.7 L 6.8 L* Hct 25.4 L 22.8 L MCV 80.9 MCH 24.1 L MCHC 29.8 L RDW Std Deviation 54.1 H RDW Coeff of Leeanne 18.4 H Plt Count 324 MPV 9.6 Immature Gran % (Auto) 0.7 Neut % (Auto) 88.4 Lymph % (Auto) 4.6 Trigg % (Auto) 5.2 Eos % (Auto) 1.0 Baso % (Auto) 0.1 Neut # (Auto) 15.52 H Lymph # (Auto) 0.80 L Trigg # (Auto) 0.91 H Eos # (Auto) 0.17 Baso # (Auto) 0.02 Immature Gran # (Auto) 0.13 Polychromasia 1+ Rouleaux PT INR APTT PTT Ratio Sodium 132 L 133 L Potassium 4.6 4.6 Chloride 99 98 Carbon Dioxide 22 25 Anion Gap 11 10 BUN 69 H 72 H Creatinine 3.76 H 3.63 H Est Cr Clr Drug Dosing 20.2 20.9 eGFR 15.53 16.20 BUN/Creatinine Ratio 18.4 19.8 Glucose 153 H 131 H POC Glucose 169 H Lactate Calcium 8.0 L 7.7 L Ionized Calcium Phosphorus 5.5 H Magnesium 2.1 Total Bilirubin 0.6 AST 34 ALT 28 Alkaline Phosphatase 127 H Total Creatine Kinase 30 Troponin I High Sens 19.8 D Total Protein 6.2 Albumin 2.5 L Globulin 3.7 Albumin/Globulin Ratio 0.7 L Lipase Urine Color Urine Appearance Urine pH Ur Specific [place] Urine Protein Urine Glucose (UA) Urine Ketones Urine Blood Urine Nitrite Urine Bilirubin Urine Urobilinogen Ur Leukocyte Esterase Urine WBC (Auto) Urine RBC (Auto) U Hyaline Cast (Auto) U Epithel Cells (Auto) Urine Bacteria (Auto) Urine Comment Blood Type Blood Type Recheck O Positive Antibody Screen Crossmatch 05/20/25 05/20/25 07:17 07:58 WBC RBC Hgb Hct MCV MCH MCHC RDW Std Deviation RDW Coeff of Leeanne Plt Count MPV Immature Gran % (Auto) Neut % (Auto) Lymph % (Auto) Trigg % (Auto) Eos % (Auto) Baso % (Auto) Neut # (Auto) Lymph # (Auto) Trigg # (Auto) Eos # (Auto) Baso # (Auto) Immature Gran # (Auto) Polychromasia Rouleaux PT INR APTT PTT Ratio Sodium Potassium Chloride Carbon Dioxide Anion Gap BUN Creatinine Est Cr Clr Drug Dosing eGFR BUN/Creatinine Ratio Glucose POC Glucose 133 H Lactate Calcium Ionized Calcium 1.02 L Phosphorus Magnesium Total Bilirubin AST ALT Alkaline Phosphatase Total Creatine Kinase Troponin I High Sens Total Protein Albumin Globulin Albumin/Globulin Ratio Lipase Urine Color Urine Appearance Urine pH Ur Specific [place] Urine Protein Urine Glucose (UA) Urine Ketones Urine Blood Urine Nitrite Urine Bilirubin Urine Urobilinogen Ur Leukocyte Esterase Urine WBC (Auto) Urine RBC (Auto) U Hyaline Cast (Auto) U Epithel Cells (Auto) Urine Bacteria (Auto) Urine Comment Blood Type Blood Type Recheck Antibody Screen Crossmatch Diagnostic Findings Echocardiogram 12/24/2024 The rhythm during the transthoracic echo examination was atrial fibrillation with controlled ventriculr response. The qualitative LV ejection fraction is 45-49% (mildly reduced). The LV wall thickness is mildly increased (concentric). There is mild diffuse left ventricular hypokinesis. The left atrium is severely enlarged (>48 ml/m^2,). Mild aortic valve sclerosis is present. Mild mitral regurgitation is present. The aortic root is mildly enlarged, 4.0 cm. The ascending aorta is mildly enlarged, 4.3 cm. Compared to prior study of 07/26/2023, there is no significant change. PG Care Time/CCT Total # of Minutes Spent Total Time Spent with Patient: Total time spent is greater than 50% in coordination of care (as documented) at patient's floor/unit and/or counseling patient: Coding Level of Care Code 92495 IN/OBS CONSULT LVL 5,80M Diagnoses Uropathy, obstructive N13.9 Hematoma of kidney S37.019A Bilateral hydronephrosis N13.30 MARIAMA (acute kidney injury) N17.9 Atrial fibrillation I48.91 Microcytic anemia D50.9 CAD (coronary artery disease) I25.10
--- NOTE | 2025-05-20 09:43 | Critical Care Progress Note ---
Date of Service May 20, 2025 Assessment & Plan (1) Hydronephrosis: (2) Hematoma of kidney: (3) MARIAMA (acute kidney injury): (4) ADRYAN (obstructive sleep apnea): Plan Reason Critically Ill: 80 YOM presents with testicular pain and noted to have bilateral hydronephrosis secondary to obstruction, he was noted as well to have LEFT renal capsular hemorrhage. He went urgently to the operating room for cystoscopy with bilateral stent placements. Neuro - No acute needs, hx: CVA CAM ICU: NEGATIVE - Pain control per admitting service Cardiac - AFib with RVR, HX of CAD with stents - Continue metoprolol 100 mg twice daily - Hold losartan given acute kidney injury - He has history of HFmrEF and will avoid CCB- follow volume status - For his hx of Afib and CVA- will hold his Eliquis and Plavix related to renal capsular hemorrhage- see below- Hold antiplatelets and antixa in light of renal capsular hemorrhage Respiratory - NO acute needs, hx: ADRYAN non-compliant with recs for CPAP - Wean oxygen as able- ICS - Patient refusing CPAP GI - No acute needs RENAL/LYTES - MARIAMA on CKD, LEFT renal capsular hemorrhage, bilateral obstructing stones with hydronephrosis - Continue with volume support and renal dose medications avoid nephrotoxic medications as able and if needed minimize exposure time - LEFT renal capsular hemorrhage- likely secondary to stone and infection- - Reviewed imaging - If ongoing blood loss will require transfer for IR embolization - As above continue to hold Plavix and Eliquis - Stents per urology - As above - Continue kahn - discontinue when appropriate from urology, need accurate I's and O's given significant acute kidney injury ENDO - DMII - ICU hyperglycemic protocol goal <180mg/dl HEME - As above - Transfuse for acute bleeding, HGB <7.0, or symptomatic anemia - H&H every 8 hours ID - UTI complicated - Continue broad-spectrum until culture data available given high risk for complicated UTI in the setting of capsular hematoma retained stone and compromised kidney LINES/IV ACCESS - PIV Continue use of these lines, kahn DVT PROPHYLAXIS - SCDS, hold chemoprophylaxis in the setting of renal capsular hemorrhage Physical therapy and Occupational Therapy consults DISPO: Stable for downgrade out of the ICU Admission and Anticipated Discharge Date Admission Date: May 19, 2025 Subjective Minimal pain feels better than yesterday. Physical Exam Physical Exam: General: Alert. nontoxic. Skin: Warm, dry, Head: Atraumatic Ears, nose, mouth and throat: airway patent Cardiovascular: Normal peripheral perfusion Respiratory: no respiratory distress Gastrointestinal: Non distended Musculoskeletal: No deformity Results & Data Results & Data Vital Signs (Past 12 Hours) Vital Signs Temp Pulse Resp BP Pulse Ox O2 Flow Rate 05/20/25 05:45 36.6 C 89 18 97 05/20/25 05:45 105/58 L 05/20/25 05:45 105/58 L 05/20/25 05:39 97 H 16 98 05/20/25 05:30 115/62 05/20/25 05:18 97 H 17 99 05/20/25 05:15 107/68 05/20/25 05:15 107/68 05/20/25 05:12 103 H 16 99 05/20/25 05:00 97 H 16 99 05/20/25 04:51 93 H 16 99 05/20/25 04:45 93/56 L 05/20/25 04:31 108/62 05/20/25 04:31 108/62 05/20/25 04:15 90/51 L 05/20/25 04:15 90/51 L 05/20/25 04:03 94 H 16 96 05/20/25 04:00 36.6 C 101/56 L 05/20/25 04:00 101/56 L 05/20/25 03:45 94/48 L 05/20/25 03:45 94/48 L 05/20/25 03:42 91 H 16 97 05/20/25 03:30 90 18 98 05/20/25 03:30 101/60 05/20/25 03:30 101/60 05/20/25 03:21 92 H 23 97 05/20/25 03:18 36.6 C 96 H 18 96/53 L 96 2 05/20/25 03:15 94/53 L 05/20/25 03:15 94/53 L 05/20/25 03:15 94/53 L 05/20/25 03:06 100 H 14 97 05/20/25 03:01 109/88 05/20/25 03:01 109/88 05/20/25 03:00 100 H 15 100 05/20/25 02:45 98 H 17 97 05/20/25 02:30 93/53 L 05/20/25 02:30 93 H 17 97 05/20/25 02:18 91 H 16 100 05/20/25 02:00 94 H 16 98 05/20/25 02:00 99/61 L 05/20/25 02:00 99/61 L 05/20/25 02:00 99/61 L 05/20/25 01:45 89 16 99 05/20/25 01:00 105/59 L 05/20/25 01:00 97 H 17 98 05/20/25 00:30 92/49 L 05/20/25 00:30 92/49 L 05/20/25 00:30 93 H 15 97 05/20/25 00:00 86 17 97 05/20/25 00:00 92/56 L 05/20/25 00:00 92/56 L 05/20/25 00:00 92/56 L 05/20/25 00:00 92/56 L 05/19/25 23:33 92 H 16 98 05/19/25 23:30 89/57 L 05/19/25 23:30 89/57 L 05/19/25 23:12 116 H 20 100 05/19/25 23:00 113/71 05/19/25 22:54 95 H 14 100 05/19/25 22:48 90/53 L 05/19/25 22:48 90/53 L 05/19/25 22:48 90/53 L 05/19/25 22:42 91 H 13 93 05/19/25 22:30 84/52 L 05/19/25 22:30 94 H 13 81 L 05/19/25 22:15 100 H 16 92 05/19/25 22:00 91/54 L 05/19/25 21:54 94 H 17 91 Critical Care Results & Data Vital Signs (Past 12 Hours) Vital Signs Temp Pulse Resp BP Pulse Ox O2 Flow Rate 05/20/25 10:03 102 H 27 H 88 L 05/20/25 10:00 120/63 05/20/25 09:54 95 H 18 90 05/20/25 09:45 102 H 20 90 05/20/25 09:33 94 H 20 91 05/20/25 09:15 110 H 15 90 05/20/25 09:00 102/62 05/20/25 09:00 118 H 22 97 05/20/25 08:46 123/66 05/20/25 08:39 108 H 19 93 05/20/25 08:36 117 H 18 93 05/20/25 08:15 107 H 21 94 05/20/25 08:15 106/66 05/20/25 08:01 115/65 05/20/25 08:00 96 H 23 92 05/20/25 07:48 99 H 19 93 05/20/25 07:45 122/78 05/20/25 07:42 111 H 21 93 05/20/25 07:30 103 H 18 92 05/20/25 07:30 119/73 05/20/25 07:27 89 22 91 05/20/25 07:15 110/59 L 05/20/25 07:12 102 H 16 95 05/20/25 07:00 98 H 17 95 05/20/25 06:48 97 H 17 93 05/20/25 06:45 109/68 05/20/25 06:30 104/63 05/20/25 06:30 95 H 19 99 05/20/25 06:18 100 H 18 98 05/20/25 06:15 113/62 05/20/25 06:15 113/62 05/20/25 06:01 89/57 L 05/20/25 05:51 101 H 18 100 05/20/25 05:45 36.6 C 89 18 97 05/20/25 05:45 105/58 L 05/20/25 05:45 105/58 L 05/20/25 05:39 97 H 16 98 05/20/25 05:30 115/62 05/20/25 05:18 97 H 17 99 05/20/25 05:15 107/68 05/20/25 05:15 107/68 05/20/25 05:12 103 H 16 99 05/20/25 05:00 97 H 16 99 05/20/25 04:51 93 H 16 99 05/20/25 04:45 93/56 L 05/20/25 04:31 108/62 05/20/25 04:31 108/62 05/20/25 04:15 90/51 L 05/20/25 04:15 90/51 L 05/20/25 04:03 94 H 16 96 05/20/25 04:00 36.6 C 101/56 L 05/20/25 04:00 101/56 L 05/20/25 03:45 94/48 L 05/20/25 03:45 94/48 L 05/20/25 03:42 91 H 16 97 05/20/25 03:30 90 18 98 05/20/25 03:30 101/60 05/20/25 03:30 101/60 05/20/25 03:21 92 H 23 97 05/20/25 03:18 36.6 C 96 H 18 96/53 L 96 2 05/20/25 03:15 94/53 L 05/20/25 03:15 94/53 L 05/20/25 03:15 94/53 L 05/20/25 03:06 100 H 14 97 05/20/25 03:01 109/88 05/20/25 03:01 109/88 05/20/25 03:00 100 H 15 100 05/20/25 02:45 98 H 17 97 05/20/25 02:30 93/53 L 05/20/25 02:30 93 H 17 97 05/20/25 02:18 91 H 16 100 05/20/25 02:00 94 H 16 98 05/20/25 02:00 99/61 L 05/20/25 02:00 99/61 L 05/20/25 02:00 99/61 L 05/20/25 01:45 89 16 99 05/20/25 01:00 105/59 L 05/20/25 01:00 97 H 17 98 05/20/25 00:30 92/49 L 05/20/25 00:30 92/49 L 05/20/25 00:30 93 H 15 97 05/20/25 00:00 86 17 97 05/20/25 00:00 92/56 L 05/20/25 00:00 92/56 L 05/20/25 00:00 92/56 L 05/20/25 00:00 92/56 L 05/19/25 23:33 92 H 16 98 Lab & Micro Results (Past 24 Hours) RBC 2.82 M/uL (4.70-6.10) L 05/20/25 WBC 17.55 K/ul (4.8-10.8) H 05/20/25 Hgb 7.8 g/dl (14.0-18.0) L 05/20/25 Hct 22.8 % (42.0-52.0) L 05/20/25 MCV 80.9 fL (80.0-100.0) 05/20/25 MCH 24.1 pg (25.0-34.0) L 05/20/25 MCHC 29.8 g/dL (32.0-36.0) L 05/20/25 RDW Standard Deviation 54.1 fL (36.4-46.3) H 05/20/25 RDW Coefficient of Variation 18.4 % (11.5-14.5) H 05/20/25 Plt Count 324 K/uL (130-400) 05/20/25 MPV 9.6 fL (9.4-12.4) 05/20/25 Neutrophils (%) (Auto) 88.4 % 05/20/25 Lymphocytes (%) (Auto) 4.6 % 05/20/25 Monocytes # (Auto) 0.91 K/uL (0.11-0.59) H 05/20/25 Eosinophils # (Auto) 0.17 K/uL (0.00-0.50) 05/20/25 Immature Granulocyte % (Auto) 0.7 % 05/20/25 Neutrophils # (Auto) 15.52 K/uL (1.40-6.50) H 05/20/25 Lymphocytes # (Auto) 0.80 K/uL (1.20-3.40) L 05/20/25 Monocytes # (Auto) 0.91 K/uL (0.11-0.59) H 05/20/25 Eosinophils # (Auto) 0.17 K/uL (0.00-0.50) 05/20/25 Basophils # (Auto) 0.02 K/uL (0.00-0.20) 05/20/25 Immature Granulocyte # (Auto) 0.13 K/uL (0.01-0.20) 5 Polychromasia 1+ 05/20/25 Rouleau 1+ 05/19/25 Na 133 mmol/L (136-145) L 05/20/25 K 4.6 mmol/L (3.5-5.1) 05/20/25 Cl 98 mmol/L (98-107) 05/20/25 CO2 25 mmol/L (21-32) 05/20/25 Anion Gap 10 (3-11) 05/20/25 BUN 72 mg/dl (6-23) H 05/20/25 Creatinine 3.63 mg/dl (0.6-1.4) H 05/20/25 BUN/Creatinine Ratio 19.8 (10-20) 05/20/25 Glu 131 mg/dl (70-99(Fasting)) H 05/20/25 Ca 7.7 mg/dl (8.6-10.3) L 05/20/25 Phosphorus Level 5.5 mg/dl (2.5-4.9) H 05/20/25 Total Bilirubin 0.6 mg/dl (0.2-1.0) 05/20/25 AST 34 U/L (13-39) 05/20/25 ALT 28 U/L (7-52) 05/20/25 Alkaline Phosphatase 127 U/L (34-104) H 05/20/25 TP 6.2 gm/dl (6.0-8.3) 05/20/25 Albumin 2.5 gm/dl (3.4-5.0) L 05/20/25 Globulin 3.7 gm/dl (2.5-4.0) 05/20/25 Albumin/Globulin Ratio 0.7 (0.9-2) L 05/20/25 Mg 2.1 mg/dl (1.7-2.4) 05/20/25 02:12 Calcium Level 7.7 mg/dl (8.6-10.3) L 05/20/25 02:12 Ionized Calcium 1.02 mmol/L (1.12-1.32) L 05/20/25 07:58 Prothromb Time International Ratio 1.1 (0.9-1.1) 05/19/25 13:3 3 Diagnostic Findings (Past 24 Hours) Retrograde Pyelogram 05/19/25 00:00 FL retrograde includes kub CLINICAL HISTORY: BILAT STENT COMPARISON STUDY: None FLUOROSCOPY TIME: 8 seconds FLUOROSCOPY IMAGES: 3 EXPOSURE DOSE: 4 mGy FINDINGS: Fluoroscopy was provided for urologic procedure. IMPRESSION: Intraoperative fluoroscopy. ACT 112: Negative or not required by law. Electronically signed by: Jay Powers M.D. 05/20/2025 8:24 AM Chest X-Ray 05/19/25 13:48 XR chest 1V portable CLINICAL HISTORY: Chest pain, nonspecific COMPARISON STUDY: 07/02/2023 FINDINGS: Stable mild cardiomegaly with mild pulmonary vascular congestion. Inspiration is shallow. There is mild stranding in the lung bases. No lobar consolidation or pleural effusion. No pneumothorax. IMPRESSION: 1. Mild CHF. 2. Shallow inspiration with likely lung base atelectasis. ACT 112: Negative or not required by law. Electronically signed by: Jay Powers M.D. 05/19/2025 2:06 PM Scrotum Ultrasound 05/19/25 13:48 Exam(s): US SCROTAL EXAM: US Scrotum CLINICAL HISTORY: Reason for exam: Left testicular pain. TECHNIQUE: Real-time ultrasound of the scrotum with color Doppler and image documentation. COMPARISON: CT scan from 05/19/2025 FINDINGS: Right testicle: The right testicle measures 2.4 x 4.4 x 3.1 cm with normal echotexture normal Doppler blood flow. No torsion. Left testicle: The left testicle measures 2.8 x 4.1 x 2.6 cm with normal echotexture and normal Doppler blood flow. No torsion. Epididymides: There is a 3 x 5 mm simple cyst in the right epididymal head. Scrotum: Trace left hydrocele. IMPRESSION: No acute findings in the scrotum. Electronically signed by: Silas Restrepo MD 05/19/25 22:17 PM Abdomen/Pelvis CT 05/19/25 14:[address] WITHOUT CONTRAST CT DOSE: 1545.9 mGy.cm HISTORY: Acute kidney injury with leukocytosis MARIAMA, elevated WBC TECHNIQUE: Multiaxial CT images of the abdomen and pelvis were performed without contrast. A dose lowering technique was utilized adhering to the principles of ALARA. COMPARISON STUDY: 08/26/2024 FINDINGS: Moderate size left pleural effusion and left basilar consolidation. No pneumatosis or pneumoperitoneum. Calcified granulomata of the spleen. Moderately atrophic pancreas. Unremarkable gallbladder and adrenal glands. Hepatic steatosis. There is moderate right-sided hydroureteronephrosis secondary to obstructing 7 mm calculus ureteropelvic junction. Numerous nonobstructing calculi of the right kidney measure up to approximately 2.2 cm. Moderate left-sided hydroureteronephrosis with numerous stones present within the pelvis and ureteropelvic junction measuring up to approximately 2.6 cm. There is a large acute left sided subcapsular hematoma measuring up to approximately 11.5 x 4.4 x 14.6 cm compressing the renal parenchyma. Hemorrhage extends into the perinephric space and also since the posterior pararenal space measuring up to approximately 8.4 x 4.0 x 16.6 cm abutting the left psoas muscle. Decompressed urinary bladder with wall thickening. Prostatomegaly. Colonic diverticulosis without acute diverticulitis. Moderate colonic fecal retention. Normal appendix. No acute fracture. IMPRESSION: 1. Large acute subcapsular hemorrhage of the left kidney with hemorrhage extending into the perinephric and posterior pararenal spaces as above. 2. Nephrolithiasis with moderate bilateral hydronephrosis and calculi present within the bilateral ureteropelvic junctions. 3. No bowel obstruction or bowel wall thickening. 4. Moderate sized left pleural effusion with left basilar consolidation/atelec tasis. ACT 112: Negative or not required by law. The above report was generated using voice recognition software. It may contain grammatical, syntax or spelling errors. Electronically signed by: Win Barahona M.D. 05/19/2025 3:26 PM Abdomen Ultrasound 05/20/25 05:00 EXAM: US abdomen limited CLINICAL HISTORY: Eval LEFT capsular hemorrhage for enlargement. F/U CT 05/19 TECHNIQUE: Ultrasound examination of the LUQ was performed using a high-frequency transducer. Scanning was performed with the patient in supine position. COMPARISON: previous abdominal CT is attached, was done on 08/26/2024, the other CT study mentioned in the history was on 05/19/2025 is not attached. FINDINGS: Left Kidney: left kidney size : 12.6 × 8.4 × 7.2 cm there is subcapsular hypoechoic collection around the upper pole of the left kidney, measuring about 8.8 × 5.7 × 6.9 cm, indenting the left renal cortex. There is another collection in the superior and posterior aspect around the eft kidney, measuring 11.9 × 3.2 × 6.9 cm. Other multiple hyperechogenic foci in the calyx (suspected to represent small stones.) IMPRESSION: 1. New, Subcapsular left renal collection 8.8 × 5.7 × 6.9 cm (mildly compressing the left renal cortex). 2. New, Another pararenal collection is seen 11.9 × 3.2 × 6.9 cm. RECOMMENDATIONS: Clinical correlation with symptoms and further evaluation including CECT study fo abdomen and pelvis as indicated. Electronically signed by Rl Aguilar 05-20-2025 07:24 AM I & O Totals 24 Hours 05/19/25 05/20/25 05/21/25 06:59 06:59 06:59 Intake Total 3610.250 / 3610.250 Output Total 1125 / 1125 Balance 2485.250 / 2485.250 Cumulative 05/19/25 10:00 thru 05/20/25 06:05 Intake Total 3610.250 Output Total 1125 Balance 2485.250 RT Ventilator Mngmt (Last Documented) Ventilator Ordered Settings Respiratory Rate 27 05/20/25 10:03 Ventilator - PT Measurements Respiratory Rate 27 Coding Level of Care Code 91600 SUB INP/OBS CARE 3/50MIN Diagnoses Hydronephrosis N13.30 Hematoma of kidney S37.019A MARIAMA (acute kidney injury) N17.9 ADRYAN (obstructive sleep apnea) G47.33
--- NOTE | 2025-05-20 10:55 | Urology Progress Note ---
Date of Service May 20, 2025 Assessment & Plan (1) Bilateral hydronephrosis: (2) Calculus of proximal left ureter: (3) Calculus of proximal right ureter: (4) MARIAMA (acute kidney injury): (5) Hematoma of left kidney: Plan: - Pt POD#1 s/p emergent cystoscopy and bilateral ureteral stent placement due to bilateral obstructing stones - Subjectively doing well today, denies pain - Remains afebrile, HR 90-110s, BP stable - Labs reviewedcreatinine 3.63, WBC 17.55, Hemoglobin 6.8 this morning and he received 1 unit PRBCs, repeat Hgb 7.8 - Urine and blood cultures are pending - Tolerating bilateral ureteral stents with minimal bother - Maintain Knutson catheter at this time - Continue broad-spectrum antibiotics and narrow per sensitivity data when available - Monitor serial H&H, transfuse as necessary per primary team - If hemodynamic instability or he has a substantial transfusion requirement, recommend transfer to tertiary center for possible IR embolization - will follow, please contact our service with any additional questions or concerns Admission and Anticipated Discharge Date Admission Date: May 19, 2025 Subjective Patient seen and examined at bedside this morning No acute issues overnight Denies flank pain or testicular pain Notes mild dysuria with Knutson catheter No fever or chills Received 1 unit of PRBCs this morning Review of Systems Constitutional: as per Subjective / HPI Genitourinary: + as per Subjective / HPI Physical Exam Constitutional: no acute distress Respiratory: no respiratory distress and no labored breathing Musculoskeletal: Head/Neck/Chest: normocephalic Neurologic: moves all extremities and awake Psychiatric: Orientation: alert and oriented x 3 Genitourinary: Knutson patent and draining clear yellow urine Results & Data Vital Signs (Past 12 Hours) Vital Signs Temp Pulse Resp BP Pulse Ox O2 Flow Rate 05/20/25 10:03 102 H 27 H 88 L 05/20/25 10:00 120/63 05/20/25 09:54 95 H 18 90 05/20/25 09:45 102 H 20 90 05/20/25 09:33 94 H 20 91 05/20/25 09:15 110 H 15 90 05/20/25 09:00 102/62 05/20/25 09:00 118 H 22 97 05/20/25 08:46 123/66 05/20/25 08:39 108 H 19 93 07/02/25 08:36 117 H 18 93 05/20/25 08:15 107 H 21 94 05/20/25 08:15 106/66 05/20/25 08:01 115/65 05/20/25 08:00 96 H 23 92 05/20/25 07:48 99 H 19 93 05/20/25 07:45 122/78 05/20/25 07:42 111 H 21 93 05/20/25 07:30 103 H 18 92 05/20/25 07:30 119/73 05/20/25 07:27 89 22 91 05/20/25 07:15 110/59 L 05/20/25 07:12 102 H 16 95 05/20/25 07:00 98 H 17 95 05/20/25 06:48 97 H 17 93 05/20/25 06:45 109/68 05/20/25 06:30 104/63 05/20/25 06:30 95 H 19 99 05/20/25 06:18 100 H 18 98 05/20/25 06:15 113/62 05/20/25 06:15 113/62 05/20/25 06:01 89/57 L 05/20/25 05:51 101 H 18 100 05/20/25 05:45 36.6 C 89 18 97 05/20/25 05:45 105/58 L 05/20/25 05:45 105/58 L 05/20/25 05:39 97 H 16 98 05/20/25 05:30 115/62 05/20/25 05:18 97 H 17 99 05/20/25 05:15 107/68 05/20/25 05:15 107/68 05/20/25 05:12 103 H 16 99 05/20/25 05:00 97 H 16 99 05/20/25 04:51 93 H 16 99 05/20/25 04:45 93/56 L 05/20/25 04:31 108/62 05/20/25 04:31 108/62 05/20/25 04:15 90/51 L 05/20/25 04:15 90/51 L 05/20/25 04:03 94 H 16 96 05/20/25 04:00 36.6 C 101/56 L 05/20/25 04:00 101/56 L 05/20/25 03:45 94/48 L 05/20/25 03:45 94/48 L 05/20/25 03:42 91 H 16 97 05/20/25 03:30 90 18 98 05/20/25 03:30 101/60 05/20/25 03:30 101/60 05/20/25 03:21 92 H 23 97 05/20/25 03:18 36.6 C 96 H 18 96/53 L 96 2 05/20/25 03:15 94/53 L 05/20/25 03:15 94/53 L 05/20/25 03:15 94/53 L 05/20/25 03:06 100 H 14 97 05/20/25 03:01 109/88 05/20/25 03:01 109/88 05/20/25 03:00 100 H 15 100 05/20/25 02:45 98 H 17 97 05/20/25 02:30 93/53 L 05/20/25 02:30 93 H 17 97 05/20/25 02:18 91 H 16 100 05/20/25 02:00 94 H 16 98 05/20/25 02:00 99/61 L 05/20/25 02:00 99/61 L 05/20/25 02:00 99/61 L 05/20/25 01:45 89 16 99 05/20/25 01:00 105/59 L 05/20/25 01:00 97 H 17 98 05/20/25 00:30 92/49 L 05/20/25 00:30 92/49 L 05/20/25 00:30 93 H 15 97 05/20/25 00:00 86 17 97 05/20/25 00:00 92/56 L 05/20/25 00:00 92/56 L 05/20/25 00:00 92/56 L 05/20/25 00:00 92/56 L 05/19/25 23:33 92 H 16 98 05/19/25 23:30 89/57 L 05/19/25 23:30 89/57 L 05/19/25 23:12 116 H 20 100 05/19/25 23:00 113/71 05/19/25 22:54 95 H 14 100 PG Care Time/CCT Total # of Minutes Spent Total Time Spent with Patient: Total time spent is greater than 50% in coordination of care (as documented) at patient's floor/unit and/or counseling patient: Coding Level of Care Code 06554 SUB INP/OBS CARE 2/35MIN Diagnoses Bilateral hydronephrosis N13.30 Calculus of proximal left ureter N20.1 Calculus of proximal right ureter N20.1 MARIAMA (acute kidney injury) N17.9 Hematoma of left kidney S37.012A
[2025-05-20 11:47] LABS: Iron 12 mcg/dl (35-175); Total Iron Binding Cap Calc 220 mcg/dl (250-450); Transferrin 157 mg/dl (200-360); Transferrin (FE) Percent Satur 5 % (20-50)
[2025-05-20] MEDS: OPTIRAY 320 125ml IV ONE (12:38)
[2025-05-20] MEDS: CALCIUM GLUCONATE 1,000 MG/60 ML BAG IV STA (13:08)
--- NOTE | 2025-05-20 13:18 | CT Scan Report ---
CT ANGIOGRAPHY OF THE ABDOMEN AND PELVIS CLINICAL HISTORY: Concern for active bleeding. COMPARISON STUDY: CT of the abdomen and pelvis August 26, 2024 and May 19, 2025. Renal ultrasound pe rformed earlier today. TECHNIQUE: Helical axial images of the abdomen and pelvis were obtained during arterial phase followi ng intravenous injection 120 cc of Optiray 320 IV. Sagittal and coronal reformats were viewed as well as maximal intensity projections on an independent 3-D workstation. A dose lowering technique was ut ilized adhering to the principles of ALARA. FINDINGS: Small left and trace right pleural effusions are similar to prior CT. No pneumatosis, free air or portal venous gas is present. A large acute left renal subcapsular hematoma is unchanged in si ze since CT of May 19, 2025, measuring approximately 13 x 9.4 x 6.7 cm in the craniocaudal by transve rse by AP dimensions respectively. No active extravasation is identified. No pseudoaneurysm is identi fied. Caliber of the abdominal aorta is normal. There is moderate plaque within the abdominal aorta a nd branch vessels without high-grade stenosis. Left suprarenal retroperitoneal hypodense fluid collec tions measuring up to 7.8 x 4.3 cm are unchanged. A small amount of left perinephric hemorrhage is al so unchanged. No new sites of hemorrhage within the abdomen or pelvis are identified. Bilateral urete ral stents are in place. Moderate right hydronephrosis has slightly improved. Left hydronephrosis has resolved. Extensive bilateral renal calculi are again noted. Numerous bilateral renal pelvis calculi are again noted as well as a 7 mm right ureteropelvic junction calculus. Trace gas within the left c ollecting systems related to recent procedure. Knutson balloon within the bladder is noted. The bladder is collapsed. There is no evidence for a bowel obstruction. Caliber and wall thickness of small and large bowel are normal. Arterial phase images of the liver, spleen, adrenal glands and pancreas are u nremarkable. IMPRESSION: 1. No change in size of a large acute left renal subcapsular hematoma with stable mass effect upon th e left renal parenchyma. No active extravasation. No pseudoaneurysm. 2. No change in left suprarenal retroperitoneal hypodense fluid collections. No change in a small elizabet unt of left perinephric hemorrhage. No new sites of bleeding within the abdomen or pelvis. 3. Bilateral ureteral stents in place. Resolution of left hydronephrosis. Moderate right hydronephros is, mildly improved since prior exam. 4. Redemonstration of numerous bilateral renal and renal pelvis calculi. ACT 112: Negative or not required by law. Electronically signed by: Earnest Victor M.D. 05/20/2025 1:16 PM
--- NOTE | 2025-05-20 13:34 | Hospitalist Progress Note ---
Date of Service May 20, 2025 Assessment & Plan (1) Hemorrhagic shock: Plan: -as noted by significant hypotension, elevated AG, and 6 point Hgb drop on admission -noted large hematomas on left kidney -received a unit of blood this morning -BP continues to be low but stable at this time -CTA abdomen/pelvis revealed no active bleed, mass effect on left kidney, poor cap refill on exam Plan: -trend BP -fluid resuscitation when needed -q12hr CBC -hold all blood thinners -if CBC continues to drop will need transfer to higher level of care for possible ablation and higher level of monitoring -will check echo given EF 40-45% (2) MARIAMA (acute kidney injury): Plan: -Significant increase in BUN and creatinine of 67 over/3.72 -Secondary to ureteral obstructions bilaterally and associated hydronephrosis, also mass effect on left kidney, shock -suspect prerenal, post renal and ATN effects, did get contrast given concern for active bleed Plan: -start maintenance fluids to encourage renal recovery, 80cc/hr given EF -depending on creatinine trend will consult nephrology (3) Bilateral hydronephrosis: Plan: -Long history of bilateral nephrolithiasis and presented with left testicular pain -Noted to have bilateral hydronephrosis secondary to bilateral ureteric obstruction due to stone Plan: -Appreciate urology input and placement of bilateral ureteric stent -improving s/p stent placement (4) Hematoma of kidney: Plan: -Also has hematoma of the left kidney and is complicated by Eliquis -Eliquis is on hold and will Monitor hemoglobin -s/p pradaxa -appears stable at this time on imaging, Hgb trend concerning, will monitor closely (5) Sepsis: Plan: -Presented with left testicular pain without any fever and/or chills -Has bilateral hydronephrosis with ureteric obstruction and very high white count with tachycardia Plan: -continue ceftriaxone and daptomycin for now, deescalate based on urine culture (6) Calculus of proximal left ureter: (7) Calculus of proximal right ureter: (8) CAD (coronary artery disease): Plan: -Status post cath in November 2023 with JOCE in LAD and distal RCA and has been on Plavix - Will hold Plavix at this time (9) Atrial fibrillation with rapid ventricular response: Plan: -Presented with a A Fib with RVR -Intravenous Cardizem has been started and the rate is improving Plan: -continue with beta-isis -Cardiology consult, appreciate recs (10) Hypertension: (11) Diabetes: Plan: -SSI Plan I spent a total of 60 minutes in direct patient care, including [id number] time with the patient and/or family, reviewing medical records, ordering and reviewing diagnostic tests, and coordinating care with other healthcare providers. This time includes: history taking, physical examination, medical decision making, counseling, ECG interpretation, imaging interpretation, lab interpretation, orders, and education, excluding time spent in the performance of separately billed services. Admission and Anticipated Discharge Date Admission Date: May 19, 2025 Subjective Patient seen and examined at bedside. Patient doing ok today. Does not feel well overall. States he is cold. Review of Systems Review of Systems: CONSTITUTIONAL: fatigue, cold EYES: Patient denies any visual symptoms. EARS, NOSE, AND THROAT: No difficulties with hearing. No symptoms of rhinitis or sore throat. CARDIOVASCULAR: Patient denies chest pains, palpitations, orthopnea and paroxysmal nocturnal dyspnea. RESPIRATORY: No dyspnea on exertion, no wheezing or cough. GI: No nausea, vomiting, diarrhea, constipation, abdominal pain, hematochezia or melena. : No urinary hesitancy or dribbling. No nocturia or urinary frequency. No abnormal urethral discharge. MUSCULOSKELETAL: No myalgias or arthralgias. NEUROLOGIC: No chronic headaches, no seizures. Patient denies numbness, tingling or weakness. PSYCHIATRIC: Patient denies problems with mood disturbance. No problems with anxiety. ENDOCRINE: No excessive urination or excessive thirst. DERMATOLOGIC: Patient denies any rashes or skin changes. Physical Exam Physical Exam: Gen: A&O 3 NAD, pale HEENT: NCAT, EOMI, not icteric. External ears normal. No rhinorrhea. Moist mucous membranes. Neck: Supple, full range of motion, no observable masses, No meningeal sign. Lungs: No Respiratory distress. CV: RRR, no edema. Abdomen: Soft, nondistended, No rebound tenderness. MSK: minimal cap refill in bilateral hands, mild mottling in bilateral hands noted Skin: No rashes, petechiae, lesions. Normal color per patient. Neuro: Normal Gait, Grossly intact. Psych: Appropriate for situation. Results & Data Results & Data Vital Signs (Past 12 Hours) Vital Signs Temp Pulse Resp BP Pulse Ox O2 Del Method O2 Flow Rate 05/20/25 10:03 102 H 27 H 88 L 05/20/25 10:00 120/63 05/20/25 09:54 95 H 18 90 05/20/25 09:45 102 H 20 90 05/20/25 09:33 94 H 20 91 05/20/25 09:15 110 H 15 90 05/20/25 09:00 102/62 05/20/25 09:00 118 H 22 97 05/20/25 08:46 123/66 05/20/25 08:39 108 H 19 93 05/20/25 08:36 117 H 18 93 05/20/25 08:15 107 H 21 94 05/20/25 08:15 106/66 05/20/25 08:01 115/65 05/20/25 08:00 96 H 23 92 05/20/25 07:48 99 H 19 93 05/20/25 07:45 122/78 05/20/25 07:42 111 H 21 93 05/20/25 07:30 Room Air 05/20/25 07:30 103 H 18 92 05/20/25 07:30 119/73 05/20/25 07:27 89 22 91 05/20/25 07:15 110/59 L 05/20/25 07:12 102 H 16 95 05/20/25 07:00 98 H 17 95 05/20/25 06:48 97 H 17 93 05/20/25 06:45 109/68 05/20/25 06:30 104/63 05/20/25 06:30 95 H 19 99 05/20/25 06:18 100 H 18 98 05/20/25 06:15 113/62 05/20/25 06:15 113/62 05/20/25 06:01 89/57 L 05/20/25 05:51 101 H 18 100 05/20/25 05:45 36.6 C 89 18 97 05/20/25 05:45 105/58 L 05/20/25 05:45 105/58 L 05/20/25 05:39 97 H 16 98 05/20/25 05:30 115/62 05/20/25 05:18 97 H 17 99 05/20/25 05:15 107/68 05/20/25 05:15 107/68 05/20/25 05:12 103 H 16 99 05/20/25 05:00 97 H 16 99 05/20/25 04:51 93 H 16 99 05/20/25 04:45 93/56 L 05/20/25 04:31 108/62 05/20/25 04:31 108/62 05/20/25 04:15 90/51 L 05/20/25 04:15 90/51 L 05/20/25 04:03 94 H 16 96 05/20/25 04:00 36.6 C 101/56 L 05/20/25 04:00 101/56 L 05/20/25 03:45 94/48 L 05/20/25 03:45 94/48 L 05/20/25 03:42 91 H 16 97 05/20/25 03:30 90 18 98 05/20/25 03:30 101/60 05/20/25 03:30 101/60 05/20/25 03:21 92 H 23 97 05/20/25 03:18 36.6 C 96 H 18 96/53 L 96 2 05/20/25 03:15 94/53 L 05/20/25 03:15 94/53 L 05/20/25 03:15 94/53 L 05/20/25 03:06 100 H 14 97 05/20/25 03:01 109/88 05/20/25 03:01 109/88 05/20/25 03:00 100 H 15 100 05/20/25 02:45 98 H 17 97 05/20/25 02:30 93/53 L 05/20/25 02:30 93 H 17 97 05/20/25 02:18 91 H 16 100 05/20/25 02:00 94 H 16 98 05/20/25 02:00 99/61 L 05/20/25 02:00 99/61 L 05/20/25 02:00 99/61 L 05/20/25 01:45 89 16 99 Laboratory Results -personally reviewed, downtrending leukocytosis, Hgb of 6.8 requiring transfusion, creatinien relatively unchanged at 3.63, ionized calcium of 1.02 repleted Medications Administered Finasteride (Finasteride 5 Mg Tab) 5 mg PO QAM [facility] Stop: 06/19/25 08:59 Last Admin: 05/20/25 08:36 Dose: 5 mg Documented By: MTP Daptomycin 700 mg/ Syringe 14 mls @ 7.75 mls/min IV Q48H [facility]; Protocol Stop: 05/29/25 16:59 Last Admin: 05/19/25 20:48 Dose: 7.75 mls/min Documented By: TP Insulin Aspart (Insulin Aspart Per Unit Charge) 0 units SC ACHS [facility] Stop: 06/18/25 20:59 Last Admin: 05/20/25 13:08 Dose: 4 units Documented By: MTP Co-signed By: XANDER Admin: 05/20/25 08:39 Dose: 2 units Documented By: MTP Co-signed By: JEAN CARLOS Admin: 05/19/25 20:57 Dose: 1 units Documented By: TP Co-signed By: ROSE MARIE Multivitamins/Minerals (Cerovite Adv Formula Tab) 1 tab PO [facility] Stop: 06/19/25 08:59 Last Admin: 05/20/25 08:36 Dose: 1 tab Documented By: JADE Rosuvastatin Calcium (Rosuvastatin Calcium 20 Mg Tab) 40 mg PO [facility] Stop: 06/19/25 08:59 Last Admin: 05/20/25 08:36 Dose: 40 mg Documented By: MTP
[2025-05-20] MEDS: LACTATED RINGER'S 1,000 ML IV SCH ×2 (14:21→16:12)
[2025-05-20 14:37] LABS: Hematocrit (blood only) 27.5 % (42.0-52.0); Hemoglobin 8.3 g/dl (14.0-18.0)
[2025-05-20] MEDS: cefTRIAXone SODIUM 2,000 MG/50 ML BAG IV SCH (16:13)
[2025-05-20 16:40] LABS: Hematocrit (blood only) 26.3 % (42.0-52.0); Hemoglobin 8.1 g/dl (14.0-18.0)
[2025-05-20] MEDS: METOPROLOL SUCC 50MG EXT REL TAB PO SCH (20:41)
[2025-05-20 21:45] LABS: Hematocrit (blood only) 24.5 % (42.0-52.0); Hemoglobin 7.7 g/dl (14.0-18.0); Mean Corpuscular Hemoglobin 24.7 pg (25.0-34.0); Mean Corpuscular Volume 78.5 fL (80.0-100.0); Platelet Count 364 K/uL (130-400); RDW Standard Deviation 52.8 fL (36.4-46.3); Red Blood Count 3.12 M/uL (4.70-6.10); White Blood Count 14.49 K/ul (4.8-10.8)
[2025-05-21 00:52] LABS: Hematocrit (blood only) 23.8 % (42.0-52.0); Hemoglobin 7.3 g/dl (14.0-18.0)
[2025-05-21 08:01] LABS: Hematocrit (blood only) 25.7 % (42.0-52.0); Hemoglobin 7.9 g/dl (14.0-18.0); Mean Corpuscular Hemoglobin 24.3 pg (25.0-34.0); Mean Corpuscular Volume 79.1 fL (80.0-100.0); Platelet Count 387 K/uL (130-400); RDW Standard Deviation 53.4 fL (36.4-46.3); Red Blood Count 3.25 M/uL (4.70-6.10); White Blood Count 11.51 K/ul (4.8-10.8)
[2025-05-21 08:17] LABS: Anion Gap 8.0 (3-11); Blood Urea Nitrogen 69.0 mg/dl (6-23); Calcium 7.8 mg/dl (8.6-10.3); Carbon Dioxide 27.0 mmol/L (21-32); Chloride 99.0 mmol/L (98-107); Creatinine Clr Calc Pharmacy 28.2 ml/min; Glucose 110.0 mg/dl (70-99(Fasting)); Potassium 4.1 mmol/L (3.5-5.1); Sodium 134.0 mmol/L (136-145)
--- NOTE | 2025-05-21 08:28 | Urology Progress Note ---
Date of Service May 21, 2025 Assessment & Plan (1) Bilateral hydronephrosis: (2) Calculus of proximal left ureter: (3) Calculus of proximal right ureter: (4) MARIAMA (acute kidney injury): (5) Hematoma of left kidney: Plan: - Pt POD#2 s/p emergent cystoscopy and bilateral ureteral stent placement due to bilateral obstructing stones - Subjectively doing well today, denies pain - Remains afebrile, HR 90-110s, BP stable - Labs reviewedcreatinine 2.75, WBC 11.51, Hemoglobin 7.9 (1 unit PRBC this admission) - CTA yesterday with stable left subcapsular renal hemorrhage, no active extravasation, no pseudoaneurysm, no new sites of bleeding within the abdomen pe lvis - Urine culture with 3 types of organisms present, all low counts probable skin ever - Blood cultures no growth x 24 hours - Tolerating bilateral ureteral stents with minimal bother - Maintain Knutson catheter at this time, urine clear - Continue broad-spectrum antibiotics and narrow per sensitivity data when available - Monitor serial H&H, transfuse as necessary per primary team - Continue to hold anticoagulation - If hemodynamic instability or he has a substantial transfusion requirement, recommend transfer to tertiary center for possible IR embolization - will follow, please contact our service with any additional questions or concerns Admission and Anticipated Discharge Date Admission Date: May 19, 2025 Subjective Patient seen and examined at bedside this morning No acute issues overnight Denies flank, abdominal or testicular discomfort Knutson intact, urine clear Denies nausea, vomiting, fever or chills Review of Systems Constitutional: as per Subjective / HPI Genitourinary: + as per Subjective / HPI Physical Exam Constitutional: no acute distress Respiratory: normal respiratory effort; no respiratory distress and no labored breathing Gastrointestinal (Abdomen): Inspection/Auscultation: abdomen normal to inspection Musculoskeletal: Head/Neck/Chest: normocephalic Neurologic: moves all extremities and awake Psychiatric: Orientation: alert and oriented x 3 Genitourinary: Knutson draining clear yellow Results & Data Vital Signs (Past 12 Hours) Vital Signs Temp Pulse Pulse Resp BP BP Pulse Ox 05/21/25 07:58 101 H 05/21/25 07:48 05/21/25 07:31 36.8 C 109 H 18 116/78 95 05/21/25 03:50 36.8 C 108 H 18 129/74 94 07/02/25 23:12 36.6 C 111 H 18 129/70 90 05/20/25 21:00 O2 Del Method 05/21/25 07:58 05/21/25 07:48 Room Air 05/21/25 07:31 Room Air 05/21/25 03:50 Room Air 05/20/25 23:12 Room Air 05/20/25 21:00 Room Air PG Care Time/CCT Total # of Minutes Spent Total Time Spent with Patient: Total time spent is greater than 50% in coordination of care (as documented) at patient's floor/unit and/or counseling patient: Coding Level of Care Code 21270 SUB INP/OBS CARE 2/35MIN Diagnoses Bilateral hydronephrosis N13.30 Calculus of proximal left ureter N20.1 Calculus of proximal right ureter N20.1 MARIAMA (acute kidney injury) N17.9 Hematoma of left kidney S37.012A
[2025-05-21] MEDS: METOPROLOL SUCC 50MG EXT REL TAB PO ONE (11:03)
--- NOTE | 2025-05-21 11:22 | Cardiology Progress Note ---
Date of Service May 21, 2025 Assessment & Plan (1) Uropathy, obstructive: (2) Hematoma of kidney: (3) Bilateral hydronephrosis: (4) MARIAMA (acute kidney injury): (5) Atrial fibrillation: (6) Microcytic anemia: (7) CAD (coronary artery disease): Plan Patient is a complex 80-year-old male with known coronary disease with prior current intervention November 2023, longstanding persistent atrial fibrillation. Patient on chronic antiplatelet and anticoagulant therapy with clopidogrel and apixaban. Atrial fibrillation rates usually controlled on 100 mg metoprolol succinate twice daily. Patient presents with obstructive uropathy and acute renal failure. Initial presentation notable for elevated heart rate response to chronic atrial fibrillation secondary to pain and underlying pathologies. Hemodynamically improved this morning 1. Longstanding persistent atrial fibrillation with elevated ventricular response rate secondary to acute medical processes. Recommend resuming metoprolol succinate at reduced dose for cardioprotective and rate control. 2. Chronic anticoagulation and antiplatelet therapy. Recommend as already begun holding clopidogrel and apixaban. Will ultimately require at least antiplatelet therapy once clinical course stabilized 3. Microcytic anemia: Iron studies ordered. Patient received 1 unit packed red cells 4. Acute renal insufficiency/obstructive uropathy. Making urine today and may ultimately manifest postobstructive diuresis. 05/21/2025 Patient clinically improving. Hemoglobin stable. No signs of overt bleeding. Heart rate trending towards better control and blood pressure stable issues addressed as follows 1. Longstanding persistent atrial fibrillation with elevated ventricular response secondary to acute illness. Blood pressure is now stable may resume full dose metoprolol succinate 100 mg twice per day for heart rate control. Patient to remain off apixaban. Patient will need cardiology follow-up post hospital discharge, discussed possible Watchman procedure given anticoagulation needs 2. Chronic coronary artery disease status post drug-eluting stents November 2023. Clopidogrel discontinued ultimate goal resume aspirin 81 mg/day 3. Obstructive uropathy, subcapsular renal hemorrhage. Renal function improving 4. Acute blood loss anemia with possible superimposed chronic anemia with iron deficiency. Consider iron supplement IV versus oral Contact cardiology with any additional questions Admission and Anticipated Discharge Date Admission Date: May 19, 2025 Subjective Patient was seen and personally examined. Chart medications and telemetry reviewed. Clinically improved but has remained predominately at bedrest. Good urinary outputs. Hemoglobin stable. Heart rate low 100s. No chest pain or shortness of breath No overt bleeding. Renal function improving Review of Systems Review of Systems: All systems reviewed & are unremarkable except as noted in Subjective Physical Exam Constitutional: + obese; no acute distress Eyes: PERRL, conjunctivae normal, anicteric sclerae ENMT: external ear and nose normal, oropharynx normal Neck: trachea midline, no thyromegaly Respiratory: Auscultation: lungs clear to auscultation bilaterally and + diminished lung sounds Cardiovascular: Rate/Rhythm: + irregularly irregular Heart Sounds: normal S1 and normal S2 Vessels: no JVD Extremities: + edema Gastrointestinal (Abdomen): normal bowel sounds, soft, nontender, no hepatosplenomegaly Results & Data Vital Signs (Past 12 Hours) Vital Signs Temp Pulse Pulse Resp BP BP Pulse Ox 05/21/25 07:58 101 H 05/21/25 07:48 05/21/25 07:31 36.8 C 109 H 18 116/78 95 05/21/25 03:50 36.8 C 108 H 18 129/74 94 O2 Del Method 05/21/25 07:58 05/21/25 07:48 Room Air 05/21/25 07:31 Room Air 05/21/25 03:50 Room Air Laboratory Results Laboratory Results - last 24 hr 05/20/25 05/20/25 05/20/25 07:58 13:54 15:59 WBC RBC Hgb 8.3 L 8.1 L Hct 27.5 L 26.3 L MCV MCH MCHC RDW Std Deviation RDW Coeff of Leeanne Plt Count MPV Sodium Potassium Chloride Carbon Dioxide Anion Gap BUN Creatinine Est Cr Clr Drug Dosing eGFR BUN/Creatinine Ratio Glucose POC Glucose Calcium Iron 12 L TIBC 220 L Transferrin 157 L Transferrin % Sat 5 L 05/20/25 05/20/25 05/20/25 16:16 20:59 21:00 WBC 14.49 H RBC 3.12 L Hgb 7.7 L Hct 24.5 L MCV 78.5 L MCH 24.7 L MCHC 31.4 L RDW Std Deviation 52.8 H RDW Coeff of Leeanne 18.5 H Plt Count 364 MPV 9.9 Sodium Potassium Chloride Carbon Dioxide Anion Gap BUN Creatinine Est Cr Clr Drug Dosing eGFR BUN/Creatinine Ratio Glucose POC Glucose 132 H 154 H Calcium Iron TIBC Transferrin Transferrin % Sat 05/21/25 05/21/25 05/21/25 00:31 07:32 07:47 WBC 11.51 H RBC 3.25 L Hgb 7.3 L 7.9 L Hct 23.8 L 25.7 L MCV 79.1 L MCH 24.3 L MCHC 30.7 L RDW Std Deviation 53.4 H RDW Coeff of Leeanne 18.4 H Plt Count 387 MPV 9.4 Sodium 134 L Potassium 4.1 Chloride 99 Carbon Dioxide 27 Anion Gap 8 BUN 69 H Creatinine 2.75 H D Est Cr Clr Drug Dosing 28.2 eGFR 22.60 BUN/Creatinine Ratio 25.1 H Glucose 110 H POC Glucose 128 H Calcium 7.8 L Iron TIBC Transferrin Transferrin % Sat PG Care Time/CCT Total # of Minutes Spent Total Time Spent with Patient: Total time spent is greater than 50% in coordination of care (as documented) at patient's floor/unit and/or counseling patient: Coding Level of Care Code 74237 SUB INP/OBS CARE 3/50MIN Diagnoses Uropathy, obstructive N13.9 Hematoma of kidney S37.019A Bilateral hydronephrosis N13.30 MARIAMA (acute kidney injury) N17.9 Atrial fibrillation I48.91 Microcytic anemia D50.9 CAD (coronary artery disease) I25.10
--- NOTE | 2025-05-21 13:48 | Hospitalist Progress Note ---
Date of Service May 21, 2025 Assessment & Plan (1) Hemorrhagic shock: Plan: -as noted by significant hypotension, elevated AG, and 6 point Hgb drop on admission -noted large hematomas on left kidney -received a unit of blood 05/20/2025 -CTA abdomen/pelvis revealed no active bleed, mass effect on left kidney per 05/2025 -discussed transfer with [facility], monitor for now, if any evidence of further bleeding transfer Plan: -q12hr CBC -hold all blood thinners -if CBC continues to drop will need transfer to higher level of care for possible ablation and higher level of monitoring (2) MARIAMA (acute kidney injury): Plan: -Significant increase in BUN and creatinine of 67 over/3.72 -Secondary to ureteral obstructions bilaterally and associated hydronephrosis, also mass effect on left kidney, shock -suspect prerenal, post renal and ATN effects, did get contrast given concern for active bleed -improved today with fluids Plan: -hold fluids today given elevated weight -may get postobstructive diuresis, currently net even (3) Bilateral hydronephrosis: Plan: -Long history of bilateral nephrolithiasis and presented with left testicular pain -Noted to have bilateral hydronephrosis secondary to bilateral ureteric obstruction due to stone Plan: -Appreciate urology input and placement of bilateral ureteric stent -improving s/p stent placement (4) Hematoma of kidney: Plan: -Also has hematoma of the left kidney and is complicated by Eliquis -Eliquis is on hold and will Monitor hemoglobin -s/p pradaxa -appears stable at this time on imaging (5) Sepsis: Plan: -Presented with left testicular pain without any fever and/or chills -Has bilateral hydronephrosis with ureteric obstruction and very high white count with tachycardia -no MRSA prior on urine cultures, no urine culture growth Plan: -continue ceftriaxone, stop daptomycin -will need 7 day course of abx total (6) Calculus of proximal left ureter: (7) Calculus of proximal right ureter: (8) CAD (coronary artery disease): Plan: -Status post cath in November 2023 with JOCE in LAD and distal RCA and has been on Plavix -Will hold Plavix at this time (9) Atrial fibrillation with rapid ventricular response: Plan: -Presented with a A Fib with RVR -Intravenous Cardizem has been started and the rate is improving Plan: -continue with beta-isis -Cardiology consult, appreciate recs -will await 48 hours of Hgb stability and no further evidence of bleed before restarting anticoagulation (10) Hypertension: (11) Diabetes: Plan: -SSI Plan I spent a total of 45 minutes in direct patient care, including [id number] time with the patient and/or family, reviewing medical records, ordering and reviewing diagnostic tests, and coordinating care with other healthcare providers. This time includes: history taking, physical examination, medical decision making, counseling, ECG interpretation, imaging interpretation, lab interpretation, orders, and education, excluding time spent in the performance of separately billed services. Admission and Anticipated Discharge Date Admission Date: May 19, 2025 Subjective Patient seen and examined at bedside. Patient doing ok today, feeling better than he did yesterday. Review of Systems Review of Systems: CONSTITUTIONAL: fatigue, cold (improving) EYES: Patient denies any visual symptoms. EARS, NOSE, AND THROAT: No difficulties with hearing. No symptoms of rhinitis or sore throat. CARDIOVASCULAR: Patient denies chest pains, palpitations, orthopnea and paroxysmal nocturnal dyspnea. RESPIRATORY: No dyspnea on exertion, no wheezing or cough. GI: No nausea, vomiting, diarrhea, constipation, abdominal pain, hematochezia or melena. : No urinary hesitancy or dribbling. No nocturia or urinary frequency. No abnormal urethral discharge. MUSCULOSKELETAL: No myalgias or arthralgias. NEUROLOGIC: No chronic headaches, no seizures. Patient denies numbness, tingling or weakness. PSYCHIATRIC: Patient denies problems with mood disturbance. No problems with anxiety. ENDOCRINE: No excessive urination or excessive thirst. DERMATOLOGIC: Patient denies any rashes or skin changes. Physical Exam Physical Exam: Gen: A&O 3 NAD, pale HEENT: NCAT, EOMI, not icteric. External ears normal. No rhinorrhea. Moist mucous membranes. Neck: Supple, full range of motion, no observable masses, No meningeal sign. Lungs: No Respiratory distress. CV: RRR, no edema. Abdomen: Soft, nondistended, No rebound tenderness. MSK: improved cap refill and warmth in hands this morning Skin: No rashes, petechiae, lesions. Normal color per patient. Neuro: Normal Gait, Grossly intact. Psych: Appropriate for situation. Results & Data Results & Data Vital Signs (Past 12 Hours) Vital Signs Temp Pulse Pulse Resp BP BP Pulse Ox 05/21/25 11:22 36.6 C 94 H 18 123/71 94 05/21/25 07:58 101 H 05/21/25 07:48 05/21/25 07:31 36.8 C 109 H 18 116/78 95 05/21/25 03:50 36.8 C 108 H 18 129/74 94 O2 Del Method 05/21/25 11:22 Room Air 05/21/25 07:58 05/21/25 07:48 Room Air 05/21/25 07:31 Room Air 05/21/25 03:50 Room Air Laboratory Results -personally reviewed, downtrending WBC suggestive of improving infection, Hgb 1 point lower than yesterday but recheck improved, creatinine of 2.75 Medications Administered Finasteride (Finasteride 5 Mg Tab) 5 mg PO QAM [facility] Stop: 06/19/25 08:59 Last Admin: 05/21/25 08:40 Dose: 5 mg Documented By: Admin: 05/20/25 08:36 Dose: 5 mg Documented By: JADE Daptomycin 700 mg/ Syringe 14 mls @ 7.75 mls/min IV Q48H [facility]; Protocol Stop: 05/29/25 16:59 Last Admin: 05/19/25 20:48 Dose: 7.75 mls/min Documented By: URIEL Ceftriaxone Sodium (Rocephin) 2,000 mg in 50 mls @ 100 mls/hr IV Q24H [facility] Stop: 05/28/25 14:29 Last Infusion: 05/20/25 16:45 Dose: Infused Documented By: Admin: 05/20/25 16:13 Dose: 100 mls/hr Documented By: GABRIELA Insulin Aspart (Insulin Aspart Per Unit Charge) 0 units SC ACHS [facility] Stop: 06/18/25 20:59 Last Admin: 05/21/25 12:58 Dose: 2 units Documented By: TOM Co-signed By: CA Admin: 05/21/25 08:38 Dose: 4 units Documented By: TOM Co-signed By: ZEESHAN Admin: 05/20/25 21:27 Dose: 1 units Documented By: JAIRO Co-signed By: EDWARD Admin: 05/20/25 16:51 Dose: Not Given Documented By: Admin: 05/20/25 13:08 Dose: 4 units Documented By: JADE Co-signed By: XANDER Admin: 05/20/25 08:39 Dose: 2 units Documented By: JADE Co-signed By: JEAN CARLOS Admin: 05/19/25 20:57 Dose: 1 units Documented By: TP Co-signed By: ROSE MARIE Multivitamins/Minerals (Cerovite Adv Formula Tab) 1 tab PO [facility] Stop: 06/19/25 08:59 Last Admin: 05/21/25 08:40 Dose: 1 tab Documented By: Admin: 05/20/25 08:36 Dose: 1 tab Documented By: JADE Rosuvastatin Calcium (Rosuvastatin Calcium 20 Mg Tab) 40 mg PO [facility] Stop: 06/19/25 08:59 Last Admin: 05/21/25 08:40 Dose: 40 mg Documented By: Admin: 05/20/25 08:36 Dose: 40 mg Documented By: MTP
[2025-05-21] MEDS: POLYETHYLENE (MIRALAX) 17 GM PACK PO SCH (14:25)
[2025-05-21 16:21] LABS: Hematocrit (blood only) 27.6 % (42.0-52.0); Hemoglobin 8.7 g/dl (14.0-18.0)
[2025-05-21] MEDS: METOPROLOL SUCC 50MG EXT REL TAB PO SCH (21:07)
[2025-05-22 07:16] LABS: Hematocrit (blood only) 25.5 % (42.0-52.0); Hemoglobin 8.1 g/dl (14.0-18.0); Mean Corpuscular Hemoglobin 24.8 pg (25.0-34.0); Mean Corpuscular Volume 78.0 fL (80.0-100.0); Platelet Count 459 K/uL (130-400); RDW Standard Deviation 52.4 fL (36.4-46.3); Red Blood Count 3.27 M/uL (4.70-6.10); White Blood Count 10.28 K/ul (4.8-10.8)
[2025-05-22 07:35] LABS: Anion Gap 8.0 (3-11); Blood Urea Nitrogen 61.0 mg/dl (6-23); Calcium 7.8 mg/dl (8.6-10.3); Carbon Dioxide 27.0 mmol/L (21-32); Chloride 101.0 mmol/L (98-107); Creatinine Clr Calc Pharmacy 29.6 ml/min; Glucose 106.0 mg/dl (70-99(Fasting)); Potassium 4.2 mmol/L (3.5-5.1); Sodium 136.0 mmol/L (136-145)
--- NOTE | 2025-05-22 08:20 | Urology Progress Note ---
Date of Service May 22, 2025 Assessment & Plan (1) Bilateral hydronephrosis: (2) Calculus of proximal right ureter: (3) Calculus of proximal left ureter: (4) Hematoma of left kidney: (5) MARIAMA (acute kidney injury): Plan - Pt POD#3 s/p emergent cystoscopy and bilateral ureteral stent placement due to bilateral obstructing stones - Subjectively doing well today, denies pain - Remains afebrile, HR 90-112s, BP stable - Labs reviewedcreatinine 2.6, WBC 10.28, Hemoglobin 8.1 - CTA 05/20/2025 with stable left subcapsular renal hemorrhage, no active extravasation, no pseudoaneurysm, no new sites of bleeding within the abdomen pelvis - Urine culture with 3 types of organisms present, all low counts probable skin ever - Blood cultures no growth x 24 hours - Tolerating bilateral ureteral stents with minimal bother - Maintain Knutson catheter at this time, urine clear - No specific organisms growing in cultures so will defer to primary team on antibiotics, but none indicated from a urologic perspective - Monitor serial H&H, transfuse as necessary per primary team - Continue to hold anticoagulation - If hemodynamic instability or he has a substantial transfusion requirement, recommend transfer to tertiary center for possible IR embolization - will follow, please contact our service with any additional questions or concerns Admission and Anticipated Discharge Date Admission Date: May 19, 2025 Subjective Afebrile with stable vitals. Labs today show white count has down No acute issues overnight. Remains mildly tachycardic. Patient denies any pain and overall feels well. He is asking when he can go home. Physical Exam Physical Exam: General: Alert and oriented, no acute distress HEENT: Normocephalic, mucous membranes moist Pulmonary: Nonlabored respirations Abdomen: Nondistended : Knutson draining clear yellow urine. Extremities: Moves all 4 spontaneously Neuro: No gross deficits Skin: Warm, dry, no rashes noted Results & Data Vital Signs (Past 12 Hours) Vital Signs Temp Pulse Pulse Resp BP Pulse Ox O2 Del Method 05/22/25 07:41 Room Air 05/22/25 07:00 97 H 05/22/25 04:23 36.8 C 112 H 18 132/77 93 Room Air PG Care Time/CCT Total # of Minutes Spent Total Time Spent with Patient: Total time spent is greater than 50% in coordination of care (as documented) at patient's floor/unit and/or counseling patient: Coding Level of Care Code 85057 SUB INP/OBS CARE 235MIN Diagnoses Bilateral hydronephrosis N13.30 Calculus of proximal right ureter N20.1 Calculus of proximal left ureter N20.1 Hematoma of left kidney S37.012A MARIAMA (acute kidney injury) N17.9
[2025-05-22] MEDS: LACTATED RINGER'S 1,000 ML IV SCH (08:46)
--- NOTE | 2025-05-22 12:09 | Hospitalist Progress Note ---
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 with outpatient power grader operator (2) MARIAMA (acute kidney injury): Plan: -Significant increase in BUN and creatinine of 67 over/3.72 -Secondary to ureteral obstructions bilaterally and associated hydronephrosis, also mass effect on left kidney, shock -suspect prerenal, post renal and ATN effects, did get contrast given concern for active bleed Plan: -restart fluids for post obstructive diuresis (3) Bilateral hydronephrosis: Plan: -Long history of bilateral nephrolithiasis and presented with left testicular pain -Noted to have bilateral hydronephrosis secondary to bilateral ureteric obstruction due to stone Plan: -Appreciate urology input and placement of bilateral ureteric stent -improving s/p stent placement (4) Hematoma of kidney: Plan: -Also has hematoma of the left kidney and is complicated by Eliquis -Eliquis is on hold and will Monitor hemoglobin -s/p pradaxa -appears stable at this time on imaging (5) Sepsis: Plan: -Presented with left testicular pain without any fever and/or chills -Has bilateral hydronephrosis with ureteric obstruction and very high white count with tachycardia -no MRSA prior on urine cultures, no urine culture growth Plan: -continue ceftriaxone -will need 7 day course of abx total (6) Calculus of proximal left ureter: (7) Calculus of proximal right ureter: (8) CAD (coronary artery disease): Plan: -Status post cath in November 2023 with JOCE in LAD and distal RCA and has been on Plavix -restarted plavix today (9) Atrial fibrillation with rapid ventricular response: Plan: -Presented with a A Fib with RVR -Intravenous Cardizem has been started and the rate is improving Plan: -continue with beta-isis -Cardiology consult, appreciate recs -see above (10) Hypertension: (11) Diabetes: Plan: -SSI Plan I spent a total of 50 minutes in direct patient care, including [id number] time with the patient and/or family, reviewing medical records, ordering and reviewing diagnostic tests, and coordinating care with other healthcare provid ers. This time includes: history taking, physical examination, medical decision making, counseling, ECG interpretation, imaging interpretation, lab interpretation, orders, and education, excluding time spent in the performance of separately billed services. Admission and Anticipated Discharge Date Admission Date: May 19, 2025 Subjective Patient seen and examined at bedside. Patient doing well today, feeling better than before. Discussed possible discharge tomorrow after fluid replenishment from post obstructive diuresis, agreeable with plan. Review of Systems Review of Systems: CONSTITUTIONAL: fatigue, cold (improving) EYES: Patient denies any visual symptoms. EARS, NOSE, AND THROAT: No difficulties with hearing. No symptoms of rhinitis or sore throat. CARDIOVASCULAR: Patient denies chest pains, palpitations, orthopnea and paroxysmal nocturnal dyspnea. RESPIRATORY: No dyspnea on exertion, no wheezing or cough. GI: No nausea, vomiting, diarrhea, constipation, abdominal pain, hematochezia or melena. : No urinary hesitancy or dribbling. No nocturia or urinary frequency. No abnormal urethral discharge. MUSCULOSKELETAL: No myalgias or arthralgias. NEUROLOGIC: No chronic headaches, no seizures. Patient denies numbness, tingling or weakness. PSYCHIATRIC: Patient denies problems with mood disturbance. No problems with anxiety. ENDOCRINE: No excessive urination or excessive thirst. DERMATOLOGIC: Patient denies any rashes or skin changes. Physical Exam Physical Exam: Gen: A&O 3 NAD HEENT: NCAT, EOMI, not icteric. External ears normal. No rhinorrhea. Moist mucous membranes. Neck: Supple, full range of motion, no observable masses, No meningeal sign. Lungs: No Respiratory distress. CV: RRR, no edema. Abdomen: Soft, nondistended, No rebound tenderness. MSK: improved cap refill and warmth in hands this morning Skin: No rashes, petechiae, lesions. Normal color per patient. Neuro: Normal Gait, Grossly intact. Psych: Appropriate for situation. Results & Data Results & Data Vital Signs (Past 12 Hours) Vital Signs Temp Pulse Pulse Resp BP Pulse Ox O2 Del Method 05/22/25 07:41 36.7 C 103 H 18 148/79 H 91 Room Air 05/22/25 07:41 Room Air 05/22/25 07:00 97 H 05/22/25 04:23 36.8 C 112 H 18 132/77 93 Room Air Laboratory Results -personally reviewed, Hgb stable, creatinine 2.6 and downtrending, good urine output yesteday Medications Administered Finasteride (Finasteride 5 Mg Tab) 5 mg PO QAM RADHA Stop: 06/19/25 08:59 Last Admin: 05/22/25 08:51 Dose: 5 mg Documented By: Admin: 05/21/25 08:40 Dose: 5 mg Documented By: Admin: 05/20/25 08:36 Dose: 5 mg Documented By: JADE Ceftriaxone Sodium (Rocephin) 2,000 mg in 50 mls @ 100 mls/hr IV Q24H [facility]HA Stop: 05/28/25 14:29 Last Infusion: 05/21/25 14:39 Dose: Infused Documented By: Admin: 05/21/25 14:09 Dose: 100 mls/hr Documented By: Infusion: 05/20/25 16:45 Dose: Infused Documented By: Admin: 05/20/25 16:13 Dose: 100 mls/hr Documented By: GABRIELA Lactated Ringer's (Lr) 1,000 mls @ 80 mls/hr IV .[id number] [facility] Stop: 05/25/25 07:59 Last Admin: 05/22/25 08:46 Dose: 80 mls/hr Documented By: CHRISTIANO Insulin Aspart (Insulin Aspart Per Unit Charge) 0 units SC ACHS RADHA Stop: 06/18/25 20:59 Last Admin: 05/22/25 08:45 Dose: Not Given Documented By: Admin: 05/21/25 21:06 Dose: 1 units Documented By: DAWOOD Co-signed By: DIANE Admin: 05/21/25 17:17 Dose: Not Given Documented By: Admin: 05/21/25 12:58 Dose: 2 units Documented By: TOM Co-signed By: CA Admin: 05/21/25 08:38 Dose: 4 units Documented By: TOM Co-signed By: ZEESHAN Admin: 05/20/25 21:27 Dose: 1 units Documented By: JAIRO Co-signed By: EDWARD Admin: 05/20/25 16:51 Dose: Not Given Documented By: Admin: 05/20/25 13:08 Dose: 4 units Documented By: JADE Co-signed By: XANDER Admin: 05/20/25 08:39 Dose: 2 units Documented By: MTP Co-signed By: JEAN CARLOS Admin: 05/19/25 20:57 Dose: 1 units Documented By: TP Co-signed By: ROSE MARIE Metoprolol Succinate (Metoprolol Succ 50mg Ext Rel Tab) 100 mg PO BID [facility] Stop: 06/20/25 20:59 Last Admin: 05/22/25 08:50 Dose: 100 mg Documented By: Admin: 05/21/25 21:07 Dose: 100 mg Documented By: DAWOOD Multivitamins/Minerals (Cerovite Adv Formula Tab) 1 tab PO QAM [facility] Stop: 06/19/25 08:59 Last Admin: 05/22/25 08:51 Dose: 1 tab Documented By: Admin: 05/21/25 08:40 Dose: 1 tab Documented By: Admin: 05/20/25 08:36 Dose: 1 tab Documented By: JADE Polyethylene Glycol (Polyethylene (Miralax) 17 Gm Pack) 17 gm PO DAILY [facility] Stop: 06/20/25 13:29 Last Admin: 05/22/25 08:52 Dose: Not Given Documented By: Admin: 05/21/25 14:25 Dose: Not Given Documented By: TOM Rosuvastatin Calcium (Rosuvastatin Calcium 20 Mg Tab) 40 mg PO QAM [facility] Stop: 06/19/25 08:59 Last Admin: 05/22/25 08:51 Dose: 40 mg Documented By: Admin: 05/21/25 08:40 Dose: 40 mg Documented By: Admin: 05/20/25 08:36 Dose: 40 mg Documented By: MTP
[2025-05-22] MEDS: CLOPIDOGREL BISULFATE 75 MG TAB PO SCH (12:32)
[2025-05-23 06:30] LABS: Hematocrit (blood only) 26.3 % (42.0-52.0); Hemoglobin 8.1 g/dl (14.0-18.0); Mean Corpuscular Hemoglobin 23.8 pg (25.0-34.0); Mean Corpuscular Volume 77.1 fL (80.0-100.0); Platelet Count 480 K/uL (130-400); RDW Standard Deviation 50.4 fL (36.4-46.3); Red Blood Count 3.41 M/uL (4.70-6.10); White Blood Count 9.62 K/ul (4.8-10.8)
[2025-05-23 06:48] LABS: Anion Gap 9.0 (3-11); Blood Urea Nitrogen 49.0 mg/dl (6-23); Calcium 7.8 mg/dl (8.6-10.3); Carbon Dioxide 25.0 mmol/L (21-32); Chloride 102.0 mmol/L (98-107); Creatinine Clr Calc Pharmacy 31.4 ml/min; Glucose 107.0 mg/dl (70-99(Fasting)); Potassium 4.2 mmol/L (3.5-5.1); Sodium 136.0 mmol/L (136-145)
--- NOTE | 2025-05-23 09:03 | Urology Progress Note ---
Date of Service May 23, 2025 Assessment & Plan (1) Bilateral hydronephrosis: (2) Calculus of proximal left ureter: (3) Calculus of proximal right ureter: (4) MARIAMA (acute kidney injury): (5) Hematoma of left kidney: Plan - Pt POD#4 s/p emergent cystoscopy and bilateral ureteral stent placement due to bilateral obstructing stones - Subjectively doing well today, denies pain - Remains afebrile, heart rate in the low 100s, BP stable - Labs reviewedcreatinine 2.46, WBC 9.6, Hemoglobin 8.1 - CTA 05/20/2025 with stable left subcapsular renal hemorrhage, no active extravasation, no pseudoaneurysm, no new sites of bleeding within the abdomen pelvis - Urine culture with 3 types of organisms present, all low counts probable skin ever - Blood cultures no growth - Tolerating bilateral ureteral stents with minimal bother - Maintain Knutson catheter at this time, urine clear - No specific organisms growing in cultures so will defer to primary team on antibiotics, but none indicated from a urologic perspective - Monitor serial H&H, transfuse as necessary per primary team - Continue to hold anticoagulation - If hemodynamic instability or he has a substantial transfusion requirement, recommend transfer to tertiary center for possible IR embolization - will follow, please contact our service with any additional questions or concerns Admission and Anticipated Discharge Date Admission Date: May 19, 2025 Subjective No acute issues overnight. Remains mildly tachycardic. Labs today show white count of 9.6, hemoglobin of 8.1, and creatinine of 2.46. Denies any pain or change in symptoms this morning. Physical Exam Physical Exam: General: Alert and oriented, no acute distress HEENT: Normocephalic, mucous membranes moist Pulmonary: Nonlabored respirations Abdomen: Nondistended : Knutson draining clear yellow urine. Extremities: Moves all 4 spontaneously Neuro: No gross deficits Skin: Warm, dry, no rashes noted Results & Data Vital Signs (Past 12 Hours) Vital Signs Temp Pulse Pulse Resp BP BP Pulse Ox 05/23/25 07:27 37.0 C 106 H 18 163/97 H 93 05/23/25 07:26 05/23/25 07:00 106 H 05/23/25 03:43 36.9 C 113 H 18 154/65 H 92 05/22/25 23:43 36.9 C 107 H 18 159/97 H 93 O2 Del Method 05/23/25 07:27 Room Air 05/23/25 07:26 Room Air 05/23/25 07:00 05/23/25 03:43 Room Air 05/22/25 23:43 Room Air PG Care Time/CCT Total # of Minutes Spent Total Time Spent with Patient: Total time spent is greater than 50% in coordination of care (as documented) at patient's floor/unit and/or counseling patient: Coding Level of Care Code 82224 SUB INP/OBS CARE 2/35MIN Diagnoses Bilateral hydronephrosis N13.30 Calculus of proximal left ureter N20.1 Calculus of proximal right ureter N20.1 MARIAMA (acute kidney injury) N17.9 Hematoma of left kidney S37.012A
--- NOTE | 2025-05-23 12:23 | Hospitalist Progress Note ---
Date of Service May 23, 2025 Assessment & Plan (1) Hemorrhagic shock: Plan: -as noted by significant hypotension, elevated AG, and 6 point Hgb drop on admission -noted large hematomas on left kidney -received a unit of blood 05/20/2025 -CTA abdomen/pelvis revealed no active bleed, mass effect on left kidney per 05/2025 -discussed transfer with [facility], monitor for now, if any evidence of further bleeding transfer Plan: -daily CBC -continue plavix -restart eliquis outpatient, risk benefit discussion with outpatient waiter/waitress buffet -repeat PT/OT eval today, patient will benefit from SNF (2) MARIAMA (acute kidney injury): Plan: -Significant increase in BUN and creatinine of 67 over/3.72 -Secondary to ureteral obstructions bilaterally and associated hydronephrosis, also mass effect on left kidney, shock -suspect prerenal, post renal and ATN effects, did get contrast given concern for active bleed Plan: -continue fluids for postobstrctive diuresis (3) Bilateral hydronephrosis: Plan: -Long history of bilateral nephrolithiasis and presented with left testicular pain -Noted to have bilateral hydronephrosis secondary to bilateral ureteric obstruction due to stone Plan: -Appreciate urology input and placement of bilateral ureteric stent -improving s/p stent placement (4) Hematoma of kidney: Plan: -Also has hematoma of the left kidney and is complicated by Eliquis -Eliquis is on hold and will Monitor hemoglobin -s/p pradaxa -appears stable at this time on imaging (5) Sepsis: Plan: -Presented with left testicular pain without any fever and/or chills -Has bilateral hydronephrosis with ureteric obstruction and very high white count with tachycardia -no MRSA prior on urine cultures, no urine culture growth Plan: -continue ceftriaxone -will need 5 day course of abx total (6) Calculus of proximal left ureter: (7) Calculus of proximal right ureter: (8) CAD (coronary artery disease): Plan: -Status post cath in November 2023 with JOCE in LAD and distal RCA and has been on Plavix -restarted plavix today (9) Atrial fibrillation with rapid ventricular response: Plan: -Presented with a A Fib with RVR -Intravenous Cardizem has been started and the rate is improving Plan: -continue with beta-isis -Cardiology consult, appreciate recs -see above (10) Hypertension: (11) Diabetes: Plan: -SSI Plan I spent a total of 50 minutes in direct patient care, including [id number] time with the patient and/or family, reviewing medical records, ordering and reviewing diagnostic tests, and coordinating care with other healthcare pro viders. This time includes: history taking, physical examination, medical decision making, counseling, ECG interpretation, imaging interpretation, lab interpretation, orders, and education, excluding time spent in the performance of separately billed services. Admission and Anticipated Discharge Date Admission Date: May 19, 2025 Subjective Patient seen and examined at bedside. Patient doing well today, discusses that he would be willing to get some rehab at a SNF before going home. Otherwise feels well Review of Systems Review of Systems: CONSTITUTIONAL: fatigue, weakness EYES: Patient denies any visual symptoms. EARS, NOSE, AND THROAT: No difficulties with hearing. No symptoms of rhinitis or sore throat. CARDIOVASCULAR: Patient denies chest pains, palpitations, orthopnea and paroxysmal nocturnal dyspnea. RESPIRATORY: No dyspnea on exertion, no wheezing or cough. GI: No nausea, vomiting, diarrhea, constipation, abdominal pain, hematochezia or melena. : No urinary hesitancy or dribbling. No nocturia or urinary frequency. No abnormal urethral discharge. MUSCULOSKELETAL: No myalgias or arthralgias. NEUROLOGIC: No chronic headaches, no seizures. Patient denies numbness, tingling or weakness. PSYCHIATRIC: Patient denies problems with mood disturbance. No problems with anxiety. ENDOCRINE: No excessive urination or excessive thirst. DERMATOLOGIC: Patient denies any rashes or skin changes. Physical Exam Physical Exam: Gen: A&O 3 NAD HEENT: NCAT, EOMI, not icteric. External ears normal. No rhinorrhea. Moist mucous membranes. Neck: Supple, full range of motion, no observable masses, No meningeal sign. Lungs: No Respiratory distress. CV: RRR, no edema. Abdomen: Soft, nondistended, No rebound tenderness. Skin: No rashes, petechiae, lesions. Normal color per patient. Neuro: Normal Gait, Grossly intact. Psych: Appropriate for situation. Results & Data Results & Data Vital Signs (Past 12 Hours) Vital Signs Temp Pulse Pulse Resp BP BP Pulse Ox 05/23/25 11:22 37.4 C 119 H 18 138/85 95 07/05/25 07:27 37.0 C 106 H 18 163/97 H 93 05/23/25 07:26 05/23/25 07:00 106 H 05/23/25 03:43 36.9 C 113 H 18 154/65 H 92 O2 Del Method 05/23/25 11:22 Room Air 05/23/25 07:27 Room Air 05/23/25 07:26 Room Air 05/23/25 07:00 05/23/25 03:43 Room Air Laboratory Results -personally reviewed, Hgb stable at 8.1, creatinine improved to 2.46 Medications Administered Clopidogrel Bisulfate (Clopidogrel Bisulfate 75 Mg Tab) [facility] [place]: 06/21/25 12:14 Last Admin: 05/23/25 08:30 Dose: 75 mg Documented By: Admin: 05/22/25 12:32 Dose: 75 mg Documented By: CHRISTIANO Finasteride (Finasteride 5 Mg Tab) 5 mg PO [facility] Stop: 06/19/25 08:59 Last Admin: 05/23/25 08:29 Dose: 5 mg Documented By: Admin: 05/22/25 08:51 Dose: 5 mg Documented By: Admin: 05/21/25 08:40 Dose: 5 mg Documented By: Admin: 05/20/25 08:36 Dose: 5 mg Documented By: JADE Ceftriaxone Sodium (Rocephin) 2,000 mg in 50 mls @ 100 mls/hr IV Q24H [facility] Stop: 05/28/25 14:29 Last Infusion: 05/22/25 14:32 Dose: Infused Documented By: Admin: 05/22/25 13:49 Dose: 100 mls/hr Documented By: Infusion: 05/21/25 14:39 Dose: Infused Documented By: Admin: 05/21/25 14:09 Dose: 100 mls/hr Documented By: Infusion: 05/20/25 16:45 Dose: Infused Documented By: Admin: 05/20/25 16:13 Dose: 100 mls/hr Documented By: GABRIELA Lactated Ringer's (Lr) 1,000 mls @ 80 mls/hr IV .[id number] [facility] Stop: 05/25/25 07:59 Last Admin: 05/23/25 08:48 Dose: 80 mls/hr Documented By: Infusion: 05/23/25 08:48 Dose: Infused Documented By: Admin: 05/22/25 21:10 Dose: 80 mls/hr Documented By: Infusion: 05/22/25 21:10 Dose: Infused Documented By: Admin: 05/22/25 08:46 Dose: 80 mls/hr Documented By: CHRISTIANO Insulin Aspart (Insulin Aspart Per Unit Charge) 0 units SC ACHS [facility] Stop: 06/18/25 20:59 Last Admin: 05/23/25 11:51 Dose: 4 units Documented By: CHRISTIANO Co-signed By: WALTER Admin: 05/23/25 08:02 Dose: Not Given Documented By: Admin: 05/22/25 21:05 Dose: Not Given Documented By: Admin: 05/22/25 17:31 Dose: 2 units Documented By: CHRISTIANO Co-signed By: RITA Admin: 05/22/25 12:31 Dose: 1 units Documented By: CHRISTIANO Co-signed By: RITA Admin: 05/22/25 08:45 Dose: Not Given Documented By: Admin: 05/21/25 21:06 Dose: 1 units Documented By: DAWOOD Co-signed By: DIANE Admin: 05/21/25 17:17 Dose: Not Given Documented By: Admin: 05/21/25 12:58 Dose: 2 units Documented By: TOM Co-signed By: MP Admin: 05/21/25 08:38 Dose: 4 units Documented By: AK Co-signed By: EP Admin: 05/20/25 21:27 Dose: 1 units Documented By: AKP Co-signed By: EDWARD Admin: 05/20/25 16:51 Dose: Not Given Documented By: Admin: 05/20/25 13:08 Dose: 4 units Documented By: MTP Co-signed By: XANDER Admin: 05/20/25 08:39 Dose: 2 units Documented By: MTP Co-signed By: JEAN CARLOS Admin: 05/19/25 20:57 Dose: 1 units Documented By: TP Co-signed By: ELISHAP Metoprolol Succinate (Metoprolol Succ 50mg Ext Rel Tab) 100 mg PO BID [facility] Stop: 06/20/25 20:59 Last Admin: 05/23/25 08:29 Dose: 100 mg Documented By: Admin: 05/22/25 21:10 Dose: 100 mg Documented By: Admin: 05/22/25 08:50 Dose: 100 mg Documented By: Admin: 05/21/25 21:07 Dose: 100 mg Documented By: DAWOOD Multivitamins/Minerals (Cerovite Adv Formula Tab) 1 tab PO QAM [facility] Stop: 06/19/25 08:59 Last Admin: 05/23/25 08:29 Dose: 1 tab Documented By: Admin: 05/22/25 08:51 Dose: 1 tab Documented By: Admin: 05/21/25 08:40 Dose: 1 tab Documented By: Admin: 05/20/25 08:36 Dose: 1 tab Documented By: JADE Polyethylene Glycol (Polyethylene (Miralax) 17 Gm Pack) 17 gm PO DAILY [facility] Stop: 06/20/25 13:29 Last Admin: 05/23/25 08:28 Dose: 17 gm Documented By: Admin: 05/22/25 08:52 Dose: Not Given Documented By: Admin: 05/21/25 14:25 Dose: Not Given Documented By: TOM Rosuvastatin Calcium (Rosuvastatin Calcium 20 Mg Tab) 40 mg PO QAM [facility] Stop: 06/19/25 08:59 Last Admin: 05/23/25 08:28 Dose: 40 mg Documented By: Admin: 05/22/25 08:51 Dose: 40 mg Documented By: Admin: 05/21/25 08:40 Dose: 40 mg Documented By: Admin: 05/20/25 08:36 Dose: 40 mg Documented By: JADE
[2025-05-24 06:02] LABS: Hematocrit (blood only) 25.8 % (42.0-52.0); Hemoglobin 8.2 g/dl (14.0-18.0); Mean Corpuscular Hemoglobin 24.2 pg (25.0-34.0); Mean Corpuscular Volume 76.1 fL (80.0-100.0); Platelet Count 512 K/uL (130-400); RDW Standard Deviation 49.4 fL (36.4-46.3); Red Blood Count 3.39 M/uL (4.70-6.10); White Blood Count 9.83 K/ul (4.8-10.8)
[2025-05-24 06:19] LABS: Anion Gap 8.0 (3-11); Blood Urea Nitrogen 42.0 mg/dl (6-23); Calcium 7.6 mg/dl (8.6-10.3); Carbon Dioxide 26.0 mmol/L (21-32); Chloride 102.0 mmol/L (98-107); Creatinine Clr Calc Pharmacy 34.5 ml/min; Glucose 135.0 mg/dl (70-99(Fasting)); Potassium 4.2 mmol/L (3.5-5.1); Sodium 136.0 mmol/L (136-145)
--- NOTE | 2025-05-24 08:57 | Urology Progress Note ---
Date of Service May 24, 2025 Assessment & Plan (1) Kidney stones: (2) MARIAMA (acute kidney injury): (3) Calculus of proximal right ureter: (4) Calculus of proximal left ureter: (5) Bilateral hydronephrosis: (6) Hematoma of left kidney: Plan - Pt POD#5 s/p emergent cystoscopy and bilateral ureteral stent placement due to bilateral obstructing stones - Subjectively doing well today, denies pain - Remains afebrile, heart rate in the low 100s, BP stable - Labs reviewedcreatinine 2.2, WBC 9.8, Hemoglobin 8.2 - CTA 05/20/2025 with stable left subcapsular renal hemorrhage, no active extravasation, no pseudoaneurysm, no new sites of bleeding within the abdomen pelvis - Urine culture with 3 types of organisms present, all low counts probable skin ever - Blood cultures no growth - Tolerating bilateral ureteral stents with minimal bother - Maintain Knutson catheter at this time, urine clear - No specific organisms growing in cultures so will defer to primary team on antibiotics, but none indicated from a urologic perspective - Monitor serial H&H, transfuse as necessary per primary team - Continue to hold anticoagulation - If hemodynamic instability or he has a substantial transfusion requirement, recommend transfer to tertiary center for possible IR embolization - will follow, please contact our service with any additional questions or concerns Admission and Anticipated Discharge Date Admission Date: May 19, 2025 Subjective No acute issues overnight. Remains mildly tachycardic but blood pressure has been stable. Labs today show a hemoglobin of 8.2, previously 8.1. Creatinine continues to downtrend slowly, 2.2 today, previously 2.4. Patient doing well, no complaints. Physical Exam Physical Exam: General: Alert and oriented, no acute distress HEENT: Normocephalic, mucous membranes moist Pulmonary: Nonlabored respirations Abdomen: Nondistended : Knutson draining clear yellow urine. Extremities: Moves all 4 spontaneously Neuro: No gross deficits Skin: Warm, dry, no rashes noted Results & Data Vital Signs (Past 12 Hours) Vital Signs Temp Pulse Resp BP Pulse Ox O2 Del Method 05/24/25 07:26 36.8 C 106 H 18 139/86 94 Room Air PG Care Time/CCT Total # of Minutes Spent Total Time Spent with Patient: Total time spent is greater than 50% in coordination of care (as documented) at patient's floor/unit and/or counseling patient: Coding Level of Care Code 92965 SUB INP/OBS CARE MIN Diagnoses Kidney stones N20.0 MARIAMA (acute kidney injury) N17.9 Calculus of proximal right ureter N20.1 Calculus of proximal left ureter N20.1 Bilateral hydronephrosis N13.30 Hematoma of left kidney S37.012A
[2025-05-24] MEDS: CALCIUM GLUCONATE 1,000 MG/60 ML BAG IV STA (09:00)
--- NOTE | 2025-05-24 12:14 | Hospitalist Progress Note ---
Date of Service May 24, 2025 Assessment & Plan (1) Hemorrhagic shock: Plan: -as noted by significant hypotension, elevated AG, and 6 point Hgb drop on admission -noted large hematomas on left kidney -received a unit of blood 05/20/2025 -CTA abdomen/pelvis revealed no active bleed, mass effect on left kidney per 05/2025 Plan: -daily CBC -continue plavix -restart eliquis outpatient, risk benefit discussion with outpatient psychologists -patient medically stable for discharge to SNF (2) MARIAMA (acute kidney injury): Plan: -Significant increase in BUN and creatinine of 67 over/3.72 -Secondary to ureteral obstructions bilaterally and associated hydronephrosis, also mass effect on left kidney, shock -suspect prerenal, post renal and ATN effects, did get contrast given concern for active bleed Plan: -continue fluids for postobstrctive diuresis, decreased today due to intake and output (3) Bilateral hydronephrosis: Plan: -Long history of bilateral nephrolithiasis and presented with left testicular pain -Noted to have bilateral hydronephrosis secondary to bilateral ureteric obstruction due to stone Plan: -Appreciate urology input and placement of bilateral ureteric stent -improving s/p stent placement (4) Hematoma of kidney: Plan: -Also has hematoma of the left kidney and is complicated by Eliquis -Eliquis is on hold and will Monitor hemoglobin -s/p pradaxa -appears stable at this time on imaging (5) Sepsis: Plan: -Presented with left testicular pain without any fever and/or chills -Has bilateral hydronephrosis with ureteric obstruction and very high white count with tachycardia -no MRSA prior on urine cultures, no urine culture growth -finished abx course 5/5 days (6) Calculus of proximal left ureter: (7) Calculus of proximal right ureter: (8) CAD (coronary artery disease): Plan: -Status post cath in November 2023 with JOCE in LAD and distal RCA and has been on Plavix -restarted plavix (9) Atrial fibrillation: Plan: -relatively rate controlled Plan: -continue metoprolol -continue to monitor Plan I spent a total of 50 minutes in direct patient care, including [id number] time with the patient and/or family, reviewing medical records, ordering and reviewing diagnostic tests, and coordinating care with other healthcare providers. This time includes: history taking, physical examination, medical decision making, counseling, ECG interpretation, imaging interpretation, lab interpretation, orders, and education, excluding time spent in the performance of separately billed services. Admission and Anticipated Discharge Date Admission Date: May 19, 2025 Subjective Patient seen and examined at bedside. Patient doing well today, no concerns at this time. Looking forward to going to rehab. Review of Systems Review of Systems: CONSTITUTIONAL: fatigue, weakness, improving EYES: Patient denies any visual symptoms. EARS, NOSE, AND THROAT: No difficulties with hearing. No symptoms of rhinitis or sore throat. CARDIOVASCULAR: Patient denies chest pains, palpitations, orthopnea and paroxysmal nocturnal dyspnea. RESPIRATORY: No dyspnea on exertion, no wheezing or cough. GI: No nausea, vomiting, diarrhea, constipation, abdominal pain, hematochezia or melena. : No urinary hesitancy or dribbling. No nocturia or urinary frequency. No abnormal urethral discharge. MUSCULOSKELETAL: No myalgias or arthralgias. NEUROLOGIC: No chronic headaches, no seizures. Patient denies numbness, tingling or weakness. PSYCHIATRIC: Patient denies problems with mood disturbance. No problems with anxiety. ENDOCRINE: No excessive urination or excessive thirst. DERMATOLOGIC: Patient denies any rashes or skin changes. Physical Exam Physical Exam: Gen: A&O 3 NAD HEENT: NCAT, EOMI, not icteric. External ears normal. No rhinorrhea. Moist mucous membranes. Neck: Supple, full range of motion, no observable masses, No meningeal sign. Lungs: No Respiratory distress. CV: RRR, no edema. Abdomen: Soft, nondistended, No rebound tenderness. Skin: No rashes, petechiae, lesions. Normal color per patient. Neuro: Normal Gait, Grossly intact. Psych: Appropriate for situation. Results & Data Results & Data Vital Signs (Past 12 Hours) Vital Signs Temp Pulse Resp BP Pulse Ox O2 Del Method 05/24/25 07:26 36.8 C 106 H 18 139/86 94 Room Air Laboratory Results -personally reviewed, Hgb stabilized, leukocytosis downtrended, creatinine continues to improve, calcium 7.6 Medications Administered Clopidogrel Bisulfate (Clopidogrel Bisulfate 75 Mg Tab) [facility] [place] Stop: 06/21/25 12:14 Last Admin: 05/24/25 08:53 Dose: 75 mg Documented By: Admin: 05/23/25 08:30 Dose: 75 mg Documented By: Admin: 05/22/25 12:32 Dose: 75 mg Documented By: CHRISTIANO Finasteride (Finasteride 5 Mg Tab) 5 mg PO QAM [facility] Stop: 06/19/25 08:59 Last Admin: 05/24/25 08:52 Dose: 5 mg Documented By: Admin: 05/23/25 08:29 Dose: 5 mg Documented By: Admin: 05/22/25 08:51 Dose: 5 mg Documented By: Admin: 05/21/25 08:40 Dose: 5 mg Documented By: Admin: 05/20/25 08:36 Dose: 5 mg Documented By: JADE Ceftriaxone Sodium (Rocephin) 2,000 mg in 50 mls @ 100 mls/hr IV Q24H [facility] Stop: 05/28/25 14:29 Last Infusion: 05/23/25 14:09 Dose: Infused Documented By: Admin: 05/23/25 13:30 Dose: 100 mls/hr Documented By: Infusion: 05/22/25 14:32 Dose: Infused Documented By: Admin: 05/22/25 13:49 Dose: 100 mls/hr Documented By: Infusion: 05/21/25 14:39 Dose: Infused Documented By: Admin: 05/21/25 14:09 Dose: 100 mls/hr Documented By: Infusion: 05/20/25 16:45 Dose: Infused Documented By: Admin: 05/20/25 16:13 Dose: 100 mls/hr Documented By: GABRIELA Lactated Ringer's (Lr) 1,000 mls @ 50 mls/hr IV .Q20H [facility] Stop: 05/25/25 07:59 Last Infusion: 05/24/25 08:52 Dose: 50 mls/hr Documented By: Infusion: 05/24/25 06:40 Dose: 80 mls/hr Documented By: Admin: 05/24/25 00:06 Dose: 80 mls/hr Documented By: Infusion: 05/23/25 21:18 Dose: Infused Documented By: Admin: 05/23/25 08:48 Dose: 80 mls/hr Documented By: Infusion: 05/23/25 08:48 Dose: Infused Documented By: Admin: 05/22/25 21:10 Dose: 80 mls/hr Documented By: Infusion: 05/22/25 21:10 Dose: Infused Documented By: DAFlor Admin: 05/22/25 08:46 Dose: 80 mls/hr Documented By: CHRISTIANO Insulin Aspart (Insulin Aspart Per Unit Charge) 0 units SC ACHS [facility] Stop: 06/18/25 20:59 Last Admin: 05/24/25 08:50 Dose: 2 units Documented By: JIMMIE Co-signed By: RICKY Admin: 05/23/25 21:18 Dose: 2 units Documented By: MAHENDRA Co-signed By: MIGNON Admin: 05/23/25 17:31 Dose: 1 units Documented By: JIMMIE Co-signed By: RICKY Admin: 05/23/25 11:51 Dose: 4 units Documented By: CHRISTIANO Co-signed By: WALETR Admin: 05/23/25 08:02 Dose: Not Given Documented By: Admin: 05/22/25 21:05 Dose: Not Given Documented By: Admin: 05/22/25 17:31 Dose: 2 units Documented By: CHRISTIANO Co-signed By: RITA Admin: 05/22/25 12:31 Dose: 1 units Documented By: CHRISTIANO Co-signed By: RITA Admin: 05/22/25 08:45 Dose: Not Given Documented By: Admin: 05/21/25 21:06 Dose: 1 units Documented By: DAWOOD Co-signed By: DIANE Admin: 05/21/25 17:17 Dose: Not Given Documented By: Admin: 05/21/25 12:58 Dose: 2 units Documented By: AK Co-signed By: MP Admin: 05/21/25 08:38 Dose: 4 units Documented By: AK Co-signed By: EP Admin: 05/20/25 21:27 Dose: 1 units Documented By: TOMP Co-signed By: EDWARD Admin: 05/20/25 16:51 Dose: Not Given Documented By: Admin: 05/20/25 13:08 Dose: 4 units Documented By: MTP Co-signed By: XANDER Admin: 05/20/25 08:39 Dose: 2 units Documented By: MTP Co-signed By: JEAN CARLOS Admin: 05/19/25 20:57 Dose: 1 units Documented By: TP Co-signed By: ROSE MARIE Metoprolol Succinate (Metoprolol Succ 50mg Ext Rel Tab) 100 mg PO BID [facility] Stop: 06/20/25 20:59 Last Admin: 05/24/25 08:54 Dose: 100 mg Documented By: Admin: 05/23/25 21:13 Dose: 100 mg Documented By: Admin: 05/23/25 08:29 Dose: 100 mg Documented By: Admin: 05/22/25 21:10 Dose: 100 mg Documented By: Admin: 05/22/25 08:50 Dose: 100 mg Documented By: Admin: 05/21/25 21:07 Dose: 100 mg Documented By: DAWOOD Multivitamins/Minerals (Cerovite Adv Formula Tab) 1 tab PO QAM [facility] Stop: 06/19/25 08:59 Last Admin: 05/24/25 08:55 Dose: 1 tab Documented By: Admin: 05/23/25 08:29 Dose: 1 tab Documented By: Admin: 05/22/25 08:51 Dose: 1 tab Documented By: Admin: 05/21/25 08:40 Dose: 1 tab Documented By: Admin: 05/20/25 08:36 Dose: 1 tab Documented By: JAED Polyethylene Glycol (Polyethylene (Miralax) 17 Gm Pack) 17 gm PO DAILY [facility] Stop: 06/20/25 13:29 Last Admin: 05/24/25 09:00 Dose: 17 gm Documented By: Admin: 05/23/25 08:28 Dose: 17 gm Documented By: Admin: 05/22/25 08:52 Dose: Not Given Documented By: Admin: 05/21/25 14:25 Dose: Not Given Documented By: TOM Rosuvastatin Calcium (Rosuvastatin Calcium 20 Mg Tab) 40 mg PO QAM [facility] Stop: 06/19/25 08:59 Last Admin: 05/24/25 08:54 Dose: 40 mg Documented By: Admin: 05/23/25 08:28 Dose: 40 mg Documented By: Admin: 05/22/25 08:51 Dose: 40 mg Documented By: Admin: 05/21/25 08:40 Dose: 40 mg Documented By: Admin: 05/20/25 08:36 Dose: 40 mg Documented By: JADE
[2025-05-25 06:29] LABS: Hematocrit (blood only) 26.8 % (42.0-52.0); Hemoglobin 8.3 g/dl (14.0-18.0); Mean Corpuscular Hemoglobin 24.1 pg (25.0-34.0); Mean Corpuscular Volume 77.9 fL (80.0-100.0); Platelet Count 524 K/uL (130-400); RDW Standard Deviation 51.0 fL (36.4-46.3); Red Blood Count 3.44 M/uL (4.70-6.10); White Blood Count 7.51 K/ul (4.8-10.8)
[2025-05-25 07:08] LABS: Anion Gap 7.0 (3-11); Blood Urea Nitrogen 30.0 mg/dl (6-23); Calcium 8.0 mg/dl (8.6-10.3); Carbon Dioxide 28.0 mmol/L (21-32); Chloride 104.0 mmol/L (98-107); Creatinine Clr Calc Pharmacy 56.0 ml/min; Glucose 103.0 mg/dl (70-99(Fasting)); Magnesium 1.7 mg/dl (1.7-2.4); Potassium 4.1 mmol/L (3.5-5.1); Sodium 139.0 mmol/L (136-145)
[2025-05-25] MEDS: CALCIUM GLUCONATE 1,000 MG/60 ML BAG IV STA (08:30)
[2025-05-25 09:00] LABS: Iron 13.0 mcg/dl (35-175); Total Iron Binding Cap Calc 178.0 mcg/dl (250-450); Transferrin 151.0 mg/dl (200-360); Transferrin (FE) Percent Satur 7.0 % (20-50)
[2025-05-25 09:20] LABS: Ferritin 277.5 ng/ml (8-388)
--- NOTE | 2025-05-25 10:54 | Urology Progress Note ---
Date of Service May 25, 2025 Assessment & Plan (1) Kidney stones: (2) MARIAMA (acute kidney injury): (3) Calculus of proximal right ureter: (4) Calculus of proximal left ureter: (5) Bilateral hydronephrosis: (6) Hematoma of left kidney: Plan - Pt POD#6 s/p emergent cystoscopy and bilateral ureteral stent placement due to bilateral obstructing stones - Subjectively doing well today, denies pain - Remains afebrile, mildly tachycardic, BP stable. - Labs reviewedcreatinine 1.38, WBC 7.51, Hemoglobin stable 8.3 (8.2 yesterday) - CTA 05/20/2025 with stable left subcapsular renal hemorrhage, no active extravasation, no pseudoaneurysm, no new sites of bleeding within the abdomen pelvis - Urine culture with 3 types of organisms present, all low counts probable skin ever - Blood cultures no growth - Tolerating bilateral ureteral stents with minimal bother - Maintain Knutson catheter at this time, urine clear - No specific organisms growing in cultures so will defer to primary team on antibiotics, but none indicated from a urologic perspective - Monitor H&H, transfuse as necessary per primary team - Anticoagulation per primary team - Will need follow-up with our office to arrange definitive stone treatment - If hemodynamic instability or he has a substantial transfusion requirement, recommend transfer to tertiary center for possible IR embolization - will follow, please call with any questions or concerns Admission and Anticipated Discharge Date Admission Date: May 19, 2025 Subjective Patient seen at bedside today. Awake and resting in bed on arrival. No acute distress. No reported pain. Denies fever, chills, nausea, vomiting. Knutson intact draining clear yellow urine. Review of Systems Constitutional: as per Subjective / HPI Genitourinary: + as per Subjective / HPI Physical Exam Constitutional: no acute distress Respiratory: no respiratory distress and no labored breathing Neurologic: moves all extremities and awake Psychiatric: A+Ox3, euthymic affect Genitourinary: Knutson intact Results & Data Vital Signs (Past 12 Hours) Vital Signs Temp Pulse Resp BP Pulse Ox O2 Del Method 05/25/25 07:25 37.0 C 95 H 18 145/99 H 93 Room Air PG Care Time/CCT Total # of Minutes Spent Total Time Spent with Patient: Total time spent is greater than 50% in coordination of care (as documented) at patient's floor/unit and/or counseling patient: Coding Level of Care Code 81566 SUB INP/OBS CARE MIN Diagnoses Kidney stones N20.0 MARIAMA (acute kidney injury) N17.9 Calculus of proximal right ureter N20.1 Calculus of proximal left ureter N20.1 Bilateral hydronephrosis N13.30 Hematoma of left kidney S37.012A
--- NOTE | 2025-05-25 12:07 | Hospitalist Progress Note ---
Date of Service May 25, 2025 Assessment & Plan (1) Hemorrhagic shock: Plan: -as noted by significant hypotension, elevated AG, and 6 point Hgb drop on admission -noted large hematomas on left kidney -received a unit of blood 05/20/2025 -CTA abdomen/pelvis revealed no active bleed, mass effect on left kidney per 05/2025 Plan: -daily CBC -continue plavix -restart eliquis outpatient, risk benefit discussion with outpatient public health policy analyst -patient medically stable for discharge to SNF (2) MARIAMA (acute kidney injury): Plan: -Significant increase in BUN and creatinine of 67 over/3.72 -Secondary to ureteral obstructions bilaterally and associated hydronephrosis, also mass effect on left kidney, shock -suspect prerenal, post renal and ATN effects, did get contrast given concern for active bleed -resolving, stop fluids today (3) Bilateral hydronephrosis: Plan: -Long history of bilateral nephrolithiasis and presented with left testicular pain -Noted to have bilateral hydronephrosis secondary to bilateral ureteric obstruction due to stone Plan: -Appreciate urology input and placement of bilateral ureteric stent -improving s/p stent placement (4) Hematoma of kidney: Plan: -Also has hematoma of the left kidney and is complicated by Eliquis -Eliquis is on hold and will Monitor hemoglobin -s/p pradaxa -appears stable at this time on imaging (5) Sepsis: Plan: -Presented with left testicular pain without any fever and/or chills -Has bilateral hydronephrosis with ureteric obstruction and very high white count with tachycardia -no MRSA prior on urine cultures, no urine culture growth -finished abx course 5/5 days (6) Calculus of proximal left ureter: (7) Calculus of proximal right ureter: (8) CAD (coronary artery disease): Plan: -Status post cath in November 2023 with JOCE in LAD and distal RCA and has been on Plavix -continue plavix (9) Atrial fibrillation: Plan: -relatively rate controlled Plan: -continue metoprolol -continue to monitor Plan I spent a total of 40 minutes in direct patient care, including [id number] time with the patient and/or family, reviewing medical records, ordering and reviewing diagnostic tests, and coordinating care with other healthcare providers. This time includes: history taking, physical examination, medical decision making, counseling, ECG interpretation, imaging interpretation, lab interpretation, orders, and education, excluding time spent in the performance of separately billed services. Admission and Anticipated Discharge Date Admission Date: May 19, 2025 Subjective Patient seen and examiend at bedside. Patient awaiting rehab, comfortable at this time. Review of Systems Review of Systems: CONSTITUTIONAL: fatigue, weakness, improving EYES: Patient denies any visual symptoms. EARS, NOSE, AND THROAT: No difficulties with hearing. No symptoms of rhinitis or sore throat. CARDIOVASCULAR: Patient denies chest pains, palpitations, orthopnea and paroxysmal nocturnal dyspnea. RESPIRATORY: No dyspnea on exertion, no wheezing or cough. GI: No nausea, vomiting, diarrhea, constipation, abdominal pain, hematochezia or melena. : No urinary hesitancy or dribbling. No nocturia or urinary frequency. No abnormal urethral discharge. MUSCULOSKELETAL: No myalgias or arthralgias. NEUROLOGIC: No chronic headaches, no seizures. Patient denies numbness, tingling or weakness. PSYCHIATRIC: Patient denies problems with mood disturbance. No problems with anxiety. ENDOCRINE: No excessive urination or excessive thirst. DERMATOLOGIC: Patient denies any rashes or skin changes. Physical Exam Physical Exam: Gen: A&O 3 NAD HEENT: NCAT, EOMI, not icteric. External ears normal. No rhinorrhea. Moist mucous membranes. Neck: Supple, full range of motion, no observable masses, No meningeal sign. Lungs: No Respiratory distress. CV: RRR, no edema. Abdomen: Soft, nondistended, No rebound tenderness. Skin: No rashes, petechiae, lesions. Normal color per patient. Neuro: Normal Gait, Grossly intact. Psych: Appropriate for situation. Results & Data Results & Data Vital Signs (Past 12 Hours) Vital Signs Temp Pulse Resp BP Pulse Ox O2 Del Method 05/25/25 07:25 37.0 C 95 H 18 145/99 H 93 Room Air Laboratory Results -personally reviewed, creatinine downtrending close to baseline, iron studies checked consistent with anemia of chronic disease Medications Administered Clopidogrel Bisulfate (Clopidogrel Bisulfate 75 Mg Tab) [facility] [place] Stop: 06/21/25 12:14 Last Admin: 05/25/25 07:44 Dose: 75 mg Documented By: Admin: 05/24/25 08:53 Dose: 75 mg Documented By: Admin: 05/23/25 08:30 Dose: 75 mg Documented By: Admin: 05/22/25 12:32 Dose: 75 mg Documented By: CHRISTIANO Finasteride (Finasteride 5 Mg Tab) 5 mg PO QAM [facility] Stop: 06/19/25 08:59 Last Admin: 05/25/25 07:45 Dose: 5 mg Documented By: Admin: 05/24/25 08:52 Dose: 5 mg Documented By: Admin: 05/23/25 08:29 Dose: 5 mg Documented By: Admin: 05/22/25 08:51 Dose: 5 mg Documented By: Admin: 05/21/25 08:40 Dose: 5 mg Documented By: Admin: 05/20/25 08:36 Dose: 5 mg Documented By: JADE Insulin Aspart (Insulin Aspart Per Unit Charge) 0 units SC ACHS [facility] Stop: 06/18/25 20:59 Last Admin: 05/25/25 07:56 Dose: 3 units Documented By: FANNY Co-signed By: ISHAN Admin: 05/24/25 20:42 Dose: 1 units Documented By: WALTER Co-signed By: HERMINIA Admin: 05/24/25 17:37 Dose: 3 units Documented By: JIMMIE Co-signed By: RICKY Admin: 05/24/25 12:25 Dose: 4 units Documented By: JIMMIE Co-signed By: RICKY Admin: 05/24/25 08:50 Dose: 2 units Documented By: JIMMIE Co-signed By: RICKY Admin: 05/23/25 21:18 Dose: 2 units Documented By: MAHENDRA Co-signed By: MIGNON Admin: 05/23/25 17:31 Dose: 1 units Documented By: JIMMIE Co-signed By: RICKY Admin: 05/23/25 11:51 Dose: 4 units Documented By: CHRISTIANO Co-signed By: WALTER(2) Admin: 05/23/25 08:02 Dose: Not Given Documented By: Admin: 05/22/25 21:05 Dose: Not Given Documented By: Admin: 05/22/25 17:31 Dose: 2 units Documented By: CHRISTIANO Co-signed By: RITA Admin: 05/22/25 12:31 Dose: 1 units Documented By: CHRISTIANO Co-signed By: RITA Admin: 05/22/25 08:45 Dose: Not Given Documented By: Admin: 05/21/25 21:06 Dose: 1 units Documented By: DAWOOD Co-signed By: DIANE Admin: 05/21/25 17:17 Dose: Not Given Documented By: Admin: 05/21/25 12:58 Dose: 2 units Documented By: TOM Co-signed By: CA Admin: 05/21/25 08:38 Dose: 4 units Documented By: TOM Co-signed By: EP Admin: 05/20/25 21:27 Dose: 1 units Documented By: TOMP Co-signed By: EDWARD Admin: 05/20/25 16:51 Dose: Not Given Documented By: Admin: 05/20/25 13:08 Dose: 4 units Documented By: JADE Co-signed By: XANDER Admin: 05/20/25 08:39 Dose: 2 units Documented By: MTP Co-signed By: JEAN CARLOS Admin: 05/19/25 20:57 Dose: 1 units Documented By: TP Co-signed By: ROSE MARIE Metoprolol Succinate (Metoprolol Succ 50mg Ext Rel Tab) 100 mg PO BID [facility] Stop: 06/20/25 20:59 Last Admin: 05/25/25 07:44 Dose: 100 mg Documented By: Admin: 05/24/25 20:42 Dose: 100 mg Documented By: Admin: 05/24/25 08:54 Dose: 100 mg Documented By: Admin: 05/23/25 21:13 Dose: 100 mg Documented By: Admin: 05/23/25 08:29 Dose: 100 mg Documented By: Admin: 05/22/25 21:10 Dose: 100 mg Documented By: Admin: 05/22/25 08:50 Dose: 100 mg Documented By: Admin: 05/21/25 21:07 Dose: 100 mg Documented By: DAWOOD Multivitamins/Minerals (Cerovite Adv Formula Tab) 1 tab PO QAM [facility] Stop: 06/19/25 08:59 Last Admin: 05/25/25 07:45 Dose: 1 tab Documented By: Admin: 05/24/25 08:55 Dose: 1 tab Documented By: Admin: 05/23/25 08:29 Dose: 1 tab Documented By: Admin: 05/22/25 08:51 Dose: 1 tab Documented By: Admin: 05/21/25 08:40 Dose: 1 tab Documented By: Admin: 05/20/25 08:36 Dose: 1 tab Documented By: JADE Polyethylene Glycol (Polyethylene (Miralax) 17 Gm Pack) 17 gm PO DAILY [facility] Stop: 06/20/25 13:29 Last Admin: 05/25/25 07:47 Dose: 17 gm Documented By: Admin: 05/24/25 09:00 Dose: 17 gm Documented By: Admin: 05/23/25 08:28 Dose: 17 gm Documented By: Admin: 05/22/25 08:52 Dose: Not Given Documented By: Admin: 05/21/25 14:25 Dose: Not Given Documented By: TOM Rosuvastatin Calcium (Rosuvastatin Calcium 20 Mg Tab) 40 mg PO QAM [facility] Stop: 06/19/25 08:59 Last Admin: 05/25/25 07:45 Dose: 40 mg Documented By: Admin: 05/24/25 08:54 Dose: 40 mg Documented By: Admin: 05/23/25 08:28 Dose: 40 mg Documented By: Admin: 05/22/25 08:51 Dose: 40 mg Documented By: Admin: 05/21/25 08:40 Dose: 40 mg Documented By: Admin: 05/20/25 08:36 Dose: 40 mg Documented By: JADE
[2025-05-26 06:37] LABS: Hematocrit (blood only) 27.5 % (42.0-52.0); Hemoglobin 8.6 g/dl (14.0-18.0); Mean Corpuscular Hemoglobin 24.1 pg (25.0-34.0); Mean Corpuscular Volume 77.0 fL (80.0-100.0); Platelet Count 570 K/uL (130-400); RDW Standard Deviation 50.1 fL (36.4-46.3); Red Blood Count 3.57 M/uL (4.70-6.10); White Blood Count 8.96 K/ul (4.8-10.8)
[2025-05-26 06:53] LABS: Anion Gap 6.0 (3-11); Blood Urea Nitrogen 22.0 mg/dl (6-23); Calcium 8.1 mg/dl (8.6-10.3); Carbon Dioxide 31.0 mmol/L (21-32); Chloride 102.0 mmol/L (98-107); Creatinine Clr Calc Pharmacy 66.1 ml/min; Glucose 107.0 mg/dl (70-99(Fasting)); Potassium 4.3 mmol/L (3.5-5.1); Sodium 139.0 mmol/L (136-145)
[2025-05-26] MEDS: ACETAMINOPHEN 500 MG TAB PO PRN (08:42)
[2025-05-26] MEDS: CALCIUM 600MG + VIT D 400 IU TAB PO SCH (09:23)
--- NOTE | 2025-05-26 11:29 | Cardiology Progress Note ---
Date of Service May 26, 2025 Assessment & Plan (1) Uropathy, obstructive: (2) Hematoma of kidney: (3) Bilateral hydronephrosis: (4) MARIAMA (acute kidney injury): (5) Atrial fibrillation: (6) Microcytic anemia: (7) CAD (coronary artery disease): Plan Patient is a complex 80-year-old male with known coronary disease with prior current intervention November 2023, longstanding persistent atrial fibrillation. Patient on chronic antiplatelet and anticoagulant therapy with clopidogrel (CAD) and apixaban (Stroke prophylaxis in the setting of persistent atrial fibrillation). -Atrial fibrillation rates usually controlled on 100 mg metoprolol succinate twice daily. Patient presented with obstructive uropathy and acute renal failure. Initial presentation notable for elevated heart rate response to chronic atrial fibrillation secondary to pain and underlying pathologies. Hgb had been down to 6.8 g/d. . 8.6 g/dl on 05/26/25. 1. Longstanding persistent atrial fibrillation with elevated ventricular response secondary to acute illness. -increase metoprolol succinate to 125 mg PO BID -Patient to remain off apixaban. -Dr Yan once again discussed option of Watchman device. Patient declines. 2. Chronic coronary artery disease status post drug-eluting stents November 2023. Clopidogrel has been resumed and he is tolerating it well. 3. Obstructive uropathy, subcapsular renal hemorrhage. Renal function improved Eliazar Yan DO Admission and Anticipated Discharge Date Admission Date: May 19, 2025 Subjective Patient seen in cardiology reassessment. Patient denies subjective palpitations or symptoms suggestive of angina. He has left sided flank pain that is worse with twisting his trunk , cough, or inspiration and is reproduced with palpation. Physical Exam Constitutional: + obese; no acute distress Eyes: PERRL, conjunctivae normal, anicteric sclerae ENMT: external ear and nose normal, oropharynx normal Neck: trachea midline, no thyromegaly Respiratory: Auscultation: lungs clear to auscultation bilaterally and + diminished lung sounds Cardiovascular: Rate/Rhythm: + irregularly irregular Heart Sounds: normal S1 and normal S2 Vessels: no JVD Extremities: + edema Gastrointestinal (Abdomen): normal bowel sounds, soft, nontender, no hepatosplenomegaly Results & Data Vital Signs (Past 12 Hours) Vital Signs Temp Pulse Resp BP Pulse Ox O2 Del Method 05/26/25 08:34 120 H 148/93 H 94 Room Air 05/26/25 08:30 Room Air 05/26/25 07:42 36.8 C 109 H 20 151/99 H 92 Room Air Laboratory Results CBC 05/26/25 Range/Units 06:14 WBC 8.96 (4.8-10.8) K/ul RBC 3.57 L (4.70-6.10) M/uL Hgb 8.6 L (14.0-18.0) g/dl Hct 27.5 L (42.0-52.0) % Plt Count 570 H (130-400) K/uL Comprehensive Metabolic Panel 05/26/25 Range/Units 06:14 Sodium 139 (136-145) mmol/L Potassium 4.3 (3.5-5.1) mmol/L Chloride 102 (98-107) mmol/L Carbon Dioxide 31 (21-32) mmol/L BUN 22 (6-23) mg/dl Creatinine 1.17 (0.6-1.4) mg/dl Glucose 107 H (70-99(Fasting)) mg/dl Calcium 8.1 L (8.6-10.3) mg/dl Intake and Output 05/25/25 05/26/25 05/26/25 22:59 06:59 14:59 Output Total 850 / 2601 600 / 600 Balance -850 / -1541 -600 / -600 Output: Urine Amount (Catheter) 850 / 2600 600 / 600 Knutson/Indwelling 850 / 2600 600 / 600 [place] [address] SUB INP/OBS CARE 3/50MIN Patient Type Established History Detailed Exam Detailed Medical Decision Making Moderate Complexity Diagnoses Uropathy, obstructive N13.9 Hematoma of kidney S37.019A Bilateral hydronephrosis N13.30 MARIAMA (acute kidney injury) N17.9 Atrial fibrillation I48.91 Microcytic anemia D50.9 CAD (coronary artery disease) I25.10
--- NOTE | 2025-05-26 13:46 | Urology Progress Note ---
Date of Service May 26, 2025 Assessment & Plan (1) Kidney stones: (2) MARIAMA (acute kidney injury): (3) Calculus of proximal right ureter: (4) Calculus of proximal left ureter: (5) Bilateral hydronephrosis: (6) Hematoma of left kidney: Plan - Pt POD#7 s/p emergent cystoscopy and bilateral ureteral stent placement due to bilateral obstructing stones - Afebrile, mildly tachycardic, BP stable. - Labs reviewedcreatinine 1.17, WBC 8.96, Hemoglobin stable 8.6 - CTA 05/20/2025 with stable left subcapsular renal hemorrhage, no active extravasation, no pseudoaneurysm, no new sites of bleeding within the abdomen pelvis - Urine culture with 3 types of organisms present, all low counts probable skin ever; Blood cultures no growth - Maintain Knutson catheter - Will need follow-up with our office to arrange definitive stone treatment - If hemodynamic instability or he has a substantial transfusion requirement, recommend transfer to tertiary center for possible IR embolization - will follow, please call with any questions or concerns Admission and Anticipated Discharge Date Admission Date: May 19, 2025 Subjective Attempted to see patient multiple times today and he was not in his room/off floor. Results & Data Vital Signs (Past 12 Hours) Vital Signs Temp Pulse Resp BP Pulse Ox O2 Del Method 05/26/25 08:34 120 H 148/93 H 94 Room Air 05/26/25 08:30 Room Air 05/26/25 07:42 36.8 C 109 H 20 151/99 H 92 Room Air PG Care Time/CCT Total # of Minutes Spent Total Time Spent with Patient: Total time spent is greater than 50% in coordination of care (as documented) at patient's floor/unit and/or counseling patient: Coding Level of Care Code None Diagnoses Kidney stones N20.0 MARIAMA (acute kidney injury) N17.9 Calculus of proximal right ureter N20.1 Calculus of proximal left ureter N20.1 Bilateral hydronephrosis N13.30 Hematoma of left kidney S37.012A
--- NOTE | 2025-05-26 14:50 | Hospitalist Progress Note ---
Date of Service May 26, 2025 Assessment & Plan (1) Hemorrhagic shock: Plan: -as noted by significant hypotension, elevated AG, and 6 point Hgb drop on admission -noted large hematomas on left kidney -received a unit of blood 05/20/2025 -CTA abdomen/pelvis revealed no active bleed, mass effect on left kidney per 05/2025 Plan: -daily CBC -continue plavix -restart eliquis outpatient, risk benefit discussion with outpatient radio sales account executive -start oxycodone q4hr prn and lidocaine patch for rib pain (2) MARIAMA (acute kidney injury): Plan: -resolved (3) Bilateral hydronephrosis: Plan: -Long history of bilateral nephrolithiasis and presented with left testicular pain -Noted to have bilateral hydronephrosis secondary to bilateral ureteric obstruction due to stone Plan: -Appreciate urology input and placement of bilateral ureteric stent -improved s/p stent placement (4) Hematoma of kidney: Plan: -Also has hematoma of the left kidney and is complicated by Eliquis -Eliquis is on hold and will Monitor hemoglobin -s/p pradaxa -appears stable at this time on imaging (5) Sepsis: Plan: -Presented with left testicular pain without any fever and/or chills -Has bilateral hydronephrosis with ureteric obstruction and very high white count with tachycardia -no MRSA prior on urine cultures, no urine culture growth -finished abx course 5/5 days (6) Calculus of proximal left ureter: (7) Calculus of proximal right ureter: (8) CAD (coronary artery disease): Plan: -Status post cath in November 2023 with JOCE in LAD and distal RCA and has been on Plavix -continue plavix (9) Atrial fibrillation: Plan: -relatively rate controlled Plan: -cardiology consulted, appreciate recs -increased dose of metoprolol -check CTA PE to r/o PE given ongoing tachycardia and new onset rib pain -continue to monitor Plan I spent a total of 45 minutes in direct patient care, including [id number] time with the patient and/or family, reviewing medical records, ordering and reviewing diagnostic tests, and coordinating care with other healthcare providers. This time includes: history taking, physical examination, medical decision making, counseling, ECG interpretation, imaging interpretation, lab interpretation, orders, and education, excluding time spent in the performance of separately billed services. Admission and Anticipated Discharge Date Admission Date: May 19, 2025 Subjective Patient seen and examined at bedside. Patient states he is having some left lower rib pain, feels a bit more SOB today. Otherwise looking forward to going to rehab. Review of Systems Review of Systems: CONSTITUTIONAL: fatigue, weakness, improving EYES: Patient denies any visual symptoms. EARS, NOSE, AND THROAT: No difficulties with hearing. No symptoms of rhinitis or sore throat. CARDIOVASCULAR: Patient denies chest pains, palpitations, orthopnea and paroxysmal nocturnal dyspnea. RESPIRATORY: SOB, left lower rib pain GI: No nausea, vomiting, diarrhea, constipation, abdominal pain, hematochezia or melena. : No urinary hesitancy or dribbling. No nocturia or urinary frequency. No abnormal urethral discharge. MUSCULOSKELETAL: No myalgias or arthralgias. NEUROLOGIC: No chronic headaches, no seizures. Patient denies numbness, tingling or weakness. PSYCHIATRIC: Patient denies problems with mood disturbance. No problems with anxiety. ENDOCRINE: No excessive urination or excessive thirst. DERMATOLOGIC: Patient denies any rashes or skin changes. Physical Exam Physical Exam: Gen: A&O 3 NAD HEENT: NCAT, EOMI, not icteric. External ears normal. No rhinorrhea. Moist mucous membranes. Neck: Supple, full range of motion, no observable masses, No meningeal sign. Lungs: No Respiratory distress. CV: tachycardic, irregular rhythm. Abdomen: Soft, nondistended, No rebound tenderness. Skin: No rashes, petechiae, lesions. Normal color per patient. Neuro: Normal Gait, Grossly intact. Psych: Appropriate for situation. Results & Data Results & Data Vital Signs (Past 12 Hours) Vital Signs Temp Pulse Resp BP Pulse Ox O2 Del Method 05/26/25 08:34 120 H 148/93 H 94 Room Air 05/26/25 08:30 Room Air 05/26/25 07:42 36.8 C 109 H 20 151/99 H 92 Room Air Laboratory Results -personally reviewed, Hgb stable/improving at 8.6, no leukocytosis, slightly low ionized calcium replenished Medications Administered Acetaminophen (Acetaminophen 500 Mg Tab) 1,000 mg PO Q8H PRN PRN Reason: Pain Stop: 06/23/25 07:56 Last Admin: 05/26/25 08:42 Dose: 1,000 mg Documented By: DEO Calcium/Vitamin D (Calcium 600mg + Vit D 400 Iu Tab) 1 tab PO DAILY [facility] Stop: 06/25/25 08:59 Last Admin: 05/26/25 09:23 Dose: 1 tab Documented By: DEO Clopidogrel Bisulfate (Clopidogrel Bisulfate 75 Mg Tab) 75 mg PO QAM [facility] Stop: 06/21/25 12:14 Last Admin: 05/26/25 09:23 Dose: 75 mg Documented By: Admin: 05/25/25 07:44 Dose: 75 mg Documented By: Admin: 05/24/25 08:53 Dose: 75 mg Documented By: Admin: 05/23/25 08:30 Dose: 75 mg Documented By: Admin: 05/22/25 12:32 Dose: 75 mg Documented By: CHRISTIANO Finasteride (Finasteride 5 Mg Tab) [facility] [place] Stop: 06/19/25 08:59 Last Admin: 05/26/25 09:23 Dose: 5 mg Documented By: Admin: 05/25/25 07:45 Dose: 5 mg Documented By: Admin: 05/24/25 08:52 Dose: 5 mg Documented By: Admin: 05/23/25 08:29 Dose: 5 mg Documented By: Admin: 05/22/25 08:51 Dose: 5 mg Documented By: Admin: 05/21/25 08:40 Dose: 5 mg Documented By: Admin: 05/20/25 08:36 Dose: 5 mg Documented By: JADE Insulin Aspart (Insulin Aspart Per Unit Charge) 0 units SC ACHS [facility] Stop: 06/18/25 20:59 Last Admin: 05/26/25 12:01 Dose: 2 units Documented By: DEO Co-signed By: KAYLYNN Admin: 05/26/25 08:29 Dose: 3 units Documented By: DEO Co-signed By: ISHAN Admin: 05/25/25 20:57 Dose: 2 units Documented By: WALTER Co-signed By: SAHIL Admin: 05/25/25 17:01 Dose: 3 units Documented By: FANNY Co-signed By: ISHAN Admin: 05/25/25 12:25 Dose: 4 units Documented By: FANNY Co-signed By: ROLA Admin: 05/25/25 07:56 Dose: 3 units Documented By: FANNY Co-signed By: ISHAN Admin: 05/24/25 20:42 Dose: 1 units Documented By: WALTER Co-signed By: HERMINIA Admin: 05/24/25 17:37 Dose: 3 units Documented By: JIMMIE Co-signed By: VGS Admin: 05/24/25 12:25 Dose: 4 units Documented By: JIMMIE Co-signed By: VGS Admin: 05/24/25 08:50 Dose: 2 units Documented By: JIMMIE Co-signed By: VGS Admin: 05/23/25 21:18 Dose: 2 units Documented By: MAHENDRA Co-signed By: MIGNON Admin: 05/23/25 17:31 Dose: 1 units Documented By: JIMMIE Co-signed By: VGS Admin: 05/23/25 11:51 Dose: 4 units Documented By: CHRISTIANO Co-signed By: WALTER(2) Admin: 05/23/25 08:02 Dose: Not Given Documented By: Admin: 05/22/25 21:05 Dose: Not Given Documented By: Admin: 05/22/25 17:31 Dose: 2 units Documented By: LAF Co-signed By: DAErica Admin: 05/22/25 12:31 Dose: 1 units Documented By: LAF Co-signed By: DAA Admin: 05/22/25 08:45 Dose: Not Given Documented By: Admin: 05/21/25 21:06 Dose: 1 units Documented By: DAFlor Co-signed By: ARELISS Admin: 05/21/25 17:17 Dose: Not Given Documented By: Admin: 05/21/25 12:58 Dose: 2 units Documented By: AK Co-signed By: MP Admin: 05/21/25 08:38 Dose: 4 units Documented By: AK Co-signed By: EP Admin: 05/20/25 21:27 Dose: 1 units Documented By: TOMP Co-signed By: EDWARD Admin: 05/20/25 16:51 Dose: Not Given Documented By: Admin: 05/20/25 13:08 Dose: 4 units Documented By: MTP Co-signed By: JBH Admin: 05/20/25 08:39 Dose: 2 units Documented By: MTP Co-signed By: JEAN CARLOS Admin: 05/19/25 20:57 Dose: 1 units Documented By: TP Co-signed By: LLP Multivitamins/Minerals (Cerovite Adv Formula Tab) [facility] [place] Stop: 06/19/25 08:59 Last Admin: 05/26/25 09:24 Dose: 1 tab Documented By: Admin: 05/25/25 07:45 Dose: 1 tab Documented By: Admin: 05/24/25 08:55 Dose: 1 tab Documented By: Admin: 05/23/25 08:29 Dose: 1 tab Documented By: Admin: 05/22/25 08:51 Dose: 1 tab Documented By: Admin: 05/21/25 08:40 Dose: 1 tab Documented By: Admin: 05/20/25 08:36 Dose: 1 tab Documented By: JADE Polyethylene Glycol (Polyethylene (Miralax) 17 Gm Pack) 17 gm PO DAILY [facility] Stop: 06/20/25 13:29 Last Admin: 05/26/25 08:36 Dose: 17 gm Documented By: Admin: 05/25/25 07:47 Dose: 17 gm Documented By: Admin: 05/24/25 09:00 Dose: 17 gm Documented By: Admin: 05/23/25 08:28 Dose: 17 gm Documented By: Admin: 05/22/25 08:52 Dose: Not Given Documented By: Admin: 05/21/25 14:25 Dose: Not Given Documented By: TOM Rosuvastatin Calcium (Rosuvastatin Calcium 20 Mg Tab) [facility] [place] Stop: 06/19/25 08:59 Last Admin: 05/26/25 09:24 Dose: 40 mg Documented By: Admin: 05/25/25 07:45 Dose: 40 mg Documented By: Admin: 05/24/25 08:54 Dose: 40 mg Documented By: Admin: 05/23/25 08:28 Dose: 40 mg Documented By: Admin: 05/22/25 08:51 Dose: 40 mg Documented By: Admin: 05/21/25 08:40 Dose: 40 mg Documented By: Admin: 05/20/25 08:36 Dose: 40 mg Documented By: JADE
--- NOTE | 2025-05-26 15:05 | XRay Report ---
XR chest 1V portable CLINICAL HISTORY: Left-sided rib pain. COMPARISON STUDY: Chest radiograph May 19, 2025. Chest CT December 21, 2018. FINDINGS: There is no pneumothorax. A moderate to large left pleural effusion has increased in size s john prior exam. Associated left basilar opacity has also significantly increased. Cardiomegaly is un changed. The vascular congestion is noted. IMPRESSION: 1. Increase in size of a moderate to large left pleural effusion with associated airspace opacity. 2. Cardiomegaly with pulmonary vascular congestion. ACT 112: Negative or not required by law. Electronically signed by: Earnest Victor M.D. 05/26/2025 3:03 PM
[2025-05-26] MEDS: LIDOCAINE 5% 1 PATCH TD SCH (15:14)
[2025-05-26] MEDS: OPTIRAY 320 125ml IV ONE (15:43)
--- NOTE | 2025-05-26 15:56 | CT Scan Report ---
CT angio chest PE protocol CT DOSE: 955.07 mGy.cm HISTORY: 80 years-old Male with PE. Acute shortness of breath TECHNIQUE: Multiple CTA images of the chest were obtained after the intravenous administration of 119 ml Optiray. Coronal and sagittal MIPS were obtained from the axial data set and were submitted for review. All measurements were obtained according to NASCET criteria. A dose lowering technique was u tilized adhering to the principles of ALARA. COMPARISON: CTA abdomen and pelvis May 20, 2025, chest CT December 21, 2018 FINDINGS: CTA: Mild cardiomegaly. Trace pericardial effusion. Moderate to extensive coronary artery calcifications. Atherosclerosis of the thoracic aorta without aneurysm or dissection. Subsegmental right lower lobe p ulmonary emboli. No central pulmonary emboli or evidence of right heart strain. CT CHEST: Unremarkable thyroid. Calcified mediastinal and hilar lymph nodes. Minimal subsegmental right basilar atelectasis. No pulmonary infarct. No pneumothorax. Loculated moderate sized left pleural effusion h as increased in size from the prior study. Left lung volume loss with left basilar consolidation/atel ectasis. There are a few scattered calcified granulomata of the left lung. Right nephrolithiasis. A left ureteral stent is in place. Small amount of air present within the bila teral renal collecting systems. Left-sided subcapsular hemorrhage with additional hemorrhage in the w ithin the perinephric and posterior pararenal spaces. No acute fracture. IMPRESSION: 1. Subsegmental right lower lobe pulmonary emboli. 2. Increased size of the moderate loculated left pleural effusion with left lung volume loss and left basilar consolidation. This likely represents atelectasis, however developing pneumonia could appear similarly. 3. Right nephrolithiasis again noted along with left subcapsular renal hematoma with hemorrhage withi n the left posterior pararenal space, better seen on the May 20, 2025 exam. ACT 112: Negative or not required by law. The above report was generated using voice recognition software. It may contain grammatical, syntax o r spelling errors. Electronically signed by: Win Barahona M.D. 05/26/2025 3:55 PM
--- NOTE | 2025-05-26 17:41 | Communication Note ---
CTA PE protocol ordered due to ongoing tachycardia and difficult to control atrial fibrillation with RVR with traditional therapies. Imaging revealed new subsegmental PE and moderate sized increasing pleural effusion, likely sources of new rib pain. Discussed risks and benefits of anticoagulation given recent large pericapsular renal bleed and hemorrhagic shock. Without treatment this PE will get larger and ultimately be deadly. There is a risk of bleeding and worsening pericapsular hematoma with treatment. Offered medical recommendation of starting heparin without bolus to judge's clerk response with monitoring for bleeding or decreasing Hgb, with transition to warfarin if tolerating without bleeding. He states he would like this option, and understands there is a risk of bleeding. Will start heparin treatment without bolus, with q12hr Hgb monitoring. Date of Service: May 26, 2025
[2025-05-26] MEDS: HEPARIN 25000 UNIT/500 ML D5W 25,000 UNITS/500 ML BAG IV SCH (19:10)
[2025-05-26] MEDS: Heparin IV Adult Wt-Based Standard *NO* INITIAL Bolus Protocol IV STA (19:31)
[2025-05-26] MEDS: METOPROLOL SUCC 25MG EXT REL TAB PO SCH (21:32)
[2025-05-26] MEDS: REMOVE LIDODERM PATCH SCH (21:33)
[2025-05-27 01:48] LABS: ANTI-Xa, UFH(UnfractionatedHep 0.24 IU/ml (0.3-0.7)
[2025-05-27 05:51] LABS: Hematocrit (blood only) 27.1 % (42.0-52.0); Hemoglobin 8.6 g/dl (14.0-18.0); Mean Corpuscular Hemoglobin 24.4 pg (25.0-34.0); Mean Corpuscular Volume 77.0 fL (80.0-100.0); Platelet Count 594 K/uL (130-400); RDW Standard Deviation 49.5 fL (36.4-46.3); Red Blood Count 3.52 M/uL (4.70-6.10); White Blood Count 9.60 K/ul (4.8-10.8)
[2025-05-27 06:08] LABS: Anion Gap 7.0 (3-11); Blood Urea Nitrogen 20.0 mg/dl (6-23); Calcium 7.9 mg/dl (8.6-10.3); Carbon Dioxide 30.0 mmol/L (21-32); Chloride 100.0 mmol/L (98-107); Creatinine Clr Calc Pharmacy 72.9 ml/min; Glucose 128.0 mg/dl (70-99(Fasting)); Magnesium 1.4 mg/dl (1.7-2.4); Potassium 4.1 mmol/L (3.5-5.1); Sodium 137.0 mmol/L (136-145)
[2025-05-27 08:47] LABS: ANTI-Xa, UFH(UnfractionatedHep 0.30 IU/ml (0.3-0.7)
--- NOTE | 2025-05-27 11:40 | Cardiology Progress Note ---
Date of Service May 27, 2025 Assessment & Plan (1) Atrial fibrillation: (2) Pulmonary embolism: (3) Uropathy, obstructive: (4) Hematoma of kidney: (5) Microcytic anemia: (6) CAD (coronary artery disease): Plan Patient is a complex 80-year-old male with known coronary disease with prior current intervention November 2023, longstanding persistent atrial fibrillation. Patient on chronic antiplatelet and anticoagulant therapy with clopidogrel (CAD) and apixaban (Stroke prophylaxis in the setting of persistent atrial fibrillation). CTA chest on 05/26/25-summary of radiology report 1. Subsegmental right lower lobe pulmonary emboli. 2. Increased size of the moderate loculated left pleural effusion with left lung volume loss and left basilar consolidation. This likely represents atelectasis, however developing pneumonia could appear similarly. 3. Right nephrolithiasis again noted along with left subcapsular renal hematoma with hemorrhage within the left posterior pararenal space, better seen on the May 20, 2025 exam. 1. Longstanding persistent atrial fibrillation with elevated ventricular response secondary to acute illness. -increased metoprolol succinate to 125 mg PO BID on 05/26/25. -Dr Yan once again discussed option of Watchman device with patient on 05/26. Patient declines. 2. Chronic coronary artery disease status post drug-eluting stents November 2023. To reduce risk of bleeding will stop clopidogrel and start ASA [address] 3. Obstructive uropathy, subcapsular renal hemorrhage. Renal function improved 4. pt now on low dose heparin infusion. Hgb stable. Eliazar Yan DO Admission and Anticipated Discharge Date Admission Date: May 19, 2025 Subjective Patient seen in cardiology follow up. Events from late yesterday noted. Pt now on heparin infusion and transfer to the telemetry unit. Telemetry reveals atrial fibrillation with ventricular rates in the range of 110 -130 bpm. Physical Exam Constitutional: + obese; no acute distress Eyes: PERRL, conjunctivae normal, anicteric sclerae Neck: trachea midline Respiratory: + cough; no labored breathing Auscult ation: + diminished lung sounds (decreased breath sounds of left lung base ); no crackles and no wheezes Cardiovascular: Rate/Rhythm: + tachycardic and + irregularly irregular Heart Sounds: + murmur (1/6 SM ) Extremities: no edema Gastrointestinal (Abdomen): normal bowel sounds, soft, nontender, no hepatosplenomegaly Neurologic: PERRL, EOMI, accommodation nl, no face palsy, no dysarthria Results & Data Vital Signs (Past 12 Hours) Vital Signs Temp Pulse Pulse Resp BP BP Pulse Ox 05/27/25 11:04 37.2 C 100 H 20 124/84 91 05/27/25 08:00 05/27/25 08:00 145 H 05/27/25 07:39 37.1 C 112 H 18 124/76 92 05/27/25 03:08 37.5 C 116 H 18 134/81 92 O2 Del Method 05/27/25 11:04 Room Air 05/27/25 08:00 Room Air 05/27/25 08:00 05/27/25 07:39 Room Air 05/27/25 03:08 Room Air Laboratory Results CBC 05/27/25 Range/Units 05:22 WBC 9.60 (4.8-10.8) K/ul RBC 3.52 L (4.70-6.10) M/uL Hgb 8.6 L (14.0-18.0) g/dl Hct 27.1 L (42.0-52.0) % Plt Count 594 H (130-400) K/uL Comprehensive Metabolic Panel 05/27/25 Range/Units 05:22 Sodium 137 (136-145) mmol/L Potassium 4.1 (3.5-5.1) mmol/L Chloride 100 (98-107) mmol/L Carbon Dioxide 30 (21-32) mmol/L BUN 20 (6-23) mg/dl Creatinine 1.06 (0.6-1.4) mg/dl Glucose 128 H (70-99(Fasting)) mg/dl Calcium 7.9 L (8.6-10.3) mg/dl Intake and Output 05/26/25 05/27/25 05/27/25 22:59 06:59 14:59 Intake Total 122 / 724.3 362.3 / 724.3 265.70 / 265.70 Output Total 525 / 1775 400 / 1775 Balance -403 / -1050.7 -37.7 / -1050.7 265.70 / 265.70 Intake: IV 22 / 234.3 212.3 / 234.3 265.70 / 265.70 Heparin 77580 Unit/500 ml D5w 22 / 234.3 212.3 / 234.3 265.70 / 265.70 25,000 units In 500 ml @ 1,750 UNITS/HR 35 mls/hr IV .[id number] [facility] Rx#:[id number] Oral 100 / 490 150 / 490 Output: Urine Amount (Catheter) 525 / 1775 400 / 1775 Knutson/Indwelling 525 / 1775 400 / 1775 Other: Weight 123.6 kg Weight Measurement Method Built in [facility] PG Care Time/CCT Total # of Minutes Spent Total Time Spent with Patient: Total time spent is greater than 50% in coordination of care (as documented) at patient's floor/unit and/or counseling patient: Coding Level of Care Code 96700 SUB INP/OBS CARE 3/50MIN Diagnoses Atrial fibrillation I48.91 Pulmonary embolism I26.99 Uropathy, obstructive N13.9 Hematoma of kidney S37.019A Microcytic anemia D50.9 CAD (coronary artery disease) I25.10
--- NOTE | 2025-05-27 12:27 | Hospitalist Progress Note ---
Date of Service May 27, 2025 Assessment & Plan (1) Hemorrhagic shock: (2) Hematoma of left kidney: (3) Calculus of proximal right ureter: (4) Calculus of proximal left ureter: (5) Bilateral hydronephrosis: (6) Chronic atrial fibrillation: (7) Pulmonary embolism: (8) MARIAMA (acute kidney injury): (9) CAD (coronary artery disease): (10) Diabetes mellitus type 2, noninsulin dependent: Plan Patient 80-year-old gentleman on chronic anticoagulation for atrial fibrillation presented to the hospital in hemorrhagic shock due to renal hematoma. Patient status post transfusion of 1 unit of packed red blood cells. Also concern for sepsis in the setting of bilateral ureteral stones and hydronephrosis. Patient status post urological intervention. Kidney function has improved. Has completed a course of antibiotics. Subsequently patient diagnosed with right pulmonary embolism. Risks and benefits of restarting anticoagulation discussed with the patient yesterday. Chose to monitor him on heparin. Heparin is therapeutic. Hemoglobin is stable. Will continue to monitor on heparin another 24 hours. If hemoglobin remains stable anticipate transitioning back to Eliquis and continue to monitor hemoglobin. Discussion with cardiology, anticipate continuing aspirin only with his Eliquis. Has completed 6 months of Plavix status post drug-eluting stent placement Continue therapies Communication with case management, pursuing placement at [facility], insurance authorization has been granted. Follow-up with urology outpatient for definitive treatment of stones Admission and Anticipated Discharge Date Admission Date: May 19, 2025 Subjective Patient still with some pleuritic pain with deep breaths but overall feeling better. No new shortness of breath Physical Exam Physical Exam: Constitutional: Alert HEENT: Mucous membranes moist. Lungs: decreased breath sounds, few crackles CV: S1-S2, irregular, systolic murmur Abdomen: Soft, nontender, nondistended Extremities: No significant edema Neuro: No focal deficits Psych: Cooperative, normal mood Results & Data Results & Data Vital Signs (Past 12 Hours) Vital Signs Temp Pulse Pulse Resp BP BP Pulse Ox 05/27/25 11:04 37.2 C 100 H 20 124/84 91 05/27/25 08:00 05/27/25 08:00 145 H 05/27/25 07:39 37.1 C 112 H 18 124/76 92 05/27/25 03:08 37.5 C 116 H 18 134/81 92 O2 Del Method 05/27/25 11:04 Room Air 05/27/25 08:00 Room Air 05/27/25 08:00 05/27/25 07:39 Room Air 05/27/25 03:08 Room Air Diagnostic Findings Reviewed imaging, laboratory and diagnostic studies. Pertinent findings as below. WBCs 9.6 Hemoglobin 8.6, stable Platelets of 594 Creatinine 1.06 Magnesium 1.4 CTA of the chest showed subsegmental right lower lobe pulmonary emboli, left pleural effusion increasing in size, right nephro lithiasis noted. Left subcaps ular renal hematoma with hemorrhage appears to be stable
[2025-05-27] MEDS: MAGNESIUM SULFATE / D5W 1 GM/100 ML BAG IV SCH (13:07)
[2025-05-27] MEDS: MAGNESIUM OXIDE 400 MG TAB PO SCH (13:07)
--- NOTE | 2025-05-27 14:08 | Urology Progress Note ---
Date of Service May 27, 2025 Assessment & Plan (1) Kidney stones: (2) MARIAMA (acute kidney injury): (3) Calculus of proximal right ureter: (4) Calculus of proximal left ureter: (5) Bilateral hydronephrosis: (6) Hematoma of left kidney: Plan Follow-up bilateral obstructing stones s/p stent placement and left renal hematoma - Pt POD#8 s/p emergent cystoscopy and bilateral ureteral stent placement due to bilateral obstructing stones - Tolerating the stents with minimal bother. - CTA 05/20/2025 with stable left subcapsular renal hemorrhage, no active extravasation, no pseudoaneurysm, no new sites of bleeding within the abdomen pelvis - Afebrile, tachycardic, BP stable. - Labs reviewedcreatinine 1.06, WBC 9.60, Hemoglobin stable 8.6 - Urine culture with 3 types of organisms present, all low counts probable skin ever; Blood cultures no growth - Has subsequently been diagnosed with right pulmonary embolism, now on Heparin. - Maintain Knutson catheter. - Will need follow-up with our office to arrange definitive stone treatment. - Anticoagulation per primary team/cardiology. - will follow, please call with any questions/concerns or changes in patient status. Admission and Anticipated Discharge Date Admission Date: May 19, 2025 Subjective Pt seen at bedside today. Awake and sitting in bedside chair on arrival. No acute distress. Knutson draining clear yellow urine. Review of Systems Constitutional: as per Subjective / HPI Genitourinary: + as per Subjective / HPI Physical Exam Constitutional: no acute distress Respiratory: no respiratory distress and no labored breathing Neurologic: moves all extremities and awake Psychiatric: A+Ox3, euthymic affect Genitourinary: Knutson intact Results & Data Vital Signs (Past 12 Hours) Vital Signs Temp Pulse Pulse Resp BP BP Pulse Ox 05/27/25 13:25 150 H 107/63 05/27/25 11:04 37.2 C 100 H 20 124/84 91 05/27/25 08:00 05/27/25 08:00 145 H 05/27/25 07:39 37.1 C 112 H 18 124/76 92 05/27/25 03:08 37.5 C 116 H 18 134/81 92 O2 Del Method 05/27/25 13:25 05/27/25 11:04 Room Air 05/27/25 08:00 Room Air 05/27/25 08:00 05/27/25 07:39 Room Air 05/27/25 03:08 Room Air PG Care Time/CCT Total # of Minutes Spent Total Time Spent with Patient: Total time spent is greater than 50% in coordination of care (as documented) at patient's floor/unit and/or counseling patient: Coding Level of Care Code 44105 SUB INP/OBS CARE 2/35MIN Diagnoses Kidney stones N20.0 MARIAMA (acute kidney injury) N17.9 Calculus of proximal right ureter N20.1 Calculus of proximal left ureter N20.1 Bilateral hydronephrosis N13.30 Hematoma of left kidney S37.012A
[2025-05-27 14:18] LABS: Hematocrit (blood only) 28.3 % (42.0-52.0); Hemoglobin 9.0 g/dl (14.0-18.0)
[2025-05-28 04:02] VITALS: O2SAT 91
[2025-05-28 06:11] LABS: Hematocrit (blood only) 27.2 % (42.0-52.0); Hemoglobin 8.4 g/dl (14.0-18.0); Mean Corpuscular Hemoglobin 24.0 pg (25.0-34.0); Mean Corpuscular Volume 77.7 fL (80.0-100.0); Platelet Count 545 K/uL (130-400); RDW Standard Deviation 49.5 fL (36.4-46.3); Red Blood Count 3.50 M/uL (4.70-6.10); White Blood Count 8.77 K/ul (4.8-10.8)
[2025-05-28 06:27] LABS: Anion Gap 6.0 (3-11); Blood Urea Nitrogen 19.0 mg/dl (6-23); Calcium 7.8 mg/dl (8.6-10.3); Carbon Dioxide 32.0 mmol/L (21-32); Chloride 98.0 mmol/L (98-107); Creatinine Clr Calc Pharmacy 77.3 ml/min; Glucose 110.0 mg/dl (70-99(Fasting)); Magnesium 1.7 mg/dl (1.7-2.4); Potassium 3.9 mmol/L (3.5-5.1); Sodium 136.0 mmol/L (136-145)
[2025-05-28 06:36] LABS: ANTI-Xa, UFH(UnfractionatedHep 0.26 IU/ml (0.3-0.7)
[2025-05-28] MEDS: APIXABAN 5 MG TABLET PO SCH (10:51)
--- NOTE | 2025-05-28 11:56 | Urology Progress Note ---
Date of Service May 28, 2025 Assessment & Plan (1) Kidney stones: (2) MARIAMA (acute kidney injury): (3) Calculus of proximal right ureter: (4) Calculus of proximal left ureter: (5) Bilateral hydronephrosis: (6) Hematoma of left kidney: Plan Follow-up bilateral obstructing stones s/p stent placement and left renal hematoma - Pt POD#9 s/p emergent cystoscopy and bilateral ureteral stent placement due to bilateral obstructing stones - Tolerating the stents with minimal bother. - CTA 05/20/2025 with stable left subcapsular renal hemorrhage, no active extravasation, no pseudoaneurysm, no new sites of bleeding within the abdomen pelvis - Afebrile with stable vitals at present. - Labs reviewedcreatinine 1.02, WBC 8.77, Hemoglobin stable 8.4 - Urine culture with 3 types of organisms present, all low counts probable skin ever; Blood cultures no growth - Has subsequently been diagnosed with right pulmonary embolism, now on Heparin. - Maintain Knutson catheter. - Will need follow-up with our office to arrange definitive stone treatment. - Anticoagulation per primary team/cardiology. - will follow, please call with any questions/concerns or changes in patient status. Admission and Anticipated Discharge Date Admission Date: May 19, 2025 Subjective Pt seen at bedside today. Awake and resting in bed on arrival. No acute distress. Knutson draining clear yellow urine. Denies pain. No fevers. Review of Systems Constitutional: as per Subjective / HPI Genitourinary: + as per Subjective / HPI Physical Exam Constitutional: no acute distress Respiratory: no respiratory distress and no labored breathing Neurologic: moves all extremities and awake Psychiatric: A+Ox3, euthymic affect Genitourinary: Knutson intact Results & Data Vital Signs (Past 12 Hours) Vital Signs Temp Pulse Resp BP Pulse Ox O2 Del Method 05/28/25 07:50 36.8 C 89 19 132/78 91 Room Air 05/28/25 04:01 36.7 C 98 H 18 143/88 H 91 Room Air PG Care Time/CCT Total # of Minutes Spent Total Time Spent with Patient: Total time spent is greater than 50% in coordination of care (as documented) at patient's floor/unit and/or counseling patient: Coding Level of Care Code 34665 SUB INP/OBS CARE 1/25MIN Diagnoses Kidney stones N20.0 MARIAMA (acute kidney injury) N17.9 Calculus of proximal right ureter N20.1 Calculus of proximal left ureter N20.1 Bilateral hydronephrosis N13.30 Hematoma of left kidney S37.012A
--- NOTE | 2025-05-28 12:27 | Cardiology Progress Note ---
Date of Service May 28, 2025 Assessment & Plan (1) Atrial fibrillation: (2) Pulmonary embolism: (3) Uropathy, obstructive: (4) Hematoma of kidney: (5) Microcytic anemia: (6) CAD (coronary artery disease): Plan Patient is a complex 80-year-old male with known coronary disease with prior current intervention November 2023, longstanding persistent atrial fibrillation. Patient on chronic antiplatelet and anticoagulant therapy with clopidogrel (CAD) and apixaban (Stroke prophylaxis in the setting of persistent atrial fibrillation). CTA chest on 05/26/25-summary of radiology report 1. Subsegmental right lower lobe pulmonary emboli. 2. Increased size of the moderate loculated left pleural effusion with left lung volume loss and left basilar consolidation. This likely represents atelectasis, however developing pneumonia could appear similarly. 3. Right nephrolithiasis again noted along with left subcapsular renal hematoma with hemorrhage within the left posterior pararenal space, better seen on the May 20, 2025 exam. 1. Longstanding persistent atrial fibrillation with elevated ventricular response secondary to acute illness. -increased metoprolol succinate to 125 mg PO BID on 05/26/25. -Dr Yan once again discussed option of Watchman device with patient on 05/26. Patient declines. 2. Chronic coronary artery disease status post drug-eluting stents November 2023. To reduce risk of bleeding will stop clopidogrel and start ASA [address] 3. Obstructive uropathy, subcapsular renal hemorrhage. Renal function improved 4. pt now on low dose heparin infusion. Hgb stable. -repeat echo 05/28/25 to reassess given AF and pulmonary embolsim. Eliazar Yan, Admission and Anticipated Discharge Date Admission Date: May 19, 2025 Subjective Patient seen cardiology follow-up. No subjective cardiac complaint. Remains in atrial fibrillation and rates for the most part are in the 100-110's. Physical Exam Constitutional: + obese; no acute distress Eyes: PERRL, conjunctivae normal, anicteric sclerae ENMT: external ear and nose normal, oropharynx normal Neck: trachea midline, no thyromegaly trachea midline Respiratory: + cough; no labored breathing Auscult ation: lungs clear to auscultation bilaterally and + diminished lung sounds (decreased breath sounds of left lung base ); no crackles and no wheezes Cardiovascular: Rate/Rhythm: + tachycardic and + irregularly irregular Hea rt Sounds: normal S1, normal S2 and + murmur (1/6 SM ) Vessels: no JVD Extremities: no edema Gastrointestinal (Abdomen): normal bowel sounds, soft, nontender, no hepatosplenomegaly Neurologic: PERRL, EOMI, accommodation nl, no face palsy, no dysarthria Results & Data Vital Signs (Past 12 Hours) Vital Signs Temp Pulse Resp BP Pulse Ox O2 Del Method 05/28/25 07:50 36.8 C 89 19 132/78 91 Room Air 05/28/25 04:01 36.7 C 98 H 18 143/88 H 91 Room Air Laboratory Results Temp Pulse Resp BP Pulse Ox O2 Del Method O2 Flow Rate 36.8 C 89 19 132/78 91 Room Air 2 05/28/25 07:50 05/28/25 07:50 05/28/25 07:50 05/28/25 07:50 05/28/25 07:50 05/28/25 07:50 05/20/25 03:18 PG Care Time/CCT Total # of Minutes Spent Total Time Spent with Patient: Total time spent is greater than 50% in coordination of care (as documented) at patient's floor/unit and/or counseling patient: Coding Level of Care Code 21112 SUB INP/OBS CARE 3/50MIN Diagnoses Atrial fibrillation I48.91 Pulmonary embolism I26.99 Uropathy, obstructive N13.9 Hematoma of kidney S37.019A Microcytic anemia D50.9 CAD (coronary artery disease) I25.10
[2025-05-28 12:30] VITALS: BP 124/83; RESP 20; TEMP 99.3
--- NOTE | 2025-05-28 13:13 | Discharge Summary ---
Discharge Summary Date of Service May 28, 2025 Principal Dx & Hospital Course #1 = Principal Diagnosis (1) Hemorrhagic shock: (2) Hematoma of left kidney: (3) Calculus of proximal right ureter: (4) Calculus of proximal left ureter: (5) Bilateral hydronephrosis: (6) Chronic atrial fibrillation: (7) Pulmonary embolism: (8) MARIAMA (acute kidney injury): (9) CAD (coronary artery disease): (10) Diabetes mellitus type 2, noninsulin dependent: Plan Patient 80-year-old gentleman with history of chronic atrial fibrillation on anticoagulation presented to the emergency room with worsening testicular pain and nausea and vomiting. Also noted to have A-fib with RVR and an increased white blood cell count. Imaging in the emergency room showed bilateral ureteral calculi with hydronephrosis. Also noted a large subcapsular hemorrhage of the left kidney. He was initially hypotensive and some evidence of hemorrhagic shock and was admitted to the ICU. Patient was transfused 1 unit packed red blood cells. Cardiology and urology consultations were obtained along with critical care. Patient's blood pressures responded to fluid and blood resuscitation. Metoprolol was used to control his atrial fibrillation. His Eliquis was held at the time of admission. Patient ultimately stabilized and was transferred out of the ICU. Patient subsequently underwent emergent cystoscopy with bilateral ureteral stent placement. Postoperatively his symptoms improved. Cardiology continue to adjust his beta-isis for better rate control. However patient still's remained in somewhat rapid ventricular response. This prompted CTA of the chest which showed pulmonary embolism. At this point the patient had been off his anticoagulation his hemoglobin had stabilized. After discussion with the patient proceeded with starting heparin to treat his pulmonary embolism. His hemoglobin remained stable with the initiation of heparin. He was subsequently transition to Eliquis. There is no evidence of any ongoing bleeding. Rates are better controlled with the increase metoprolol. Cardiology recommended discontinuing Plavix, he had been on it adequate time after his drug-eluting stent and only utilizing Ecotrin for his CAD. However the patient was significantly physically decompensated. Case management was involved in his care along with therapies. Ultimately arrangements were made for him to continue his care and rehabilitation at [facility]. The day of discharge vital signs are stable his heart rate was right around 100. Tolerate heart rates up to the 120s 130s as long as they are not persistent and with activity. Hemoglobin was stable. Other electrolytes were stable. He will be discharged for ongoing management outpatient. Follow-up with urology and cardiology. Notes For Next Care Provider Follow-up with cardiology Follow-up with urology for definitive care ureteral stents Monitor hemoglobin weekly Consider follow-up imaging CT of the abdomen to ensure improving hematoma Medication Changes From Visit Plavix discontinued Echo trend started Lidoderm patch for pain control Admission HPI Per Admitting Provider he is an 80-year-old male with significant past medical history of extensive bilateral nephrolithiasis, type 2 diabetes, chronic heart failure with reduced EF, obstructive sleep apnea, hypertension, hip persistent atrial fibrillation, obesity, melena and major depressive disorder apparently has been complaining of worsening left testicular pain for the last few days. He has had nausea and vomited twice. She denies any fever and/or chills., Any problem with urine and or bowel habit. Denies any chest pain and/or palpitation and no cough and/or shortness of breath. he was noted to be in atrial fibrillation with rapid ventricular response, very high white count of more than 25,000, low hemoglobin of 8.[address] of the abdomen pelvis showed bilateral nephrolithiasis, bilateral hydronephrosis secondary to bilateral obstructing UPJ stone and large subcapsular hemorrhage of the left kidney. He was restarted with intravenous antibiotic and intravenous diltiazem and was taken to or and put bilateral ureteric stent by the urologist. he has been resting without significant symptoms in the ICU. Admission Exam Per Admitting Provider See H&P Discharge Exam Constitutional: Alert, nontoxic HEENT: Mucous membranes moist. Lungs: Clear to auscultation, decreased, no wheezes rales or rhonchi CV: S1-S2, irregular, systolic murmur Abdomen: Soft, nontender, nondistended Extremities: No significant edema Neuro: No focal deficits Psych: Cooperative, normal mood Updated Medication List Medication Instructions Recorded Confirmed Type jafcoadssvym-gzhzeeks-crtfkn tablet 1 tab PO QAM 02/11/24 05/19/25 History Prevagen 1 cap PO QAM 03/28/24 05/19/25 History metoprolol succinate 100 mg 100 mg PO BID 03/28/24 05/19/25 History tablet,extended release 24 hr clopidogrel 75 mg tablet 75 mg PO QAM 05/19/25 05/19/25 History acetaminophen 500 mg tablet 1,000 mg (2 x 500 mg) PO Q8H PRN 05/28/25 Rx (Tylenol Extra Strength) fever or pain #100 tabs apixaban 5 mg tablet (Eliquis) 5 mg PO BID #60 tabs 05/28/25 Rx aspirin 81 mg tablet,delayed 81 mg PO QAM #30 tabs 05/28/25 Rx release calcium 600 mg-D3 800 unit-mag11 1 tab PO DAILY #30 tabs 05/28/25 Rx 50 pn-opnw-khfztd-maikel-s.borat tablet (Caltrate 600-D Plus Minerals) finasteride 5 mg tablet 5 mg PO QAM #30 tabs 05/28/25 Rx lidocaine 5 % topical patch 1 patch transdermal QAM #10 ea 05/28/25 Rx losartan 25 mg tablet 25 mg PO QAM #30 tabs 05/28/25 Rx magnesium oxide 400 mg (241.3 mg 400 mg PO BID #60 tabs 05/28/25 Rx magnesium) tablet metformin 500 mg tablet,extended 1,000 mg (2 x 500 mg) PO BID #120 05/28/25 Rx release 24 hr tabs metoprolol succinate 50 mg 125 mg (2.5 x 50 mg) PO BID #120 05/28/25 Rx tablet,extended release 24 hr tabs (Toprol XL) polyethylene glycol 3350 17 gram 17 g PO DAILY #30 ea 05/28/25 Rx oral powder packet (Miralax) rosuvastatin 40 mg tablet 40 mg PO QAM #30 tabs 05/28/25 Rx vitamins A,C,V-pqww-xeqhyt 4,296 1 cap PO QAM #30 caps 05/28/25 Rx mcg-226 mg-90 mg capsule (PreserVision AREDS) Hospital Stay Data Consultations 05/19/25 16:08 ED Decision to Admit Stat 05/19/25 16:57 Consult Practice Consultant Routine 05/19/25 19:01 Consult Cardiology Routine Procedures Performed Operation Date: 05/19/25 10:00 Actual Procedures p Cystoscopy, Bilateral Ureteral Stent Placement(Bilateral) - Hebert Nelson MD Diagnostic Imagining Performed 05/19/25 FL retrograde includes kub Routine 05/19/25 13:48 US scrotum/testicle Stat 05/19/25 14:35 CT abd pelvis wo con Stat 05/20/25 05:00 US abdomen limited Routine 05/20/25 12:04 CTA abdomen pelvis w con [CT angio abdomen pelvis w con] Urgent 05/26/25 14:37 CT angio chest PE protocol Urgent Reviewed imaging, laboratory and diagnostic studies. Pertinent findings as below. WBCs 8.7 Hemoglobin 8.4 Platelets of 545 Electrolytes within normal range Creatinine 1.02 CTA of the chest showed subsegmental right lower lobe pulmonary emboli, left pleural effusion with some atelectasis CT of the abdomen and pelvis showed stable left renal subcapsular hematoma, bilateral ureteral stents in place no change in small amount of left perinephric hemorrhage. Pending Results Patient Have Any Pending Studies at Discharge: No Discharge Instructions Given to Patient (Per Discharging Provider) He will maintain the Knutson catheter until you follow-up with urology He will follow-up with urology for discussion definitive management of your stones Recommend continue to follow your blood counts while you are doing your rehab Total Time Total Time Spent Total Time Spent (In Minutes): 40
[2025-05-28 13:38] VITALS: PULSE 110
[2025-05-28] MEDS: ASPIRIN 81 MG ECTAB PO SCH (14:04)
== END 2025-05-28 14:50 | DRG 853 ==
LOC: ED 13:13 → OR 16:35 → 1E 16:57 → SUATTDRO 16:57 → 2S 05-20 13:42 → 3E 05-23 16:01 → 4W 05-26 20:32
DX: A41.9 Sepsis, unspecified organism; Z66 Do not resuscitate; I26.93 Single subsegmental thrombotic pulmonary embolism without acute cor pulmonale; Y92.019 Unspecified place in single-family (private) house as the place of occurrence of the external cause; I48.11 Longstanding persistent atrial fibrillation; F32.9 Major depressive disorder, single episode, unspecified; T45.7X5A Adverse effect of anticoagulant antagonists, vitamin K and other coagulants, initial encounter; D62 Acute posthemorrhagic anemia; I50.22 Chronic systolic (congestive) heart failure; D68.32 Hemorrhagic disorder due to extrinsic circulating anticoagulants; N17.0 Acute kidney failure with tubular necrosis; Z79.02 Long term (current) use of antithrombotics/antiplatelets; R57.8 Other shock; N13.6 Pyonephrosis; G47.33 Obstructive sleep apnea (adult) (pediatric); D64.9 Anemia, unspecified; Z79.84 Long term (current) use of oral hypoglycemic drugs; Z95.5 Presence of coronary angioplasty implant and graft; I11.0 Hypertensive heart disease with heart failure; E66.9 Obesity, unspecified; Z87.891 Personal history of nicotine dependence; Z79.01 Long term (current) use of anticoagulants; E11.9 Type 2 diabetes mellitus without complications; Z86.73 Personal history of transient ischemic attack (TIA), and cerebral infarction without residual deficits; I25.10 Atherosclerotic heart disease of native coronary artery without angina pectoris; N28.89 Other specified disorders of kidney and ureter